=== PATIENT | female | born 1985 | race Caucasian/White ===

== ENCOUNTER → 2018-10-07 17:27 | Outpatient (CLI) | payer MEDICAID, SELFPAY ==
[2018-10-07 18:55] LABS: Alanine Aminotransferase 22 U/L (12-78); Albumin Level 3.4 gm/dL (3.4-5.0); Albumin/Globulin Ratio 0.9 (1.1-1.8); Alkaline Phosphatase 61 U/L (46-116); Aspartate Amino Transferase 16 U/L (15-37); Bilirubin,Total 0.2 mg/dL (0.2-1.0); Blood Urea Nitrogen 18 mg/dL (7-18); Calcium 8.8 mg/dL (8.5-10.1); Carbon Dioxide 24 mmol/L (21.0-32.0); Chloride 106 mmol/L (98-107); Chol/HDL Ratio 3.9 (1-3.5); Cholesterol 164 mg/dL (140-200); Creatinine,Serum 0.75 mg/dL (0.55-1.02); Estimated Glomerular Filt Rate 90 ml/min (>60); GFR (African American) 109 ML/MIN (>60); Globulin 3.7 gm/dl (1.3-3.2); Glucose 96 mg/dL (74-106); HDL Cholesterol 42 mg/dL (29-89); LDL Cholesterol 103 mg/dL (0-130); Sodium 142 mmol/L (136-145); Thyroid Stimulating Hormone 1.66 uIU/ml (0.358-3.740); Total Protein,Serum 7.1 gm/dL (6.4-8.2); Triglycerides 97 mg/dL (30-200); VLDL Cholesterol 19 mg/dL (0-40)
[2018-10-07 19:01] LABS: Basophils % 0.3 % (0.1-2.0); Eosinophils # 0.2 K/mm3 (0.0-0.4); Eosinophils % 1.6 % (0.1-12.0); Hematocrit 39.3 % (37.0-47.0); Hemoglobin 12.3 g/dL (12.2-16.2); Lymphocytes # 2.1 K/mm3 (0.7-4.5); Lymphocytes % 20.1 % (10-50); Mean Corpuscular HGB Conc 31.2 g/dL (31.8-35.4); Mean Corpuscular Hemoglobin 27.5 pg (27.0-31.2); Mean Corpuscular Volume 88.2 fl (81-99); Mean Platelet Volume 9.3 fl (7.4-10.4); Monocytes # 0.3 K/mm3 (0.1-1.0); Monocytes % 3.3 % (1.7-9.3); Neutrophils # 7.7 K/mm3 (1.8-7.8); Neutrophils % 74.7 % (37.0-80.0); Platelet Count 301 K/mm3 (142-424); Red Blood Count 4.45 M/mm3 (4.20-5.40); White Blood Count 10.3 K/mm3 (4.8-10.8)
== END ==
PROVIDERS: Visit Provider Emergency Medicine
DX: R53.83 Other fatigue (principal)
CPT/HCPCS: 80053; 80061; 84439; 84443; 85025

== ENCOUNTER → 2019-01-17 17:09 | Outpatient (CLI) | payer MEDICAID, SELFPAY ==
[2019-01-17 18:42] LABS: Amphetamine/Metha Screen,Urine Negative ng/mL (<1000); Barbiturates Screen,Urine Negative ng/mL (<200); Benzodiazepines Screen,Urine Positive ng/mL (<200); Cannabinoid Screen,Urine Negative ng/mL (<50); Cocaine Screen,Urine Positive ng/mL (<300); Methadone Screen,Urine Negative ng/mL (<300); Opiate Screen,Urine Negative ng/mL (<300); Phencyclidine Screen,Urine Negative ng/mL (<25)
[2019-01-24 11:11] LABS: Benzoylecgonine (GC/MS) 1525 ng/mL (Cutoff=150); Cocaine + Metabolite Positive (.)
== END ==
PROVIDERS: Visit Provider Emergency Medicine
DX: F41.9 Anxiety disorder, unspecified (principal); R82.90 Unspecified abnormal findings in urine
CPT/HCPCS: 80305; 80353; 87086; 87088; 87186

== ENCOUNTER → 2019-09-01 16:55 | Outpatient (CLI) | payer OTHER, SELFPAY ==
[2019-09-01 17:58] LABS: Basophils # 0.1 K/mm3 (0-0.2); Basophils % 1.2 % (0.1-2.0); Eosinophils # 0.3 K/mm3 (0.0-0.4); Eosinophils % 3.7 % (0.1-12.0); Hematocrit 39.2 % (37.0-47.0); Hemoglobin 12.6 g/dL (12.2-16.2); Lymphocytes # 2.6 K/mm3 (0.7-4.5); Lymphocytes % 29.8 % (10-50); Mean Corpuscular HGB Conc 32.1 g/dL (31.8-35.4); Mean Corpuscular Volume 83.9 fl (81-99); Mean Platelet Volume 8.5 fl (7.4-10.4); Monocytes # 0.4 K/mm3 (0.1-1.0); Monocytes % 4.8 % (1.7-9.3); Neutrophils # 5.2 K/mm3 (1.8-7.8); Neutrophils % 60.4 % (37.0-80.0); Platelet Count 439 K/mm3 (142-424); Red Blood Count 4.67 M/mm3 (4.20-5.40); Red Cell Distribution Width 14.4 % (11.5-17.5); White Blood Count 8.6 K/mm3 (4.8-10.8)
[2019-09-01 18:28] LABS: Erythrocyte Sedimentation Rate 66 mm/hr (0-20)
[2019-09-01 18:50] LABS: Alanine Aminotransferase 11 U/L (12-78); Albumin Level 4.5 g/dl (3.5-5.0); Albumin/Globulin Ratio 1.2 (1.1-1.8); Alkaline Phosphatase 89 U/L (38-126); Aspartate Amino Transferase 20 U/L (14-36); Blood Urea Nitrogen 23 mg/dl (7-17); Calcium 10.4 mg/dl (8.4-10.2); Carbon Dioxide 25 mmol/L (22.0-30.0); Chloride 108 mmol/L (98-107); Estimated Glomerular Filt Rate 117 ml/min (>60); GFR (African American) 141 ML/MIN (>60); Globulin 3.9 g/dL (1.3-3.2); Glucose 104 mg/dl (74-100); Sodium 140 mmol/L (136-145); Total Protein,Serum 8.4 g/dl (6.3-8.2)
[2019-09-01 18:52] LABS: Bilirubin,Total < 0.1 mg/dl (0.2-1.3)
[2019-09-01 18:55] LABS: C-Reactive Protein 9.3 mg/L (0-4)
[2019-09-03 11:27] LABS: RA Latex Turbid. 48.5 IU/mL (0.0-13.9)
[2019-09-03 12:47] LABS: Anti-Centromere B Antibodies <0.2 AI (0.0-0.9); Anti-Jo-1 <0.2 AI (0.0-0.9); Anti-Smith Antibody <0.2 AI (0.0-0.9); Antichromatin Antibodies <0.2 AI (0.0-0.9); Antiscleroderma-70 Antibodies <0.2 AI (0.0-0.9); RNP Antibodies <0.2 AI (0.0-0.9); Sjogren's Anti-SS-A <0.2 AI (0.0-0.9); Sjogren's Anti-SS-B <0.2 AI (0.0-0.9)
[2019-09-04 11:35] LABS: Anti-DNA (DS) Ab Qn A IU/mL (0-9)
[2019-09-04 11:36] LABS: Anti-Cyclic Citrullinated Pept >250 units (0-19)
== END ==
PROVIDERS: Visit Provider Emergency Medicine
DX: M06.9 Rheumatoid arthritis, unspecified (principal)
CPT/HCPCS: 80053; 85025; 85651; 86140; 86200; 86225; 86235; 86431

== ENCOUNTER → 2019-10-27 12:05 | Outpatient (CLI) | payer OTHER, SELFPAY ==
[2019-10-28 13:32] LABS: Covid-19 Nasal PCR Sendout Lex POSITIVE
== END ==
PROVIDERS: PCP Emergency Medicine; Visit Provider Emergency Medicine
DX: Z03.818 Encounter for observation for suspected exposure to other biological agents ruled out (principal)
CPT/HCPCS: U0004

== ENCOUNTER → 2020-01-21 13:40 | Outpatient (CLI) | payer OTHER, SELFPAY | PROVIDERS: Visit Provider Emergency Medicine | DX: R21 Rash and other nonspecific skin eruption (principal) | CPT/HCPCS: 87070; 87077; 87186; 87205 ==

== ENCOUNTER → 2020-04-22 14:51 | Outpatient (CLI) | payer OTHER, SELFPAY ==
[2020-04-22 14:58] LABS: Basophils # 0.1 K/mm3 (0-0.2); Basophils % 0.7 % (0.1-2.0); Eosinophils # 0.3 K/mm3 (0.0-0.4); Eosinophils % 3.1 % (0.1-12.0); Hematocrit 43.5 % (37.0-47.0); Hemoglobin 14.3 g/dL (12.2-16.2); Lymphocytes # 2.2 K/mm3 (0.7-4.5); Lymphocytes % 22.1 % (10-50); Mean Corpuscular HGB Conc 32.8 g/dL (31.8-35.4); Mean Corpuscular Hemoglobin 29.4 pg (27.0-31.2); Mean Corpuscular Volume 89.7 fl (81-99); Mean Platelet Volume 8.4 fl (7.4-10.4); Monocytes # 0.5 K/mm3 (0.1-1.0); Monocytes % 4.9 % (1.7-9.3); Neutrophils % 69.1 % (37.0-80.0); Platelet Count 345 K/mm3 (142-424); Red Blood Count 4.86 M/mm3 (4.20-5.40); Red Cell Distribution Width 13.8 % (11.5-17.5); White Blood Count 10.1 K/mm3 (4.8-10.8)
[2020-04-22 15:23] LABS: Alanine Aminotransferase 15 U/L (12-78); Albumin Level 4.2 g/dl (3.5-5.0); Albumin/Globulin Ratio 1.2 (1.1-1.8); Alkaline Phosphatase 74 U/L (38-126); Aspartate Amino Transferase 22 U/L (14-36); Bilirubin,Total 0.5 mg/dl (0.2-1.3); Blood Urea Nitrogen 18 mg/dl (7-17); Calcium 9.5 mg/dl (8.4-10.2); Carbon Dioxide 27 mmol/L (22.0-30.0); Chloride 104 mmol/L (98-107); Chol/HDL Ratio 4.5 (1-3.5); Cholesterol 206 mg/dl (140-200); Estimated Glomerular Filt Rate 97 ml/min (>60); GFR (African American) 117 ML/MIN (>60); Globulin 3.5 g/dL (1.3-3.2); Glucose 96 mg/dl (74-100); HDL Cholesterol 46 mg/dl (40-60); Sodium 138 mmol/L (136-145); Total Protein,Serum 7.7 g/dl (6.3-8.2); Triglycerides 231 mg/dl (30-150); VLDL Cholesterol 46 mg/dL (0-40)
[2020-04-22 15:34] LABS: Direct LDL Cholesterol 111.18 mg/dL (100-129)
[2020-04-22 15:38] LABS: Free T4 (Free Thyroxine) 1.32 ng/dl (0.78-2.19)
[2020-04-22 15:53] LABS: Thyroid Stimulating Hormone 1.56 uIU/mL (0.465-4.68)
[2020-05-02 18:13] LABS: 1,25 Dihydroxy Vitamin D 47 pg/mL (.); 1,25-Dihydroxy, Vitamin D-2 <10 pg/mL (.); 1,25-Dihydroxy, Vitamin D-3 44 pg/mL (.)
== END ==
PROVIDERS: Visit Provider Nurse Practitioner Family
DX: R53.83 Other fatigue (principal)
CPT/HCPCS: 80053; 80061; 82652; 84439; 84443; 85025

== ENCOUNTER → 2020-08-24 13:41 | Outpatient (CLI) | payer OTHER, SELFPAY ==
[2020-08-24 14:09] LABS: Barbiturates Screen,Urine Negative ng/ml (<200); Benzodiazepines Screen,Urine Negative ng/ml (<200)
[2020-08-24 14:10] LABS: Amphetamine/Metha Screen,Urine Negative ng/ml (<1000)
[2020-08-24 14:11] LABS: Cannabinoid Screen,Urine Negative ng/ml (<50); Cocaine Screen,Urine Negative ng/ml (<300)
[2020-08-24 14:12] LABS: Methadone Screen,Urine Negative ng/ml (<300)
[2020-08-24 14:13] LABS: Opiate Screen,Urine Negative ng/ml (<300); Phencyclidine Screen,Urine Negative ng/ml (<25)
== END ==
PROVIDERS: Visit Provider Emergency Medicine
DX: Z79.899 Other long term (current) drug therapy (principal)
CPT/HCPCS: 80305

== ENCOUNTER → 2020-09-02 13:36 | Outpatient (CLI) | payer OTHER, SELFPAY ==
[2020-09-02 13:52] LABS: Alanine Aminotransferase 17 U/L (12-78); Albumin Level 4.3 g/dl (3.5-5.0); Albumin/Globulin Ratio 1.4 (1.1-1.8); Alkaline Phosphatase 62 U/L (38-126); Anion Gap 11.1 mEq/L (5-15); Aspartate Amino Transferase 31 U/L (14-36); Bilirubin,Total 0.4 mg/dl (0.2-1.3); Blood Urea Nitrogen 17 mg/dl (7-17); Calcium 9.5 mg/dl (8.4-10.2); Carbon Dioxide 26 mmol/L (22.0-30.0); Chloride 107 mmol/L (98-107); Chol/HDL Ratio 4.1 (1-3.5); Cholesterol 187 mg/dl (140-200); Estimated Glomerular Filt Rate 83 ml/min (>60); GFR (African American) 101 ML/MIN (>60); Glucose 91 mg/dl (74-100); HDL Cholesterol 46 mg/dl (40-60); Potassium 4.1 mmoL/L (3.5-5.1); Sodium 140 mmol/L (136-145); Total Protein,Serum 7.3 g/dl (6.3-8.2); Triglycerides 201 mg/dl (30-150); VLDL Cholesterol 40 mg/dL (0-40)
[2020-09-02 13:55] LABS: Basophils % 0.3 % (0.1-2.0); Eosinophils # 0.1 K/mm3 (0.0-0.4); Eosinophils % 1.6 % (0.1-12.0); Hematocrit 39.4 % (37.0-47.0); Hemoglobin 12.9 g/dL (12.2-16.2); Lymphocytes # 2.2 K/mm3 (0.7-4.5); Lymphocytes % 31.8 % (10-50); Mean Corpuscular HGB Conc 32.8 g/dL (31.8-35.4); Mean Corpuscular Hemoglobin 29.7 pg (27.0-31.2); Mean Corpuscular Volume 90.5 fl (81-99); Mean Platelet Volume 8.3 fl (7.4-10.4); Monocytes # 0.4 K/mm3 (0.1-1.0); Neutrophils # 4.2 K/mm3 (1.8-7.8); Neutrophils % 61.2 % (37.0-80.0); Platelet Count 350 K/mm3 (142-424); Red Blood Count 4.36 M/mm3 (4.20-5.40); Red Cell Distribution Width 14.5 % (11.5-17.5); White Blood Count 6.9 K/mm3 (4.8-10.8)
[2020-09-02 14:03] LABS: Direct LDL Cholesterol 98.33 mg/dL (100-129)
[2020-09-02 14:09] LABS: 25-OH Vitamin D, Total 45.7 ng/mL (30-100)
[2020-09-02 14:10] LABS: T4 (Thyroxine) 9.6 ug/dl (5.53-11.0)
[2020-09-02 14:23] LABS: Thyroid Stimulating Hormone 1.12 uIU/mL (0.465-4.68)
== END ==
PROVIDERS: Visit Provider Nurse Practitioner Family
DX: M54.5 Low back pain (principal); E66.3 Overweight; Z68.29 Body mass index [BMI] 29.0-29.9, adult; Z79.899 Other long term (current) drug therapy
CPT/HCPCS: 80053; 80061; 82306; 84436; 84443; 85025; 87086

== ENCOUNTER 2020-09-07 11:42 | Observation (INO) | payer OTHER, SELFPAY ==
[2020-09-07] VITALS (18 sets, daily range): BP systolic 114–151; BP diastolic 75–84; PULSE 80–129; RESP 15–24; TEMP 36.4–37.5; O2SAT 94–98; BMI 31.5; BMI 33.1
--- NOTE | 2020-09-07 11:53 | HMH.EDGENADL ---
ED Disposition Clinical Impression: Bronchospasm Pneumonia Qualifiers: Pneumonia type: due to unspecified organism Laterality: right Lung location: lower lobe of lung Qualified Code(s): J18.9 - Pneumonia, unspecified organism Disposition: Admitted as Observation Condition on Discharge: Fair - Critical Care Critical Care Time: No Attestation: On 09/07/20, the high probability of a clinically significant, sudden or life threatening deterioration of the following system(s) required my full and direct attention, intervention and personal management. The time I documented below is in addition to time spent performing reported procedures but includes the following listed in this critical care notation. Medical Decision Making - Kana Inquiry Pt receiving controlled substance: No Vital Signs: 09/07/20 11:52 Temperature 98.7 F Temperature Source Oral Pulse Rate [Left] 129 H Respiratory Rate 15 Blood Pressure [Right Arm] 122/76 Blood Pressure Mean [Right Arm] 91 Blood Pressure Source [Right Arm] Automatic Cuff Blood Pressure Position [Right Arm] Supine 02 Sat by Pulse Oximetry 98 Oxygen Delivery Method Room Air - Lab Data Lab Results 09/07/20 11:45: WBC 14.4 H, RBC 4.24, Hgb 12.6, Hct 38.4, MCV 90.6, MCH 29.6, MCHC 32.7, RDW 14.6, Plt Count 323, MPV 8.6, Neut % (Auto) 89.0 H, Lymph % (Auto) 7.3 L, [place] % (Auto) 2.5, Eos % (Auto) 1.1, Baso % (Auto) 0.1, Neut # (Auto) 12.8 H, Lymph # (Auto) 1.0, [place] # (Auto) 0.4, Eos # (Auto) 0.2, Baso # (Auto) 0.0, Total Counted 100, Neutrophils % (Manual) 87 H, Band Neutrophils % 1.0, Lymphocytes % (Manual) 5 L, Monocytes % (Manual) 7, Nucleated RBCs 1, Platelet Estimate Normal, Hypochromasia 2+ 09/07/20 11:45: Sodium 140, Potassium 3.9, Chloride 112 H, Carbon Dioxide 24, Anion Gap 7.9, BUN 18 H, Creatinine 0.70, Estimated Creat Clear 138, Estimated GFR 97, Est GFR ( Amer) 117, Glucose 122 H, Calcium 8.9, Total Bilirubin 0.5, AST 33, ALT 20, Alkaline Phosphatase 52, Total Protein 7.6, Albumin 4.3, Globulin 3.3 H, Albumin/Globulin Ratio 1.3 09/07/20 11:45: Lactate 1.9 Result diagrams: 09/07/20 11:45 09/07/20 11:45 Orders (Tests/Meds): ED MEDICATIONS Generic Name Dose Route Start Last Admin Trade Name Freq PRN Reason Stop Dose Admin Ceftriaxone Sodium 1 gm/ 50 mls @ 100 mls/hr 09/07/20 12:00 09/07/20 11:59 Sodium Chloride IV 09/21/20 11:59 100 mls/hr Q24H JUDY Administration Protocol Azithromycin 500 mg/ Sodium 250 mls @ 250 mls/hr 09/07/20 12:00 09/07/20 12:30 Chloride IV 09/21/20 11:59 250 mls/hr Q24H JUDY Administration Protocol Discontinued Medications Generic Name Dose Route Start Last Admin Trade Name Freq PRN Reason Stop Dose Admin Methylprednisolone Sodium Succinate 125 mg 09/07/20 11:50 09/07/20 11:52 Methylprednisolone Sod Succ 125mg Vial IV 09/07/20 11:51 125 mg ONCE ONE Administration ORDERS Category Date Time Status Blood Culture Stat Micro 09/07/20 11:45 Received - Radiology Data #1 Image(s): Chest Image Reviewed: Yes I reviewed the patient's radiology image Infiltrate right base - Physician Consults Physician Consulted: Sean Time: 14:00 Reason -: Admission Comment/Response: Agrees to admit the patient to the hospital. We discussed the patient's clinical information, including history, exam, laboratory and radiology results and ED course. Per hospital procedure, I will write temporary bridge inpatient orders on the patient. Specific orders requested by the admitting physician: Continue antibiotics, steroids, nebulizer treatments. Consult pulmonary. General Adult HPI - General Chief complaint: Shortness of Breath/Dyspnea Stated complaint: SOB Time Seen by Provider: 09/07/20 11:53 - History of Present Illness HPI narrative: Arrives by ambulance from Dr. Estrada's office for shortness of breath and wheezing. She has been sick for 2 days with a nonproductive cough, wh
[2020-09-07 12:06] LABS: Basophils % 0.1 % (0.1-2.0); Eosinophils # 0.2 K/mm3 (0.0-0.4); Eosinophils % 1.1 % (0.1-12.0); Hematocrit 38.4 % (37.0-47.0); Hemoglobin 12.6 g/dL (12.2-16.2); Lymphocytes % 7.3 % (10-50); Mean Corpuscular HGB Conc 32.7 g/dL (31.8-35.4); Mean Corpuscular Hemoglobin 29.6 pg (27.0-31.2); Mean Corpuscular Volume 90.6 fl (81-99); Mean Platelet Volume 8.6 fl (7.4-10.4); Monocytes # 0.4 K/mm3 (0.1-1.0); Monocytes % 2.5 % (1.7-9.3); Neutrophils # 12.8 K/mm3 (1.8-7.8); Platelet Count 323 K/mm3 (142-424); Red Blood Count 4.24 M/mm3 (4.20-5.40); Red Cell Distribution Width 14.6 % (11.5-17.5); White Blood Count 14.4 K/mm3 (4.8-10.8)
[2020-09-07 12:09] LABS: Alanine Aminotransferase 20 U/L (12-78); Albumin Level 4.3 g/dl (3.5-5.0); Albumin/Globulin Ratio 1.3 (1.1-1.8); Alkaline Phosphatase 52 U/L (38-126); Anion Gap 7.9 mEq/L (5-15); Aspartate Amino Transferase 33 U/L (14-36); Bilirubin,Total 0.5 mg/dl (0.2-1.3); Blood Urea Nitrogen 18 mg/dl (7-17); Calcium 8.9 mg/dl (8.4-10.2); Carbon Dioxide 24 mmol/L (22.0-30.0); Chloride 112 mmol/L (98-107); Creatinine Clearance Estimated 138 mL/min (50-200); Estimated Glomerular Filt Rate 97 ml/min (>60); GFR (African American) 117 ML/MIN (>60); Globulin 3.3 g/dL (1.3-3.2); Glucose 122 mg/dl (74-100); Potassium 3.9 mmoL/L (3.5-5.1); Sodium 140 mmol/L (136-145); Total Protein,Serum 7.6 g/dl (6.3-8.2)
[2020-09-07 12:11] LABS: Lactic Acid 1.9 mmol/L (0.7-2.1)
[2020-09-07 12:17] LABS: MANUAL DIFFERENTIAL MANUAL DIFFERENTIAL (MANUAL DIFF)
--- NOTE | 2020-09-07 12:39 | XR_ITS ---
PROCEDURE: XR CHEST PORTABLE CLINICAL HISTORY: soa Shortness of air COMPARISON: CR CXR CHEST(2 VIEWS-NOT PORTABLE) from 01/10/2017 FINDINGS: There are low lung volumes. Unremarkable heart size. There is an azygos fissure is a normal variant. Mediastinum is somewhat prominent but may be in part be due to the poor inspiration and mild rotation and AP positioning. Upright non rotated PA and lateral chest may provide further evaluation. Patchy density is present in the right lower lobe consistent with atelectasis and/or infiltrate. No acute bony abnormalities. IMPRESSION: Right lower lobe atelectasis and or infiltrate. Mild prominence of the mediastinum on the right which may in part be due to patient rotation and AP positioning with poor inspiration. Upright non rotated PA and lateral chest with better inspiration may confirm. Dictated by: Edis Salazar MD 09/07/2020 14:11 Edis Salazar MD in [facility] 09/07/2020 14:11
[2020-09-07 12:45] LABS: Hypochromasia 2+; Lymphocytes % 5 % (10-50); Monocytes % 7 % (2-9); Neutrophils % 87 % (42-76); Nucleated Red Blood Cells 1; Platelet Estimate Normal; Total Cells Counted 100
--- NOTE | 2020-09-07 14:07 | PC.NURSE ---
CARE MANAGEMENT CALLED
[2020-09-07 14:22] LABS: Adenovirus,PCR Not Detected (NotDetected); Coronavirus 229E Not Detected (NotDetected); Coronavirus NL63 Not Detected (NotDetected); Coronavirus OC43 Not Detected (NotDetected); Coronovirus HKU1,PCR Not Detected (NotDetected); Human Metapneumovirus Not Detected (NotDetected); Influenza A, PCR Not Detected (NotDetected); Influenza AH1, 2009 Not Detected (NotDetected); Influenza AH1, PCR Not Detected (NotDetected); Influenza AH3,PCR Not Detected (NotDetected); Influenza B, PCR Not Detected (NotDetected); Parainfluenza 1, PCR Not Detected (NotDetected); Parainfluenza 2, PCR Not Detected (NotDetected)
[2020-09-07 14:23] LABS: Bordetella Pertussis Not Detected (NotDetected); Chlamydophila Pneumoniae, PCR Not Detected (NotDetected); Coronavirus 19, PCR Not Detected (NotDetected); Mycoplasma Pneumoniae, PCR Not Detected (NotDetected); Parainfluenza 3, PCR Not Detected (NotDetected); Parainfluenza 4, PCR Not Detected (NotDetected); Respiratory Syncytial Virus Not Detected (NotDetected)
--- NOTE | 2020-09-07 15:12 | PC.NURSE ---
PT medicated per MAR
--- NOTE | 2020-09-07 16:01 | INFXCTL.NOTE ---
per lab approx 35 minutes until results of covid swab
--- NOTE | 2020-09-07 16:28 | CT_ITS ---
PROCEDURE INFORMATION: Exam: CTA Chest With Contrast Exam date and time: 09/07/2020 4:28 PM Age: 34 years old Clinical indication: Patient HX: SOA, cough; Additional info: SOB TECHNIQUE: Imaging protocol: Computed tomographic angiography of the chest with contrast. 3D rendering (Not supervised by radiologist): MIP and/or 3D reconstructed images were created by the technologist. Radiation optimization: All CT scans at this facility use at least one of these dose optimization techniques: automated exposure control; mA and/or kV adjustment per patient size (includes targeted exams where dose is matched to clinical indication); or iterative reconstruction. Contrast material: ISOVUE 370; Contrast volume: 70 ml; Contrast route: INTRAVENOUS (IV); COMPARISON: CR XR CHEST PORTABLE 09/07/2020 12:46 PM FINDINGS: Pulmonary arteries: No evidence of pulmonary embolism. Aorta: No evidence of aortic dissection. Lungs: Diffuse patchy airspace opacities noted throughout the lungs bilaterally. Pleural spaces: Unremarkable. No pneumothorax. No pleural effusion. Heart: Unremarkable. No cardiomegaly. No pericardial effusion. Lymph nodes: Unremarkable. No enlarged lymph nodes. Bones/joints: Unremarkable. No acute fracture. Soft tissues: Unremarkable. IMPRESSION: 1. No evidence of pulmonary embolism. 2. No evidence of aortic dissection. 3. Diffuse patchy airspace opacities noted throughout the lungs bilaterally.
--- NOTE | 2020-09-07 16:30 | HMH.PULMCON ---
*Admission Date: 09/07/20 *Reason for consult:: Respiratory distress, cough *History of present illness: Ms. Milton is a 34-year-old female history of rheumatoid arthritis currently on Tofacitinib presented emergency department complaining of respiratory distress and chronic cough that is not been improving for the last 5 days. Patient denies any productive phlegm. Patient states that her chest pain gradually worsened with the cough. She denies any hemoptysis. Denies any sick contacts. Patient denies any worsening joint pains on her rheumatoid arthritis symptoms. Denies any orthopnea PND or lower extremity swelling. [facility] History Medical History: Reports:: Anxiety, Gall Bladder Disease Denies:: Diabetes Mellitus Type 1, Diabetes Mellitus Type 2 *Have you ever received a pneumonia vaccine?: Yes *Have you received a flu vaccine this season?: Yes Other Medical History: Reports: Arthritis Other Surgeries: Yes: Appendectomy, Cholecystectomy, Diagnostic Lap, Other Amputation: No Fractures: No - *Social History Smoking Status: Current every day smoker Tobacco Type: cigarettes # Packs/Day (cigarettes): 1 Alcohol Intake: never Alcohol Intake Frequency:: other Substance Use Type: former substance user, crack/cocaine, painkillers *Occupational Status:: employed Housing: apartment Household Members: family *Travel in the last 8 weeks: None - Psychiatric History Expresses thoughts of harming self/others: None Pschychiatric History:: Reports:: Anxiety Family Hx:: Diabetes, Cancer, Heart Attack, Hypertension, Anemia 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 comments: other ROS - Cons Reports body ache(s), Reports fatigue, Reports weakness - Eyes Denies blind spots, Denies blurry vision - Card Reports chest pain, Reports shortness of breath with activity, Denies generalized swelling - Resp Respiratory: Reports chest congestion, Reports cough, Reports non-productive cough, Reports dyspnea on exertion, Denies coughing up blood, Reports pain with cough - GI Gastrointestingal: Denies: diarrhea - Musk Musculoskeletal: Denies back pain - Psych Reports abnormal sleep pattern Meds Home Medications Medication Instructions Recorded Confirmed Type Albuterol Sulfate [Albuterol See Rx Instructions .ROUTE .COMPLEX 09/07/20 09/07/20 History Sulfate Hfa] Benzonatate [Benzonatate 200mg Cap] 200 mg PO TID PRN 09/07/20 09/07/20 History Doxycycline Hyclate [Doxycycline 100 mg PO BID 09/07/20 09/07/20 History 100mg Capsule] Escitalopram Oxalate 10 mg PO DAILY 09/07/20 09/07/20 History Ibuprofen 800 mg PO Q8H 09/07/20 09/07/20 History Tofacitinib Citrate [Xeljanz XR] 11 mg PO DAILY 09/07/20 09/07/20 History clonazePAM [Clonazepam] 0.5 mg PO TID 09/07/20 09/07/20 History Allergies Allergy/AdvReac Type Severity Reaction Status Date / Time ketorolac [From Toradol] Allergy Severe Hives Verified 09/07/20 11:44 morphine Allergy Severe Chest Pain Verified 09/07/20 11:44 tramadol AdvReac Verified 09/07/20 12:09 varenicline [From Chantix] AdvReac anxiety, Verified 09/07/20 11:44 nightmares Exam - Constitutional Constitutional:: Present: no acute distress, comfortable - HENMT Exam HENMT: Present: normocephalic, atraumatic - Eye Exam Eyes:: Present: normal appearance both eyes and related structures - Neck Exam Neck:: Present: normal visual inspection - Respiratory Exam Respiratory:: Present: able to speak in complete sentences, respiratory distress, wheezing - Cardiovascular Exam Cardiac:: Present: S1, S2 - GI Exam GI:: Present: soft, no hepatosplenomegaly - Skin Exam Skin: Present: warm, no rash, dry - Neurological Exam Neurological: Present: alert, awake, normal cognition - Extremities Exam Extremities: Present: no cyanosis, no clubbing, no edema Internal Medicine - CN: Reslt - Labs CBC & Chem 7: 09/07/20 11:45 09/07/20 11:45 Labs: Short CBC 09/07/20 Range/Units 11:45 WBC
[2020-09-07 16:48] LABS: Rhinovirus/Enterovirus Detected (NotDetected)
--- NOTE | 2020-09-07 17:03 | PC.NURSE ---
report called to NIDHI Almeida
--- NOTE | 2020-09-07 19:13 | HMH.HP ---
*Admission Date: 09/07/20 *Chief complaint: cough and pneumonia *History of present illness: Arrives by ambulance from Dr. Estrada's office for shortness of breath and wheezing. She has been sick for 2 days with a nonproductive cough, wheezing, chest pain, fever between 101 and 102 degrees, left earache, shortness of breath. Seen at [facility] in [place] last night for the same symptoms. She says she was told she has a possible pneumonia. She was given breathing treatments. Discharged on doxycycline, albuterol, Tessalon Perles, prednisone. Seen at Dr. Estrada's office today and was given 2 albuterol treatments and transferred to the hospital by ambulance. Given a DuoNeb treatment during transport. No prior history of lung problems or asthma. She is a smoker. No known exposures. States she tested negative for influenza, strep, and COVID-19 at [facility] last night. Patient's work-up in the ER included a chest x-ray which was suggestive of a right lower lobe infiltrate. She also underwent a CTA of the chest which was negative for pulmonary embolism and dissection. It did show some patchy scattered infiltration. She is admitted for further evaluation and treatment. [facility] History Medical History: Reports:: Anxiety, Gall Bladder Disease Denies:: Diabetes Mellitus Type 1, Diabetes Mellitus Type 2 *Have you ever received a pneumonia vaccine?: No *Have you received a flu vaccine this season?: Yes Other Medical History: Reports: Arthritis Other Surgeries: Yes: Appendectomy, Cholecystectomy, Diagnostic Lap, Other Amputation: No Fractures: No - *Social History Last grade of school completed: Some college Smoking Status: Current every day smoker Tobacco Type: cigarettes # Packs/Day (cigarettes): 1 Alcohol Intake: never Alcohol Intake Frequency:: other Substance Use Type: former substance user, crack/cocaine, painkillers *Occupational Status:: unemployed Housing: apartment Household Members: children *Travel in the last 8 weeks: None - Psychiatric History Expresses thoughts of harming self/others: None Pschychiatric History:: Reports:: Anxiety Family Hx:: Diabetes, Heart Attack 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 comments: other Review of Systems - Constitutional Reports fatigue - Eyes Denies change in vision - ENT Reports nasal congestion, Reports nasal discharge, Reports post nasal drip, Denies abnormal hearing - *Cardiovascular Reports chest pain, Reports shortness of breath with activity - *Respiratory Reports chest congestion, Reports cough, Reports shortness of breath, Reports pain with cough, Reports wheezing - *Gastrointestinal Denies abdominal pain - *Genitourinary Denies difficulty urinating - *Musculoskeletal Denies abnormal walking - Integumentary/Breasts Denies yellowing of the skin - *Neurologic Reports weakness - Psychiatric Reports anxiety - Endocrine Denies rapid, pounding, or irregular heartbeat - Hematologic/Lymphatic Denies easy bleeding - Allergic/Immunologic Denies hives Meds Home Medications Medication Instructions Recorded Confirmed Type Albuterol Sulfate [Albuterol See Rx Instructions .ROUTE .COMPLEX 09/07/20 09/07/20 History Sulfate Hfa] Benzonatate [Benzonatate 200mg Cap] 200 mg PO TID PRN 09/07/20 09/07/20 History Doxycycline Hyclate [Doxycycline 100 mg PO BID 09/07/20 09/07/20 History 100mg Capsule] Escitalopram Oxalate 10 mg PO DAILY 09/07/20 09/07/20 History Ibuprofen 800 mg PO Q8H 09/07/20 09/07/20 History Tofacitinib Citrate [Xeljanz XR] 11 mg PO DAILY 09/07/20 09/07/20 History clonazePAM [Clonazepam] 0.5 mg PO TID 09/07/20 09/07/20 History Allergies Allergy/AdvReac Type Severity Reaction Status Date / Time ketorolac [From Toradol] Allergy Severe Hives Verified 09/07/20 11:44 morphine Allergy Severe Chest Pain Verified 09/07/20 11:44 tramadol AdvReac Verified 09/07/20 12:09 varenicline [From Chantix] AdvReac anxiety, Ve
--- NOTE | 2020-09-07 21:22 | PC.NURSE ---
patient off floor at this time.
--- NOTE | 2020-09-07 21:43 | PC.NURSE ---
patient back up to floor at this time.
[2020-09-08] VITALS (13 sets, daily range): BP systolic 105–130; BP diastolic 58–76; PULSE 53–92; RESP 18–20; TEMP 36.8–37.9; O2SAT 96–99; BMI 33.1
--- NOTE | 2020-09-08 05:04 | PC.NURSE ---
A&O. PT has c/o trouble sleeping, 50mg benedryl given, pt reported it did not help. Ativan was given per Dr Sousa. Pt slept well afterwards. Pt has a dry barky cough. Able to ambulate independently to BR. Lungs have fine crackles scattered. Pt room air sat was 98. IV patent, NS @ 50. VSS, call light in reach, no concerns at this time.
--- NOTE | 2020-09-08 06:00 | XR_ITS ---
PROCEDURE INFORMATION: Exam: XR Chest Exam date and time: 09/08/2020 6:00 AM Age: 34 years old Clinical indication: Condition or disease; Other: Pneumonia rhinovirus TECHNIQUE: Imaging protocol: XR of the chest. Views: 1 view. COMPARISON: CR XR CHEST PORTABLE 09/07/2020 12:46 PM FINDINGS: Lungs: Atelectasis and/or infiltrative changes noted within the lung bases, greater on the left. Pleural spaces: Unremarkable. No pleural effusion. No pneumothorax. Heart/Mediastinum: Unremarkable. No cardiomegaly. Diaphragm: There is nonspecific elevation of the right hemidiaphragm. Bones/joints: Mild scoliotic curvature of the thoracolumbar spine. IMPRESSION: Atelectasis and/or infiltrative changes noted within the lung bases, greater on the left.
[2020-09-08 06:33] LABS: Basophils % 0.1 % (0.1-2.0); Eosinophils # 0.1 K/mm3 (0.0-0.4); Eosinophils % 0.7 % (0.1-12.0); Hematocrit 34.4 % (37.0-47.0); Lymphocytes # 0.9 K/mm3 (0.7-4.5); Lymphocytes % 5.1 % (10-50); Mean Corpuscular HGB Conc 32.1 g/dL (31.8-35.4); Mean Corpuscular Hemoglobin 29.6 pg (27.0-31.2); Mean Corpuscular Volume 92.1 fl (81-99); Mean Platelet Volume 8.1 fl (7.4-10.4); Monocytes # 0.3 K/mm3 (0.1-1.0); Monocytes % 1.8 % (1.7-9.3); Neutrophils # 15.6 K/mm3 (1.8-7.8); Neutrophils % 92.3 % (37.0-80.0); Platelet Count 281 K/mm3 (142-424); Red Blood Count 3.73 M/mm3 (4.20-5.40); White Blood Count 16.9 K/mm3 (4.8-10.8)
[2020-09-08 06:44] LABS: Alanine Aminotransferase 20 U/L (12-78); Albumin Level 3.4 g/dl (3.5-5.0); Albumin/Globulin Ratio 1.3 (1.1-1.8); Alkaline Phosphatase 48 U/L (38-126); Anion Gap 6.9 mEq/L (5-15); Aspartate Amino Transferase 24 U/L (14-36); Bilirubin,Total 0.3 mg/dl (0.2-1.3); Blood Urea Nitrogen 18 mg/dl (7-17); Calcium 8.5 mg/dl (8.4-10.2); Carbon Dioxide 24 mmol/L (22.0-30.0); Chloride 112 mmol/L (98-107); Creatinine Clearance Estimated 169 mL/min (50-200); Estimated Glomerular Filt Rate 116 ml/min (>60); GFR (African American) 140 ML/MIN (>60); Globulin 2.7 g/dL (1.3-3.2); Glucose 187 mg/dl (74-100); Potassium 3.9 mmoL/L (3.5-5.1); Sodium 139 mmol/L (136-145); Total Protein,Serum 6.1 g/dl (6.3-8.2)
[2020-09-08 07:00] LABS: MANUAL DIFFERENTIAL MANUAL DIFFERENTIAL (MANUAL DIFF)
[2020-09-08 07:41] LABS: Hemoglobin 11.2 g/dL (12.2-16.2)
--- NOTE | 2020-09-08 08:30 | HMH.PHAVTE ---
[facility] VTE Monitoring - Patient Demographics Admission date: 09/08/20 Report Date: 09/08/20 Time: 08:30 Allergies/Adverse Reactions: Patient Allergies ketorolac [From Toradol] Allergy (Severe, Verified 09/07/20 11:44) Hives morphine Allergy (Severe, Verified 09/07/20 11:44) Chest Pain tramadol Adverse Reaction (Verified 09/07/20 12:09) varenicline [From Chantix] Adverse Reaction (Verified 09/07/20 11:44) anxiety, nightmares Height: 1.55 m Weight: 79.577 kg Patient Problems: Current Active Problems Pneumonia (Acute) Bronchospasm (Acute) Rheumatoid arthritis (Chronic) Tobacco use (Chronic) Anxiety (Chronic) Bronchitis (Acute) - VTE Risk Labs: VTE Related Lab Results Hgb 11.2 g/dL (12.2-16.2) L D 09/08/20 06:09 Hct 34.4 % (37.0-47.0) L 09/08/20 06:09 Plt Count 281 K/mm3 (142-424) 09/08/20 06:09 BUN 18 mg/dl (7-17) H 09/08/20 06:09 Creatinine 0.60 mg/dl (0.52-1.04) 09/08/20 06:09 Estimated Creat Clear 169 mL/min (50-200) 09/08/20 06:09 Was VTE Risk Assessment Performed: Yes VTE Score: 0 VTE Risk Level: Very Low Risk Clinical Trial Participant: No - Prophylaxis VTE Prophylaxis Ordered?: Yes Types of VTE Prophylaxis: TEDS Knee High
[2020-09-08 08:54] LABS: Lymphocytes % 7 % (10-50); Monocytes % 2 % (2-9); Neutrophils % 91 % (42-76); Platelet Estimate Normal; RBC Morphology Normal; Total Cells Counted 100
--- NOTE | 2020-09-08 08:55 | HMH.ACPN2 ---
Internal Medicine - PN: Subj *Date: 09/08/20 *Time: 12:57 Interval history: 34-year-old female patient sitting up in bed resting quietly with eyes closed, awakens to verbal stimuli. She reports she is feeling a little better today she still has hacking nonproductive cough. Boyfriend is at bedside. She is complaining of not being able to sleep for the last 2 days and is requesting medication for sleep. Exam Vital signs and Labs for Last 24 Hours: Temp Pulse Resp BP Pulse Ox 100.3 F H 92 H 20 127/65 97 09/08/20 07:50 09/08/20 08:00 09/08/20 07:50 09/08/20 07:50 09/08/20 08:00 Laboratory Results - last 24 hr 09/07/20 11:45: WBC 14.4 H, RBC 4.24, Hgb 12.6, Hct 38.4, MCV 90.6, MCH 29.6, MCHC 32.7, RDW 14.6, Plt Count 323, MPV 8.6, Neut % (Auto) 89.0 H, Lymph % (Auto) 7.3 L, [place] % (Auto) 2.5, Eos % (Auto) 1.1, Baso % (Auto) 0.1, Neut # (Auto) 12.8 H, Lymph # (Auto) 1.0, [place] # (Auto) 0.4, Eos # (Auto) 0.2, Baso # (Auto) 0.0, Total Counted 100, Neutrophils % (Manual) 87 H, Band Neutrophils % 1.0, Lymphocytes % (Manual) 5 L, Monocytes % (Manual) 7, Nucleated RBCs 1, Platelet Estimate Normal, Hypochromasia 2+ 09/07/20 11:45: Sodium 140, Potassium 3.9, Chloride 112 H, Carbon Dioxide 24, Anion Gap 7.9, BUN 18 H, Creatinine 0.70, Estimated Creat Clear 138, Estimated GFR 97, Est GFR ( Amer) 117, Glucose 122 H, Calcium 8.9, Total Bilirubin 0.5, AST 33, ALT 20, Alkaline Phosphatase 52, Total Protein 7.6, Albumin 4.3, Globulin 3.3 H, Albumin/Globulin Ratio 1.3 09/07/20 11:45: Lactate 1.9 09/07/20 11:53: Chlamy pneumoniae PCR Not detected, Adenovirus (PCR) Not detected, B. pertussis DNA (PCR) Not detected, Coronavirus OC43 (PCR) Not detected, Coronavirus HKU1 (PCR) Not detected, Coronavirus 229E (PCR) Not detected, SARS-CoV-2 (PCR) Not detected, Coronavirus NL63 (PCR) Not detected, Human Metapneumovir PCR Not detected, Influenza A (H1) PCR Not detected, Influ A (H1N1/09) PCR Not detected, Influenza A (H3) PCR Not detected, Influenza Type A (PCR) Not detected, Influenza Type B (PCR) Not detected, M. pneumoniae (PCR) Not detected, Parainfluenza 1 (PCR) Not detected, Parainfluenza 2 (PCR) Not detected, Parainfluenza 3 (PCR) Not detected, Parainfluenza 4 (PCR) Not detected, RSV (PCR) Not detected, Entero/Rhino (PCR) Detected A 09/08/20 06:09: WBC 16.9 H, RBC 3.73 L, Hgb 11.2 L D, Hct 34.4 L, MCV 92.1, MCH 29.6, MCHC 32.1, RDW 15.0, Plt Count 281, MPV 8.1, Neut % (Auto) 92.3 H, Lymph % (Auto) 5.1 L, [place] % (Auto) 1.8, Eos % (Auto) 0.7, Baso % (Auto) 0.1, Neut # (Auto) 15.6 H, Lymph # (Auto) 0.9, [place] # (Auto) 0.3, Eos # (Auto) 0.1, Baso # (Auto) 0.0, Total Counted 100, Neutrophils % (Manual) 91 H, Lymphocytes % (Manual) 7 L, Monocytes % (Manual) 2, Platelet Estimate Normal, RBC Morphology Normal 09/08/20 06:09: Sodium 139, Potassium 3.9, Chloride 112 H, Carbon Dioxide 24, Anion Gap 6.9, BUN 18 H, Creatinine 0.60, Estimated Creat Clear 169, Estimated GFR 116, Est GFR ( Amer) 140, Glucose 187 H D, Calcium 8.5, Total Bilirubin 0.3, AST 24 D, ALT 20, Alkaline Phosphatase 48, Total Protein 6.1 L, Albumin 3.4 L D, Globulin 2.7, Albumin/Globulin Ratio 1.3 I & O for Last 24 hours: Intake & Output 09/05/20 09/06/20 09/07/20 09/08/20 23:59 23:59 23:59 23:59 Weight 175 lb 7 oz 175 lb 6.996 oz - Constitutional no acute distress - *Routine HEENT Exam Head: Present: normocephalic Eye: Present: EOMI ENT: Present: mucous membranes moist - *Routine Neck Exam Present: trachea midline. Absent: tracheal deviation - *Routine Respiratory Exam Present: wheezes. Absent: accessory muscle use - *Routine Cardiovascular Exam Present: RRR - *Routine Abdominal Exam Present: soft, normoactive bowel sounds. Absent: tenderness, firm - *Routine Extremities Exam Present: full ROM, pulses intact. Absent: cyanosis, clubbing, edema, calf tenderness - *Routine Skin Exam Present: intact, dry, warm. Absent: cyanosis, erythema - *Routine Celeste
--- NOTE | 2020-09-08 10:22 | HMH.PULMPN ---
Internal Medicine - PN: Subj *Date: 09/08/20 *Time: 10:22 Interval history: No acute respiratory vents overnight. Patient continued to request medications to facilitate sleep. Exam - Constitutional Constitutional:: Present: no acute distress, comfortable - HENMT Exam HENMT: Present: normocephalic, atraumatic - Eye Exam Eyes:: Present: normal appearance both eyes and related structures - Neck Exam Neck:: Present: normal visual inspection - Respiratory Exam Respiratory:: Present: able to speak in complete sentences, no respiratory distress, normal respiratory effort, wheezing. Absent: accessory muscle use - Cardiovascular Exam Cardiac:: Present: S1, S2 - GI Exam GI:: Present: soft, no hepatosplenomegaly - Skin Exam Skin: Present: warm, no rash, dry - Neurological Exam Neurological: Present: alert, awake, normal cognition - Extremities Exam Extremities: Present: no cyanosis, no clubbing, no edema - Psychiatric Exam Psychiatric: Present: normal affect Assessment and Plan (1) Bronchospasm Status: Acute Category: Medical Code(s): J98.01 - Acute bronchospasm (2) Pneumonia Status: Acute Qualifiers: Pneumonia type: due to unspecified organism Laterality: right Lung location: lower lobe of lung Qualified Code(s): J18.9 - Pneumonia, unspecified organism Category: Medical Code(s): J18.9 - Pneumonia, unspecified organism (3) Anxiety Status: Chronic Category: Medical Code(s): F41.9 - Anxiety disorder, unspecified (4) Bronchitis Status: Acute Category: Medical Code(s): J40 - Bronchitis, not specified as acute or chronic (5) Tobacco use Status: Chronic Category: Social Hx Code(s): Z72.0 - Tobacco use (6) Rheumatoid arthritis Status: Chronic Qualifiers: Rheumatoid arthritis location: unspecified site Rheumatoid factor presence: unspecified presence Qualified Code(s): M06.9 - Rheumatoid arthritis, unspecified Category: Medical Code(s): M06.9 - Rheumatoid arthritis, unspecified - Assessment and plan all Dx Assessment and Plan for all problems:: #Community-acquired pneumonia: #Viral pneumonia: #Viral pharyngitis: 34-year-old female no prior history of allergies, no prior history of asthma, history of rheumatoid arthritis currently on tofacitinib presented to ER complaining worsening respiratory status and unresolving cough for the last 5 days. Cough is nonproductive. Denies any hemoptysis. Patient is a smoker, last smoked 1 week ago. Denies any vaping or any other inhalational exposure. No sick contacts CXR bilateral lower lobe pulmonary infiltrates right greater than left. And CTA showed bilateral groundglass opacities without any evidence of pulmonary embolism. Respiratory viral panel positive for enterorhinovirus. Negative for COVID-19 Patient was initiated on antibiotic, steroids and nebulization therapies, patient wheezing significantly improved. Her saturations remained 98 to 99% on room air since admission. Patient continued to have hoarseness of her voice. Plan: -Continue ceftriaxone and azithromycin for community-acquired pneumonia, can de-escalate levofloxacin on discharge -Discontinue steroids -DuoNebs every 6 hours As needed -Lozenges PRN for throat soothing -F/U TB quantiferon and CRP - Ordered today -RADT - Group A Strep -Recommend holding tofacitinib until symptom resolution. Patient should also follow with her child care associate teacher for further recommendations #Thank you for involving pulmonary in this patient care. We will follow the patient in pulmonary clinic in 2 to 4 weeks.
--- NOTE | 2020-09-08 10:40 | HMH.PHAINT ---
HOME MEDICATION LIST VERIFIED USING LIST FROM [facility]
[2020-09-08 10:51] LABS: C-Reactive Protein 5.6 mg/L (0-4)
[2020-09-08 11:24] LABS: Strep Scrn Group A (Rapid) Negative (Negative)
--- NOTE | 2020-09-08 15:18 | PC.NURSE ---
Addendum entered by Kadie Parker RN 09/08/20 18:15: PT CALLED OUT AND STATED HER IV IN HER LAC WAS HURTING. IV FLUSHED FINE BUT PT STATED IT HURT AND SHE WANTED IT OUT. NEW IV ACCESS TO THE RIGHT WRIST OBTAINED. IV STARTED TO LEAK SOON IV WAS CONNECTED TO IVF'S. NEW IV ACCESS WAS ATTEMPTED X2 AND WAS UNSUCCESSFUL. NOTIFIED HOUSE AND SHE STATED SHE WOULD GET SOMEONE ON SALES ADVISOR TO DO AN ULTRASOUND GUIDED IV. PT HAS ALSO REQUESTED THAT HER ATIVAN DOSAGE BE INCREASED AND SHE WANTS PHENERGAN INSTEAD OF ZOFRAN FOR NAUSEA. NOTIFIED PHYSICIAN. Original Note: PT IS RESTING IN BED. PT HAS BEEN REQUESTING PAIN/ANXIETY/SLEEPING MEDICATION T/O THE SHIFT. PT STATED SHE WANTED IV BENADRYL B/C SHE VOMITED UP THE PO DOSE LAST NIGHT. PT STATED HER ENTIRE BODY HURTS FROM COUGHING SO MUCH AND SHE HAS ONLY SLEPT 4 HOURS IN THE LAST 2 DAYS. PT GOT A DOSE OF ATIVAN THAT WAS ORDERED AND HAS BEEN SLEEPING SINCE. PT HAS AMBULATED TO THE BATHROOM INDEPENDENTLY. LUNG SOUNDS HAVE RHONCHI T/O. ON MORNING ASSESSMENT PT HAD AUDIBLE WHEEZES BUT THIS HAS SINCE IMPROVED AFTER BREATHING TREATMENTS. VSS. EATING AND DRINKING FAIR. WILL CONTINUE TO MONITOR.
[2020-09-09 04:00] VITALS: BP 114/60; PULSE 86; RESP 20; TEMP 36.9; O2SAT 95
--- NOTE | 2020-09-09 04:01 | PC.NURSE ---
Patient is a 34 y/o female who presents with PNA, N/V and Anxiety. Patient is very demanding regarding medication. Patient has requested Phenergan X 2, Zofran X 1, Ativan X 2, and Vistaril x 1. Patient refused fluids. Patient also requested that this RN call for Pain Rx from Dr. Estrada, he ordered [place] 5/325 and was administered X 1. Patient VSS with most recent SpP2 97% on room air. Patient has Expiratory wheezes and Rhonchi Bilateral Bases. Will continue to monitor for any acute changes.
--- NOTE | 2020-09-09 04:15 | PC.NURSE ---
Also noted in the beginning of the shift, the patient requested this RN call Dr. Estrada to determine if she could go home today. Dr. Estrada stated that it be determined how she did throughout the night.
[2020-09-09 05:07] VITALS: BMI 33.5
--- NOTE | 2020-09-09 06:00 | XR_ITS ---
PROCEDURE INFORMATION: Exam: XR Chest Exam date and time: 09/09/2020 6:00 AM Age: 34 years old Clinical indication: Condition or disease; Lung condition and disease; Patient HX: Rhinovirus pneumonia TECHNIQUE: Imaging protocol: XR of the chest. Views: 1 view. COMPARISON: CR XR CHEST PORTABLE 09/08/2020 6:18 AM FINDINGS: Lungs: Patchy right perihilar and infrahilar infiltrate. Pleural spaces: Unremarkable. No pleural effusion. No pneumothorax. Heart/Mediastinum: Unremarkable. No cardiomegaly. Bones/joints: Unremarkable. IMPRESSION: Right perihilar and infrahilar infiltrate.
[2020-09-09 06:12] VITALS: PULSE 81; PULSE 85
[2020-09-09 06:46] LABS: Basophils % 0.3 % (0.1-2.0); Eosinophils # 0.1 K/mm3 (0.0-0.4); Eosinophils % 0.4 % (0.1-12.0); Hematocrit 33.8 % (37.0-47.0); Hemoglobin 11.1 g/dL (12.2-16.2); Lymphocytes # 2.7 K/mm3 (0.7-4.5); Lymphocytes % 20.3 % (10-50); Mean Corpuscular HGB Conc 32.8 g/dL (31.8-35.4); Mean Corpuscular Volume 91.6 fl (81-99); Mean Platelet Volume 8.8 fl (7.4-10.4); Monocytes # 0.6 K/mm3 (0.1-1.0); Monocytes % 4.4 % (1.7-9.3); Neutrophils # 10.1 K/mm3 (1.8-7.8); Neutrophils % 74.6 % (37.0-80.0); Platelet Count 303 K/mm3 (142-424); Red Blood Count 3.69 M/mm3 (4.20-5.40); White Blood Count 13.5 K/mm3 (4.8-10.8)
[2020-09-09 06:57] LABS: Anion Gap 7.2 mEq/L (5-15); Blood Urea Nitrogen 23 mg/dl (7-17); Calcium 8.4 mg/dl (8.4-10.2); Carbon Dioxide 25 mmol/L (22.0-30.0); Chloride 113 mmol/L (98-107); Creatinine Clearance Estimated 147 mL/min (50-200); Estimated Glomerular Filt Rate 97 ml/min (>60); GFR (African American) 117 ML/MIN (>60); Glucose 122 mg/dl (74-100); Potassium 3.2 mmoL/L (3.5-5.1); Sodium 142 mmol/L (136-145)
[2020-09-09 07:58] VITALS: BP 123/72; PULSE 87; RESP 22; TEMP 36.6; O2SAT 97
[2020-09-09 08:00] VITALS: O2SAT 95
--- NOTE | 2020-09-09 10:07 | SW/DCPLANNER ---
Addendum entered by Eladia Boateng 09/09/20 11:22: Muna with [facility] has confirmed that nebulizer machine will be delivered today. Original Note: The plan is for this patient to discharge home today. Patient information/order has been faxed to [facility] for a nebulizer machine. I will follow up with Nemo once patient information is reviewed.
--- NOTE | 2020-09-09 10:26 | HMH.PULMPN ---
Internal Medicine - PN: Subj *Date: 09/09/20 *Time: 10:26 Interval history: No acute respiratory vents overnight. Patient was admitted in his respiratory status. Patient continued to remain on room air. Exam - Constitutional Constitutional:: Present: no acute distress, comfortable - HENMT Exam HENMT: Present: normocephalic, atraumatic - Eye Exam Eyes:: Present: normal appearance both eyes and related structures - Neck Exam Neck:: Present: normal visual inspection - Respiratory Exam Respiratory:: Present: able to speak in complete sentences, no respiratory distress, normal respiratory effort, wheezing - Cardiovascular Exam Cardiac:: Present: S1, S2 - GI Exam GI:: Present: soft - Skin Exam Skin: Present: warm, no rash, dry - Neurological Exam Neurological: Present: alert, awake - Extremities Exam Extremities: Present: no cyanosis, no clubbing, no edema - Psychiatric Exam Psychiatric: Present: normal affect Assessment and Plan (1) Bronchospasm Status: Acute Category: Medical Code(s): J98.01 - Acute bronchospasm (2) Pneumonia Status: Acute Qualifiers: Pneumonia type: due to unspecified organism Laterality: right Lung location: lower lobe of lung Qualified Code(s): J18.9 - Pneumonia, unspecified organism Category: Medical Code(s): J18.9 - Pneumonia, unspecified organism (3) Anxiety Status: Chronic Category: Medical Code(s): F41.9 - Anxiety disorder, unspecified (4) Bronchitis Status: Acute Category: Medical Code(s): J40 - Bronchitis, not specified as acute or chronic (5) Tobacco use Status: Chronic Category: Social Hx Code(s): Z72.0 - Tobacco use (6) Rheumatoid arthritis Status: Chronic Qualifiers: Rheumatoid arthritis location: unspecified site Rheumatoid factor presence: unspecified presence Qualified Code(s): M06.9 - Rheumatoid arthritis, unspecified Category: Medical Code(s): M06.9 - Rheumatoid arthritis, unspecified - Assessment and plan all Dx Assessment and Plan for all problems:: #Community-acquired pneumonia: #Viral pneumonia: #Viral pharyngitis: 34-year-old female no prior history of allergies, no prior history of asthma, history of rheumatoid arthritis currently on tofacitinib presented to ER complaining worsening respiratory status and unresolving cough for the last 5 days. Cough is nonproductive. Denies any hemoptysis. Patient is a smoker, last smoked 1 week ago. Denies any vaping or any other inhalational exposure. No sick contacts CXR bilateral lower lobe pulmonary infiltrates right greater than left. And CTA showed bilateral groundglass opacities without any evidence of pulmonary embolism. Respiratory viral panel positive for entero/rhinovirus. Negative for COVID-19. Rapid strep antigen testing resulted negative. CRP minimally elevated 5.6 Patient was initiated on antibiotic, steroids and nebulization therapies, patient wheezing significantly improved. Her saturations remained 98 to 99% on room air since admission. Patient condition continued to move to this hospital admission. Her respiratory improved to auscultation revealed only minimal wheezing, significantly improved from prior. She remained on room air throughout this hospital course. Plan: -Continue ceftriaxone and azithromycin for community-acquired pneumonia, can de-escalate levofloxacin on discharge for a total of 5 days from admission -DuoNebs every 6 hours As needed -Lozenges PRN for throat soothing -Follow with TB QuantiFERON testing -Recommend holding tofacitinib until symptom resolution. Patient should also follow with her candle molder for further recommendations #Thank you for involving pulmonary in this patient care. Patient being discharged today on levofloxacin to complete a total of 5-day course along with albuterol inhaler or DuoNebs every 6 hours as needed. We will follow the patient in pulmonary clinic in 2 to 4 weeks.
[2020-09-09 11:52] VITALS: BP 118/73; PULSE 79; RESP 16; TEMP 37.2; O2SAT 95
--- NOTE | 2020-09-09 11:54 | HMH.DCSUM ---
General - General Admission date:: 09/07/20 Discharge date: 09/09/20 HPI HPI: Arrives by ambulance from Dr. Estrada's office for shortness of breath and wheezing. She has been sick for 2 days with a nonproductive cough, wheezing, chest pain, fever between 101 and 102 degrees, left earache, shortness of breath. Seen at [facility] in [place] last night for the same symptoms. She says she was told she has a possible pneumonia. She was given breathing treatments. Discharged on doxycycline, albuterol, Tessalon Perles, prednisone. Seen at Dr. Estrada's office today and was given 2 albuterol treatments and transferred to the hospital by ambulance. Given a DuoNeb treatment during transport. No prior history of lung problems or asthma. She is a smoker. No known exposures. States she tested negative for influenza, strep, and COVID-19 at [facility] last night. Patient's work-up in the ER included a chest x-ray which was suggestive of a right lower lobe infiltrate. She also underwent a CTA of the chest which was negative for pulmonary embolism and dissection. It did show some patchy scattered infiltration. She is admitted for further evaluation and treatment. Hospital Course Hospital Course: Arrives by ambulance from Dr. Estrada's office for shortness of breath and wheezing. She has been sick for 2 days with a nonproductive cough, wheezing, chest pain, fever between 101 and 102 degrees, left earache, shortness of breath. Seen at [facility] in [place] last night for the same symptoms. She says she was told she has a possible pneumonia. She was given breathing treatments. Discharged on doxycycline, albuterol, Tessalon Perles, prednisone. Seen at Dr. Estrada's office today and was given 2 albuterol treatments and transferred to the hospital by ambulance. Given a DuoNeb treatment during transport. No prior history of lung problems or asthma. She is a smoker. No known exposures. States she tested negative for influenza, strep, and COVID-19 at [facility] last night. 09/07/20 CXR: FINDINGS: There are low lung volumes. Unremarkable heart size. There is an azygos fissure is a normal variant. Mediastinum is somewhat prominent but may be in part be due to the poor inspiration and mild rotation and AP positioning. Upright non rotated PA and lateral chest may provide further evaluation. Patchy density is present in the right lower lobe consistent with atelectasis and/or infiltrate. No acute bony abnormalities. IMPRESSION: Right lower lobe atelectasis and or infiltrate Mild prominence of the mediastinum on the right which may in part be due to patient rotation and AP positioning with poor inspiration. Upright non rotated PA and lateral chest with better inspiration may confirm. Dictated by: Martin 09/07/2020 chest CTA: FINDINGS: Pulmonary arteries: No evidence of pulmonary embolism. Aorta: No evidence of aortic dissection. Lungs: Diffuse patchy airspace opacities noted throughout the lungs bilaterally. Pleural spaces: Unremarkable. No pneumothorax. No pleural effusion. Heart: Unremarkable. No cardiomegaly. No pericardial effusion. Lymph nodes: Unremarkable. No enlarged lymph nodes. Bones/joints: Unremarkable. No acute fracture. Soft tissues: Unremarkable. IMPRESSION: 1. No evidence of pulmonary embolism. 2. No evidence of aortic dissection. 3. Diffuse patchy airspace opacities noted throughout the lungs bilaterally. Electronically signed by Bobo Sahni has seen and recommends: Plan: -Continue ceftriaxone and azithromycin for community-acquired pneumonia, can de-escalate levofloxacin on discharge for a total of 5 days from admission -DuoNebs every 6 hours As needed -Lozenges PRN for throat soothing -Follow with TB QuantiFERON testing -Recommend holding tofacitinib until symptom resolution. 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
[2020-09-11 03:37] LABS: QuantiFERON-TB Gold Plus Negative (Negative)
== END 2020-09-09 13:02 | disposition home or self-care (01) ==
LOC: ER 12:00 → 2ND 14:18
PROVIDERS: Family Medicine; Internal Medicine Pulmonary Disease; Nurse Practitioner Family; Admitting Provider Emergency Medicine; Emergency Provider Emergency Medicine; PCP Emergency Medicine; Visit Provider Emergency Medicine
DX: J18.9 Pneumonia, unspecified organism (principal); M06.9 Rheumatoid arthritis, unspecified; F17.210 Nicotine dependence, cigarettes, uncomplicated; J98.01 Acute bronchospasm; Z88.8 Allergy status to other drugs, medicaments and biological substances; Z79.899 Other long term (current) drug therapy; F41.9 Anxiety disorder, unspecified
CPT/HCPCS: 36415; 71045; 71275; 80048; 80053; 83605; 85007; 85025; 86140; 86480; 87040; 87070; 87205; 87430; 87581; 87633; 87798; 94640; 96365; 96367; 99284; G0378; J0456; J2405; Q9967

== ENCOUNTER 2020-09-10 13:17 | Emergency (ER) | payer OTHER, SELFPAY ==
[2020-09-10 13:18] VITALS: BP 112/60; PULSE 79; RESP 20; TEMP 36.7; O2SAT 97; BMI 31.5
--- NOTE | 2020-09-10 13:20 | HMH.EDGENADL ---
ED Disposition Clinical Impression: Cough Disposition: Home, Self-Care Condition on Discharge: Good Referrals: Lalo Estrada MD [Primary Care Provider] - 09/14/20 Time of Disposition: 15:40 - Critical Care Critical Care Time: No Attestation: On , the high probability of a clinically significant, sudden or life threatening deterioration of the following system(s) required my full and direct attention, intervention and personal management. The time I documented below is in addition to time spent performing reported procedures but includes the following listed in this critical care notation. Medical Decision Making - Medical Records Medical records reviewed: Yes: I reviewed the patient's medical records. - Kana Inquiry Pt receiving controlled substance: No Vital Signs: 09/10/20 13:18 09/10/20 14:00 Temperature 98.1 F Temperature Source Oral Pulse Rate 79 Pulse Rate [Left Radial] 79 Respiratory Rate 20 22 Blood Pressure 126/74 Blood Pressure [Right Arm] 112/60 Blood Pressure Mean [Right Arm] 77 Blood Pressure Source [Right Arm] Automatic Cuff Blood Pressure Position [Right Arm] Sitting 02 Sat by Pulse Oximetry 97 94 L Oxygen Delivery Method Room Air Orders (Tests/Meds): ED MEDICATIONS Discontinued Medications Generic Name Dose Route Start Last Admin Trade Name Freq PRN Reason Stop Dose Admin Albuterol/Ipratropium 3 ml 09/10/20 13:39 09/10/20 13:39 Ipratropium/Albuterol 3 Ml Neb 09/10/20 13:40 3 ml ONCE ONE Administration ORDERS Category Date Time Status BMP [Basic Metabolic Panel] Stat Lab 09/10/20 13:51 Ordered Complete Blood Count Auto Diff Stat Lab 09/10/20 13:51 Ordered Medical Decision Narrative: 34yo F evaluated for shortness of breath and cough with known pneumonia. Patient is in no acute distress on initial evaluation. She is ambulated about the department to her bed without difficulty. Her O2 saturation is 100% with a heart rate of 70 on initial evaluation. Patient does have coarse breath sounds throughout. BMP, CBC, chest x-ray are pending at this time. Once completed, will discuss results with Dr. Estrada, who has reportedly sent the patient to the emergency department for further evaluation. Patient is a very difficult IV stick. Multiple staff members have attempted and been unsuccessful. Patient's chest x-ray is benign. The patient states that since her chest x-ray is normal, she would like to simply go home and finish taking the medications that she was discharged home with. Discussed risk/benefits/alternatives. The patient states she feels well enough to return home at this time and follow-up with her PCP on Sunday. Patient is observed to ambulate through the emergency department at least twice without difficulty. Her O2 saturations remained appropriate. Strongly counseled the patient that if she is to return home now, she must agree to return to the emergency department should she become significantly short of breath, develop a fever, become intolerant to her p.o. medication. Patient voiced understanding and agreed with the plan. General Adult HPI - General Stated complaint: SOA Time Seen by Provider: 09/10/20 13:20 Mode of Arrival: Ambulatory - History of Present Illness HPI narrative: 34yo F with past medical history significant for rheumatoid arthritis presents the emergency department as directed by her PCP secondary to cough and shortness of breath. is at bedside to augment history. They report she was discharged from this facility yesterday after being treated for pneumonia. They report her symptoms began last Sunday. They report being discharged home with multiple medications but cannot remember the names of any of them. Report taking medications as directed. She reports back to the emergency department this time secondary to significant coughing fits and states one coughing fit led to an episode of emesis. -
--- NOTE | 2020-09-10 13:39 | XR_ITS ---
PROCEDURE: XR CHEST 2V CLINICAL HISTORY: soa COMPARISON: CT CT ANGIO CHEST from 09/07/2020 CR XR CHEST PORTABLE from 09/07/2020 CR XR CHEST PORTABLE from 09/08/2020 CR XR CHEST PORTABLE from 09/09/2020 FINDINGS: The cardiomediastinal silhouette and pulmonary vascularity are within normal limits considering a slightly poor inspiration. The lungs are clear without infiltrates, suspicious nodules, or pleural effusions. No acute bony abnormalities. Monitor lines are seen overlying the chest. IMPRESSION: No acute findings. Dictated by: Dr. Turner Dewey MD 09/10/2020 14:12 Dr. Turner Dewey MD in [place] 09/10/2020 14:12
[2020-09-10 14:00] VITALS: BP 126/74; PULSE 79; RESP 22; O2SAT 94
--- NOTE | 2020-09-10 14:53 | PC.NURSE ---
Attempted to get blood/IV unsuccessful at this time. Contacted lab and spoke with Odette requesting someone from lab to do a lab drawn on pt
[2020-09-10 15:43] VITALS: BP 126/74; PULSE 79; RESP 20; TEMP 36.8; O2SAT 94
== END 2020-09-10 15:45 | disposition home or self-care (01) ==
PROVIDERS: Emergency Provider Family Medicine; PCP Emergency Medicine
DX: J18.9 Pneumonia, unspecified organism (principal); M05.9 Rheumatoid arthritis with rheumatoid factor, unspecified; F41.9 Anxiety disorder, unspecified; F17.210 Nicotine dependence, cigarettes, uncomplicated; Z79.899 Other long term (current) drug therapy
CPT/HCPCS: 71046; 99282

== ENCOUNTER 2020-09-28 13:53 | Emergency (ER) | payer OTHER, SELFPAY ==
[2020-09-28 13:57] VITALS: BP 123/80; PULSE 95; RESP 18; TEMP 36.8; O2SAT 96; BMI 30.2
[2020-09-28 14:11] VITALS: BP 123/80; PULSE 95; RESP 18; TEMP 36.8; O2SAT 96
== END 2020-09-28 14:43 | disposition left against medical advice (07) ==
PROVIDERS: Emergency Provider Nurse Practitioner Family; PCP Emergency Medicine
DX: Z53.21 Procedure and treatment not carried out due to patient leaving prior to being seen by health care provider (principal); M79.672 Pain in left foot

== ENCOUNTER → 2020-09-28 15:34 | Outpatient (CLI) | payer OTHER, SELFPAY ==
--- NOTE | 2020-09-28 15:38 | XR_ITS ---
PROCEDURE INFORMATION: Exam: XR Left Foot Exam date and time: 09/28/2020 3:38 PM Age: 35 years old Clinical indication: Pain; Foot; Left; Additional info: Left foor pain TECHNIQUE: Imaging protocol: XR Left foot. Views: 3 or more views. COMPARISON: CR XR FOOT LT MIN 3V 07/19/2019 5:37 PM FINDINGS: Bones/joints: There is no evidence of acute fracture. There is no evidence of joint malalignment or dislocation. Degenerative changes of the 1st metatarsophalangeal joint. Soft tissues: There are no soft tissue masses or fluid collections. IMPRESSION: 1. No evidence of acute fracture. 2. No evidence of acute dislocation. 3. Degenerative changes of the 1st metatarsophalangeal joint.
== END ==
PROVIDERS: PCP Emergency Medicine; Visit Provider Emergency Medicine
DX: M79.672 Pain in left foot (principal)
CPT/HCPCS: 73630

== ENCOUNTER → 2020-10-07 14:17 | Outpatient (CLI) | payer OTHER, SELFPAY ==
--- NOTE | 2020-10-07 14:21 | XR_ITS ---
PROCEDURE: XR FOOT WT BEARING LT 3V CLINICAL INDICATION: swelling and pain of left foot, hx of fracture COMPARISON: CR XR FOOT LT MIN 3V from 07/19/2019 CR XR FOOT LT MIN 3V from 09/28/2020 FINDINGS: There is a nondisplaced healing fracture involving the distal shaft of the 2nd metatarsal. There is good alignment. Degenerative changes 1st MTP joint with cortical lucency involving the proximal medial aspect of the proximal phalanx similar to the previous exam. There is a sclerotic region in the distal aspect of the talus measuring 13 by 6 mm. This may be due to a bone island. IMPRESSION: Healing nondisplaced 2nd metatarsal fracture Dictated by: Edis Salazar MD 10/07/2020 14:48 Edis Salazar MD in [facility] 10/07/2020 14:48
== END ==
PROVIDERS: PCP Emergency Medicine; Visit Provider Podiatrist
DX: M79.672 Pain in left foot (principal)
CPT/HCPCS: 73630

== ENCOUNTER 2020-11-17 12:43 | Emergency (ER) | payer OTHER, SELFPAY ==
[2020-11-17 12:44] VITALS: BP 145/95; PULSE 117; RESP 20; TEMP 36.9; O2SAT 95; BMI 34.4
[2020-11-17 13:13] LABS: Microscopic, Urine URINE MICROSCOPIC (MICROSCOPIC)
[2020-11-17 13:16] LABS: Appearance,Urine CLEAR (Clear); Bilirubin,Urine Negative (Negative); Blood, Urine 3+ (Negative); Color,Urine YELLOW (Yellow); Glucose,Urine (UA) Negative (Negative); Ketones,Urine Negative (Negative); Leukocyte Esterase,Urine TRACE (Negative); Nitrate,Urine Negative (Negative); Protein,Urine Negative (Negative); Specific Gravity, Urine 1.015 (1.005-1.030); Urobilinogen,Urine 0.2 EU/dl (0.2)
--- NOTE | 2020-11-17 13:25 | HMH.EDGENADL ---
ED Disposition Condition on Discharge: Good Time of Disposition: 14:59 - Critical Care Critical Care Time: No <Howard Lujan - Last Filed: 11/17/20 14:55> <Lalo Estrada - Last Filed: 12/07/20 20:43> Clinical Impression: Ureteral calculus, left Disposition: Home, Self-Care Instructions: Kidney Stones -- Adult Referrals: Lalo Estrada MD [Primary Care Provider] - 3 days Wil Asencio MD [Staff Physician] - Attestation: On 11/17/20, the high probability of a clinically significant, sudden or life threatening deterioration of the following system(s) required my full and direct attention, intervention and personal management. The time I documented below is in addition to time spent performing reported procedures but includes the following listed in this critical care notation. Medical Decision Making - Medical Records Medical records reviewed: Yes: I reviewed the patient's medical records. - Kana Inquiry Pt receiving controlled substance: No <Howard Lujan - Last Filed: 11/17/20 14:55> - Lab Data Lab results reviewed: Yes: I reviewed the patient's lab results. <Lalo Estrada - Last Filed: 12/07/20 20:43> Vital Signs: 11/17/20 12:44 11/17/20 13:45 11/17/20 15:20 Temperature 98.4 F 98.2 F Temperature Source Oral Pulse Rate 123 H 82 Pulse Rate [Right Radial] 117 H Respiratory Rate 20 22 18 Blood Pressure 131/90 107/70 L Blood Pressure [Right Arm] 145/95 H Blood Pressure Mean [Right Arm] 111 Blood Pressure Source [Right Arm] Automatic Cuff Blood Pressure Position [Right Arm] Sitting 02 Sat by Pulse Oximetry 95 98 Oxygen Delivery Method Room Air Room Air - Lab Data Lab Results 11/17/20 12:57: Urine Color Yellow, Urine Appearance Clear, Urine pH 5.0, Ur Specific [place] 1.015, Urine Protein Negative, Urine Glucose (UA) Negative, Urine Ketones Negative, Urine Blood 3+, Urine Nitrate Negative, Urine Bilirubin Negative, Urine Urobilinogen 0.2, Ur Leukocyte Esterase Trace, Urine RBC 5-10, Urine WBC 3-5, Ur Squamous Epith Cells 3-5, Urine Bacteria None 11/17/20 12:57: Urine HCG, Qual Negative Orders (Tests/Meds): ED MEDICATIONS Discontinued Medications Generic Name Dose Route Start Last Admin Trade Name Emilia PRN Reason Stop Dose Admin Fentanyl Citrate 25 mcg 11/17/20 13:17 Fentanyl 100mcg/2ml Vial IV 11/17/20 13:18 ONCE ONE Ketamine HCl 25 mg 11/17/20 13:45 11/17/20 13:51 Ketamine 500mg/10ml Vial IV 11/17/20 13:46 25 mg ONCE ONE Administration Ondansetron HCl 4 mg 11/17/20 13:18 11/17/20 13:33 Ondansetron 4mg/2ml Vial IV 11/17/20 13:19 4 mg ONCE ONE Administration Medical Decision Narrative: 35yo F evaluated for suspected though her HPI does not seem to present correlate with typical kidney stone presentation. There are no previous CAT scans of the patient's abdomen and pelvis to evaluate for renal stones or previous ureterolith. Ordered Fentanyl for pain but was informed by nursing that is not allowed in the ED. Nursing called for permission to give low dose Fentanyl but was recommended to give Demerol instead. Medication limitations discussed w/ hospital administration. Proceeded w/ Ketamine 0.3mg/kg for pain after moving the pt to Rm 2 for necessary monitoring. Patient resting comfortably after ketamine. Taken for CT scan. CT scan demonstrates 2 mm left-sided mid ureteral stone. Urinalysis shows no sign of infection. Patient has oxycodone and Phenergan at home as prescribed by her PCP. Will prescribe the patient Flomax. No antibiotics are required given patient's urinalysis results. Patient has not seen a urologist and I have therefore included Dr. Asencio's phone number in her discharge information. Patient will also be sent home with a urine strainer. She was counseled that she may have an additional 24 hours of crampy symptoms to janeth pain after passing the kidney stone and that this is normal. Patient voiced understan
[2020-11-17 13:33] LABS: Urine Pregnancy, HCG Qual. Negative (Negative)
--- NOTE | 2020-11-17 13:39 | CT_ITS ---
PROCEDURE: CT ABDOMEN PELVIS WO CON CLINICAL INDICATION: L flank pain, h/o renal stones COMPARISON: No exams were available for comparison TECHNIQUE: Axial images obtained with sagittal and coronal reformats. All CT scans at the facility use one or more dose reduction, viz: automated exposure control, ma/kV adjustment per patient size (including targeted exams where dose is matched to indication, i.e. head), or iterative reconstruction technique. FINDINGS: LOWER THORAX: No acute finding ABDOMEN & PELVIS: The liver, spleen, adrenal glands and pancreas have an unremarkable appearance. There has been a prior cholecystectomy. There are punctate bilateral renal calculi. These are 3 mm or less. A small stone is present in the mid aspect of the left ureter at approximately 2 mm. This is at the L4 level. No significant ureteral dilatation. No intestinal obstruction or free air. There is a mild amount of retained colonic feces. Status post prior appendectomy. No evidence of diverticulitis. There is lobulated soft tissue density along the right aspect of the uterus. This area measures 4 by 2 cm. No acute bony anomalies evident. There is a small umbilical hernia containing fat. IMPRESSION: Bilateral nephrolithiasis with 2 mm stone in the mid aspect of the left ureter. No hydronephrosis. Lobulated soft tissue density along the right aspect of the uterus. This may only be related to enlarged ovary. Adnexal mass or lobulation fibroid from the uterus is also consideration. Nonemergent pelvic ultrasound may provide further evaluation Dictated by: Edis Salazar MD 11/17/2020 14:44 Edis Salazar MD in [place] 11/17/2020 14:44
[2020-11-17 13:45] VITALS: BP 131/90; PULSE 123; RESP 22; O2SAT 98
--- NOTE | 2020-11-17 14:02 | PC.NURSE ---
pt to ct scanner at this time.
--- NOTE | 2020-11-17 15:05 | HMH.EDGENADL ---
ED Disposition Clinical Impression: Ureteral calculus, left Disposition: Home, Self-Care Condition on Discharge: Good Instructions: Kidney Stones -- Adult Prescriptions: Tamsulosin HCl [Flomax 0.4mg capsule] 0.4 mg PO HS #30 cap Transmission Status: Pending to [facility] Referrals: Lalo Estrada MD [Primary Care Provider] - 3 days Wil Asencio MD [Staff Physician] - Time of Disposition: 15:08 - Critical Care Critical Care Time: No Attestation: On 11/17/20, the high probability of a clinically significant, sudden or life threatening deterioration of the following system(s) required my full and direct attention, intervention and personal management. The time I documented below is in addition to time spent performing reported procedures but includes the following listed in this critical care notation. Medical Decision Making - Medical Records Medical records reviewed: Yes: I reviewed the patient's medical records. - Kana Inquiry Pt receiving controlled substance: No Vital Signs: 11/17/20 12:44 11/17/20 13:45 Temperature 98.4 F Temperature Source Oral Pulse Rate 123 H Pulse Rate [Right Radial] 117 H Respiratory Rate 20 22 Blood Pressure 131/90 Blood Pressure [Right Arm] 145/95 H Blood Pressure Mean [Right Arm] 111 Blood Pressure Source [Right Arm] Automatic Cuff Blood Pressure Position [Right Arm] Sitting 02 Sat by Pulse Oximetry 95 98 Oxygen Delivery Method Room Air Room Air - Lab Data Lab Results 11/17/20 12:57: Urine Color Yellow, Urine Appearance Clear, Urine pH 5.0, Ur Specific [place] 1.015, Urine Protein Negative, Urine Glucose (UA) Negative, Urine Ketones Negative, Urine Blood 3+, Urine Nitrate Negative, Urine Bilirubin Negative, Urine Urobilinogen 0.2, Ur Leukocyte Esterase Trace, Urine RBC 5-10, Urine WBC 3-5, Ur Squamous Epith Cells 3-5, Urine Bacteria None 11/17/20 12:57: Urine HCG, Qual Negative Orders (Tests/Meds): ED MEDICATIONS Discontinued Medications Generic Name Dose Route Start Last Admin Trade Name Freq PRN Reason Stop Dose Admin Fentanyl Citrate 25 mcg 11/17/20 13:17 Fentanyl 100mcg/2ml Vial IV 11/17/20 13:18 ONCE ONE Ketamine HCl 25 mg 11/17/20 13:45 11/17/20 13:51 Ketamine 500mg/10ml Vial IV 11/17/20 13:46 25 mg ONCE ONE Administration Ondansetron HCl 4 mg 11/17/20 13:18 11/17/20 13:33 Ondansetron 4mg/2ml Vial IV 11/17/20 13:19 4 mg ONCE ONE Administration - CT Data CT Scan: Abdomen, Pelvis Time Received: 15:[address] Reviewed: Yes: I have reviewed the patient's CT results, I have viewed the radiologist's interpretation Preliminary Findings: Abnormal Findings Narrative: L 2mm midureteral stone w/o hydro Medical Decision Narrative: 35yo F evaluated for suspected though her HPI does not seem to present correlate with typical kidney stone presentation. There are no previous CAT scans of the patient's abdomen and pelvis to evaluate for renal stones or previous ureterolith. Ordered Fentanyl for pain but was informed by nursing that is not allowed in the ED. Nursing called for permission to give low dose Fentanyl but was recommended to give Demerol instead. Medication limitations discussed w/ hospital administration. Proceeded w/ Ketamine 0.3mg/kg for pain after moving the pt to Rm 2 for necessary monitoring. Patient resting comfortably after ketamine. Taken for CT scan. CT scan demonstrates 2 mm left-sided mid ureteral stone. Urinalysis shows no sign of infection. Patient has oxycodone and Phenergan at home as prescribed by her PCP. Will prescribe the patient Flomax. No antibiotics are required given patient's urinalysis results. Patient has not seen a urologist and I have therefore included Dr. Asecnio's phone number in her discharge information. Patient will also be sent home with a urine strainer. She was counseled that she may have an additional 24 hours of crampy symptoms to janeth field
[2020-11-17 15:20] VITALS: BP 107/70; PULSE 82; RESP 18; TEMP 36.8; O2SAT 96
== END 2020-11-17 15:20 | disposition home or self-care (01) ==
PROVIDERS: Emergency Provider Family Medicine; PCP Emergency Medicine
DX: N20.1 Calculus of ureter (principal); F41.9 Anxiety disorder, unspecified
CPT/HCPCS: 74176; 81001; 81025; 96374; 96375; 99283; J2405

== ENCOUNTER 2020-11-21 20:49 | Emergency (ER) | payer OTHER, SELFPAY ==
[2020-11-21 21:15] VITALS: BP 134/88; PULSE 88; RESP 21; TEMP 36.8; O2SAT 98; BMI 34.2
--- NOTE | 2020-11-21 21:36 | HMH.EDUTC ---
[facility] Disposition Clinical Impression: Abscess Disposition: Home, Self-Care Condition on Discharge: Good Instructions: DI for Skin Abscess Additional Instructions: do not pick areas take antibiotics as ordered follow up with pcp if no improvement apply cream Prescriptions: Sulfamethoxazole/Trimethoprim [Bactrim DS tablet] 1 each PO BID 10 Days #20 tab Prescription Printed Mupirocin [Bactroban 2% Ointment 22gm tube] 1 applicatio TP BID 10 Days #1 tube Prescription Printed Referrals: Lalo Estrada MD [Primary Care Provider] - Time of Disposition: 21:42 Medical Decision Making - Kana Inquiry Pt receiving controlled substance: No [facility] HPI - General Chief complaint: Urgent [facility] Stated complaint: boil and pus on chest and leg Time Seen by Provider: 11/21/20 21:36 Mode of Arrival: Ambulatory Source of Information: Patient Limitations: No Limitations - History of Present Illness Provider Complaint: 35 yr old female presents for a open draining wound to chest and left thigh. pt states she also has scabbs on th inside of ears - Related Data Home Medications Medication Instructions Recorded Confirmed Albuterol Sulfate [Albuterol 2 puffs IH Q6HP PRN 09/07/20 11/16/20 Sulfate Hfa] Ibuprofen 800 mg PO TID 09/07/20 11/16/20 Tofacitinib Citrate [Xeljanz Xr] 11 mg PO DAILY 09/07/20 11/16/20 Cetirizine HCl [Allergy Relief] 10 mg PO DAILY 09/08/20 11/16/20 phentermine 37.5 mg tablet 37.5 mg PO DAILY 09/21/20 11/16/20 Previous Rx's Medication Instructions Recorded mupirocin calcium 2 % topical cream 1 applic TOPICAL BID #15 g 10/26/20 promethazine 25 mg tablet 25 mg PO Q6H PRN #30 tab 10/26/20 triamcinolone acetonide 0.5 % 1 applic TOPICAL BID #15 g 10/26/20 topical cream levomilnacipran 20 mg (2)-40 mg See Rx Instructions PO PER PKG DIR 10/29/20 (26)capsule,extend.rel,24 hr,dose #28 each pack alprazolam 0.5 mg tablet 0.5 mg PO TID #45 tab 11/02/20 oxycodone 5 mg tablet 5 mg PO BID #60 tab 11/16/20 Tamsulosin HCl [Flomax 0.4mg 0.4 mg PO HS #30 cap 11/17/20 capsule] escitalopram oxalate 20 mg tablet 20 mg PO DAILY #30 tab 11/18/20 Mupirocin [Bactroban 2% Ointment 1 applicatio TP BID 10 Days #1 tube 11/21/20 22gm tube] Sulfamethoxazole/Trimethoprim 1 each PO BID 10 Days #20 tab 11/21/20 [Bactrim DS tablet] Allergies Allergy/AdvReac Type Severity Reaction Status Date / Time ketorolac [From Toradol] Allergy Severe Hives Verified 11/16/20 13:11 morphine Allergy Severe Chest Pain Verified 11/16/20 13:11 tramadol AdvReac Verified 11/16/20 13:11 varenicline [From Chantix] AdvReac anxiety, Verified 11/16/20 13:11 nightmares [facility] History - Hepatitis A Screen Attestation statement:: This patient has been screened for Hepatitis A risk factors. I have reviewed the patient's past medical history: Yes Medical History: Reports:: Anxiety, Gall Bladder Disease Denies:: Diabetes Mellitus Type 1, Diabetes Mellitus Type 2 Other Medical History: Reports: Arthritis Other Surgeries: Yes: Appendectomy, Cholecystectomy, Diagnostic Lap, Other Amputation: No Fractures: No - Social History Smoking Status: Never smoker Tobacco Type: cigarettes # Packs/Day (cigarettes): 1 Alcohol Intake: never Alcohol Intake Frequency:: other Substance Use Type: former substance user Occupational Status: unemployed Housing: apartment Household Members: children - Psychiatric History Pschychiatric History:: Reports:: Anxiety Family Hx:: Diabetes, Heart Attack 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
[2020-11-21 21:38] VITALS: BP 134/88; PULSE 88; RESP 21; TEMP 36.8; O2SAT 98
== END 2020-11-21 21:43 | disposition home or self-care (01) ==
PROVIDERS: Emergency Provider Nurse Practitioner Family; PCP Emergency Medicine
DX: L02.416 Cutaneous abscess of left lower limb (principal); L02.213 Cutaneous abscess of chest wall; F41.9 Anxiety disorder, unspecified
CPT/HCPCS: 99202; G0463

== ENCOUNTER → 2020-11-24 09:12 | Outpatient (CLI) | payer OTHER, SELFPAY ==
--- NOTE | 2020-11-24 09:12 | NM_ITS ---
PROCEDURE: NM BONE 3 PHASE CLINICAL INDICATION: complex pain syndrome of left foot COMPARISON: CR XR FOOT WT BEARING LT 3V from 10/07/2020 MR MR FOOT LT WO CON from 11/27/2020 TECHNIQUE: Dose 25.1 mCi technetium 99 MDP FINDINGS: Blood flow blood pool and delayed images are obtained. Report delayed waiting on the MRI for comparison obtained on 11/27/2020. There is increased blood flow to the mid aspect of the left foot medially at the tarsal metatarsal junction and at the proximal aspect of the 2nd metatarsal. Increased blood pool and delayed activity also present at that region. IMPRESSION: There is increased blood flow to the mid aspect of the left foot medially at the tarsal metatarsal junction and at the proximal aspect of the 2nd metatarsal. Increased blood pool and delayed activity also present at that region. These findings are compatible with stress fracture at the base of the 1st metatarsal and stress reaction at the 2nd metatarsal as seen on the MRI. Findings are not consistent with complex regional pain syndrome Dictated by: Edis Salazar MD 11/30/2020 15:23 Edis Salazar MD in [place] 11/30/2020 15:23
== END ==
PROVIDERS: PCP Emergency Medicine; Visit Provider Emergency Medicine
DX: G90.522 Complex regional pain syndrome I of left lower limb (principal)
CPT/HCPCS: 78315; A9503

== ENCOUNTER → 2020-11-27 09:44 | Outpatient (CLI) | payer OTHER, SELFPAY ==
--- NOTE | 2020-11-27 09:44 | MR_ITS ---
PROCEDURE INFORMATION: Exam: MR Left Lower Extremity Other Than Joint Without Contrast; Foot Exam date and time: 11/27/2020 9:44 AM Age: 35 years old Clinical indication: Pain; Patient HX: PT states she has ra and a HX of FX of the left foot that did not heal. ; Additional info: Complex pain syndrome of left foot TECHNIQUE: Imaging protocol: MR of the Left lower extremity without contrast. Exam focused on the foot. COMPARISON: 1. CR XR FOOT WT BEARING LT 3V 10/07/2020 2:23 PM 2. CR XR FOOT LT MIN 3V 09/28/2020 3:40 PM 3. CR XR FOOT LT MIN 3V 07/19/2019 5:37 PM FINDINGS: Bones and cartilage: There is an acute to subacute healing stress or insufficiency fracture involving the first metatarsal base that is nondisplaced and has a large amount of surrounding bone marrow edema. A previously seen stress fracture involving the distal second metatarsal has mild residual bone marrow edema and chronic periosteal new bone. Moderate edema involving the proximal aspect of the second metatarsal suggests a stress reaction. There is no visible fracture line involving the base of the second metatarsal. Bone erosions involving the medial first metatarsal head, medial great toe proximal phalanx base, medial great toe proximal phalanx head, and fifth metatarsal head are consistent with the patient history of rheumatoid arthritis. There is a large benign bone island in the talar head. Joint spaces: A mild effusion involves the ankle joint. LIGAMENTS: Lisfranc ligament: Unremarkable. No evidence of tear. TENDONS: Flexor tendons of foot: Mild tenosynovitis involves the flexor digitorum longus tendon. Tibialis posterior tendon: Mild tenosynovitis involves the tibialis posterior tendon. Peroneal tendons: Unremarkable as visualized. Extensor tendons of foot: Unremarkable. No evidence of tear. Tibialis anterior tendon: Unremarkable as visualized. Tarsal canal (Sinus tarsi): Unremarkable. Tarsal tunnel: Unremarkable. Soft tissues: The plantar plate of the great toe metatarsophalangeal joint is torn. A trace amount of fluid is present in the retrocalcaneal bursa. Plantar fascia: Unremarkable as visualized. IMPRESSION: 1. Nondisplaced stress or insufficiency fracture at the first metatarsal base with severe bone marrow edema. 2. Predominantly healed fracture of the distal second metatarsal with mild residual bone marrow edema. 3. Stress reaction of the proximal second metatarsal with moderate bone marrow edema but no fracture line. 4. Multifocal osseous erosions consistent with the patient history of rheumatoid arthritis. 5. Mild tenosynovitis of the tibialis posterior and flexor digitorum longus tendons. 6. Tear of the great toe metatarsophalangeal joint plantar plate.
== END ==
PROVIDERS: PCP Emergency Medicine; Visit Provider Emergency Medicine
DX: G90.50 Complex regional pain syndrome I, unspecified (principal); M79.672 Pain in left foot
CPT/HCPCS: 73718

== ENCOUNTER → 2020-12-22 13:53 | Outpatient (CLI) | payer OTHER, SELFPAY ==
[2020-12-22 14:22] LABS: Basophils # 0.1 K/mm3 (0-0.2); Basophils % 0.7 % (0.1-2.0); Eosinophils # 0.4 K/mm3 (0.0-0.4); Eosinophils % 4.6 % (0.1-12.0); Hematocrit 34.2 % (37.0-47.0); Hemoglobin 10.7 g/dL (12.2-16.2); Mean Corpuscular HGB Conc 31.2 g/dL (31.8-35.4); Mean Corpuscular Hemoglobin 29.3 pg (27.0-31.2); Mean Platelet Volume 8.8 fl (7.4-10.4); Monocytes # 0.5 K/mm3 (0.1-1.0); Monocytes % 5.7 % (1.7-9.3); Neutrophils # 4.3 K/mm3 (1.8-7.8); Neutrophils % 53.1 % (37.0-80.0); Platelet Count 526 K/mm3 (142-424); Red Blood Count 3.64 M/mm3 (4.20-5.40); Red Cell Distribution Width 14.4 % (11.5-17.5); White Blood Count 8.2 K/mm3 (4.8-10.8)
== END ==
PROVIDERS: Visit Provider Emergency Medicine
DX: R19.00 Intra-abdominal and pelvic swelling, mass and lump, unspecified site (principal)
CPT/HCPCS: 85025

== ENCOUNTER → 2021-01-26 18:07 | Outpatient (CLI) | payer OTHER, SELFPAY ==
[2021-01-26 19:32] LABS: Amphetamine/Metha Screen,Urine Negative ng/ml (<1000)
[2021-01-26 19:33] LABS: Barbiturates Screen,Urine Negative ng/ml (<200); Benzodiazepines Screen,Urine Positive ng/ml (<200)
[2021-01-26 19:34] LABS: Cannabinoid Screen,Urine Negative ng/ml (<50)
[2021-01-26 19:35] LABS: Cocaine Screen,Urine Negative ng/ml (<300); Methadone Screen,Urine Negative ng/ml (<300)
[2021-01-26 19:36] LABS: Opiate Screen,Urine Positive ng/ml (<300); Phencyclidine Screen,Urine Negative ng/ml (<25)
== END ==
PROVIDERS: Visit Provider Emergency Medicine
DX: Z79.899 Other long term (current) drug therapy (principal)
CPT/HCPCS: 80305

== ENCOUNTER → 2021-03-24 07:37 | Outpatient (CLI) | payer OTHER, SELFPAY ==
--- NOTE | 2021-03-24 07:37 | MR_ITS ---
PROCEDURE: MR KNEE LT WO CON CLINICAL INDICATION: left knee pain COMPARISON: No exams were available for comparison TECHNIQUE: Routine multiplanar multi echo sequences are performed without gadolinium enhancement. FINDINGS: Cruciate ligaments are intact. The medial collateral ligament appears intact. There is some minimal ill definition of the proximal aspect of the fibular collateral ligament which could be due to a mild sprain. Patellar tendon and quadriceps tendon have an unremarkable appearance. No meniscal tear evident. Patellar cartilage is preserved. There is a small knee joint effusion. No bone bruise or fracture evident. IMPRESSION: Questionable sprain of the proximal aspect of the fibular collateral ligament with small knee joint effusion otherwise negative. Dictated by: Edis Salazar MD 03/25/2021 08:43 Edis Salazar MD in [place] 03/25/2021 08:43
== END ==
PROVIDERS: PCP Emergency Medicine; Visit Provider Emergency Medicine
DX: S89.92XA Unspecified injury of left lower leg, initial encounter (principal)
CPT/HCPCS: 73721

== ENCOUNTER → 2021-03-29 13:30 | Outpatient (CLI) | payer OTHER, SELFPAY ==
--- NOTE | 2021-03-29 13:32 | XR_ITS ---
PROCEDURE: XR KNEE LT 4V CLINICAL INDICATION: left knee pain, weightbearing COMPARISON: No exams were available for comparison FINDINGS: No fracture or dislocation. No lytic or blastic change. There is normal mineralization. The joint spaces are well-preserved. No significant degenerative/arthritic changes. No erosive changes evident. Other findings:None. IMPRESSION: No acute findings. Dictated by: Edis Salazar MD 03/29/2021 15:46 Edis Salazar MD in [place] 03/29/2021 15:46
== END ==
PROVIDERS: PCP Emergency Medicine; Visit Provider Orthopaedic Surgery
DX: M25.562 Pain in left knee (principal)
CPT/HCPCS: 73564

== ENCOUNTER 2021-06-01 17:00 | Outpatient (RCR) | payer OTHER, SELFPAY | END 2021-06-01 17:05 | disposition home or self-care (01) | LOC: PT 17:00 | PROVIDERS: PCP Emergency Medicine; Visit Provider Emergency Medicine | DX: M25.562 Pain in left knee (principal) | CPT/HCPCS: 97010; 97014; 97110; 97163; G0283 ==

== ENCOUNTER → 2021-06-13 16:00 | Outpatient (CLI) | payer OTHER, SELFPAY ==
[2021-06-13 14:28] LABS: Barbiturates Screen,Urine Negative ng/ml (<200)
[2021-06-13 14:29] LABS: Amphetamine/Metha Screen,Urine Negative ng/ml (<1000); Benzodiazepines Screen,Urine Positive ng/ml (<200)
[2021-06-13 14:30] LABS: Cannabinoid Screen,Urine Negative ng/ml (<50)
[2021-06-13 14:31] LABS: Cocaine Screen,Urine Negative ng/ml (<300)
[2021-06-13 14:32] LABS: Methadone Screen,Urine Negative ng/ml (<300); Opiate Screen,Urine Positive ng/ml (<300)
[2021-06-13 14:33] LABS: Phencyclidine Screen,Urine Negative ng/ml (<25)
== END ==
PROVIDERS: Visit Provider Emergency Medicine
DX: Z79.899 Other long term (current) drug therapy (principal)
CPT/HCPCS: 80305

== ENCOUNTER → 2021-08-08 09:06 | Outpatient (CLI) | payer OTHER, SELFPAY ==
[2021-08-08 14:34] LABS: Amphetamine/Metha Screen,Urine Negative ng/ml (<1000)
[2021-08-08 14:35] LABS: Barbiturates Screen,Urine Negative ng/ml (<200)
[2021-08-08 14:36] LABS: Benzodiazepines Screen,Urine Positive ng/ml (<200); Cannabinoid Screen,Urine Negative ng/ml (<50)
[2021-08-08 14:37] LABS: Cocaine Screen,Urine Negative ng/ml (<300); Methadone Screen,Urine Negative ng/ml (<300)
[2021-08-08 14:38] LABS: Opiate Screen,Urine Positive ng/ml (<300)
[2021-08-08 14:39] LABS: Phencyclidine Screen,Urine Negative ng/ml (<25)
== END ==
PROVIDERS: PCP Emergency Medicine; Visit Provider Emergency Medicine
DX: M06.9 Rheumatoid arthritis, unspecified (principal)
CPT/HCPCS: 80305

== ENCOUNTER → 2021-09-28 07:00 | Outpatient (CLI) | payer OTHER, SELFPAY ==
[2021-09-27 20:09] LABS: Amphetamine/Metha Screen,Urine Negative ng/ml (<1000)
[2021-09-27 20:10] LABS: Barbiturates Screen,Urine Negative ng/ml (<200)
[2021-09-27 20:12] LABS: Benzodiazepines Screen,Urine Positive ng/ml (<200)
[2021-09-27 20:13] LABS: Cannabinoid Screen,Urine Negative ng/ml (<50); Cocaine Screen,Urine Negative ng/ml (<300)
[2021-09-27 20:14] LABS: Methadone Screen,Urine Negative ng/ml (<300)
[2021-09-27 20:15] LABS: Opiate Screen,Urine Positive ng/ml (<300); Phencyclidine Screen,Urine Negative ng/ml (<25)
== END ==
PROVIDERS: PCP Emergency Medicine; Visit Provider Emergency Medicine
DX: Z79.899 Other long term (current) drug therapy (principal)
CPT/HCPCS: 80305

== ENCOUNTER → 2022-02-15 15:25 | Outpatient (CLI) | payer OTHER, SELFPAY ==
[2022-02-15 18:45] LABS: Amphetamine/Metha Screen,Urine Negative ng/ml (<1000)
[2022-02-15 18:46] LABS: Barbiturates Screen,Urine Positive ng/ml (<200)
[2022-02-15 18:47] LABS: Benzodiazepines Screen,Urine Positive ng/ml (<200); Cannabinoid Screen,Urine Negative ng/ml (<50)
[2022-02-15 18:50] LABS: Methadone Screen,Urine Negative ng/ml (<300)
[2022-02-15 18:51] LABS: Opiate Screen,Urine Positive ng/ml (<300)
[2022-02-15 18:52] LABS: Cocaine Screen,Urine Negative ng/ml (<300); Phencyclidine Screen,Urine Negative ng/ml (<25)
== END ==
PROVIDERS: PCP Emergency Medicine; Visit Provider Emergency Medicine
DX: Z79.899 Other long term (current) drug therapy (principal)
CPT/HCPCS: 80305

== ENCOUNTER 2022-03-17 21:57 | Inpatient (IN) | payer OTHER, SELFPAY ==
[2022-03-17 21:58] VITALS: BP 118/75; PULSE 101; RESP 25; TEMP 36.9; O2SAT 68; BMI 35.6
--- NOTE | 2022-03-17 22:27 | PC.NURSE ---
RT at to obtain ABG
[2022-03-17 22:34] LABS: ABG Base Excess 0.8 mmol/L (-2.4-2.3); ABG HCO3 26.5 mmhg (22.0-26.0); ABG Oxygen Saturation 100 % (90-100); ABG PH 7.34 mmol/L (7.35-7.45); ABG PO2 325.8 mmhg (80-100); ABG TCO2 28.1 mmhg (23-27)
[2022-03-17 22:36] LABS: Allen's Test ACCEPTABLE; Oxygen 100 %; Source R RADIAL
[2022-03-17 22:37] LABS: ABG PCO2 50.3 mmhg (35.0-45.0)
--- NOTE | 2022-03-17 22:42 | PC.NURSE ---
Pt signed records request for [facility]
--- NOTE | 2022-03-17 23:02 | ECG_ITS ---
APPROVED REPORT Exam: Resting ECG HR:98 bpm ECG Measurements Heart Rate 98 AXES NC 134 P 62 QRSd 73 QRS 80 QT 318 T 28 QTc 373 Conclusion SINUS RHYTHM NORMAL ECG UNCONFIRMED REPORT Electronically signed by : Angel Luis Hendrix MD 03/18/2022 12:10:43
--- NOTE | 2022-03-17 23:42 | XR_ITS ---
PROCEDURE INFORMATION: Exam: XR Chest Exam date and time: 03/17/2022 11:49 PM Age: 36 years old Clinical indication: Shortness of breath; Additional info: SOA, flu/pna TECHNIQUE: Imaging protocol: Radiologic exam of the chest. Views: 2 views. Total images: 920 COMPARISON: CR XR CHEST 2V 09/10/2020 1:58 PM FINDINGS: Lungs: Diffuse patchy airspace densities, favoring pneumonia, possibly atypical pneumonia. Pleural spaces: Unremarkable. No pleural effusion. No pneumothorax. Heart/Mediastinum: Unremarkable. No cardiomegaly. Bones/joints: Unremarkable. Organs: Prior cholecystectomy noted. IMPRESSION: Diffuse patchy airspace densities, favoring pneumonia, possibly atypical pneumonia. Radiographic surveillance is recommended to document resolution.
[2022-03-17 23:53] LABS: Alanine Aminotransferase 13 U/L (12-78); Albumin Level 3.7 g/dl (3.5-5.0); Albumin/Globulin Ratio 1.1 (1.1-1.8); Alkaline Phosphatase 126 U/L (38-126); Anion Gap 9.9 mEq/L (5-15); Aspartate Amino Transferase 53 U/L (14-36); Basophils # 0.1 K/mm3 (0-0.2); Basophils % 0.8 % (0.1-2.0); Bilirubin,Total 0.2 mg/dl (0.2-1.3); Blood Urea Nitrogen 11 mg/dl (7-17); Calcium 8.7 mg/dl (8.4-10.2); Carbon Dioxide 29 mmol/L (22.0-30.0); Chloride 103 mmol/L (98-107); Creatinine Clearance Estimated 134 mL/min (50-200); Eosinophils # 0.1 K/mm3 (0.0-0.4); Eosinophils % 2.3 % (0.1-12.0); Estimated Glomerular Filt Rate 82 ml/min (>60); GFR (African American) 99 ML/MIN (>60); Globulin 3.4 g/dL (1.3-3.2); Glucose 90 mg/dl (74-100); Hematocrit 34.1 % (37.0-47.0); Hemoglobin 10.7 g/dL (12.2-16.2); Lymphocytes # 2.4 K/mm3 (0.7-4.5); Mean Corpuscular HGB Conc 31.3 g/dL (31.8-35.4); Mean Corpuscular Hemoglobin 24.2 pg (27.0-31.2); Mean Corpuscular Volume 77.4 fl (81-99); Mean Platelet Volume 8.3 fl (7.4-10.4); Monocytes # 0.2 K/mm3 (0.1-1.0); Monocytes % 2.4 % (1.7-9.3); Neutrophils # 3.4 K/mm3 (1.8-7.8); Neutrophils % 55.5 % (37.0-80.0); Platelet Count 387 K/mm3 (142-424); Potassium 3.9 mmoL/L (3.5-5.1); Red Cell Distribution Width 19.3 % (11.5-17.5); Sodium 138 mmol/L (136-145); Total Protein,Serum 7.1 g/dl (6.3-8.2); White Blood Count 6.1 K/mm3 (4.8-10.8)
[2022-03-18] VITALS (14 sets, daily range): BP systolic 113–145; BP diastolic 49–76; PULSE 57–91; RESP 16–24; TEMP 36.6–37.4; O2SAT 90–98; BMI 34.9
--- NOTE | 2022-03-18 02:18 | HMH.EDSOB ---
Discharge Plan Disposition Patient Disposition: Admitted As Inpatient Chief Complaint: Shortness of Breath/Dyspnea Prescriptions Prescriptions: No Action alprazolam [Xanax] 0.5 mg tablet 0.5 mg PO QID Qty: 120 1RF bdnjmkycnc-viayekisvfxgh-edtp 50-325-40 mg tablet 1 tab PO BID Qty: 60 1RF oxycodone 10 mg tablet 10 mg PO QID Qty: 120 0RF Xeljanz XR 11 mg tablet extended release 24 hr 11 mg PO DAILY cetirizine 10 mg tablet See Rx Instructions .ROUTE .COMPLEX Qty: 90 0RF Dose Instruction: TAKE 1 TABLET BY MOUTH ONCE DAILY FOR ALLERGY SYMPTOMS Rx Instructions: TAKE 1 TABLET BY MOUTH ONCE DAILY FOR ALLERGY SYMPTOMS escitalopram oxalate 20 mg tablet See Rx Instructions .ROUTE .COMPLEX Qty: 90 3RF Dose Instruction: TAKE 1 TABLET BY MOUTH ONCE DAILY Rx Instructions: TAKE 1 TABLET BY MOUTH ONCE DAILY albuterol sulfate [ProAir HFA] 90 mcg/actuation HFA aerosol inhaler See Rx Instructions .ROUTE .COMPLEX Qty: 8.5 0RF Dose Instruction: INHALE 2 PUFFS BY MOUTH EVERY SIX HOURS NEEDED SHORTNESS OF BREATH Rx Instructions: INHALE 2 PUFFS BY MOUTH EVERY SIX HOURS NEEDED SHORTNESS OF BREATH nicotine 14 mg/24 hr patch 24 hour See Rx Instructions .ROUTE .COMPLEX Qty: 28 0RF Dose Instruction: APPLY AND REMOVE 1 PATCH ONCE DAILY Rx Instructions: APPLY AND REMOVE 1 PATCH ONCE DAILY ibuprofen 800 mg tablet See Rx Instructions .ROUTE .COMPLEX Qty: 90 0RF Dose Instruction: TAKE 1 TABLET BY MOUTH THREE TIMES DAILY Rx Instructions: TAKE 1 TABLET BY MOUTH THREE TIMES DAILY promethazine 25 mg tablet See Rx Instructions .ROUTE .COMPLEX Qty: 30 0RF Dose Instruction: TAKE 1 TABLET BY MOUTH EVERY SIX HOURS NEEDED FOR NAUSEA AND VOMITING Rx Instructions: TAKE 1 TABLET BY MOUTH EVERY SIX HOURS NEEDED FOR NAUSEA AND VOMITING Referrals Follow up/Referrals: Lalo Estrada MD [Primary Care Provider] - See instructions Clinical Impressions Clinical Impression: Community acquired pneumonia Discharge ED Provider: Lalo Estrada Resp/SOB HPI General Chief Complaint: Shortness of Breath/Dyspnea Stated Complaint: Dismissed [facility] SOB congestion Time Seen by Provider: 03/18/22 02:19 Mode of Arrival: Family Vehicle Source of Information: Patient and Medical Record Limitations: No Limitations Description of Symptoms (Recalled from ER Triage Doc. by RN): Pt c/o SOa, dyspnea, and low O2 sat at home on 5LPM NC. Pt was admitted to [facility] 03/15-03/16 with bilateral PNA and flu A. States she was d/c on O2 -2LPM NC. Pt contiuned to feel SOA and has turned up her O2 to 5L but her sat was 48% so I came on in . History of Present Illness pt with progressive sob and pulse oxy 45 at home and was admitted at [facility] 03/15 and d/c 03/16 - had flu and hypoxia - pt has been compliant with meds but continues to be ill - MD Complaint: shortness of breath and cough Onset (ago): day(s) Context: recent illness Severity: moderate Consistency/Duration: intermittent Relieving factors: upright position Exacerbating factors: coughing Associated symptoms: cough and wheezing Treatment prior to arrival: oxygen and bronchodilator Related Data Home oxygen amount: 2 liters Home Medications Medication Instructions Recorded Confirmed tofacitinib 11 mg tablet,extended 11 mg PO DAILY 12/28/20 02/15/22 release 24 hr (Xeljanz XR) Previous Rx's Medication Instructions Recorded cetirizine 10 mg tablet See Rx Instructions .Route 02/25/21 .COMPLEX #90 tabs escitalopram oxalate 20 mg tablet See Rx Instructions .Route 11/03/21 .COMPLEX #90 tabs albuterol sulfate 90 mcg/actuation See Rx Instructions .Route 02/09/22 aerosol inhaler (ProAir HFA) .COMPLEX #8.5 grams alprazolam 0.5 mg tablet (Xanax) 0.5 mg PO QID #120 tabs 02/15/22 haxojoyend-mkxmcmzvobreg-uwmiuudx 1 tab PO BID #60 tabs 02/15/22 50 mg-325 mg-40 mg tablet oxycodone 10 mg
[2022-03-18 02:43] LABS: Coronavirus 19, PCR Not Detected (NotDetected); Influenza B, PCR Not Detected (NotDetected)
--- NOTE | 2022-03-18 02:50 | EXP.HP ---
History of Present Illness *Admission Date: 03/18/22 *Reason for visit:: Cough, Shortness of air *History of present illness: Ms. Milton is a 36-year-old female with a past medical history of RA on immunosuppressive therapy, Anxiety and Depression. She presents to [facility] due to ongoing shortness of air, productive cough, not feeling well, x approximately 1 week duration. She is noted to have been recently hospitalized at an outlying facility from 03/15-03/16/2022 where she was treated for bilateral pneumonia, Acute hypoxic Respiratory Failure and Influenza A. She reports that she was prescribed Levaquin, Tamiflu and had been taking as prescribed. She has a home oxygen saturation monitor and noted that her oxygen saturation was low at home and she continued to feel worse. She reports that she has not been taking her immunosuppressive therapy since she has been ill. In the ER the patient had a Cxray that showed diffuse airspace densities favoring pneumonia. CBC and CMP were unremarkable. She was given Steroids, nebulizers and will be given broad spectrum antibiotics. Cultures were drrawn in the ER. [facility] Disclaimer: The information contained in this section may have been updated after the patient was seen, as this information can be updated by other users. Medical History (Updated 03/18/22 @ 03:07 by Adam Correa DNP) Anxiety Cholecystitis Chronic headaches Depression Rheumatoid arthritis Surgical History (Updated 03/18/22 @ 02:58 by Adam Correa DNP) History of appendectomy History of hip surgery Family History (Updated 03/18/22 @ 04:56 by Betty Reyes RN) Family history of acute congestive heart failure Family history of COPD (chronic obstructive pulmonary disease) Social History (Updated 03/18/22 @ 04:57 by Betty Reyes RN) Smoking Status: Former smoker second hand exposure: No alcohol intake: never substance use type: denies use current occupational status: unemployed and student Travel in the last 8 weeks: None household members: children housing: apartment number of children: 1 Review of Systems Review of Systems Review of systems:: pertinent systems reviewed and negative unless documented below Constitutional Constitutional: Reports body ache(s) and Reports chills Eyes Eyes: Reports system reviewed and no additional complaints, except as documented ENT Ears, Nose, Mouth, and Throat: Reports system reviewed and no additional complaints, except as documented *Cardiovascular Cardiovascular: Reports system reviewed and no additional complaints, except as documented and Reports dyspnea *Respiratory Respiratory: Reports change in phlegm color, Reports cough and Reports dyspnea *Gastrointestinal Gastrointestinal: Reports system reviewed and no additional complaints, except as documented *Genitourinary Genitourinary: Reports system reviewed and no additional complaints, except as documented *Musculoskeletal Musculoskeletal: Reports system reviewed and no additional complaints, except as documented Integumentary/Breasts Skin/Breast: Reports system reviewed and no additional complaints, except as documented *Neurologic Neurologic: Reports system reviewed and no additional complaints, except as documented Psychiatric Psychiatric: Reports system reviewed and no additional complaints, except as documented Endocrine Endocrine: Reports system reviewed and no additional complaints, except as documented Hematologic/Lymphatic Hematologic/Lymphatic: Reports system reviewed and no additional complaints, except as documented Allergic/Immunologic Allergic/Immunologic: Reports system reviewed and no additional complaints, except as documented Meds Home Medications and Allergies Home Medications Medication Instructions Recorded Confirmed Type cetirizine 10 mg tablet See Rx Instructions .Route 02/25/21 03/18/22 Rx .COMPLEX #90 tabs escitalopram oxalate 20 mg tablet See Rx
[2022-03-18 02:51] LABS: Lactic Acid 0.9 mmol/L (0.7-2.1)
[2022-03-18 03:49] LABS: Mycoplasma Pneumo IGM (Rapid) Non-Reactive (Non-Reactiv)
--- NOTE | 2022-03-18 04:04 | PC.NURSE ---
@ 0350- Gave report to Loi Reyes RN
[2022-03-18 04:13] LABS: Influenza A, PCR Detected (NotDetected)
--- NOTE | 2022-03-18 04:14 | PC.NURSE ---
PT ARRIVED TO FLOOR VIA WHEELCHAIR AT THIS TIME
--- NOTE | 2022-03-18 06:09 | CT_ITS ---
PROCEDURE INFORMATION: Exam: CTA Chest With Contrast Exam date and time: 03/18/2022 7:12 AM Age: 36 years old Clinical indication: Shortness of breath; Additional info: Elevated d-dimer, hypoxia TECHNIQUE: Imaging protocol: Computed tomographic angiography of the chest with contrast. 3D rendering (Not supervised by radiologist): MIP and/or 3D reconstructed images were created by the technologist. Radiation optimization: All CT scans at this facility use at least one of these dose optimization techniques: automated exposure control; mA and/or kV adjustment per patient size (includes targeted exams where dose is matched to clinical indication); or iterative reconstruction. Contrast material: ISOVUE; Contrast volume: 70 ml; Contrast route: INTRAVENOUS (IV); COMPARISON: CT ANGIO CHEST 09/07/2020 4:53 PM FINDINGS: Pulmonary arteries: Normal. No pulmonary emboli. Aorta: Unremarkable. No aortic aneurysm. No aortic dissection. Lungs: Calcified granuloma in the right lower lobe. Patchy ground-glass opacities are seen throughout the lungs bilaterally Pleural spaces: Unremarkable. No pneumothorax. No pleural effusion. Heart: Unremarkable. No cardiomegaly. No pericardial effusion. Lymph nodes: Enlarged mediastinal and hilar lymphadenopathy is likely reactive. Gallbladder and bile ducts: Cholecystectomy. Bones/joints: Unremarkable. No acute fracture. Soft tissues: Unremarkable. IMPRESSION: 1. No pulmonary emboli identified. 2. Ground-glass opacities throughout the lungs bilaterally, most suggestive of multilobar pneumonia, though other etiologies could produce a similar appearance including hypersensitivity pneumonitis, inhalation injury, and alveolar pulmonary edema.
--- NOTE | 2022-03-18 06:53 | PC.NURSE ---
PATIENT ARRIVED TO THE FLOOR AT 0350 VIA W/C. A/O X 4. COARSE EXPIRATORY WHEEZES. 02 AT 2.5 LNC. SOA WITH MINIMAL EXERTION. 02 SAT 96 % AT THIS TIME ON 2.5 LNC.
--- NOTE | 2022-03-18 08:25 | EXP.PHA.CONS ---
Pharmacy Consult Date: 03/18/22 Time: 08:25 Referring provider: DR. ALANIS Reason for Consult:: VANCOMYCIN DOSING Allergies Allergy/AdvReac Type Severity Reaction Status Date / Time ketorolac [From Toradol] Allergy Severe Hives Verified 02/15/22 13:48 morphine Allergy Severe Chest Pain Verified 02/15/22 13:48 tramadol AdvReac Verified 02/15/22 13:48 varenicline [From Chantix] AdvReac anxiety, Verified 02/15/22 13:48 nightmares Home Medications Medication Instructions Recorded Confirmed Type cetirizine 10 mg tablet See Rx Instructions .Route 02/25/21 03/18/22 Rx .COMPLEX #90 tabs escitalopram oxalate 20 mg tablet See Rx Instructions .Route 11/03/21 03/18/22 Rx .COMPLEX #90 tabs albuterol sulfate 90 mcg/actuation See Rx Instructions .Route 02/09/22 03/18/22 Rx aerosol inhaler (ProAir HFA) .COMPLEX #8.5 grams alprazolam 0.5 mg tablet (Xanax) 0.5 mg PO QID #120 tabs 02/15/22 03/18/22 Rx pdgaqnplgt-xqqoxhvllpatm-btdbqhlb 1 tab PO BID #60 tabs 02/15/22 03/18/22 Rx 50 mg-325 mg-40 mg tablet oxycodone 10 mg tablet 10 mg PO QID #120 tabs 02/15/22 03/18/22 Rx promethazine 25 mg tablet See Rx Instructions .Route 03/13/22 03/18/22 Rx .COMPLEX #30 tabs ibuprofen 800 mg tablet See Rx Instructions .Route 03/18/22 03/18/22 History .COMPLEX Pain New Prescriptions to Start Prescriptions: Height: 1.55 m Weight: 84 kg Laboratory Results:: Laboratory Results - last 24 hr 03/17/22 22:32: Specimen Source R radial, O2 % 100, ABG pH 7.34 L, ABG pCO2 50.3 H, ABG pO2 325.8 H, ABG HCO3 26.5 H, ABG Total CO2 28.1 H, ABG O2 Saturation 100, ABG Base Excess 0.8, Edis Test Acceptable 03/17/22 23:40: WBC 6.1, RBC 4.40, Hgb 10.7 L, Hct 34.1 L, MCV 77.4 L, MCH 24.2 L, MCHC 31.3 L, RDW 19.3 H, Plt Count 387, MPV 8.3, Neut % (Auto) 55.5, Lymph % (Auto) 39.0, [place] % (Auto) 2.4, Eos % (Auto) 2.3, Baso % (Auto) 0.8, Neut # (Auto) 3.4, Lymph # (Auto) 2.4, [place] # (Auto) 0.2, Eos # (Auto) 0.1, Baso # (Auto) 0.1 03/17/22 23:40: Sodium 138, Potassium 3.9, Chloride 103, Carbon Dioxide 29, Anion Gap 9.9, BUN 11, Creatinine 0.80, Estimated Creat Clear 134, Estimated GFR 82, Est GFR ( Amer) 99, Glucose 90, Calcium 8.7, Total Bilirubin 0.2, AST 53 H, ALT 13, Alkaline Phosphatase 126, Total Protein 7.1, Albumin 3.7, Globulin 3.4 H, Albumin/Globulin Ratio 1.1 03/17/22 23:40: D-Dimer 1.10 H 03/17/22 23:40: Mycoplasma pneumon IgM Non-reactive 03/18/22 02:25: Lactate 0.9 03/18/22 02:25: SARS-CoV-2 (PCR) Not detected, Influenza A Untype (PCR) Detected A, Influenza Type B (PCR) Not detected Medical History: Medical History (Updated 03/18/22 @ 03:07 by Adam Correa DNP) Anxiety Cholecystitis Chronic headaches Depression Rheumatoid arthritis Assessment and Plan Assessment and plan all Dx Assessment and Plan for all problems:: Pharmacokinetic dosing service Objective: Patient: Floor: Age: 36 yo Serum creatinine: 0.80 mg/dL Height: 61.0 Inches Weight (kg): 84 Assessment: IBW (kg): 47.80 Dosing wt(kg): 84 Estimated Creatinine clearance (ml/min): 74.8 CRCL method: Cockcroft and Gault using ibw(default). Drug selected: Vancomycin Loading dose (mg): Vd (liters): 63.0 (factor used: 0.75 L/kg) Nomi (hr-1): 0.066 Half life (hrs): 10.50 CLvanco=?? 4.158 L/hr Recommended dose: 1500 mg Interval: 18 hrs Infusion time (hrs): 2.0 Predicted peak (mcg/mL): 32.1 Predicted trough (mcg/mL): 11.17 Total body weight is being used for vancomycin dosing. Recommendations: Give Vancomycin 1500 mg q 18 hrs with an expected Cpeak of 32.1 mcg/ml and an expected Ctrough of 11.17 mcg/ml AUC 0-24 /JOHANA Data: JOHANA 0.5 mcg/mL:?? AUC/JOHANA:? 962.0 JOHANA 1.0 mcg/mL:?? AUC/JOHANA:? 481.0 --------- JOHANA 1.5 mcg/mL:??
--- NOTE | 2022-03-18 15:03 | HMH.PHAINT1 ---
Pharmacy Intervention Comments: MEDICATION RECONCILIATION COMPLETED ON PATIENT USING EXTERNAL FILL HISTORY FROM PHARMACY AND EMA REPORT. -GUI JOHNSON, ALEXD
[2022-03-19] VITALS (12 sets, daily range): BP systolic 126–154; BP diastolic 61–83; PULSE 46–99; RESP 19–22; TEMP 36.5–36.9; O2SAT 94–98; BMI 34.9
--- NOTE | 2022-03-19 03:53 | PC.NURSE ---
PT ALERT AND ORIENTED X 4. WE HAD TO INCREASE PTS O2 THIS SHIFT TO 4 L NC. PT IS NOW MAINTAINING O2 SAT >90%. PT O2 SAT DOES DROP WITH AMBULATION, BUT RECOVERS QUICKLY. I HAVE CONTACTED JUMANA GONSALEZ MULTIPLE TIMES THIS SHIFT REGARDING PTS ANXIETY AND PAIN. NEW ORDERS RECEIVED AND MEDICATED PER JUN. PT RECEIVING IV ATBX ORDERED. LUNGS SOUNDS - TIGHT, WHEEZING. LAST BM - 03/18/22. PT RECEIVING SCHEDULED BREATHING TX. PT STATES SHE IS NOT COUGHING UP ANYTHING AT THIS TIME. AMBULATING INDEPENDENTLY TO BATHROOM. CALL LIGHT IN REACH. NO NEEDS AT THIS TIME.
[2022-03-19 08:37] LABS: Basophils % 0.2 % (0.1-2.0); Eosinophils % 0.1 % (0.1-12.0); Hematocrit 30.9 % (37.0-47.0); Hemoglobin 9.7 g/dL (12.2-16.2); Lymphocytes % 18.2 % (10-50); Mean Corpuscular HGB Conc 31.4 g/dL (31.8-35.4); Mean Corpuscular Hemoglobin 24.6 pg (27.0-31.2); Mean Corpuscular Volume 78.2 fl (81-99); Mean Platelet Volume 8.6 fl (7.4-10.4); Monocytes # 0.1 K/mm3 (0.1-1.0); Monocytes % 1.8 % (1.7-9.3); Neutrophils # 4.5 K/mm3 (1.8-7.8); Neutrophils % 79.8 % (37.0-80.0); Platelet Count 351 K/mm3 (142-424); Red Blood Count 3.95 M/mm3 (4.20-5.40); Red Cell Distribution Width 19.6 % (11.5-17.5); White Blood Count 5.6 K/mm3 (4.8-10.8)
[2022-03-19 08:41] LABS: Chloride 108 mmol/L (98-107)
[2022-03-19 08:42] LABS: Potassium 4.4 mmoL/L (3.5-5.1); Sodium 139 mmol/L (136-145)
[2022-03-19 08:44] LABS: Alanine Aminotransferase 27 U/L (12-78); Albumin Level 3.3 g/dl (3.5-5.0); Alkaline Phosphatase 91 U/L (38-126); Anion Gap 8.4 mEq/L (5-15); Aspartate Amino Transferase 46 U/L (14-36); Bilirubin,Total 0.2 mg/dl (0.2-1.3); Blood Urea Nitrogen 13 mg/dl (7-17); Carbon Dioxide 27 mmol/L (22.0-30.0); Creatinine Clearance Estimated 175 mL/min (50-200); Estimated Glomerular Filt Rate 114 ml/min (>60); GFR (African American) 138 ML/MIN (>60); Globulin 3.3 g/dL (1.3-3.2); Glucose 162 mg/dl (74-100); Total Protein,Serum 6.6 g/dl (6.3-8.2)
[2022-03-19 08:45] LABS: Calcium 8.8 mg/dl (8.4-10.2); Magnesium 2.2 mg/dl (1.6-2.3)
--- NOTE | 2022-03-19 14:13 | EXP.ACUTE.PN ---
Subjective *Date: 03/19/22 *Time: 14:13 Interval history: Continues to have significant aches all over. Discussed that this is likely aches from the flu compounding her rheumatoid arthritis. Still nauseous. Responds well to Phenergan. Stable oxygen requirement, on 3 L this morning. No chest pain. Denies janeth vomiting. No diarrhea. Medical Exam Vital signs and Labs for Last 24 Hours: Vital Signs Temp Pulse Pulse Resp BP Pulse Ox 03/19/22 13:59 46 L 03/19/22 13:59 48 L 03/19/22 13:59 96 03/19/22 11:17 97.9 F 59 L 20 129/70 98 03/19/22 09:03 52 L 03/19/22 09:03 52 L 03/19/22 09:03 97 03/19/22 07:45 98.4 F 74 20 126/67 94 L 03/19/22 06:37 73 03/19/22 06:37 99 H 03/19/22 06:37 96 03/19/22 04:00 98.0 F 68 22 132/74 95 03/19/22 02:15 64 03/19/22 02:00 68 03/18/22 22:15 67 03/18/22 22:00 67 03/19/22 00:00 97.7 F 77 22 138/61 98 03/18/22 20:00 98.2 F 64 24 145/60 H 95 03/18/22 17:33 65 03/18/22 17:33 61 03/18/22 17:33 96 03/18/22 16:00 99.3 F 86 16 113/49 L 93 L Intake and Output 03/18/22 03/19/22 03/19/22 23:59 07:59 15:59 Intake Total 480 / 1680 1130 / 1610 480 / 1610 Output Total 0 / 0 0 / 0 Balance 480 / 1680 1130 / 1610 480 / 1610 Intake: Intake, Oral Amount 480 / 1680 480 / 960 480 / 960 Intake, Total IV Amount 650 / 650 Azithromycin 500 mg In 0.9 % 250 / 250 Sodium Chloride 250 ml @ 250 mls/hr IV Q24H [facility] Rx#:[id number] Cefepime HCl 2 gm In 0.9 % 100 / 100 Sodium Chloride 100 ml @ 200 mls/hr IV Q8H [facility] Rx#:[id number] Vancomycin/Water For Inj (Peg) 300 / 300 1.5 gm In 300 ml @ 150 mls/hr IV Q18H [facility] Rx#:[id number] Output: Output, Urine Amount 0 / 0 0 / 0 Other: Number of Unmeasured Voids 1 1 Weight 83.971 kg Patient Weight 03/19/22 23:59 Weight 83.971 kg Laboratory Results - last 24 hr 03/19/22 07:23: WBC 5.6, RBC 3.95 L, Hgb 9.7 L, Hct 30.9 L, MCV 78.2 L, MCH 24.6 L, MCHC 31.4 L, RDW 19.6 H, Plt Count 351, MPV 8.6, Neut % (Auto) 79.8, Lymph % (Auto) 18.2, [place] % (Auto) 1.8, Eos % (Auto) 0.1, Baso % (Auto) 0.2, Neut # (Auto) 4.5, Lymph # (Auto) 1.0, [place] # (Auto) 0.1, Eos # (Auto) 0.0, Baso # (Auto) 0.0 03/19/22 07:23: Sodium 139, Potassium 4.4, Chloride 108 H, Carbon Dioxide 27, Anion Gap 8.4, BUN 13, Creatinine 0.60 D, Estimated Creat Clear 175, Estimated GFR 114, Est GFR ( Amer) 138 D, Glucose 162 H, Calcium 8.8, Magnesium 2.2, Total Bilirubin 0.2, AST 46 H, ALT 27 D, Alkaline Phosphatase 91, Total Protein 6.6, Albumin 3.3 L D, Globulin 3.3 H, Albumin/Globulin Ratio 1.0 L I & O for Labs for Last 24 Hours: Intake & Output 03/16/22 03/17/22 03/18/22 03/19/22 23:59 23:59 23:59 23:59 Intake Total 1200 / 1680 1610 / 1610 Output Total 0 / 0 0 / 0 Balance 1200 / 1680 1610 / 1610 Weight 85.729 kg 84 kg 83.971 kg Microbiology Reports for the Last 24 Hours: Microbiology 03/18/22 09:15 Sputum - Expectorated Sputum Gram Stain - Final 03/18/22 09:15 Sputum - Expectorated Sputum Sputum Culture - Preliminary 03/18/22 02:50 Blood Blood Culture - Preliminary Constitutional: Present mild distress, obese and cooperative Head: Present atraumatic and normocephalic ENT: Present normal exam Neck: Present normal inspection Respiratory: Present accessory muscle use, prolonged expiratory phase, rhonchi, wheezes and crackles Cardiac: Present Reg Rate and Rhythm GI: Present soft and normal bowel sounds; Absent distention or tenderness Extremities: Present normal inspection and full ROM Skin: Present intact; Absent erythema Neuro: Present Grossly Intact, alert, awake, oriented x 3 and moves all extremities Assessment and Plan *Assessment and plan (1) Pneumonia: Status: Acute Category: Medical Code(s): J18.9 - Pneumonia, unspecifie
--- NOTE | 2022-03-19 18:35 | PC.NURSE ---
she is aox4, able to make needs known to staf, she has required 3lnc for o2 support, desats when ambulating to restroom. she has requested prn promethazine at frequent intervals and was medicated per jun. pt catherine received chance pain and anxiety medication this shift.
[2022-03-20] VITALS (8 sets, daily range): BP systolic 109–144; BP diastolic 67–78; PULSE 58–84; RESP 18–20; TEMP 36.6–37; O2SAT 95–100; BMI 34.4
[2022-03-20 06:44] LABS: Basophils # 0.1 K/mm3 (0-0.2); Basophils % 0.9 % (0.1-2.0); Eosinophils # 0.1 K/mm3 (0.0-0.4); Eosinophils % 0.7 % (0.1-12.0); Hematocrit 30.2 % (37.0-47.0); Hemoglobin 9.4 g/dL (12.2-16.2); Lymphocytes # 3.2 K/mm3 (0.7-4.5); Lymphocytes % 46.7 % (10-50); Mean Corpuscular HGB Conc 31.1 g/dL (31.8-35.4); Mean Corpuscular Hemoglobin 24.5 pg (27.0-31.2); Mean Corpuscular Volume 78.9 fl (81-99); Mean Platelet Volume 8.9 fl (7.4-10.4); Monocytes # 0.2 K/mm3 (0.1-1.0); Neutrophils # 3.3 K/mm3 (1.8-7.8); Neutrophils % 48.7 % (37.0-80.0); Platelet Count 389 K/mm3 (142-424); Red Blood Count 3.83 M/mm3 (4.20-5.40); Red Cell Distribution Width 19.6 % (11.5-17.5); White Blood Count 6.8 K/mm3 (4.8-10.8)
[2022-03-20 06:47] LABS: Chloride 111 mmol/L (98-107)
[2022-03-20 06:48] LABS: Potassium 3.7 mmoL/L (3.5-5.1); Sodium 140 mmol/L (136-145)
[2022-03-20 06:51] LABS: Alanine Aminotransferase 34 U/L (12-78); Albumin Level 3.1 g/dl (3.5-5.0); Alkaline Phosphatase 85 U/L (38-126); Anion Gap 5.7 mEq/L (5-15); Aspartate Amino Transferase 42 U/L (14-36); Bilirubin,Total < 0.1 mg/dl (0.2-1.3); Blood Urea Nitrogen 20 mg/dl (7-17); Calcium 8.5 mg/dl (8.4-10.2); Carbon Dioxide 27 mmol/L (22.0-30.0); Creatinine Clearance Estimated 115 mL/min (50-200); Estimated Glomerular Filt Rate 72 ml/min (>60); GFR (African American) 87 ML/MIN (>60); Glucose 91 mg/dl (74-100); Total Protein,Serum 6.1 g/dl (6.3-8.2)
[2022-03-20 06:52] LABS: Magnesium 2.1 mg/dl (1.6-2.3)
[2022-03-20 06:57] LABS: C-Reactive Protein 31.1 mg/L (0-4)
--- NOTE | 2022-03-20 07:36 | PC.NURSE ---
NO NEW CHANGES SINCE PREVIOUS ASSESSMENT. MEDICATING PER MAR FOR PAIN AND NAUSEA. PT C/O OF ALL OVER BODY ACHES. PT REMAINS ON 3 L NC WITH O2 SAT >90% AT REST. LUNG SOUNDS - WHEEZES. PT RECEIVING SCHEDULED BREATHING TX, BUT REFUSED ONE OF HER TX LAST NIGHT. PT HAS A NONPRODUCTIVE COUGH. GETTING UP TO BATHROOM INDEPENDENTLY. IV ATBX INFUSING PER ORDER. PULMONARY CONSULT THIS AM. CALL LIGHT IN REACH. NO NEEDS VOICED AT THIS TIME.
--- NOTE | 2022-03-20 07:49 | EXP.ACUTE.PN ---
Subjective *Date: 03/20/22 *Time: 13:46 Interval history: Doing better this morning. Stable on 3 L nasal cannula oxygen. Wean as tolerated. Pain appears better controlled today. No fever overnight. Cough nonproductive. Denies chest pain, nausea or vomiting. Family visited yesterday which seemed to help lift her spirits. Tolerating p.o. intake. Ambulating to bathroom independently Medical Exam Vital signs and Labs for Last 24 Hours: Vital Signs Temp Pulse Pulse Resp BP Pulse Ox FiO2 03/20/22 07:22 98.0 F 61 19 109/69 L 100 03/20/22 04:00 97.9 F 58 L 18 112/67 100 03/20/22 00:00 98.6 F 61 18 144/68 H 98 03/19/22 20:00 97.7 F 70 22 154/83 H 97 03/19/22 19:08 32 03/19/22 19:08 52 L 03/19/22 19:08 50 L 03/19/22 15:14 98.4 F 57 L 19 137/79 98 03/19/22 13:59 46 L 03/19/22 13:59 48 L 03/19/22 13:59 96 03/19/22 11:17 97.9 F 59 L 20 129/70 98 03/19/22 09:03 52 L 03/19/22 09:03 52 L 03/19/22 09:03 97 Intake and Output 03/19/22 03/19/22 03/20/22 15:59 23:59 07:59 Intake Total 480 / 2090 240 / 2090 240 / 240 Output Total 200 / 550 350 / 550 0 / 0 Balance 280 / 1540 -110 / 1540 240 / 240 Intake: Intake, Oral Amount 480 / 1440 240 / 1440 240 / 240 Output: Output, Urine Amount 200 / 550 350 / 550 0 / 0 Other: Number of Unmeasured Voids 1 1 Weight 82.8 kg Patient Weight 03/20/22 23:59 Weight 82.8 kg Laboratory Results - last 24 hr 03/19/22 07:23: WBC 5.6, RBC 3.95 L, Hgb 9.7 L, Hct 30.9 L, MCV 78.2 L, MCH 24.6 L, MCHC 31.4 L, RDW 19.6 H, Plt Count 351, MPV 8.6, Neut % (Auto) 79.8, Lymph % (Auto) 18.2, [place] % (Auto) 1.8, Eos % (Auto) 0.1, Baso % (Auto) 0.2, Neut # (Auto) 4.5, Lymph # (Auto) 1.0, [place] # (Auto) 0.1, Eos # (Auto) 0.0, Baso # (Auto) 0.0 03/19/22 07:23: Sodium 139, Potassium 4.4, Chloride 108 H, Carbon Dioxide 27, Anion Gap 8.4, BUN 13, Creatinine 0.60 D, Estimated Creat Clear 175, Estimated GFR 114, Est GFR ( Amer) 138 D, Glucose 162 H, Calcium 8.8, Magnesium 2.2, Total Bilirubin 0.2, AST 46 H, ALT 27 D, Alkaline Phosphatase 91, Total Protein 6.6, Albumin 3.3 L D, Globulin 3.3 H, Albumin/Globulin Ratio 1.0 L 03/20/22 05:46: WBC 6.8, RBC 3.83 L, Hgb 9.4 L, Hct 30.2 L, MCV 78.9 L, MCH 24.5 L, MCHC 31.1 L, RDW 19.6 H, Plt Count 389, MPV 8.9, Neut % (Auto) 48.7, Lymph % (Auto) 46.7, [place] % (Auto) 3.0, Eos % (Auto) 0.7, Baso % (Auto) 0.9, Neut # (Auto) 3.3, Lymph # (Auto) 3.2, [place] # (Auto) 0.2, Eos # (Auto) 0.1, Baso # (Auto) 0.1 03/20/22 05:46: Sodium 140, Potassium 3.7, Chloride 111 H, Carbon Dioxide 27, Anion Gap 5.7, BUN 20 H D, Creatinine 0.90 D, Estimated Creat Clear 115, Estimated GFR 72, Est GFR ( Amer) 87 D, Glucose 91 D, Calcium 8.5, Magnesium 2.1, Total Bilirubin < 0.1 L, AST 42 H, ALT 34 D, Alkaline Phosphatase 85, C-Reactive Protein 31.1 H, Total Protein 6.1 L, Albumin 3.1 L, Globulin 3.0, Albumin/Globulin Ratio 1.0 L I & O for Labs for Last 24 Hours: Intake & Output 03/17/22 03/18/22 03/19/22 03/20/22 23:59 23:59 23:59 23:59 Intake Total 1200 / 1680 1850 / 2090 240 / 240 Output Total 0 / 0 550 / 550 0 / 0 Balance 1200 / 1680 1300 / 1540 240 / 240 Weight 85.729 kg 84 kg 83.971 kg 82.8 kg Microbiology Reports for the Last 24 Hours: Microbiology 03/18/22 02:50 Blood Blood Culture - Preliminary NO GROWTH AFTER 48 HOURS 03/18/22 09:15 Sputum - Expectorated Sputum Gram Stain - Final 03/18/22 09:15 Sputum - Expectorated Sputum Sputum Culture - Preliminary Constitutional: Present no acute distress, obese and cooperative Head: Present atraumatic and normocephalic ENT: Present normal exam Neck: Present normal inspection Respiratory: Present accessory muscle use, prolonged expiratory phase, rhonchi, wheezes and crackles Cardiac: Present Reg Rate and Rhythm GI: Present soft and normal bowel sounds; Absent
--- NOTE | 2022-03-20 10:25 | EXP.PULM.CON ---
History of Present Illness History of present illness: Ms. Milton is a 36-year-old female current smoker around 1-pack-year smoking history rheumatoid arthritis presented to the hospital with worsening respiratory distress for the last 2 days associated with cough and predominantly nonproductive phlegm and found to have influenza pneumonia and pulmonary was called for further evaluation. [facility] Disclaimer: The information contained in this section may have been updated after the patient was seen, as this information can be updated by other users. Medical History (Updated 03/20/22 @ 13:06 by Hazel Lucio MD) Acute respiratory failure with hypoxia Anxiety Cholecystitis Chronic headaches Depression Influenza A Rheumatoid arthritis Surgical History (Updated 03/18/22 @ 02:58 by Adam Correa DNP) History of appendectomy History of hip surgery Family History (Updated 03/18/22 @ 04:56 by Betty Reyes, NIDHI) Other Family history of COPD (chronic obstructive pulmonary disease) Family history of acute congestive heart failure Social History (Updated 03/18/22 @ 04:57 by Betty Reyes RN) Smoking Status: Former smoker second hand exposure: No alcohol intake: never substance use type: denies use current occupational status: unemployed and student Travel in the last 8 weeks: None household members: children housing: apartment number of children: 1 Review of Systems Constitutional Constitutional: Reports anorexia, Reports body ache(s) and Reports fatigue Eyes Eyes: Denies eye discharge, Denies dry eyes, Denies irritation and Denies itchy eyes ENT Ears, Nose, Mouth, and Throat: Denies epistaxis, Denies facial pain, Denies lip swelling and Denies throat swelling *Cardiovascular Cardiovascular: Reports dyspnea and Reports dyspnea on exertion *Respiratory Respiratory: Reports chest congestion, Reports cough, Reports dyspnea, Reports dyspnea on exertion, Reports excessive phlegm production, Denies pain on inspiration and Reports pain with cough *Gastrointestinal Gastrointestinal: Denies abdominal pain, Denies belching and Denies cramping *Musculoskeletal Musculoskeletal: Reports back pain, Reports myalgias and Reports other (No small joint swelling or Pain) *Neurologic Neurologic: Reports system reviewed and no additional complaints, except as documented Psychiatric Psychiatric: Denies homicidal ideation and Denies suicidal ideation Endocrine Endocrine: Reports fatigue and Denies heat intolerance Hematologic/Lymphatic Hematologic/Lymphatic: Denies easy bleeding and Denies lymphadenopathy Allergic/Immunologic Allergic/Immunologic: Denies itchy eyes, Denies lip swelling and Denies throat swelling Pulmonology Exam Inpatient Vital signs and Labs for Last 24 Hours: Temp Pulse Resp BP Pulse Ox FiO2 98.0 F 61 19 109/69 L 100 32 03/20/22 07:22 03/20/22 07:22 03/20/22 07:22 03/20/22 07:22 03/20/22 07:22 03/19/22 19:08 Laboratory Results - last 24 hr 03/20/22 05:46: WBC 6.8, RBC 3.83 L, Hgb 9.4 L, Hct 30.2 L, MCV 78.9 L, MCH 24.5 L, MCHC 31.1 L, RDW 19.6 H, Plt Count 389, MPV 8.9, Neut % (Auto) 48.7, Lymph % (Auto) 46.7, [place] % (Auto) 3.0, Eos % (Auto) 0.7, Baso % (Auto) 0.9, Neut # (Auto) 3.3, Lymph # (Auto) 3.2, [place] # (Auto) 0.2, Eos # (Auto) 0.1, Baso # (Auto) 0.1 03/20/22 05:46: Sodium 140, Potassium 3.7, Chloride 111 H, Carbon Dioxide 27, Anion Gap 5.7, BUN 20 H D, Creatinine 0.90 D, Estimated Creat Clear 115, Estimated GFR 72, Est GFR ( Amer) 87 D, Glucose 91 D, Calcium 8.5, Magnesium 2.1, Total Bilirubin < 0.1 L, AST 42 H, ALT 34 D, Alkaline Phosphatase 85, C-Reactive Protein 31.1 H, Total Protein 6.1 L, Albumin 3.1 L, Globulin 3.0, Albumin/Globulin Ratio 1.0 L I & O for Labs for Last 24 Hours: Intake & Output 03/17/22 03/18/22 03/19/22 03/20/22 23:59 23:59 23:59 23:59 Intake Total 1200 / 1680 1850 / 2090 240 / 240 Output Total 0 / 0 550 / 550 0 / 0 Balance 1200 / 1
[2022-03-20 21:11] LABS: Vancomycin,Trough 9.1 ug/mL (5.0-10.0)
[2022-03-21] VITALS (26 sets, daily range): BP systolic 86–154; BP diastolic 41–77; PULSE 50–118; RESP 16–24; TEMP 36.3–37.4; O2SAT 3–99; BMI 34.4
[2022-03-21 01:14] LABS: Vancomycin,Peak 41.2 ug/ml (11-39)
[2022-03-21 06:46] LABS: Basophils # 0.1 K/mm3 (0-0.2); Basophils % 0.9 % (0.1-2.0); Eosinophils # 0.3 K/mm3 (0.0-0.4); Eosinophils % 3.5 % (0.1-12.0); Hematocrit 30.9 % (37.0-47.0); Hemoglobin 9.8 g/dL (12.2-16.2); Lymphocytes # 2.7 K/mm3 (0.7-4.5); Lymphocytes % 30.1 % (10-50); Mean Corpuscular HGB Conc 31.8 g/dL (31.8-35.4); Mean Corpuscular Hemoglobin 24.5 pg (27.0-31.2); Mean Platelet Volume 8.5 fl (7.4-10.4); Monocytes # 0.3 K/mm3 (0.1-1.0); Neutrophils # 5.5 K/mm3 (1.8-7.8); Neutrophils % 62.5 % (37.0-80.0); Platelet Count 434 K/mm3 (142-424); Red Blood Count 4.01 M/mm3 (4.20-5.40); Red Cell Distribution Width 19.6 % (11.5-17.5); White Blood Count 8.8 K/mm3 (4.8-10.8)
[2022-03-21 06:54] LABS: Chloride 110 mmol/L (98-107); Potassium 3.6 mmoL/L (3.5-5.1); Sodium 138 mmol/L (136-145)
[2022-03-21 06:57] LABS: Anion Gap 6.6 mEq/L (5-15); Blood Urea Nitrogen 21 mg/dl (7-17); Calcium 8.6 mg/dl (8.4-10.2); Carbon Dioxide 25 mmol/L (22.0-30.0); Creatinine Clearance Estimated 148 mL/min (50-200); Estimated Glomerular Filt Rate 96 ml/min (>60); GFR (African American) 116 ML/MIN (>60); Glucose 90 mg/dl (74-100)
--- NOTE | 2022-03-21 07:22 | PC.NURSE ---
Pt has c/o nausea 2x and has had 1 episode of vomiting. Pt has voiced feeling anxious about procedure today. Education on procedure given, pt verbalizes understanding. Call light within reach
--- NOTE | 2022-03-21 10:05 | EXP.PULM.PN ---
Subjective *Date: 03/21/22 *Time: 13:52 Interval history: No acute respiratory vents overnight. Patient continued respiratory status. Continued to have cough without any productive phlegm. Stable oxygen requirements. No new complaints. Pulmonology Exam Inpatient Vital signs and Labs for Last 24 Hours: Temp Pulse Resp BP Pulse Ox FiO2 99 F 54 L 21 154/55 H 97 32 03/21/22 08:00 03/21/22 08:00 03/21/22 08:00 03/21/22 08:00 03/21/22 08:00 03/19/22 19:08 Laboratory Results - last 24 hr 03/20/22 20:35: Vancomycin Trough 9.1 03/21/22 00:30: Vancomycin Peak 41.2 H* 03/21/22 06:32: WBC 8.8 D, RBC 4.01 L, Hgb 9.8 L, Hct 30.9 L, MCV 77.0 L, MCH 24.5 L, MCHC 31.8, RDW 19.6 H, Plt Count 434 H, MPV 8.5, Neut % (Auto) 62.5, Lymph % (Auto) 30.1, [place] % (Auto) 3.0, Eos % (Auto) 3.5, Baso % (Auto) 0.9, Neut # (Auto) 5.5, Lymph # (Auto) 2.7, [place] # (Auto) 0.3, Eos # (Auto) 0.3, Baso # (Auto) 0.1 03/21/22 06:32: Sodium 138, Potassium 3.6, Chloride 110 H, Carbon Dioxide 25, Anion Gap 6.6, BUN 21 H, Creatinine 0.70 D, Estimated Creat Clear 148, Estimated GFR 96, Est GFR ( Amer) 116 D, Glucose 90, Calcium 8.6 I & O for Labs for Last 24 Hours: Intake & Output 03/18/22 03/19/22 03/20/22 03/21/22 23:59 23:59 23:59 23:59 Intake Total 1200 / 1680 1850 / 2090 600 / 1000 400 / 400 Output Total 0 / 0 550 / 550 300 / 300 Balance 1200 / 1680 1300 / 1540 300 / 700 400 / 400 Weight 185 lb 3.013 oz 185 lb 2 oz 182 lb 8.684 oz 182 lb 8.684 oz Microbiology Reports for the Last 24 Hours: Microbiology 03/18/22 09:15 Sputum - Expectorated Sputum Gram Stain - Final 03/18/22 09:15 Sputum - Expectorated Sputum Sputum Culture - Final Normal Respiratory Lidia 03/18/22 02:50 Blood Blood Culture - Preliminary Staphylococcus epidermidis Constitutional: Present moderate distress Head: Present normocephalic and atraumatic ENT: Present normal exam, normal oropharynx and mucous membranes moist Neck: Present normal inspection and full ROM Respiratory: Present rales, respiratory distress, wheezes, diminished air movement and able to speak in complete sentences; Absent rhonchi Cardiac: Present S1/S2, Tachycardia and radial pulses present GI: Present soft and distention; Absent tenderness or guarding Rectal (female): Present deferred (female): Present deferred Skin: Present intact; Absent cyanosis or jaundice Neuro: Present alert, awake and oriented x 3 Extremities: Present normal inspection; Absent clubbing or cyanosis Psychiatric: Present normal affect and cooperative Assessment and Plan *Assessment and plan (1) Influenza A: Status: Acute Category: Medical Code(s): J10.1 - Influenza due to other identified influenza virus with other respiratory manifestations (2) Rheumatoid arthritis: Status: Acute Category: Medical Code(s): M06.9 - Rheumatoid arthritis, unspecified (3) Acute respiratory failure with hypoxia: Status: Acute Category: Medical Code(s): J96.01 - Acute respiratory failure with hypoxia Plan #Acute hypoxic respiratory failure: #Influenza pneumonia: #History rheumatoid arthritis: 36-year-old female history of rheumatoid arthritis admitted to the hospital with worsening respiratory distress along with cough. She was recently diagnosed with influenza pneumonia as an outpatient basis. Patient on admission found to be in respiratory status On 3 L nasal cannula. Hemodynamically stable. Afebrile. CT personally reviewed, bilateral diffuse groundglass opacities and dense consolidation with significant large mediastinal hilar lymphadenopathies. Azygous lobe of the lung noted. CTA from August 2020 reviewed, bilateral upper lobe predominant groundglass opacities but much less severe than noted on her CAT scan from this admission. Station 7 lymphadenopathy noted. Patient on this admission was initiated on vancomyci
--- NOTE | 2022-03-21 10:19 | P.PN_ITS ---
Subjective *Date: 03/21/22 *Time: 10:19 Medical Exam Vital signs and Labs for Last 24 Hours: Vital Signs Temp Pulse Pulse Resp BP Pulse Ox 03/21/22 10:07 78 03/21/22 10:07 77 03/21/22 08:00 99 F 54 L 21 154/55 H 97 03/21/22 04:00 98.4 F 78 16 128/64 98 03/21/22 06:18 51 L 03/21/22 06:18 60 03/21/22 06:18 95 03/21/22 00:00 96 03/20/22 20:00 98 03/20/22 20:00 98 F 65 18 136/74 98 03/20/22 18:16 79 03/20/22 18:16 84 03/20/22 15:12 98.0 F 59 L 18 116/78 95 03/20/22 11:03 98.0 F 62 20 125/74 99 03/20/22 10:33 81 03/20/22 10:33 83 Intake and Output 03/20/22 03/21/22 03/21/22 23:59 07:59 15:59 Intake Total 360 / 1000 400 / 400 Output Total 300 / 300 Balance 60 / 700 400 / 400 Intake: Intake, Oral Amount 360 / 600 Intake, Total IV Amount 400 / 400 Cefepime HCl 2 gm In 0.9 % 100 / 100 Sodium Chloride 100 ml @ 200 mls/hr IV Q8H [facility] Rx#:[id number] Vancomycin/Water For Inj (Peg) 300 / 300 1.5 gm In 300 ml @ 150 mls/hr IV Q18H [facility] Rx#:[id number] Output: Output, Urine Amount 300 / 300 Other: Weight 82.8 kg Patient Weight 03/21/22 23:59 Weight 82.8 kg Laboratory Results - last 24 hr 03/20/22 20:35: Vancomycin Trough 9.1 03/21/22 00:30: Vancomycin Peak 41.2 H* 03/21/22 06:32: WBC 8.8 D, RBC 4.01 L, Hgb 9.8 L, Hct 30.9 L, MCV 77.0 L, MCH 24.5 L, MCHC 31.8, RDW 19.6 H, Plt Count 434 H, MPV 8.5, Neut % (Auto) 62.5, Lymph % (Auto) 30.1, [place] % (Auto) 3.0, Eos % (Auto) 3.5, Baso % (Auto) 0.9, Neut # (Auto) 5.5, Lymph # (Auto) 2.7, [place] # (Auto) 0.3, Eos # (Auto) 0.3, Baso # (Auto) 0.1 03/21/22 06:32: Sodium 138, Potassium 3.6, Chloride 110 H, Carbon Dioxide 25, Anion Gap 6.6, BUN 21 H, Creatinine 0.70 D, Estimated Creat Clear 148, Estimated GFR 96, Est GFR ( Amer) 116 D, Glucose 90, Calcium 8.6 I & O for Labs for Last 24 Hours: Intake & Output 03/18/22 03/19/22 03/20/22 03/21/22 23:59 23:59 23:59 23:59 Intake Total 1200 / 1680 1850 / 2090 600 / 1000 400 / 400 Output Total 0 / 0 550 / 550 300 / 300 Balance 1200 / 1680 1300 / 1540 300 / 700 400 / 400 Weight 84 kg 83.971 kg 82.8 kg 82.8 kg Microbiology Reports for the Last 24 Hours: Microbiology 03/18/22 09:15 Sputum - Expectorated Sputum Gram Stain - Final 03/18/22 09:15 Sputum - Expectorated Sputum Sputum Culture - Final Normal Respiratory Lidia 03/18/22 02:50 Blood Blood Culture - Preliminary Staphylococcus epidermidis The patient's infection will respond to the chosen ABx?: Yes (PNEUMONIA, SPUTUM = NORMAL LIDIA, PER RESPIRATORY BRONCHOSCOPY TODAY.) Is the patient receiving the right drug, dose, and route?: Yes Could a more targeted ABx be ordered?: No
[2022-03-21 11:01] LABS: HCG Qualitative, Serum Negative (Negative)
--- NOTE | 2022-03-21 12:36 | EXP.ANES.CKL ---
[facility] Disclaimer: The information contained in this section may have been updated after the patient was seen, as this information can be updated by other users. Medical History (Updated 03/20/22 @ 13:06 by Hazel Lucio MD) Acute respiratory failure with hypoxia Anxiety Cholecystitis Chronic headaches Depression Influenza A Rheumatoid arthritis Surgical History (Updated 03/18/22 @ 02:58 by Adam Correa DNP) History of appendectomy History of hip surgery Family History (Updated 03/18/22 @ 04:56 by Betty Reyes RN) Other Family history of COPD (chronic obstructive pulmonary disease) Family history of acute congestive heart failure Social History (Updated 03/18/22 @ 04:57 by Betty Reyes RN) Smoking Status: Former smoker second hand exposure: No alcohol intake: never substance use type: denies use current occupational status: unemployed and student Travel in the last 8 weeks: None household members: children housing: apartment number of children: 1 [facility] Anesthesia Checklist Patient Identification Patient Identification: Arm Band and Verbal (Name & ) Structural Data Admitted From: Inpatient Planned Operative Procedure/s: Bronchoscopy Consent for Planned Operative Procedure(s) Verified: Yes Verified Documents: Surgical Consent NPO Status Verified Time NPO: 00:00 Airway Assessment C-Spine Mobility Assessed: Yes TMJ Mobility Assessed: Yes Dentition: Good Dentition Neurological Assessment Level of Consciousness: Awake, Alert and Appropriate Anesthesia Plan ASA Class: II Anesthesia Type: General
--- NOTE | 2022-03-21 12:39 | XR_ITS ---
FINAL REPORT CLINICAL HISTORY: BRONCHOSCOPY, fluoro time 2:29 FINDINGS: FLUORO TIME PROCEDURE: Bronchoscopy FINDINGS: Fluoroscopy time was provided by the radiology department for the clinical service. Two films were obtained. Fluoroscopy exposure time: 2.29 min IMPRESSION: See above Reviewed, Interpreted and Dictated by Bridger Booth III, MD Transcribed by Miroslava Worrell Authenticated and [facility]
--- NOTE | 2022-03-21 13:08 | EXP.ANES.I ---
[facility] Anesthesia Record Part I Anesthesia Record I Intake, IV Amount: 500 Estimated blood loss (mL): 0 Urine output (mL): 0 Blood Pressure: 138/47 SaO2: 94 Pulse Rate: 118 Respiratory Rate: 18 Temperature: 97.3 F Patient is:: Drowsy Stable to PACU at:: 13:05
--- NOTE | 2022-03-21 13:19 | EXP.PHA.CONS ---
Pharmacy Consult Date: 03/21/22 Time: 13:19 Referring provider: DR ALANIS Reason for Consult:: PK LEVELS OBTAINED Allergies Allergy/AdvReac Type Severity Reaction Status Date / Time ketorolac [From Toradol] Allergy Severe Hives Verified 02/15/22 13:48 morphine Allergy Severe Chest Pain Verified 02/15/22 13:48 tramadol AdvReac Verified 02/15/22 13:48 varenicline [From Chantix] AdvReac anxiety, Verified 02/15/22 13:48 nightmares Home Medications Medication Instructions Recorded Confirmed Type alprazolam 0.5 mg tablet (Xanax) 0.5 mg PO QID #120 tabs 02/15/22 03/18/22 Rx nmkmpvhohx-hcrpzfldbvkzi-wudtnjsu 1 tab PO BID #60 tabs 02/15/22 03/18/22 Rx 50 mg-325 mg-40 mg tablet oxycodone 10 mg tablet 10 mg PO QID #120 tabs 02/15/22 03/18/22 Rx albuterol sulfate 90 mcg/actuation 2 puff inhalation Q6HP PRN 03/18/22 03/18/22 History aerosol inhaler (Ventolin HFA) Shortness Of Breath escitalopram oxalate 20 mg tablet 20 mg PO DAILY MOOD 03/18/22 03/18/22 History ibuprofen 800 mg tablet 800 mg PO TID Pain 03/18/22 03/18/22 History levofloxacin 500 mg tablet 500 mg PO DAILY Infection 03/18/22 03/18/22 History oseltamivir 75 mg capsule 75 mg PO BID FLU 03/18/22 03/18/22 History promethazine 25 mg tablet 25 mg PO Q6HP PRN Nausea And 03/18/22 03/18/22 History Vomiting New Prescriptions to Start Prescriptions: Height: 1.55 m Weight: 82.8 kg Laboratory Results:: Laboratory Results - last 24 hr 03/20/22 20:35: Vancomycin Trough 9.1 03/21/22 00:30: Vancomycin Peak 41.2 H* 03/21/22 06:32: WBC 8.8 D, RBC 4.01 L, Hgb 9.8 L, Hct 30.9 L, MCV 77.0 L, MCH 24.5 L, MCHC 31.8, RDW 19.6 H, Plt Count 434 H, MPV 8.5, Neut % (Auto) 62.5, Lymph % (Auto) 30.1, [place] % (Auto) 3.0, Eos % (Auto) 3.5, Baso % (Auto) 0.9, Neut # (Auto) 5.5, Lymph # (Auto) 2.7, [place] # (Auto) 0.3, Eos # (Auto) 0.3, Baso # (Auto) 0.1 03/21/22 06:32: Sodium 138, Potassium 3.6, Chloride 110 H, Carbon Dioxide 25, Anion Gap 6.6, BUN 21 H, Creatinine 0.70 D, Estimated Creat Clear 148, Estimated GFR 96, Est GFR ( Amer) 116 D, Glucose 90, Calcium 8.6 03/21/22 06:37: Serum HCG, Qual Negative Medical History: Medical History (Updated 03/20/22 @ 13:06 by Hazel Lucio MD) Acute respiratory failure with hypoxia Anxiety Cholecystitis Chronic headaches Depression Influenza A Rheumatoid arthritis Assessment and Plan Assessment and plan all Dx Assessment and Plan for all problems:: VANCOMYCIN PEAK AND TROUGH LEVELS OBTAINED AROUND LAST EVENING'S DOSE. TROUGH LEVEL OBTAINED WAS 9.1 MCG/ML (03/20/222034) AND THE PEAK WAS 41.2 MCG/ML (03/21/22 0030). THE DOSE WAS GIVEN LATE AT 2230, SO THE PEAK IS ARTIFICIALLY HIGH IT SHOULD'VE JUST FINISHED RUNNING WHEN THE PEAK WAS DRAWN. BASED ON THIS I RECOMMEND CONTINUING THE CURRENT DOSE OF VANCOMYCIN 1500 MG Q18H.
--- NOTE | 2022-03-21 13:46 | SUR.OPER ---
1252 attempted x3 for a new IV prior to extubating pt in OR. all 3 attempts were unsuccessful.
--- NOTE | 2022-03-21 14:45 | PC.NURSE ---
[id number]-detailed report called to NIDHI Wilks 5634-pt transported to 2nd floor room 211 via hospital bed w/fred rails up and left in care of NIDHI Wilks with bed locked in lowest position, vss, pt stable
--- NOTE | 2022-03-21 14:46 | EXP.BRONCH.N ---
Procedure: Date: 03/21/22 Patient Date of :: 1985 Procedure Performed:: Bronchoscopy with airway examination, alveolar lavage and transbronchial lung biopsy Indications:: Recurrent pneumonia in immunocompromised patient. Performing Provider:: Hazel Lucio MD Referring Provider:: Dr. Olsen Sedation:: General anesthesia Procedure:: Bronchoscopy airway examination, bronchoalveolar lavage and transbronchial lung biopsy: A clean DIAGNOSTIC bronchoscopy was advanced through the ET tube and airways were examined up to subsegmental bronchi. Airways appeared grossly normal, no evidence of mucoid secretions, mucous plugging active bleeding/old blood clots noted. Bronchoalveolar lavage was performed in the RIGHT MIDDLE LOBE with instillation of 60 cc normal saline with return of 40 cc turbid fluid back. BAL fluid was sent for cell count and differential along with bacterial fungal and AFB stain and cultures. Transbronchial biopsy was performed in the RIGHT MIDDLE AND LOWER LOBE with a total of 9 biopsies performed, 5 biopsy specimens were sent in formalin for cytopathologic examination. The other 4 biopsy samples, were sent two each in two separate normal saline specimen cups for bacterial fungal and AFB stain cultures. Special request was also made for the pathologist to evaluate for AFB and fungal organisms on the cytopathologic examination. Patient tolerated the procedure with no acute complications. We will follow the patient in pulmonary clinic in 7 to 10 days. Findings:: Please see the procedure note Recommendations:: Please see the procedure note and progress note from today Complications:: No acute immediate complications Estimated blood obtained (mL): 10
--- NOTE | 2022-03-21 16:07 | EXP.ACUTE.PN ---
Subjective *Date: 03/21/22 *Time: 16:07 Interval history: No issues overnight. Discussed bronc that was pending today. Answered all questions. Patient has no concerns or complaints at this time Medical Exam Vital signs and Labs for Last 24 Hours: Vital Signs Temp Pulse Pulse Pulse Resp BP BP 03/21/22 13:35 97.8 F 70 20 112/69 03/21/22 13:25 77 22 132/58 L 03/21/22 13:15 83 22 109/41 L 03/21/22 13:05 97.3 F L 118 H 18 138/47 L 03/21/22 13:45 83 03/21/22 13:45 82 03/21/22 10:07 78 03/21/22 10:07 77 03/21/22 08:00 99 F 54 L 21 154/55 H 03/21/22 04:00 98.4 F 78 16 128/64 03/21/22 06:18 51 L 03/21/22 06:18 60 03/21/22 06:18 03/21/22 00:00 03/20/22 20:00 03/20/22 20:00 98 F 65 18 136/74 03/20/22 18:16 79 03/20/22 18:16 84 03/21/22 13:09 97.3 F L 118 H 18 138/47 L Pulse Ox 03/21/22 13:35 95 03/21/22 13:25 96 03/21/22 13:15 99 03/21/22 13:05 94 L 03/21/22 13:45 03/21/22 13:45 03/21/22 10:07 03/21/22 10:07 03/21/22 08:00 97 03/21/22 04:00 98 03/21/22 06:18 03/21/22 06:18 03/21/22 06:18 95 03/21/22 00:00 96 03/20/22 20:00 98 03/20/22 20:00 98 03/20/22 18:16 03/20/22 18:16 03/21/22 13:09 Intake and Output 03/21/22 03/21/22 03/21/22 07:59 15:59 23:59 Intake Total 400 / 900 500 / 900 Output Total 100 / 100 Balance 400 / 800 400 / 800 Intake: Intake, Total IV Amount 400 / 900 500 / 900 Cefepime HCl 2 gm In 0.9 % 100 / 100 Sodium Chloride 100 ml @ 200 mls/hr IV Q8H [facility] Rx#:[id number] Vancomycin/Water For Inj (Peg) 300 / 300 1.5 gm In 300 ml @ 150 mls/hr IV Q18H [facility] Rx#:[id number] Output: Output, Urine Amount 100 / 100 Other: Weight 82.8 kg 82.8 kg Patient Weight 03/21/22 23:59 Weight 82.8 kg Laboratory Results - last 24 hr 03/20/22 20:35: Vancomycin Trough 9.1 03/21/22 00:30: Vancomycin Peak 41.2 H* 03/21/22 06:32: WBC 8.8 D, RBC 4.01 L, Hgb 9.8 L, Hct 30.9 L, MCV 77.0 L, MCH 24.5 L, MCHC 31.8, RDW 19.6 H, Plt Count 434 H, MPV 8.5, Neut % (Auto) 62.5, Lymph % (Auto) 30.1, [place] % (Auto) 3.0, Eos % (Auto) 3.5, Baso % (Auto) 0.9, Neut # (Auto) 5.5, Lymph # (Auto) 2.7, [place] # (Auto) 0.3, Eos # (Auto) 0.3, Baso # (Auto) 0.1 03/21/22 06:32: Sodium 138, Potassium 3.6, Chloride 110 H, Carbon Dioxide 25, Anion Gap 6.6, BUN 21 H, Creatinine 0.70 D, Estimated Creat Clear 148, Estimated GFR 96, Est GFR ( Amer) 116 D, Glucose 90, Calcium 8.6 03/21/22 06:37: Serum HCG, Qual Negative I & O for Labs for Last 24 Hours: Intake & Output 03/18/22 03/19/22 03/20/22 03/21/22 23:59 23:59 23:59 23:59 Intake Total 1200 / 1680 1850 / 2090 600 / 1000 900 / 900 Output Total 0 / 0 550 / 550 300 / 300 100 / 100 Balance 1200 / 1680 1300 / 1540 300 / 700 800 / 800 Weight 84 kg 83.971 kg 82.8 kg 82.8 kg Microbiology Reports for the Last 24 Hours: Microbiology 03/18/22 09:15 Sputum - Expectorated Sputum Gram Stain - Final 03/18/22 09:15 Sputum - Expectorated Sputum Sputum Culture - Final Normal Respiratory Lidia 03/18/22 02:50 Blood Blood Culture - Preliminary Staphylococcus epidermidis Head: Present atraumatic Neck: Present normal inspection Respiratory: Present CTA bilaterally; Absent accessory muscle use Comment:: Nasal cannula Cardiac: Present Reg Rate and Rhythm and S1/S2 GI: Present soft Rectal (female): Present deferred (female): Present deferred Extremities: Present normal inspection Skin: Present intact; Absent cyanosis Assessment and Plan *Assessment and plan (1) Pneumonia: Status: Acute Category: Medical Code(s): J18.9 - Pneumonia, unspecified organism (2) Rheumatoid arthritis: Status: Acute Category: Medical Code(s): M06.9 - Rheumatoid
[2022-03-22] VITALS (7 sets, daily range): BP systolic 110–158; BP diastolic 57–77; PULSE 55–82; RESP 16–18; TEMP 36.6–37; O2SAT 96–99; BMI 34.1
--- NOTE | 2022-03-22 05:34 | PC.NURSE ---
pt has rested this shift. pt c/o chronic generalized pain that was medicated at beginning of shift and has had no further complaints other than her throat being sore which she has chloraseptic spray. pt remains on 3LNC, VSS. visitor remains at bedside this shift. pt has been voiding appropriately per toilet. pt calls for assistance. LS diminished t/o. pt stable.
[2022-03-22 06:47] LABS: Chloride 107 mmol/L (98-107); Sodium 140 mmol/L (136-145)
[2022-03-22 06:48] LABS: Potassium 3.8 mmoL/L (3.5-5.1)
[2022-03-22 06:50] LABS: Alanine Aminotransferase 22 U/L (12-78); Albumin Level 3.4 g/dl (3.5-5.0); Albumin/Globulin Ratio 1.1 (1.1-1.8); Alkaline Phosphatase 105 U/L (38-126); Anion Gap 8.8 mEq/L (5-15); Aspartate Amino Transferase 27 U/L (14-36); Bilirubin,Total 0.2 mg/dl (0.2-1.3); Blood Urea Nitrogen 16 mg/dl (7-17); Carbon Dioxide 28 mmol/L (22.0-30.0); Creatinine Clearance Estimated 146 mL/min (50-200); Estimated Glomerular Filt Rate 96 ml/min (>60); GFR (African American) 116 ML/MIN (>60); Globulin 3.1 g/dL (1.3-3.2); Phosphorous 3.4 mg/dl (2.5-4.5); Total Protein,Serum 6.5 g/dl (6.3-8.2)
[2022-03-22 06:51] LABS: Glucose 90 mg/dl (74-100); Magnesium 2.1 mg/dl (1.6-2.3)
[2022-03-22 06:56] LABS: Basophils % 0.5 % (0.1-2.0); Eosinophils # 0.1 K/mm3 (0.0-0.4); Eosinophils % 1.3 % (0.1-12.0); Hematocrit 31.2 % (37.0-47.0); Lymphocytes # 2.2 K/mm3 (0.7-4.5); Lymphocytes % 28.9 % (10-50); Mean Corpuscular HGB Conc 32.1 g/dL (31.8-35.4); Mean Corpuscular Hemoglobin 24.2 pg (27.0-31.2); Mean Corpuscular Volume 75.5 fl (81-99); Mean Platelet Volume 8.5 fl (7.4-10.4); Monocytes # 0.2 K/mm3 (0.1-1.0); Monocytes % 2.9 % (1.7-9.3); Neutrophils % 66.4 % (37.0-80.0); Platelet Count 495 K/mm3 (142-424); Red Blood Count 4.13 M/mm3 (4.20-5.40); Red Cell Distribution Width 19.1 % (11.5-17.5); White Blood Count 7.6 K/mm3 (4.8-10.8)
--- NOTE | 2022-03-22 09:36 | XR_ITS ---
FINAL REPORT CLINICAL HISTORY: PNM COMPARISON: 03/17/2022 FINDINGS: A single portable view of the chest was obtained. The heart size and pulmonary vascularity are within normal limits. The mediastinum is within normal limits. There are persistent but improved pulmonary opacity which may represent improved pneumonia. The bony thorax is intact. IMPRESSION: Persistent but improved pulmonary opacities, may represent improved pneumonia. Reviewed, Interpreted and Dictated by Bridger Booth III, MD Transcribed by Miroslava Worrell Authenticated and [facility]
--- NOTE | 2022-03-22 09:36 | EXP.PULM.PN ---
Subjective *Date: 03/22/22 *Time: 10:58 Interval history: No acute respiratory vents overnight. Patient continued to complain repeat, productive phlegm. Continued to have respiratory distress improving from prior. Pulmonology Exam Inpatient Vital signs and Labs for Last 24 Hours: Temp Pulse Resp BP Pulse Ox FiO2 98.1 F 82 16 158/77 H 96 28 03/22/22 08:00 03/22/22 09:21 03/22/22 08:00 03/22/22 08:00 03/22/22 09:21 03/21/22 18:00 Laboratory Results - last 24 hr 03/21/22 06:37: Serum HCG, Qual Negative 03/22/22 06:05: WBC 7.6, RBC 4.13 L, Hgb 10.0 L, Hct 31.2 L, MCV 75.5 L, MCH 24.2 L, MCHC 32.1, RDW 19.1 H, Plt Count 495 H, MPV 8.5, Neut % (Auto) 66.4, Lymph % (Auto) 28.9, [place] % (Auto) 2.9, Eos % (Auto) 1.3, Baso % (Auto) 0.5, Neut # (Auto) 5.0, Lymph # (Auto) 2.2, [place] # (Auto) 0.2, Eos # (Auto) 0.1, Baso # (Auto) 0.0 03/22/22 06:05: Sodium 140, Potassium 3.8, Chloride 107, Carbon Dioxide 28, Anion Gap 8.8, BUN 16, Creatinine 0.70, Estimated Creat Clear 146, Estimated GFR 96, Est GFR ( Amer) 116, Glucose 90, Calcium 9.0, Phosphorus 3.4, Magnesium 2.1, Total Bilirubin 0.2, AST 27 D, ALT 22 D, Alkaline Phosphatase 105, Total Protein 6.5, Albumin 3.4 L, Globulin 3.1, Albumin/Globulin Ratio 1.1 I & O for Labs for Last 24 Hours: Intake & Output 03/19/22 03/20/22 03/21/22 03/22/22 23:59 23:59 23:59 23:59 Intake Total 1850 / 2090 600 / 1000 1140 / 1140 Output Total 550 / 550 300 / 300 100 / 100 0 / 0 Balance 1300 / 1540 300 / 700 1040 / 1040 0 / 0 Weight 185 lb 2 oz 182 lb 8.684 oz 182 lb 8.684 oz 180 lb 9.6 oz Microbiology Reports for the Last 24 Hours: Microbiology 03/21/22 12:20 Bronchial Washings - Right Middle Lobe Gram Stain - Final 03/18/22 09:15 Sputum - Expectorated Sputum Gram Stain - Final 03/18/22 09:15 Sputum - Expectorated Sputum Sputum Culture - Final Normal Respiratory Lidia 03/18/22 02:50 Blood Blood Culture - Preliminary Staphylococcus epidermidis Constitutional: Present moderate distress Head: Present normocephalic and atraumatic ENT: Present normal exam, normal oropharynx and mucous membranes moist Neck: Present normal inspection and full ROM Respiratory: Present rales, respiratory distress, wheezes, diminished air movement and able to speak in complete sentences; Absent rhonchi Cardiac: Present S1/S2, Tachycardia and radial pulses present GI: Present soft and distention; Absent tenderness or guarding Rectal (female): Present deferred (female): Present deferred Skin: Present intact; Absent cyanosis or jaundice Neuro: Present alert, awake and oriented x 3 Extremities: Present normal inspection; Absent clubbing or cyanosis Psychiatric: Present normal affect and cooperative Assessment and Plan *Assessment and plan (1) Influenza A: Status: Acute Category: Medical Code(s): J10.1 - Influenza due to other identified influenza virus with other respiratory manifestations (2) Rheumatoid arthritis: Status: Acute Category: Medical Code(s): M06.9 - Rheumatoid arthritis, unspecified (3) Acute respiratory failure with hypoxia: Status: Acute Category: Medical Code(s): J96.01 - Acute respiratory failure with hypoxia Plan #Acute hypoxic respiratory failure: #Influenza pneumonia: #History rheumatoid arthritis: 36-year-old female history of rheumatoid arthritis admitted to the hospital with worsening respiratory distress along with cough. She was recently diagnosed with influenza pneumonia as an outpatient basis. Patient on admission found to be in respiratory status On 3 L nasal cannula. Hemodynamically stable. Afebrile. CT personally reviewed, bilateral diffuse groundglass opacities and dense consolidation with significant large mediastinal hilar lymphadenopathies. Azygous lobe of the lung noted. CTA from August 2020 reviewed, bilateral upper lobe predominant g
--- NOTE | 2022-03-22 11:22 | EXP.ANES.II ---
[facility] Anesthesia Record Part II Anesthesia Record Part II Discharge Time: 13:35 Destination: Surgical Day Care (OP Surgery) PACU nurse assessment reviewed?: Yes Patient Condition:: Good Anesthesia Complications:: None Swallowing reflex intact?: Yes Cyanosis?: No Blood Pressure: 112/69 Pulse Rate: 70 Temperature: 97.8 F Mental Status: Alert & Oriented Pain level:: 0 Nausea and/or vomitting:: None Intake, IV Amount: 0
--- NOTE | 2022-03-22 20:50 | EXP.DC.SUM ---
General Admission date:: 03/18/22 Discharge date: 03/22/22 HPI HPI HPI: Ms. Milton is a 36-year-old female with a past medical history of RA on immunosuppressive therapy, Anxiety and Depression. She presents to [facility] due to ongoing shortness of air, productive cough, not feeling well, x approximately 1 week duration. She is noted to have been recently hospitalized at an outlying facility from 03/15-03/16/2022 where she was treated for bilateral pneumonia, Acute hypoxic Respiratory Failure and Influenza A. She reports that she was prescribed Levaquin, Tamiflu and had been taking as prescribed. She has a home oxygen saturation monitor and noted that her oxygen saturation was low at home and she continued to feel worse. She reports that she has not been taking her immunosuppressive therapy since she has been ill. In the ER the patient had a Cxray that showed diffuse airspace densities favoring pneumonia. CBC and CMP were unremarkable. She was given Steroids, nebulizers and will be given broad spectrum antibiotics. Cultures were drrawn in the ER. Hospital Course Hospital Course Hospital Course: The patient was admitted to the medical floor with cultures acquired and she was started on broad-spectrum IV antibiotic therapy. Pulmonology was consulted and made recommendations including bronchoscopy performed on March 21. Her laboratory studies and inflammatory markers were trended and identified improvement. Her oxygen requirements diminished throughout her stay to her usual baseline and she identified improvement. She inquired about discharge home to family. Pulmonology recommended discharge antibiotic therapy with follow-up in the office. Exam Data for Last 24 hours Vital signs and Labs for Last 24 Hours: Temp Pulse Resp BP Pulse Ox FiO2 97.8 F 70 16 112/69 96 28 03/22/22 11:22 03/22/22 11:22 03/22/22 08:00 03/22/22 11:22 03/22/22 09:21 03/21/22 18:00 Laboratory Results - last 24 hr 03/22/22 06:05: WBC 7.6, RBC 4.13 L, Hgb 10.0 L, Hct 31.2 L, MCV 75.5 L, MCH 24.2 L, MCHC 32.1, RDW 19.1 H, Plt Count 495 H, MPV 8.5, Neut % (Auto) 66.4, Lymph % (Auto) 28.9, Tyrrell % (Auto) 2.9, Eos % (Auto) 1.3, Baso % (Auto) 0.5, Neut # (Auto) 5.0, Lymph # (Auto) 2.2, Tyrrell # (Auto) 0.2, Eos # (Auto) 0.1, Baso # (Auto) 0.0 03/22/22 06:05: Sodium 140, Potassium 3.8, Chloride 107, Carbon Dioxide 28, Anion Gap 8.8, BUN 16, Creatinine 0.70, Estimated Creat Clear 146, Estimated GFR 96, Est GFR ( Amer) 116, Glucose 90, Calcium 9.0, Phosphorus 3.4, Magnesium 2.1, Total Bilirubin 0.2, AST 27 D, ALT 22 D, Alkaline Phosphatase 105, Total Protein 6.5, Albumin 3.4 L, Globulin 3.1, Albumin/Globulin Ratio 1.1 I & O for Last 24 hours: Intake & Output 03/19/22 03/20/22 03/21/22 03/22/22 23:59 23:59 23:59 23:59 Intake Total 1850 / 2090 600 / 1000 1140 / 1140 0 / 0 Output Total 550 / 550 300 / 300 100 / 100 0 / 0 Balance 1300 / 1540 300 / 700 1040 / 1040 0 / 0 Weight 83.971 kg 82.8 kg 82.8 kg 81.919 kg Microbiology Reports for the Last 24 Hours: Microbiology 03/21/22 12:20 Transbronchial Biopsy - Right Middle Lobe Surgical Biopsy Culture - Preliminary NO GROWTH AFTER 24 HOURS 03/21/22 12:20 Bronchial Washings - Right Middle Lobe Gram Stain - Final Constitutional Constitutional: no acute distress *Routine HEENT Exam Head: Present normocephalic Eye: Present EOMI and PERRL ENT: Present mucous membranes moist *Routine Neck Exam Neck: Present supple; Absent lymphadenopathy *Routine Respiratory Exam Respiratory: Present CTA bilaterally *Routine Cardiovascular Exam Cardiovascular: Present RRR *Routine Abdominal Exam Abdominal: Present soft and normoactive bowel sounds; Absent tenderness *Routine Extremities Exam Extremities: Absent cyanosis, clubbing or edema *Routine Skin Exam Skin: Present warm; Absent rash *Routine Neurological Exam Neurological: Present alert and orie
--- NOTE | 2022-03-23 11:15 | CARE MANAGER ---
Spoke with patient for post-discharge phone interview, she states that she is doing well and has no issues.
[2022-03-24 00:06] LABS: Aspergillus flavus Negative (Neg:<1:1); Aspergillus fumigatus Negative (Neg:<1:1); Aspergillus niger Negative (Neg:<1:1); Blastomyces Antibody Negative (Neg:<1:1)
== END 2022-03-22 11:18 | disposition home or self-care (01) | DRG 166 ==
LOC: ER 03-18 02:28 → 2ND 03-18 03:11
PROVIDERS: Internal Medicine Adolescent Medicine; Internal Medicine Pulmonary Disease; Nurse Practitioner Family; Student in an Organized Health Care Education/Training Program; Admitting Provider Family Medicine; Emergency Provider Emergency Medicine; PCP Emergency Medicine; Visit Provider Family Medicine
PROC: 0BBF8ZX Excision of Right Lower Lung Lobe, Via Natural or Artificial Opening Endoscopic, Diagnostic (ICD-10-PCS; principal; 2022-03-21 11:00)
DX: J96.01 Acute respiratory failure with hypoxia (principal); J18.9 Pneumonia, unspecified organism; M06.9 Rheumatoid arthritis, unspecified; J10.00 Influenza due to other identified influenza virus with unspecified type of pneumonia; F17.210 Nicotine dependence, cigarettes, uncomplicated; F41.9 Anxiety disorder, unspecified; F32.A Depression, unspecified
CPT/HCPCS: 31624 ×2; 36415; 71045; 71046; 71275; 80048; 80053; 80202; 82803; 83605; 83735; 84100; 84703; 85025; 85378; 86140; 86606; 86612; 86738; 87040; 87070; 87077; 87081; 87102; 87116; 87186; 87205; 87206; 88305; 88312; 89051; 93005; 94640; 94761; 99285; C9803; J0456; J2405; J2710; Q9967; U0003; U0005

== ENCOUNTER → 2022-03-29 13:59 | Outpatient (CLI) | payer OTHER, SELFPAY | PROVIDERS: Visit Provider Internal Medicine Pulmonary Disease | DX: D72.19 Other eosinophilia (principal) ==

== ENCOUNTER → 2022-05-24 10:00 | Outpatient (CLI) | payer OTHER, SELFPAY ==
[2022-05-24 16:19] LABS: Amphetamine/Metha Screen,Urine Negative ng/ml (<1000); Barbiturates Screen,Urine Negative ng/ml (<200); Benzodiazepines Screen,Urine Positive ng/ml (<200); Cannabinoid Screen,Urine Negative ng/ml (<50); Cocaine Screen,Urine Negative ng/ml (<300); Methadone Screen,Urine Negative ng/ml (<300); Opiate Screen,Urine Positive ng/ml (<300); Phencyclidine Screen,Urine Negative ng/ml (<25)
== END ==
PROVIDERS: PCP Emergency Medicine; Visit Provider Emergency Medicine
DX: Z79.899 Other long term (current) drug therapy (principal)
CPT/HCPCS: 80305

== ENCOUNTER → 2022-07-03 08:55 | Outpatient (CLI) | payer OTHER, SELFPAY ==
[2022-07-03 13:43] LABS: Amphetamine/Metha Screen,Urine Negative ng/ml (<1000)
[2022-07-03 13:44] LABS: Barbiturates Screen,Urine Negative ng/ml (<200); Benzodiazepines Screen,Urine Positive ng/ml (<200)
[2022-07-03 13:45] LABS: Cannabinoid Screen,Urine Negative ng/ml (<50)
[2022-07-03 13:46] LABS: Cocaine Screen,Urine Negative ng/ml (<300); Methadone Screen,Urine Negative ng/ml (<300)
[2022-07-03 13:47] LABS: Opiate Screen,Urine Positive ng/ml (<300); Phencyclidine Screen,Urine Negative ng/ml (<25)
== END ==
PROVIDERS: PCP Emergency Medicine; Visit Provider Emergency Medicine
DX: Z79.899 Other long term (current) drug therapy (principal)
CPT/HCPCS: 80305

== ENCOUNTER → 2022-09-27 11:00 | Outpatient (CLI) | payer OTHER, SELFPAY | PROVIDERS: PCP Emergency Medicine; Visit Provider Emergency Medicine | DX: R35.0 Frequency of micturition (principal) | CPT/HCPCS: 87086 ==

== ENCOUNTER → 2022-11-21 22:13 | Outpatient (CLI) | payer OTHER, SELFPAY ==
[2022-11-24 12:16] LABS: Neisseria gonorrhoeae, NAA Negative (Negative)
== END ==
PROVIDERS: PCP Obstetrics & Gynecology; Visit Provider Obstetrics & Gynecology
DX: Z34.91 Encounter for supervision of normal pregnancy, unspecified, first trimester (principal); Z3A.01 Less than 8 weeks gestation of pregnancy
CPT/HCPCS: 87491; 87591

== ENCOUNTER → 2022-11-30 12:34 | Outpatient (CLI) | payer OTHER, SELFPAY ==
[2022-12-01 12:53] LABS: Progesterone 13.2 ng/mL (.)
== END ==
PROVIDERS: PCP Emergency Medicine; Visit Provider Obstetrics & Gynecology
DX: N92.6 Irregular menstruation, unspecified (principal); Z32.00 Encounter for pregnancy test, result unknown
CPT/HCPCS: 36415; 84144; 84702

== ENCOUNTER 2022-12-06 20:13 | Emergency (ER) | payer OTHER, SELFPAY ==
[2022-12-06] VITALS (8 sets, daily range): BP systolic 84–130; BP diastolic 46–106; PULSE 84–92; RESP 16; TEMP 36.9; O2SAT 96–100
[2022-12-06 21:31] LABS: Microscopic, Urine URINE MICROSCOPIC (MICROSCOPIC)
--- NOTE | 2022-12-06 21:44 | HMH.EDGENADL ---
Discharge Plan Disposition Patient Disposition: Home, Self-Care Condition: Good Prescriptions Prescriptions: New nitrofurantoin macrocrystal 100 mg capsule 100 mg PO BID 5 Days Qty: 10 0RF Rx Instructions: must administer with a meal/food No Action Classic 28 mg iron- 800 mcg tablet PO DAILY ondansetron 4 mg tablet,disintegrating 4 mg PO Q8H PRN (Reason: nausea and vomiting) Qty: 30 0RF bupropion HCl [Wellbutrin XL] 150 mg tablet extended release 24 hr 150 mg PO DAILY Qty: 30 2RF Referrals Follow up/Referrals: Lalo Estrada MD [Primary Care Provider] - See instructions Activity Restrictions/Add. Instructions Additional Instructions/Restrictions: At this time is felt you are safe to be discharged home. If new or worsening symptoms please do not hesitate to return to the emergency department. Please follow-up with your OB in the coming days as you are able for continued evaluation. Clinical Impressions Clinical Impression: Vaginal bleeding, , threatened, Bacteria in urine Discharge ED Provider: Dany Lopez General Adult HPI General Chief complaint: Vaginal Bleeding Stated complaint: 8wks , vaginal bleeding, clotting Time Seen by Provider: 12/06/22 21:34 Mode of Arrival: Ambulatory Limitations: No Limitations Description of Symptoms (Recalled from ER Triage Doc. by RN): pt reports that she is 8 weeks pregenant and has multiple episodes of bleeding and her ob told her it was implantation bleeding. today the pt states she started passing clots and having period type cramps the pt states that History of Present Illness HPI narrative: Patient is a 37-year-old currently 8 weeks who presents emergency department for evaluation of vaginal bleeding. Patient states that she has had intermittent vaginal bleeding throughout her which she has been told was implantation bleeding however over the last 24 hours she has had passage of clots and lower abdominal cramps and presents here for continued evaluation. Patient does have associated dysuria. No other acute complaints at this time. Per chart review patient had an ultrasound conducted earlier this month and formal report shows intrauterine with a gestational sac yolk sac and pole. Patient follows with Dr. Rea at this institution and was last seen approximately 1 week ago for establishment of care and heart tones were not identifiable with Doppler with cardiac activity present on ultrasound, heart rate 143. Related Data Home Medications Medication Instructions Recorded Confirmed vits no.126-ferrous fum tab PO DAILY 11/21/22 11/30/22 28 mg iron-folic acid 800 mcg tablet (Classic ) Previous Rx's Medication Instructions Recorded bupropion HCl 150 mg 24 hr tablet, 150 mg PO DAILY #30 tabs 11/22/22 extended release (Wellbutrin XL) ondansetron 4 mg disintegrating 4 mg PO Q8H PRN nausea and 11/22/22 tablet vomiting #30 tabs nitrofurantoin macrocrystal 100 mg 100 mg PO BID 5 days #10 caps 12/06/22 capsule Allergies Allergy/AdvReac Type Severity Reaction Status Date / Time ketorolac [From Toradol] Allergy Severe Hives Verified 11/30/22 11:35 morphine Allergy Severe Chest Pain Verified 11/30/22 11:35 tramadol AdvReac Verified 11/30/22 11:35 varenicline [From Chantix] AdvReac anxiety, Verified 11/30/22 11:35 nightmares PFS PFS Disclaimer: The information contained in this section may have been updated after the patient was seen, as this information can be updated by other users. Medical History Acute respiratory failure with hypoxia Ankle sprain and strain Anxiety Cholecystitis Chronic headaches Depression Dyspnea Family history of asthma History of rheumatoid arthritis Influenza A Patient left without being seen Rheumatoid arthritis Smoking history Ur
[2022-12-06 21:51] LABS: Appearance,Urine SL CLOUDY (Clear); Bilirubin,Urine Negative (Negative); Blood, Urine Negative (Negative); Color,Urine YELLOW (Yellow); Glucose,Urine (UA) Negative (Negative); Ketones,Urine Negative (Negative); Leukocyte Esterase,Urine TRACE (Negative); Nitrate,Urine Negative (Negative); PH,Urine 5.5 (5.0-8.5); Protein,Urine TRACE (Negative); Specific Gravity, Urine >= 1.030 (1.005-1.030); Urobilinogen,Urine 0.2 EU/dl (0.2)
[2022-12-06 22:04] LABS: Urine Pregnancy, HCG Qual. Positive (Negative)
[2022-12-06 22:08] LABS: Basophils # 0.1 K/mm3 (0-0.2); Basophils % 0.5 % (0.1-2.0); Eosinophils # 0.5 K/mm3 (0.0-0.4); Eosinophils % 4.5 % (0.1-12.0); Hematocrit 41.9 % (37.0-47.0); Hemoglobin 13.5 g/dL (12.2-16.2); Lymphocytes % 24.5 % (10-50); Mean Corpuscular HGB Conc 32.1 g/dL (31.8-35.4); Mean Corpuscular Hemoglobin 28.4 pg (27.0-31.2); Mean Corpuscular Volume 88.5 fl (81-99); Mean Platelet Volume 8.1 fl (7.4-10.4); Monocytes # 0.5 K/mm3 (0.1-1.0); Monocytes % 3.8 % (1.7-9.3); Neutrophils % 66.7 % (37.0-80.0); Platelet Count 296 K/mm3 (142-424); Red Blood Count 4.73 M/mm3 (4.20-5.40); Red Cell Distribution Width 14.8 % (11.5-17.5); White Blood Count 12.1 K/mm3 (4.8-10.8)
[2022-12-06 22:24] LABS: Alanine Aminotransferase 18 U/L (12-78); Albumin/Globulin Ratio 1.1 (1.1-1.8); Alkaline Phosphatase 76 U/L (38-126); Anion Gap 13.7 mEq/L (5-15); Aspartate Amino Transferase 20 U/L (14-36); Bilirubin,Total < 0.1 mg/dl (0.2-1.3); Blood Urea Nitrogen 15 mg/dl (7-17); Calcium 9.3 mg/dl (8.4-10.2); Carbon Dioxide 27 mmol/L (22.0-30.0); Chloride 102 mmol/L (98-107); Creatinine Clearance Estimated 128 mL/min (50-200); Estimated Glomerular Filt Rate 95 ml/min (>60); GFR (African American) 115 ML/MIN (>60); Globulin 3.7 g/dL (1.3-3.2); Glucose 92 mg/dl (74-100); Potassium 3.7 mmoL/L (3.5-5.1); Sodium 139 mmol/L (136-145); Total Protein,Serum 7.7 g/dl (6.3-8.2)
[2022-12-06 22:29] LABS: Bacteria,Urine Trace /lpf; Calcium Oxalate Crystals,Urine 3+ /lpf; RBC,Urine Occasional #/hpf (0-3)
--- NOTE | 2022-12-06 22:58 | PC.NURSE ---
MD @ bedside performing bedside ultrasound
== END 2022-12-06 23:29 | disposition home or self-care (01) ==
PROVIDERS: Emergency Provider Emergency Medicine; PCP Emergency Medicine
DX: O26.891 Other specified pregnancy related conditions, first trimester (principal); O20.0 Threatened abortion; Z3A.08 8 weeks gestation of pregnancy; R82.71 Bacteriuria; O99.331 Smoking (tobacco) complicating pregnancy, first trimester; F17.210 Nicotine dependence, cigarettes, uncomplicated; F41.9 Anxiety disorder, unspecified; F32.A Depression, unspecified; M06.9 Rheumatoid arthritis, unspecified
CPT/HCPCS: 80053; 81001; 81025; 84702; 85025; 86850; 99283

== ENCOUNTER → 2022-12-08 02:20 | Outpatient (CLI) | payer OTHER, SELFPAY | PROVIDERS: PCP Internal Medicine; Visit Provider Obstetrics & Gynecology | DX: Z34.91 Encounter for supervision of normal pregnancy, unspecified, first trimester (principal); Z3A.08 8 weeks gestation of pregnancy; R82.71 Bacteriuria | CPT/HCPCS: 87086 ==

== ENCOUNTER → 2022-12-20 12:05 | Outpatient (CLI) | payer OTHER, SELFPAY ==
[2022-12-21 10:44] LABS: Rubella Antibodies, IgG 1.93 index (Immune >0.99)
[2022-12-21 12:14] LABS: Rapid Plasma Reagin Ab Titer Non Reactive (NonRea<1:1)
[2023-01-01 11:56] LABS: HIV Screen 4th Generation wRfx Non Reactive; Hepatitis B Surface Antigen Negative
[2023-01-01 11:57] LABS: Hepatitis C Antibody Reactive
== END ==
LOC: LAB 12:05
PROVIDERS: PCP Emergency Medicine; Visit Provider Obstetrics & Gynecology
DX: Z34.91 Encounter for supervision of normal pregnancy, unspecified, first trimester (principal); Z3A.10 10 weeks gestation of pregnancy
CPT/HCPCS: 36415; 86593; 86703; 86762; 87340; 87380; G0432

== ENCOUNTER 2022-12-22 11:27 | Emergency (ER) | payer OTHER, SELFPAY ==
[2022-12-22 11:27] VITALS: BP 122/75; PULSE 99; RESP 16; TEMP 36.8; O2SAT 99; BMI 31.5
--- NOTE | 2022-12-22 11:49 | EXP.UTC ---
Discharge Plan Disposition Patient Disposition: Home, Self-Care Condition: Good Prescriptions Prescriptions: No Action promethazine 12.5 mg tablet 12.5 mg PO Q6H PRN (Reason: nausea and vomiting) Qty: 20 0RF Classic 28 mg iron- 800 mcg tablet PO DAILY bupropion HCl [Wellbutrin XL] 150 mg tablet extended release 24 hr 150 mg PO DAILY Qty: 30 2RF Referrals Follow up/Referrals: Lalo Estrada MD [Primary Care Provider] - See instructions Activity Restrictions/Add. Instructions Additional Instructions/Restrictions: Saline nasal spray may help to clear your nasal passages where you are Warm drinks may help to sooth your throat and help with nasal congestion Gargle warm salt water may help with throat irritation Discuss with your OBGYN and Pharmacy for what cough and cold medications are safe for use during Straight to ER if any life threatening symptoms Clinical Impressions Clinical Impression: Nasal congestion Instructions Patient Instructions: DI for Nasal Congestion, Cough Discharge ED Provider: Kadie Whitney [facility] HPI General Stated complaint: Congestion Mode of Arrival: Ambulatory Source of Information: Patient Limitations: No Limitations Time Seen by Provider: 12/22/22 11:50 Description of Symptoms (Recalled from Triage Doc. by RN): Patient reports stuffy nose and cough x 1 week. HEENT Symptoms (Recalled from RN notes): Yes Resp Symptoms (Recalled from RN notes): No Skin Symptoms (Recalled from RN notes): No MS Symptoms (Recalled from RN notes): No Functional Status (Recalled from RN notes): wnl History of Present Illness Provider Complaint: Patient states that she has been having nasal congestion and cough for over a week State that she just finished antibiotics but not helped much she still feels congested States that she is 11wks OB Related Data Home Medications Medication Instructions Recorded Confirmed vits no.126-ferrous fum tab PO DAILY 11/21/22 12/20/22 28 mg iron-folic acid 800 mcg tablet (Classic ) Previous Rx's Medication Instructions Recorded bupropion HCl 150 mg 24 hr tablet, 150 mg PO DAILY #30 tabs 11/22/22 extended release (Wellbutrin XL) promethazine 12.5 mg tablet 12.5 mg PO Q6H PRN nausea and 12/08/22 vomiting #20 tabs Allergies Allergy/AdvReac Type Severity Reaction Status Date / Time ketorolac [From Toradol] Allergy Severe Hives Verified 12/20/22 11:08 morphine Allergy Severe Chest Pain Verified 12/20/22 11:08 tramadol AdvReac Verified 12/20/22 11:08 varenicline [From Chantix] AdvReac anxiety, Verified 12/20/22 11:08 nightmares Worker's Comp Is this a Worker's Comp case?: No [facility] Disclaimer: The information contained in this section may have been updated after the patient was seen, as this information can be updated by other users. Medical History (Updated 12/22/22 @ 12:06 by Kadie Whitney APRN) Acute respiratory failure with hypoxia Ankle sprain and strain Anxiety Cholecystitis Chronic headaches Depression Dyspnea Family history of asthma History of rheumatoid arthritis Influenza A Rheumatoid arthritis Smoking history Wheezing without diagnosis of asthma Surgical History (Updated 12/20/22 @ 11:[address]) History of appendectomy History of cholecystectomy History of hip surgery Family History Other Family history of COPD (chronic obstructive pulmonary disease) Family history of acute congestive heart failure Social History Smoking Status: Current every day smoker tobacco type: cigarettes packs per day: 1 second hand exposure: No alcohol intake: never substance use type: denies use current occupational status: unemployed and student Travel in the last 8 weeks: None household members: children housing: apartment numb
[2022-12-22 12:13] VITALS: BP 122/75; PULSE 99; RESP 16; TEMP 36.8; O2SAT 99
== END 2022-12-22 12:13 | disposition home or self-care (01) ==
PROVIDERS: Emergency Provider Nurse Practitioner; PCP Emergency Medicine
DX: O26.891 Other specified pregnancy related conditions, first trimester (principal); R09.81 Nasal congestion; Z3A.11 11 weeks gestation of pregnancy; O99.331 Smoking (tobacco) complicating pregnancy, first trimester; F17.210 Nicotine dependence, cigarettes, uncomplicated; F41.9 Anxiety disorder, unspecified; F32.A Depression, unspecified
CPT/HCPCS: 99212; 99213; G0463

== ENCOUNTER → 2023-01-03 11:41 | Outpatient (CLI) | payer OTHER, SELFPAY | PROVIDERS: PCP Emergency Medicine; Visit Provider Obstetrics & Gynecology | DX: Z34.91 Encounter for supervision of normal pregnancy, unspecified, first trimester (principal); Z3A.12 12 weeks gestation of pregnancy | CPT/HCPCS: 36415; 87522 ==

== ENCOUNTER 2023-02-19 17:20 | Emergency (ER) | payer OTHER, SELFPAY ==
[2023-02-19 17:21] VITALS: BP 126/78; PULSE 90; RESP 18; TEMP 36.7; O2SAT 97; BMI 30.9
--- NOTE | 2023-02-19 18:00 | PC.NURSE ---
[facility]
[2023-02-19 18:13] LABS: Microscopic, Urine URINE MICROSCOPIC (MICROSCOPIC)
[2023-02-19 18:15] LABS: Appearance,Urine CLEAR (Clear); Bilirubin,Urine Negative (Negative); Blood, Urine 3+ (Negative); Color,Urine YELLOW (Yellow); Glucose,Urine (UA) Negative (Negative); Ketones,Urine Negative (Negative); Leukocyte Esterase,Urine TRACE (Negative); Nitrate,Urine Negative (Negative); PH,Urine 6.5 (5.0-8.5); Protein,Urine Negative (Negative); Urobilinogen,Urine 0.2 EU/dl (0.2)
[2023-02-19 18:25] VITALS: BMI 30.9
--- NOTE | 2023-02-19 18:30 | PC.NURSE ---
DR ROBERTO AT BEDSIDE
--- NOTE | 2023-02-19 18:41 | HMH.EDGENADL ---
Discharge Plan Disposition Patient Disposition: Home, Self-Care Prescriptions Prescriptions: No Action nitrofurantoin monohyd/m-cryst [Macrobid] 100 mg capsule 100 mg PO BID 5 Days Qty: 10 0RF Rx Instructions: must administer with a meal/food Classic 28 mg iron- 800 mcg tablet PO DAILY promethazine 12.5 mg tablet 12.5 mg PO Q6H PRN (Reason: nausea and vomiting) Qty: 30 0RF Referrals Follow up/Referrals: Lalo Estrada MD [Primary Care Provider] - See instructions Activity Restrictions/Add. Instructions Additional Instructions/Restrictions: Call your family doctor to establish care for this visit to the emergency department and schedule follow-up within 48 hours to ensure improvement. If you have any worsening of your condition or any other concerning signs or symptoms, return to the emergency department or your primary care doctor for further evaluation. Maintain your follow-up with Dr. Rea next Sunday. If you have any gushes of fluid, worsening bleeding, abdominal pain that went away, or any other concerns, return to the ER for further evaluation. Clinical Impressions Clinical Impression: Abdominal pain affecting , Vaginal bleeding in patient after first trimester Discharge ED Provider: Berny Whittington General Adult HPI General Chief complaint: Vaginal Bleeding Stated complaint: 19 weeks , bleeding, back pain Time Seen by Provider: 02/19/23 17:27 Mode of Arrival: Ambulatory Limitations: No Limitations Description of Symptoms (Recalled from ER Triage Doc. by RN): PT ABOUT 19 WEEKS , REPORTS CRAMPING AND LOW BACK PAIN, REPORTS BRIGHT RED BLOOD WITH WIPING X 4 EPISODES TODAY. History of Present Illness HPI narrative: 37-year-old female currently 19 weeks by last menstrual period presenting with abdominal cramping and lower back pain. Patient states that started a couple of days ago, thought she was having round ligament pain. Has not had OB ultrasound yet. States that she has not felt baby moving as much. Started having abdominal cramping this morning and started having bright red blood shortly thereafter per vagina. No rashes of fluid. Denies bowel or bladder symptoms. Patient states she is O+. Related Data Home Medications Medication Instructions Recorded Confirmed vits no.126-ferrous fum tab PO DAILY 11/21/22 01/30/23 28 mg iron-folic acid 800 mcg tablet (Classic ) Previous Rx's Medication Instructions Recorded promethazine 12.5 mg tablet 12.5 mg PO Q6H PRN nausea and 01/23/23 vomiting #30 tabs nitrofurantoin 100 mg PO BID 5 days #10 caps 02/01/23 monohydrate/macrocrystals 100 mg capsule (Macrobid) Allergies Allergy/AdvReac Type Severity Reaction Status Date / Time ketorolac [From Toradol] Allergy Severe Hives Verified 01/30/23 12:56 morphine Allergy Severe Chest Pain Verified 01/30/23 12:56 tramadol AdvReac Verified 01/30/23 12:56 varenicline [From Chantix] AdvReac anxiety, Verified 01/30/23 12:56 nightmares PFS PFS Disclaimer: The information contained in this section may have been updated after the patient was seen, as this information can be updated by other users. Medical History Acute respiratory failure with hypoxia Ankle sprain and strain Anxiety Cholecystitis Chronic headaches Depression Dyspnea Family history of asthma History of rheumatoid arthritis Influenza A Rheumatoid arthritis Smoking history Wheezing without diagnosis of asthma Surgical History History of appendectomy History of cholecystectomy History of hip surgery Family History Other Family history of COPD (chronic obstructive pulmonary disease) Family history of acute congestive heart failure Social History (Reviewed 01/30/23
[2023-02-19 19:21] LABS: Basophils % 0.2 % (0.1-2.0); Eosinophils # 0.3 K/mm3 (0.0-0.4); Eosinophils % 2.9 % (0.1-12.0); Hematocrit 35.5 % (37.0-47.0); Hemoglobin 12.5 g/dL (12.2-16.2); Lymphocytes # 2.1 K/mm3 (0.7-4.5); Lymphocytes % 18.1 % (10-50); Mean Corpuscular HGB Conc 35.3 g/dL (31.8-35.4); Mean Corpuscular Hemoglobin 31.6 pg (27.0-31.2); Mean Corpuscular Volume 89.6 fl (81-99); Mean Platelet Volume 8.4 fl (7.4-10.4); Monocytes # 0.4 K/mm3 (0.1-1.0); Monocytes % 3.1 % (1.7-9.3); Neutrophils # 8.9 K/mm3 (1.8-7.8); Neutrophils % 75.7 % (37.0-80.0); Platelet Count 308 K/mm3 (142-424); Red Blood Count 3.96 M/mm3 (4.20-5.40); White Blood Count 11.8 K/mm3 (4.8-10.8)
[2023-02-19 19:26] LABS: Alanine Aminotransferase 15 U/L (12-78); Albumin Level 3.7 g/dl (3.5-5.0); Albumin/Globulin Ratio 1.2 (1.1-1.8); Alkaline Phosphatase 53 U/L (38-126); Anion Gap 14.1 mEq/L (5-15); Aspartate Amino Transferase 22 U/L (14-36); Bilirubin,Total 0.2 mg/dl (0.2-1.3); Blood Urea Nitrogen 13 mg/dl (7-17); Calcium 9.8 mg/dl (8.4-10.2); Carbon Dioxide 24 mmol/L (22.0-30.0); Chloride 103 mmol/L (98-107); Creatinine Clearance Estimated 132 mL/min (50-200); Estimated Glomerular Filt Rate 95 ml/min (>60); GFR (African American) 115 ML/MIN (>60); Glucose 92 mg/dl (74-100); Potassium 4.1 mmoL/L (3.5-5.1); Sodium 137 mmol/L (136-145); Total Protein,Serum 6.7 g/dl (6.3-8.2)
[2023-02-19 19:48] LABS: RBC,Urine 20-50 #/hpf (0-3); WBC,Urine Occasional #/hpf (0-3)
[2023-02-19 20:15] VITALS: BP 119/68; PULSE 93; RESP 14; O2SAT 97
--- NOTE | 2023-02-19 20:43 | PC.NURSE ---
in room at this time performing BS US
[2023-02-19 20:54] VITALS: BP 111/73; PULSE 73; RESP 19; TEMP 36.8; O2SAT 98
== END 2023-02-19 20:55 | disposition home or self-care (01) ==
PROVIDERS: Emergency Provider Emergency Medicine; PCP Emergency Medicine
DX: O26.892 Other specified pregnancy related conditions, second trimester (principal); R10.9 Unspecified abdominal pain; O26.852 Spotting complicating pregnancy, second trimester; O99.332 Smoking (tobacco) complicating pregnancy, second trimester; F17.210 Nicotine dependence, cigarettes, uncomplicated; Z3A.19 19 weeks gestation of pregnancy
CPT/HCPCS: 80053; 81001; 84702; 85025; 99284

== ENCOUNTER → 2023-02-22 13:50 | Outpatient (CLI) | payer OTHER, SELFPAY ==
--- NOTE | 2023-02-22 13:53 | US_ITS ---
PROCEDURE: US OB /MATERNAL DETAIL CLINICAL INDICATION: 20 week anatomy scan COMPARISON: No exams were available for comparison FINDINGS: Transabdominal sonographic images of the pelvis were obtained. From her established due date she is 19 weeks 1 day. Single viable intrauterine gestation. Initially vertex then breech position. Placenta: Posteriorplacenta grade 1. Placenta is low lying and 1 cm from the cervical os. There is an average amount of fluid. MVP 3.22 cm The cervix appears satisfactory. Closed and measuring 3.4 cm in length. Complete survey performed and was unremarkable on the submitted images as in PACS. No discrete anomalies identified on survey imaging by technologist. Active fetus. Three-vessel cord with satisfactory umbilical cord insertion. 4- chamber heart noted. Situs, aortic arch, LVOT, RVOT, three-vessel view appear normal. Survey of brain & ventricles Unremarkable. Cerebellum, cisterna magna, thalamus, choroid plexus appear normal. Face and neck survey unremarkable. Profile, nasion, lips and nose appeared normal. Diaphragm and chest views unremarkable. Abdomen: Both kidneys noted and unremarkable. Stomach and bladder noted and satisfactory. Spine: Survey of the spine satisfactory with no anomalies identified nor imaged. Cervical, thoracic and lower spine appear normal. Both arms and legs noted. Amniotic Fluid: Adequate. Measurements: Average ultrasound age 19weeks 2days. Estimated due date by ultrasound age 0407/17/2023. Estimated weight 302g BPD = 18weeks 4days HC = 18weeks 5days AC = 20weeks 0 days FL = 19weeks 5days Growth Percentile= 73 Cerebellum = 19weeks 1day Humerus = 19weeks 6days HC/AC is 1.08 FL/BPD is 0.75 FL/AC is 0.21 IMPRESSION: 1. Viable fetus in the breech presentation with a posterior low-lying placenta grade 1. 2. The placenta is 1 cm from the internal cervical os. SUGGEST REPEAT SCAN AT 28 WEEKS. 3. Anatomical scan appears normal. 4. biometry is consistent with the dates. Dictated by: Sulaiman Suarez MD 02/22/2023 17:01 Sulaiman Suarez MD in OV 02/22/2023 17:01
== END ==
PROVIDERS: PCP Emergency Medicine; Visit Provider Obstetrics & Gynecology
DX: Z34.92 Encounter for supervision of normal pregnancy, unspecified, second trimester (principal); Z3A.20 20 weeks gestation of pregnancy
CPT/HCPCS: 76811

== ENCOUNTER 2023-02-25 08:12 | Outpatient (CLI) | payer OTHER, SELFPAY ==
[2023-02-25 10:13] VITALS: BMI 32.3
[2023-02-25 10:35] LABS: Microscopic, Urine URINE MICROSCOPIC (MICROSCOPIC)
[2023-02-25 10:36] LABS: Appearance,Urine SL CLOUDY (Clear); Bilirubin,Urine Negative (Negative); Blood, Urine 3+ (Negative); Color,Urine RED (Yellow); Glucose,Urine (UA) Negative (Negative); Ketones,Urine Negative (Negative); Leukocyte Esterase,Urine TRACE (Negative); Nitrate,Urine POSITIVE (Negative); Protein,Urine 1+ (Negative)
[2023-02-25 10:47] LABS: Amphetamine/Metha Screen,Urine Negative ng/ml (<1000); RBC,Urine 20-50 #/hpf (0-3)
[2023-02-25 10:48] LABS: Barbiturates Screen,Urine Negative ng/ml (<200); Benzodiazepines Screen,Urine Negative ng/ml (<200)
[2023-02-25 10:49] LABS: Cannabinoid Screen,Urine Negative ng/ml (<50)
[2023-02-25 10:50] LABS: Cocaine Screen,Urine Negative ng/ml (<300)
[2023-02-25 10:51] LABS: Methadone Screen,Urine Negative ng/ml (<300); Opiate Screen,Urine Negative ng/ml (<300)
[2023-02-25 10:52] LABS: Phencyclidine Screen,Urine Negative ng/ml (<25)
[2023-02-25 11:07] VITALS: BP 125/86; PULSE 83; RESP 18; TEMP 36.9; O2SAT 99; BMI 32.3
== END 2023-02-25 11:15 | disposition home or self-care (01) ==
LOC: OBOUT 08:14 → OB 08:14
PROVIDERS: PCP Emergency Medicine; Visit Provider Obstetrics & Gynecology
DX: Z3A.19 19 weeks gestation of pregnancy; O26.892 Other specified pregnancy related conditions, second trimester; O46.92 Antepartum hemorrhage, unspecified, second trimester
CPT/HCPCS: 80305; 81001; 96365; G0463

== ENCOUNTER 2023-02-28 05:43 | Emergency (ER) | payer OTHER, SELFPAY ==
[2023-02-28 05:44] VITALS: BP 129/81; PULSE 115; RESP 16; TEMP 36.6; O2SAT 97; BMI 30.9
--- NOTE | 2023-02-28 05:48 | PC.NURSE ---
in room talking with patient at this time.
[2023-02-28 05:49] VITALS: BP 129/81; PULSE 111; O2SAT 100
--- NOTE | 2023-02-28 05:53 | HMH.EDGENADL ---
Discharge Plan Disposition Patient Disposition: Home, Self-Care Condition: Good Prescriptions Prescriptions: New ondansetron 4 mg tablet,disintegrating 4 mg PO Q8H 4 Days Qty: 12 0RF tamsulosin [Flomax] 0.4 mg capsule 0.4 mg PO DAILY 5 Days Qty: 5 0RF No Action albuterol sulfate 90 mcg/actuation HFA aerosol inhaler 2 puff inhalation Q4H Classic 28 mg iron- 800 mcg tablet 1 tab PO DAILY promethazine 12.5 mg tablet 12.5 mg PO Q6H PRN (Reason: nausea and vomiting) Qty: 30 0RF Referrals Follow up/Referrals: Lalo Estrada MD [Primary Care Provider] - See instructions Clinical Impressions Clinical Impression: Kidney stone Instructions Patient Instructions: DI for Kidney Stones, DI for Acute Abdominal Pain Discharge ED Provider: Krista Arshad General Adult HPI General Chief complaint: Abdominal Pain Stated complaint: 20 weeks pressure with urination Time Seen by Provider: 02/28/23 05:45 History of Present Illness HPI narrative: Patient has a PMHx significant for at 20wks GA today, kidney stones who presents to the ED with complaints of right flank pain. Patient notes that for the past 3 to 4 days, she has been having progressively worsening right flank pain, mild nausea, and hematuria. Patient notes that over the past 12 hours, her pain has acutely worsened and that she is now experiencing worsening right flank pain with the pain radiating down towards her urethra. Patient notes that her right flank pain is colicky in nature, but her urethral pain is constant. Patient denies any fevers, chills, vaginal discharge, vaginal bleeding, loss of fluid, passage of tissue. Patient notes that she saw OB on 02/25/2023. On chart review, patient had a UA obtained in clinic that was notable for positive nitrates, mild leukocytes, 3+ RBCs. Patient was not treated with antibiotic. Patient also notes increased urinary frequeny, urgency, and sensation of incomplete voiding. Related Data Home Medications Medication Instructions Recorded Confirmed vits no.[id number]-ferrous fum 1 tab PO DAILY 11/21/22 02/28/23 28 mg iron-folic acid 800 mcg tablet (Classic ) albuterol sulfate 90 mcg/actuation 2 puff inhalation Q4H 02/22/23 02/28/23 aerosol inhaler Previous Rx's Medication Instructions Recorded promethazine 12.5 mg tablet 12.5 mg PO Q6H PRN nausea and 01/23/23 vomiting #30 tabs ondansetron 4 mg disintegrating 4 mg PO Q8H 4 days #12 tabs 02/28/23 tablet tamsulosin 0.4 mg capsule (Flomax) 0.4 mg PO DAILY 5 days #5 caps 02/28/23 Allergies Allergy/AdvReac Type Severity Reaction Status Date / Time ketorolac [From Toradol] Allergy Severe Hives Verified 02/22/23 13:03 morphine Allergy Severe Chest Pain Verified 02/22/23 13:03 tramadol AdvReac Verified 02/22/23 13:03 varenicline [From Chantix] AdvReac anxiety, Verified 02/22/23 13:03 nightmares [facility] Disclaimer: The information contained in this section may have been updated after the patient was seen, as this information can be updated by other users. Medical History Acute respiratory failure with hypoxia Ankle sprain and strain Anxiety Cholecystitis Chronic headaches Depression Dyspnea Family history of asthma History of rheumatoid arthritis Influenza A Rheumatoid arthritis Smoking history Wheezing without diagnosis of asthma Surgical History History of appendectomy History of cholecystectomy History of hip surgery Family History Other Family history of COPD (chronic obstructive pulmonary disease) Family history of acute congestive heart failure Social History Smoking Status: Current every day smoker tobacco type: cigarettes packs per day: 1 second hand
[2023-02-28 06:11] VITALS: BP 110/74; PULSE 95; O2SAT 96
[2023-02-28 06:12] LABS: Microscopic, Urine URINE MICROSCOPIC (MICROSCOPIC)
[2023-02-28 06:17] LABS: Appearance,Urine CLEAR (Clear); Bilirubin,Urine Negative (Negative); Blood, Urine 3+ (Negative); Color,Urine YELLOW (Yellow); Glucose,Urine (UA) Negative (Negative); Ketones,Urine Negative (Negative); Leukocyte Esterase,Urine Negative (Negative); Nitrate,Urine Negative (Negative); PH,Urine 6.5 (5.0-8.5); Protein,Urine Negative (Negative); Urobilinogen,Urine 0.2 EU/dl (0.2)
[2023-02-28 06:20] VITALS: BP 109/67; PULSE 88; O2SAT 97
[2023-02-28 06:24] LABS: Alanine Aminotransferase 19 U/L (12-78); Albumin Level 4.1 g/dl (3.5-5.0); Albumin/Globulin Ratio 1.1 (1.1-1.8); Alkaline Phosphatase 66 U/L (38-126); Anion Gap 12.9 mEq/L (5-15); Aspartate Amino Transferase 24 U/L (14-36); Basophils # 0.1 K/mm3 (0-0.2); Basophils % 0.5 % (0.1-2.0); Bilirubin,Total 0.2 mg/dl (0.2-1.3); Blood Urea Nitrogen 10 mg/dl (7-17); Calcium 9.7 mg/dl (8.4-10.2); Carbon Dioxide 22 mmol/L (22.0-30.0); Chloride 104 mmol/L (98-107); Creatinine Clearance Estimated 154 mL/min (50-200); Eosinophils # 0.4 K/mm3 (0.0-0.4); Eosinophils % 2.9 % (0.1-12.0); Estimated Glomerular Filt Rate 114 ml/min (>60); GFR (African American) 138 ML/MIN (>60); Globulin 3.7 g/dL (1.3-3.2); Glucose 100 mg/dl (74-100); Hemoglobin 12.4 g/dL (12.2-16.2); Lymphocytes # 2.5 K/mm3 (0.7-4.5); Mean Corpuscular HGB Conc 35.5 g/dL (31.8-35.4); Mean Corpuscular Hemoglobin 31.7 pg (27.0-31.2); Mean Corpuscular Volume 89.1 fl (81-99); Mean Platelet Volume 8.1 fl (7.4-10.4); Monocytes # 0.4 K/mm3 (0.1-1.0); Monocytes % 2.9 % (1.7-9.3); Neutrophils # 9.7 K/mm3 (1.8-7.8); Neutrophils % 74.7 % (37.0-80.0); Platelet Count 280 K/mm3 (142-424); Potassium 3.9 mmoL/L (3.5-5.1); Red Blood Count 3.92 M/mm3 (4.20-5.40); Red Cell Distribution Width 13.8 % (11.5-17.5); Sodium 135 mmol/L (136-145); Total Protein,Serum 7.8 g/dl (6.3-8.2); White Blood Count 12.9 K/mm3 (4.8-10.8)
[2023-02-28 06:38] VITALS: BP 105/74; PULSE 88; RESP 16; TEMP 36.6; O2SAT 98
[2023-02-28 16:06] LABS: Bacteria,Urine Trace /lpf; RBC,Urine 50-100 #/hpf (0-3); Squamous Epithelial Cell,Urine Occasional #/hpf (0-5); WBC,Urine Occasional #/hpf (0-3)
== END 2023-02-28 06:48 | disposition home or self-care (01) ==
PROVIDERS: Emergency Provider Emergency Medicine; PCP Emergency Medicine
DX: O26.832 Pregnancy related renal disease, second trimester (principal); N20.0 Calculus of kidney; R10.9 Unspecified abdominal pain; O99.332 Smoking (tobacco) complicating pregnancy, second trimester; Z3A.20 20 weeks gestation of pregnancy
CPT/HCPCS: 80053; 81001; 85025; 96360; 96361; 96374; 99285; J2405

== ENCOUNTER 2023-03-21 22:28 | Outpatient (CLI) | payer OTHER, SELFPAY ==
[2023-03-21 22:33] VITALS: BMI 32.5
[2023-03-21 22:45] LABS: Microscopic, Urine URINE MICROSCOPIC (MICROSCOPIC)
[2023-03-21 22:46] LABS: Appearance,Urine CLEAR (Clear); Bilirubin,Urine Negative (Negative); Blood, Urine Negative (Negative); Color,Urine YELLOW (Yellow); Glucose,Urine (UA) Negative (Negative); Ketones,Urine Negative (Negative); Leukocyte Esterase,Urine TRACE (Negative); Nitrate,Urine Negative (Negative); Protein,Urine Negative (Negative); Urobilinogen,Urine 0.2 EU/dl (0.2)
[2023-03-21 22:56] LABS: Squamous Epithelial Cell,Urine Occasional #/hpf (0-5); WBC,Urine Occasional #/hpf (0-3)
[2023-03-21 22:57] LABS: Amphetamine/Metha Screen,Urine Negative ng/ml (<1000)
[2023-03-21 22:58] LABS: Barbiturates Screen,Urine Negative ng/ml (<200)
[2023-03-21 22:59] LABS: Benzodiazepines Screen,Urine Negative ng/ml (<200); Cannabinoid Screen,Urine Negative ng/ml (<50)
[2023-03-21 23:00] LABS: Cocaine Screen,Urine Negative ng/ml (<300)
[2023-03-21 23:01] LABS: Methadone Screen,Urine Negative ng/ml (<300); Opiate Screen,Urine Negative ng/ml (<300)
[2023-03-21 23:02] LABS: Phencyclidine Screen,Urine Negative ng/ml (<25)
[2023-03-22 02:02] VITALS: BP 137/70; PULSE 103; RESP 18; TEMP 36.8; O2SAT 99; BMI 32.4
== END 2023-03-22 00:25 | disposition home or self-care (01) ==
LOC: OBOUT 22:29 → OB 22:30
PROVIDERS: PCP Internal Medicine; Visit Provider Obstetrics & Gynecology
DX: O47.02 False labor before 37 completed weeks of gestation, second trimester (principal); O46.92 Antepartum hemorrhage, unspecified, second trimester; Z3A.23 23 weeks gestation of pregnancy
CPT/HCPCS: 76816; 80305; 81001; 96365; G0463

== ENCOUNTER → 2023-04-11 10:21 | Outpatient (CLI) | payer OTHER, SELFPAY ==
[2023-04-11 10:38] LABS: Basophils % 0.3 % (0.1-2.0); Eosinophils # 0.4 K/mm3 (0.0-0.4); Eosinophils % 4.1 % (0.1-12.0); Hematocrit 33.3 % (37.0-47.0); Hemoglobin 11.9 g/dL (12.2-16.2); Lymphocytes # 1.7 K/mm3 (0.7-4.5); Lymphocytes % 17.5 % (10-50); Mean Corpuscular HGB Conc 35.9 g/dL (31.8-35.4); Mean Corpuscular Hemoglobin 31.6 pg (27.0-31.2); Mean Corpuscular Volume 88.1 fl (81-99); Mean Platelet Volume 8.4 fl (7.4-10.4); Monocytes # 0.3 K/mm3 (0.1-1.0); Monocytes % 2.6 % (1.7-9.3); Neutrophils # 7.5 K/mm3 (1.8-7.8); Neutrophils % 75.5 % (37.0-80.0); Platelet Count 301 K/mm3 (142-424); Red Blood Count 3.78 M/mm3 (4.20-5.40); Red Cell Distribution Width 13.6 % (11.5-17.5); White Blood Count 9.9 K/mm3 (4.8-10.8)
[2023-04-11 10:58] LABS: Glucose,Fasting 148 mg/dl (74-100)
[2023-04-11 15:13] LABS: Glucose 1 Hour 155 mg/dL (74-100)
== END ==
PROVIDERS: PCP Internal Medicine; Visit Provider Obstetrics & Gynecology
DX: Z34.92 Encounter for supervision of normal pregnancy, unspecified, second trimester (principal); Z3A.26 26 weeks gestation of pregnancy
CPT/HCPCS: 36415; 82951; 85025

== ENCOUNTER → 2023-04-13 10:13 | Outpatient (CLI) | payer OTHER, SELFPAY ==
[2023-04-13 10:52] LABS: Glucose,Fasting 154 mg/dl (74-100)
[2023-04-13 12:16] LABS: Glucose 1 Hour 162 mg/dL (74-100)
[2023-04-13 13:37] LABS: Glucose 2 Hour 131 mg/dL (74-100)
[2023-04-13 16:17] LABS: Glucose 3 Hour 124 mg/dL (74-100)
== END ==
LOC: LAB 10:14
PROVIDERS: PCP Internal Medicine; Visit Provider Obstetrics & Gynecology
DX: R73.09 Other abnormal glucose (principal); Z3A.26 26 weeks gestation of pregnancy
CPT/HCPCS: 82951

== ENCOUNTER 2023-04-16 18:10 | Observation (INO) | payer MEDICAID, SELFPAY ==
[2023-04-16 17:17] VITALS: BMI 33.4
[2023-04-16 17:23] VITALS: BP 119/80; PULSE 102; RESP 16; TEMP 36.7; O2SAT 98; BMI 34.0
[2023-04-16 17:25] LABS: Microscopic, Urine URINE MICROSCOPIC (MICROSCOPIC)
[2023-04-16 17:29] LABS: Appearance,Urine CLEAR (Clear); Bilirubin,Urine Negative (Negative); Blood, Urine 3+ (Negative); Color,Urine YELLOW (Yellow); Glucose,Urine (UA) Negative (Negative); Ketones,Urine Negative (Negative); Leukocyte Esterase,Urine TRACE (Negative); Nitrate,Urine Negative (Negative); Protein,Urine Negative (Negative); Urobilinogen,Urine 0.2 EU/dl (0.2)
[2023-04-16 17:42] LABS: Amphetamine/Metha Screen,Urine Negative ng/ml (<1000); Barbiturates Screen,Urine Negative ng/ml (<200)
[2023-04-16 17:43] LABS: Benzodiazepines Screen,Urine Negative ng/ml (<200)
[2023-04-16 17:44] LABS: Cannabinoid Screen,Urine Negative ng/ml (<50); Cocaine Screen,Urine Negative ng/ml (<300)
[2023-04-16 17:45] LABS: Methadone Screen,Urine Negative ng/ml (<300)
[2023-04-16 17:46] LABS: Bacteria,Urine Trace /lpf; Opiate Screen,Urine Negative ng/ml (<300); Phencyclidine Screen,Urine Negative ng/ml (<25); RBC,Urine 20-50 #/hpf (0-3); WBC,Urine Occasional #/hpf (0-3)
[2023-04-16] MEDS: CEFAZOLIN SODIUM 2 GM in 0.9 % SODIUM CHLORIDE 100 ML IV (18:25)
[2023-04-16] MEDS: LACTATED RINGERS 1000ML 1,000 ML 999 ML IV (18:25)
[2023-04-16] MEDS: OXYCODONE 5MG W/APAP 325MG TABLET 1 EACH PO ×2 (18:36→22:21)
[2023-04-16 19:09] LABS: Chloride 108 mmol/L (98-107); Potassium 3.8 mmoL/L (3.5-5.1); Sodium 137 mmol/L (136-145)
[2023-04-16 19:11] LABS: Blood Urea Nitrogen 11 mg/dl (7-17); Creatinine Clearance Estimated 169 mL/min (50-200); Estimated Glomerular Filt Rate 114 ml/min (>60); GFR (African American) 138 ML/MIN (>60)
[2023-04-16 19:12] LABS: Alanine Aminotransferase 16 U/L (12-78); Albumin Level 3.6 g/dl (3.5-5.0); Albumin/Globulin Ratio 1.1 (1.1-1.8); Alkaline Phosphatase 68 U/L (38-126); Anion Gap 10.8 mEq/L (5-15); Aspartate Amino Transferase 25 U/L (14-36); Bilirubin,Total 0.3 mg/dl (0.2-1.3); Calcium 8.9 mg/dl (8.4-10.2); Carbon Dioxide 22 mmol/L (22.0-30.0); Globulin 3.4 g/dL (1.3-3.2); Glucose 91 mg/dl (74-100)
[2023-04-16 19:14] LABS: Basophils # 0.1 K/mm3 (0-0.2); Basophils % 0.5 % (0.1-2.0); Eosinophils # 0.3 K/mm3 (0.0-0.4); Hematocrit 34.4 % (37.0-47.0); Hemoglobin 11.6 g/dL (12.2-16.2); Lymphocytes # 2.4 K/mm3 (0.7-4.5); Lymphocytes % 23.5 % (10-50); Mean Corpuscular HGB Conc 33.8 g/dL (31.8-35.4); Mean Corpuscular Hemoglobin 30.5 pg (27.0-31.2); Mean Corpuscular Volume 90.4 fl (81-99); Mean Platelet Volume 8.2 fl (7.4-10.4); Monocytes # 0.4 K/mm3 (0.1-1.0); Monocytes % 3.8 % (1.7-9.3); Neutrophils # 6.9 K/mm3 (1.8-7.8); Neutrophils % 69.2 % (37.0-80.0); Platelet Count 320 K/mm3 (142-424); Red Blood Count 3.81 M/mm3 (4.20-5.40); Red Cell Distribution Width 13.5 % (11.5-17.5)
[2023-04-16 20:02] VITALS: BP 102/66; PULSE 86; RESP 18; TEMP 36.7; O2SAT 100
[2023-04-16] MEDS: LACTATED RINGERS 1000ML 1,000 ML 125 ML IV (20:05)
[2023-04-16] MEDS: NICOTINE 14MG/24HRS PATCH 14 MG TD (21:34)
[2023-04-17] MEDS: CEFAZOLIN SODIUM 2 GM in 0.9 % SODIUM CHLORIDE 100 ML IV ×2 (02:00→10:57)
[2023-04-17] MEDS: OXYCODONE 5MG W/APAP 325MG TABLET 1 EACH PO ×5 (02:06→16:24)
[2023-04-17] MEDS: PHENAZOPYRIDINE 200MG TABLET 100 MG PO ×2 (03:40→15:14)
[2023-04-17] MEDS: LACTATED RINGERS 1000ML 1,000 ML 125 ML IV ×3 (04:10→18:02)
[2023-04-17 04:13] VITALS: BP 111/79; PULSE 83; RESP 18; TEMP 36.7; O2SAT 99
[2023-04-17] MEDS: ONDANSETRON 4MG/2ML VIAL 4 MG IV ×2 (06:06→17:56)
--- NOTE | 2023-04-17 07:00 | US_ITS ---
FINAL REPORT CLINICAL HISTORY: KIDNEY STONES FINDINGS: The right kidney measures 10.9 cm in length. It is normal in echogenicity. There is no hydronephrosis. There is a 6 mm probable stone in the right kidney. The left kidney measures 10.1 cm in length. It is normal in echogenicity. There is no hydronephrosis. The spleen is unremarkable. IMPRESSION: Probable right renal stone. Reviewed, Interpreted and Dictated by Bridger Booth III, MD Transcribed by Nathaly Gonzales Authenticated and . [facility]
[2023-04-17] MEDS: MORPHINE 2MG/ML SYRINGE 2 MG IV ×4 (08:24→22:13)
--- NOTE | 2023-04-17 08:30 | PC.NURSE ---
RECEIVED REPORT FROM LEONIDAS TERRELL
[2023-04-17 08:35] VITALS: BP 116/68; PULSE 90; RESP 18; TEMP 36.7; O2SAT 98
--- NOTE | 2023-04-17 10:05 | PC.NURSE ---
DOPPLER HEART RATE NOTED AT 147. MOVEMENT NOTED.
[2023-04-17] MEDS: NICOTINE 14MG/24HRS PATCH 14 MG TD (10:58)
--- NOTE | 2023-04-17 11:21 | P.HP_ITS ---
History of Present Illness *Admission Date: 04/16/23 *Reason for visit:: Nephrolithiasis *History of present illness: Radha Milton is a 37-year-old -0-1-1 who presented to labor and delivery at 26 weeks and 5 days gestation secondary to significant pelvic pain and bleeding with urination. Patient also reports low back pain. She presented last night. Patient also states that she is having a difficult time emptying her bladder. She has been evaluated during this for a kidney stone in February and feels like this is a similar pain to that. She endorses nausea but denies any vomiting. Endorses chills but denies any fevers INESSA: 07/18/2023 based on first trimester ultrasound OB history: Previously had a vaginal delivery but desires an elective primary section with BSG complicated by: Advanced maternal age, hepatitis C, chronic hypertension, nephrolithiasis, bleeding in the first trimester and second trimester, and obesity Allergies: Toradol, tramadol, and Chantix. Patient also had morphine listed as an allergy but when I discussed this with the patient she states that she has had a recently without a reaction [facility] Disclaimer: The information contained in this section may have been updated after the patient was seen, as this information can be updated by other users. Medical History Acute respiratory failure with hypoxia Ankle sprain and strain Anxiety Cholecystitis Chronic headaches Depression Dyspnea Family history of asthma History of rheumatoid arthritis Influenza A Rheumatoid arthritis Smoking history Wheezing without diagnosis of asthma Surgical History History of appendectomy History of cholecystectomy History of hip surgery Family History Other Family history of COPD (chronic obstructive pulmonary disease) Family history of acute congestive heart failure Social History Smoking Status: Current every day smoker tobacco type: cigarettes packs per da y: 1 second hand exposure: No alcohol intake: never substance use type: denies use current occupational status: unemployed Travel in the last 8 weeks: None household members: children housing: apartment number of children: 1 Review of Systems Review of Systems Review of systems (narrative): Review of Systems Constitutional: Endorses chills. Denies fever and sweats Eyes: Denies vision change/ pain Respiratory: Denies cough and shortness of breath Cardiovascular: Denies chest pain and lightheadedness Gastrointestinal: Denies abdominal pain. Endorses nausea. Denies vomiting. Genitourinary: Endorses dysuria. Denies incontinence Musculoskeletal: Denies shoulder pain. Endorses back pain Neurological: Denies change in speech or headaches Meds Home Medications and Allergies Home Medications Medication Instructions Recorded Confirmed Type vits no.126-ferrous fum 1 tab PO DAILY Supplement 04/17/23 04/16/23 History 28 mg iron-folic acid 800 mcg tablet (Classic ) New Prescriptions to Start Prescriptions: Allergies Allergy/AdvReac Type Severity Reaction Status Date / Time ketorolac [From Toradol] Allergy Severe Hives Verified 04/05/23 10:20 tramadol AdvReac Unknown Verified 04/17/23 08:37 allergy reaction varenicline [From Chantix] AdvReac anxiety, Verified 04/05/23 10:20 nightmares Exam Data for Last 24 hours Vital signs and Labs for Last 24 Hours: Temp Pulse Resp BP Pulse Ox O2 Del Method 98.0 F 90 18 116/68 98 Room Air 04/17/23 08:35 04/17/23 08:35 04/17/23 08:35 04/17/23 08:35 04/17/23 08:35 04/17/23 08:35 Laboratory Results - last 24 hr 04/16/23 17:14: Urine Color Yellow, Urine Appearance Clear, Urine pH 7.0, Ur Specific [place] 1.020, Urine Protein Negative, Urine Glucose (UA) Negative, Urine Ketones Negative, Urine Blood 3+, Urine Nitrate Negative, Urine Bilirubin Negative, Urine Urobilinogen 0.2, Ur Leukocyte Esterase Trace, Urine RBC 20-50, Urine WBC Occasional, Ur Squamous Epith Cells 10-20, Urine Bacteria Trace, Urine Opiates Screen Negative, Urine Methadone Screen Negative, Ur Barbituates Screen Negative, Ur Phencyclidine Scrn Negative, Ur Amphetamines Screen Negative, U Benzodiazepines Scrn Negative, Urine Cocaine Screen Negative, U Marijuana (THC) Screen Negative 04/16/23 18:15: WBC 10.0, RBC 3.81 L, Hgb 11.6 L, Hct 34.4 L, MCV 90.4, MCH 30.5, MCHC 33.8, RDW 13.5, Plt Count 320, MPV 8.2, Neut % (Auto) 69.2, Lymph % (Auto) 23.5, [place] % (Auto) 3.8, Eos % (Auto) 3.0, Baso % (Auto) 0.5, Neut # (Auto) 6.9, Lymph # (Auto) 2.4, [place] # (Auto) 0.4, Eos # (Auto) 0.3, Baso # (Auto) 0.1, Sodium 137, Potassium 3.8, Chloride 108 H, Carbon Dioxide 22, Anion Gap 10.8, BUN 11, Creatinine 0.60, Estimated Creat Clear 169, Estimated GFR 114, Est GFR ( Amer) 138, Glucose 91, Calcium 8.9, Total Bilirubin 0.3, AST 25, ALT 16, Alkaline Phosphatase 68, Total Protein 7.0, Albumin 3.6, Globulin 3.4 H, Albumin/Globulin Ratio 1.1 I & O for Last 24 hours: Intake & Output 04/14/23 04/15/23 04/16/23 04/17/23 23:59 23:59 23:59 23:59 Output Total 200 / 200 50 / 50 Balance -200 / -200 -50 / -50 Weight 180 lb 0.005 oz Narrative: General: patient is alert oriented in mild distress secondary to pain. She is in the position when I examined her. HEENT: NCAT, EOMI, moist mucous membranes, neck supple with full ROM Cardiovascular: Mild tachycardia. +S1/S2, no murmurs or rubs Pulmonary: Clear to auscultation bilaterally, nonlabored breathing, symmetric chest rise Abdominal: Gravid abdomen appropriate for gestation. No guarding, rebound, or tenderness noted. Positive for suprapubic tenderness Back: Positive CVAT bilaterally Extremities: trace edema, no tenderness or cyanosis noted Skin: Normal turgor, intact, warm. Negative for erythema, pallor, petechia, or lesions Neurologic: Negative for sensory or motor deficit *Routine HEENT Exam Head: Present normocephalic and atraumatic Eye: Present EOMI, PERRL and normal accommodation; Absent conjunctival icterus, scleral injection, nystagmus or exophthalmos ENT: Present mucous membranes moist *Routine Respiratory Exam Respiratory: Present CTA bilaterally, normal respiratory effort, able to speak in complete sentences and symmetric chest movement; Absent accessory muscle use, decreased breath sounds, rales, respiratory distress, wheezes, distant breath sounds or diminished air movement *Routine Cardiovascular Exam Cardiovascular: Present RRR, Normal S1 and Normal S2; Absent murmur or gallop *Routine Abdominal Exam Abdominal: Present soft and normoactive bowel sounds; Absent tenderness, distended, rebound or guarding *Routine Rectal Exam Rectal:: deferred *Routine Genitalia Exam Genitalia:: normal female Assessment and Plan *Assessment and plan (1) Vaginal bleeding before 22 weeks gestation: Status: Acute Category: Medical Code(s): O20.9 - Hemorrhage in early , unspecified (2) Kidney stone: Status: Acute Category: Medical Code(s): N20.0 - Calculus of kidney (3) Vaginal bleeding in patient after first trimester: Status: Acute Category: Medical Code(s): O46.90 - Antepartum hemorrhage, unspecified, unspecified trimester (4) Obesity (BMI 30.0-34.9): Status: Acute Category: Medical Code(s): E66.9 - Obesity, unspecified (5) Rheumatic arteritis: Status: Acute Category: Medical Code(s): I00 - Rheumatic fever without heart involvement (6) Hepatitis C: Status: Acute Category: Medical Code(s): B19.20 - Unspecified viral hepatitis C without hepatic coma (7) Chronic hypertension affecting : Status: Acute Category: Medical Code(s): O10.919 - Unspecified pre-existing hypertension complicating , unspecified trimester (8) Vaginal bleeding: Status: Acute Category: Medical Code(s): N93.9 - Abnormal uterine and vaginal bleeding, unspecified (9) Advanced maternal age (AMA) in : Status: Acute Category: Medical (10) Tobacco use affecting in first trimester, antepartum: Status: Acute Category: Medical Code(s): O99.331 - Smoking (tobacco) complicating , first trimester Plan Admit Renal ultrasound Morphine 2 mg every 4-6 hours as needed pain Discussed transfer out for stents based on renal ultrasound Tylenol 1000 mg p.o. every 6 hours for pain management Doppler every 4 hours Regular diet as tolerated Ancef 2 g every 8 previously ordered - this was continued Nicotine patch ordered Zofran nausea ordered Percocet 5 mg as needed pain ordered Pyridium ordered 100 mg every 8 as needed dysuria No leukocytosis Hemoglobin: 11.6
[2023-04-17] MEDS: SODIUM CHLORIDE 0.9% 10ML FLUSH SYRINGE 10 ML IV (12:07)
--- NOTE | 2023-04-17 13:45 | PC.NURSE ---
LATE ENTRY: 1255 PT BACK TO ROOM FROM RADIOLOGY
--- NOTE | 2023-04-17 14:05 | PC.NURSE ---
DOPPLER HEARTRATE NOTED AT 143.
[2023-04-17 16:26] VITALS: BP 101/66; PULSE 82; RESP 18; TEMP 36.6; O2SAT 100
[2023-04-17 17:11] VITALS: BMI 34.0
--- NOTE | 2023-04-17 18:05 | PC.NURSE ---
Addendum entered by Padmini Ramos RN 04/17/23 18:14: MOVEMENT NOTED. Original Note: DOPPLER HEARTRATE NOTED AT 148.
[2023-04-17 20:15] VITALS: BP 101/66; PULSE 75; RESP 18; TEMP 36.7; O2SAT 97
[2023-04-17] MEDS: TAMSULOSIN 0.4MG CAPSULE 0.400000000000000022 MG PO (21:33)
[2023-04-17] MEDS: cephALEXin 500MG CAPSULE 500 MG PO (21:33)
[2023-04-18] MEDS: LACTATED RINGERS 1000ML 1,000 ML 125 ML IV (02:24)
[2023-04-18 02:25] VITALS: BP 94/53; PULSE 87; RESP 17; TEMP 36.5; O2SAT 94
[2023-04-18] MEDS: MORPHINE 2MG/ML SYRINGE 2 MG IV (02:25)
[2023-04-18] MEDS: OXYCODONE 5MG W/APAP 325MG TABLET 1 EACH PO ×2 (08:25→12:18)
[2023-04-18] MEDS: NICOTINE 14MG/24HRS PATCH 14 MG TD (10:20)
[2023-04-18] MEDS: cephALEXin 500MG CAPSULE 500 MG PO (10:20)
[2023-04-18 10:30] VITALS: BP 97/58; PULSE 86; RESP 16; TEMP 36.6; O2SAT 98
--- NOTE | 2023-04-18 12:50 | EXP.DC.SUM ---
General Admission date:: 04/16/23 Discharge date: 04/18/23 HPI HPI HPI: Radha Milton is a 37-year-old -0-1-1 who presented to labor and delivery at 26 weeks and 5 days gestation secondary to significant pelvic pain and bleeding with urination. Patient also reports low back pain. She presented last night. Patient also states that she is having a difficult time emptying her bladder. She has been evaluated during this for a kidney stone in February and feels like this is a similar pain to that. She endorses nausea but denies any vomiting. Endorses chills but denies any fevers INESSA: 07/18/2023 based on first trimester ultrasound OB history: Previously had a vaginal delivery but desires an elective primary section with BSG complicated by: Advanced maternal age, hepatitis C, chronic hypertension, nephrolithiasis, bleeding in the first trimester and second trimester, and obesity Allergies: Toradol, tramadol, and Chantix. Patient also had morphine listed as an allergy but when I discussed this with the patient she states that she has had a recently without a reaction Hospital Course Hospital Course Hospital Course: Patient was admitted for nephrolithiasis and pain management. Essentially normal renal ultrasound. Small kidney stone noted. Patient was discharged home with [facility] and she will follow-up next week Exam Data for Last 24 hours Vital signs and Labs for Last 24 Hours: Temp Pulse Resp BP Pulse Ox O2 Del Method 97.9 F 86 16 97/58 L 98 Room Air 04/18/23 10:30 04/18/23 10:30 04/18/23 10:30 04/18/23 10:30 04/18/23 10:30 04/18/23 10:30 I & O for Last 24 hours: Intake & Output 04/15/23 04/16/23 04/17/23 04/18/23 23:59 23:59 23:59 23:59 Intake Total 3226 / 3226 Output Total 200 / 200 725 / 725 1000 / 1000 Balance -200 / -200 2501 / 2501 -1000 / -1000 Weight 180 lb 0.005 oz 180 lb 0.013 oz Constitutional Constitutional: no acute distress *Routine HEENT Exam Head: Present normocephalic Eye: Present EOMI and PERRL ENT: Present mucous membranes moist *Routine Neck Exam Neck: Present supple; Absent lymphadenopathy *Routine Respiratory Exam Respiratory: Present CTA bilaterally *Routine Cardiovascular Exam Cardiovascular: Present RRR *Routine Abdominal Exam Abdominal: Present soft and normoactive bowel sounds; Absent tenderness *Routine Extremities Exam Extremities: Absent cyanosis, clubbing or edema *Routine Skin Exam Skin: Present warm; Absent rash *Routine Neurological Exam Neurological: Present alert and oriented X3 DS: Diagnosis Discharge Diagnosis (1) Vaginal bleeding before 22 weeks gestation: Status: Acute Code(s): O20.9 - Hemorrhage in early , unspecified (2) Kidney stone: Status: Acute Code(s): N20.0 - Calculus of kidney (3) Vaginal bleeding in patient after first trimester: Status: Acute Code(s): O46.90 - Antepartum hemorrhage, unspecified, unspecified trimester (4) Obesity (BMI 30.0-34.9): Status: Acute Code(s): E66.9 - Obesity, unspecified (5) Rheumatic arteritis: Status: Acute Code(s): I00 - Rheumatic fever without heart involvement (6) Hepatitis C: Status: Acute Code(s): B19.20 - Unspecified viral hepatitis C without hepatic coma (7) Chronic hypertension affecting : Status: Acute Code(s): O10.919 - Unspecified pre-existing hypertension complicating , unspecified trimester (8) Vaginal bleeding: Status: Acute Code(s): N93.9 - Abnormal uterine and vaginal bleeding, unspecified (9) Advanced maternal age (AMA) in : Status: Acute (10) Tobacco use affecting in first trimester, antepartum: Status: Acute Code(s): O99.331 - Smoking (tobacco) complicating , first trimester Meds Home Medications and Allergies Home Medications Medication Instructions Recorded Confirmed Type vits no.126-ferrous fum 1 tab PO DAILY Supplement 04/17/23 04/16/23 History 28 mg iron-folic acid 800 mcg tablet (Classic ) cephalexin 500 mg capsule 500 mg PO BID #4 caps 04/18/23 Rx oxycodone-acetaminophen 5 mg-325 1 tab PO Q4HP PRN Moderate To 04/18/23 Rx mg tablet Severe Pain (4-10) #10 tabs tamsulosin 0.4 mg capsule 0.4 mg PO HS #30 caps 04/18/23 Rx New Prescriptions to Start Prescriptions: oxycodone-acetaminophen Genesis Rea cephalexin Genesis Rea tamsulosin Genesis Rea Allergies Allergy/AdvReac Type Severity Reaction Status Date / Time ketorolac [From Toradol] Allergy Severe Hives Verified 04/05/23 10:20 tramadol AdvReac Unknown Verified 04/17/23 08:37 allergy reaction varenicline [From Chantix] AdvReac anxiety, Verified 04/05/23 10:20 nightmares Discharge Plan Disposition Patient Disposition: Home, Self-Care Follow up Plan Follow up with: Genesis Rea DO [Staff Physician] - 04/26/23 2:45 pm Prescriptions/Medication Reconciliation: New oxycodone-acetaminophen 5-325 mg Tablet 1 tab PO Q4HP PRN (Reason: Moderate To Severe Pain (4-10)) Qty: 10 0RF tamsulosin 0.4 mg Capsule 0.4 mg PO HS Qty: 30 0RF cephalexin 500 mg Capsule 500 mg PO BID Qty: 4 0RF Continued Classic 28 mg iron- 800 mcg tablet 1 tab PO DAILY Problem Reconciliation Problems Reviewed?: Yes Patient Discharge Instructions ACTIVITY: Continue current activity DIET: continue same diet and regular diet Additional Instructions: Rest, drink plenty of fluids. Patient Instructions: DI for Kidney Stones, How to Do Kick Counts, Antepartum Care Providers Primary Care Provider: Marco Antonio Polanco Admit Provider: Sulaiman Suarez Attending Provider: Sulaiman Suarez
== END 2023-04-18 13:17 | disposition home or self-care (01) ==
LOC: OBOUT 18:10 → OB 18:10
PROVIDERS: Admitting Provider Nurse Practitioner Obstetrics & Gynecology; PCP Internal Medicine; Visit Provider Nurse Practitioner Obstetrics & Gynecology
DX: O46.92 Antepartum hemorrhage, unspecified, second trimester (principal); Z3A.22 22 weeks gestation of pregnancy; O98.412 Viral hepatitis complicating pregnancy, second trimester; B19.20 Unspecified viral hepatitis C without hepatic coma; O10.912 Unspecified pre-existing hypertension complicating pregnancy, second trimester; O99.212 Obesity complicating pregnancy, second trimester; O99.332 Smoking (tobacco) complicating pregnancy, second trimester; O36.5920 Maternal care for other known or suspected poor fetal growth, second trimester, not applicable or unspecified; N20.0 Calculus of kidney; O99.342 Other mental disorders complicating pregnancy, second trimester; F41.9 Anxiety disorder, unspecified; F32.A Depression, unspecified
CPT/HCPCS: 59025; 76770; 80053; 80307; 81001; 85025; G0378; J2405

== ENCOUNTER 2023-04-26 13:14 | Outpatient (CLI) | payer MEDICAID, SELFPAY ==
--- NOTE | 2023-04-26 13:14 | US_ITS ---
PROCEDURE: US OB BIOPHYSICAL PROFILE CLINICAL INDICATION: for placental postion and growth COMPARISON: Anatomy scan 02/22/2023 FINDINGS: Transabdominal sonographic images of the uterus were obtained. From her established due date she is 28weeks 1day. The following parameters are obtained: Viable fetus in the cephalic presentation with a posterior placenta grade 2. Previously described low lying placenta has now resolved. Average ultrasound age is 28weeks 2days. Estimated due date by ultrasound is 07/17/2023. Estimated weight is 2lb 10 oz, 1195 grams. Cervix measures 3.56 cm transvaginally. heart rate: 147bpm BPD: 28 weeks 0 days HC: 28 weeks 1 day AC: 20 weeks 2 days FL: 20 weeks 3 days HC/AC: 1.08 FL/BPD: 0.77 FL/AC: 0.22 40 percentile Amniotic fluid index: 11.26cm, MVP 2.96 cm Qualitative AFV: 2 breathing movements: 2 Gross body movements: 2 Tone: 2 Biophysical profile score: 8 No obvious anomalies evident.Kidneys, bladder, profile, nasion, four-chamber heart, three-vessel cord appear normal. IMPRESSION: 1. Viable fetus in the cephalic presentation with a posterior placenta grade 2. The previously described low lying placenta has now resolved. 2. The fluid is within normal limits with an amniotic fluid index of 11.26 cm, MVP 2.96 cm. 3. Biophysical profile is 8/8 with good breathing movement and movement seen. 4. There has been good interval growth with the fetus currently 40th percentile. Dictated by: Sulaiman Suarez MD 04/26/2023 15:44 Sulaiman Suarez MD in OV 04/26/2023 15:44
== END 2023-04-26 23:59 ==
LOC: RAD 13:14
PROVIDERS: PCP Internal Medicine; Visit Provider Obstetrics & Gynecology
DX: O44.03 Complete placenta previa NOS or without hemorrhage, third trimester (principal); Z3A.28 28 weeks gestation of pregnancy
CPT/HCPCS: 76816; 76819

== ENCOUNTER 2023-05-22 17:45 | Outpatient (CLI) | payer MEDICAID, SELFPAY ==
[2023-05-22 18:18] VITALS: BP 136/82; PULSE 96; RESP 17; TEMP 37.3; O2SAT 97; BMI 34.9
[2023-05-22 18:30] LABS: Appearance,Urine CLEAR (Clear); Bilirubin,Urine Negative (Negative); Blood, Urine 2+ (Negative); Color,Urine YELLOW (Yellow); Glucose,Urine (UA) Negative (Negative); Ketones,Urine Negative (Negative); Leukocyte Esterase,Urine TRACE (Negative); Microscopic, Urine URINE MICROSCOPIC (MICROSCOPIC); Nitrate,Urine Negative (Negative); PH,Urine 6.5 (5.0-8.5); Protein,Urine Negative (Negative); Urobilinogen,Urine 0.2 EU/dl (0.2)
[2023-05-22] MEDS: LACTATED RINGERS 1000ML 1,000 ML 999 ML IV (18:40)
[2023-05-22 18:41] LABS: Fetal Membrane Rupture (Rapid) Negative (Negative)
[2023-05-22 18:47] LABS: Bacteria,Urine Trace /lpf; WBC,Urine Occasional #/hpf (0-3)
[2023-05-22 18:50] LABS: Amphetamine/Metha Screen,Urine Negative ng/ml (<1000)
[2023-05-22 18:51] LABS: Barbiturates Screen,Urine Negative ng/ml (<200)
[2023-05-22 18:52] LABS: Benzodiazepines Screen,Urine Negative ng/ml (<200); Cannabinoid Screen,Urine Negative ng/ml (<50)
[2023-05-22 18:53] LABS: Cocaine Screen,Urine Negative ng/ml (<300)
[2023-05-22 18:54] LABS: Methadone Screen,Urine Negative ng/ml (<300); Opiate Screen,Urine Negative ng/ml (<300)
[2023-05-22 18:55] LABS: Phencyclidine Screen,Urine Negative ng/ml (<25)
== END 2023-05-22 19:35 | disposition home or self-care (01) ==
LOC: OBOUT 17:48 → OB 17:49
PROVIDERS: PCP Internal Medicine; Visit Provider Nurse Practitioner Obstetrics & Gynecology
DX: O26.893 Other specified pregnancy related conditions, third trimester (principal); Z3A.31 31 weeks gestation of pregnancy
CPT/HCPCS: 59025; 80307; 81001; 84112; 96365; G0463

== ENCOUNTER 2023-05-24 09:36 | Outpatient (CLI) | payer MEDICAID, SELFPAY ==
[2023-05-24 10:58] LABS: Alanine Aminotransferase 11 U/L (12-78); Albumin Level 3.2 g/dl (3.5-5.0); Albumin/Globulin Ratio 1.1 (1.1-1.8); Alkaline Phosphatase 70 U/L (38-126); Anion Gap 16.8 mEq/L (5-15); Aspartate Amino Transferase 20 U/L (14-36); Bilirubin,Total 0.3 mg/dl (0.2-1.3); Blood Urea Nitrogen 8 mg/dl (7-17); Calcium 9.3 mg/dl (8.4-10.2); Carbon Dioxide 18 mmol/L (22.0-30.0); Chloride 106 mmol/L (98-107); Estimated Glomerular Filt Rate 140 ml/min (>60); GFR (African American) 170 ML/MIN (>60); Globulin 2.9 g/dL (1.3-3.2); Glucose 96 mg/dl (74-100); Potassium 3.8 mmoL/L (3.5-5.1); Sodium 137 mmol/L (136-145); Total Protein,Serum 6.1 g/dl (6.3-8.2); Uric Acid 5.5 mg/dl (2.5-6.2)
[2023-05-24 13:00] LABS: Creatinine,Urine Random 95 mg/dL (Not Estab.)
[2023-05-24 14:23] LABS: Basophils % 0.4 % (0.1-2.0); Eosinophils # 0.3 K/mm3 (0.0-0.4); Eosinophils % 3.3 % (0.1-12.0); Hemoglobin 10.9 g/dL (12.2-16.2); Lymphocytes # 2.6 K/mm3 (0.7-4.5); Lymphocytes % 26.8 % (10-50); Mean Corpuscular HGB Conc 34.2 g/dL (31.8-35.4); Mean Corpuscular Hemoglobin 30.5 pg (27.0-31.2); Mean Corpuscular Volume 89.3 fl (81-99); Mean Platelet Volume 8.4 fl (7.4-10.4); Monocytes # 0.4 K/mm3 (0.1-1.0); Monocytes % 4.3 % (1.7-9.3); Neutrophils # 6.3 K/mm3 (1.8-7.8); Neutrophils % 65.2 % (37.0-80.0); Platelet Count 343 K/mm3 (142-424); Red Blood Count 3.58 M/mm3 (4.20-5.40); Red Cell Distribution Width 13.5 % (11.5-17.5); White Blood Count 9.6 K/mm3 (4.8-10.8)
== END 2023-05-24 23:59 ==
LOC: LAB.CARL 09:37
PROVIDERS: PCP Internal Medicine; Visit Provider Obstetrics & Gynecology
DX: O10.913 Unspecified pre-existing hypertension complicating pregnancy, third trimester (principal); Z3A.32 32 weeks gestation of pregnancy
CPT/HCPCS: 36415; 80053; 82570; 84155; 84550; 85025

== ENCOUNTER 2023-05-31 12:00 | Outpatient (CLI) | payer MEDICAID, SELFPAY ==
[2023-05-31 12:33] LABS: Basophils % 0.2 % (0.1-2.0); Eosinophils # 0.2 K/mm3 (0.0-0.4); Eosinophils % 2.1 % (0.1-12.0); Hematocrit 30.4 % (37.0-47.0); Hemoglobin 10.7 g/dL (12.2-16.2); Lymphocytes # 1.8 K/mm3 (0.7-4.5); Lymphocytes % 16.9 % (10-50); Mean Corpuscular Hemoglobin 30.9 pg (27.0-31.2); Mean Corpuscular Volume 88.3 fl (81-99); Mean Platelet Volume 8.1 fl (7.4-10.4); Monocytes # 0.5 K/mm3 (0.1-1.0); Monocytes % 4.3 % (1.7-9.3); Neutrophils % 76.6 % (37.0-80.0); Platelet Count 308 K/mm3 (142-424); Red Blood Count 3.45 M/mm3 (4.20-5.40); Red Cell Distribution Width 13.7 % (11.5-17.5); White Blood Count 10.4 K/mm3 (4.8-10.8)
[2023-05-31 12:50] LABS: Activated Partial Thrombo Time 26.8 seconds (22.8-30.6); Fibrinogen 564 mg/dL (229.9-363.5); INR 0.91 (0.9-1.1); Prothrombin Time 9.9 seconds (10.1-12.5)
[2023-05-31 13:02] LABS: Alanine Aminotransferase 13 U/L (12-78); Anion Gap 8.7 mEq/L (5-15); Aspartate Amino Transferase 19 U/L (14-36); Blood Urea Nitrogen 10 mg/dl (7-17); Calcium 8.8 mg/dl (8.4-10.2); Carbon Dioxide 20 mmol/L (22.0-30.0); Chloride 113 mmol/L (98-107); Estimated Glomerular Filt Rate 95 ml/min (>60); GFR (African American) 115 ML/MIN (>60); Glucose 89 mg/dl (74-100); Potassium 3.7 mmoL/L (3.5-5.1); Sodium 138 mmol/L (136-145); Uric Acid 6.5 mg/dl (2.5-6.2)
== END 2023-05-31 23:59 ==
PROVIDERS: PCP Internal Medicine; Visit Provider Nurse Practitioner Obstetrics & Gynecology
DX: O10.913 Unspecified pre-existing hypertension complicating pregnancy, third trimester (principal); Z3A.33 33 weeks gestation of pregnancy
CPT/HCPCS: 36415; 80048; 84450; 84460; 84550; 85025; 85384; 85610; 85730

== ENCOUNTER 2023-06-03 13:10 | Outpatient (CLI) | payer MEDICAID, SELFPAY ==
[2023-06-03 13:54] VITALS: BMI 35.1
[2023-06-03 14:09] VITALS: BP 107/69; PULSE 88; RESP 22; TEMP 37.2; O2SAT 97; BMI 34.5
[2023-06-03 14:09] LABS: Microscopic, Urine URINE MICROSCOPIC (MICROSCOPIC)
[2023-06-03 14:13] LABS: Appearance,Urine CLEAR (Clear); Bilirubin,Urine Negative (Negative); Blood, Urine 3+ (Negative); Color,Urine YELLOW (Yellow); Glucose,Urine (UA) Negative (Negative); Ketones,Urine Negative (Negative); Leukocyte Esterase,Urine Negative (Negative); Nitrate,Urine Negative (Negative); Protein,Urine Negative (Negative); Urobilinogen,Urine 0.2 EU/dl (0.2)
[2023-06-03] MEDS: LACTATED RINGERS 1000ML 1,000 ML 999 ML IV ×2 (14:20→15:39)
[2023-06-03 14:28] LABS: Barbiturates Screen,Urine Negative ng/ml (<200)
[2023-06-03 14:30] LABS: Cannabinoid Screen,Urine Negative ng/ml (<50); Cocaine Screen,Urine Negative ng/ml (<300)
[2023-06-03 14:32] LABS: Opiate Screen,Urine Negative ng/ml (<300)
[2023-06-03 14:33] LABS: Bacteria,Urine Trace /lpf
[2023-06-03 15:05] LABS: Benzodiazepines Screen,Urine Negative ng/ml (<200)
[2023-06-03 15:06] LABS: Methadone Screen,Urine Negative ng/ml (<300)
[2023-06-03 15:06] LABS: Basophils % 0.3 % (0.1-2.0); Eosinophils # 0.1 K/mm3 (0.0-0.4); Eosinophils % 1.8 % (0.1-12.0); Hemoglobin 10.2 g/dL (12.2-16.2); Lymphocytes # 1.5 K/mm3 (0.7-4.5); Lymphocytes % 19.5 % (10-50); Mean Corpuscular HGB Conc 35.2 g/dL (31.8-35.4); Mean Corpuscular Hemoglobin 31.1 pg (27.0-31.2); Mean Corpuscular Volume 88.2 fl (81-99); Monocytes # 0.3 K/mm3 (0.1-1.0); Monocytes % 3.6 % (1.7-9.3); Neutrophils % 74.8 % (37.0-80.0); Platelet Count 300 K/mm3 (142-424); Red Blood Count 3.29 M/mm3 (4.20-5.40); Red Cell Distribution Width 13.8 % (11.5-17.5)
[2023-06-03 15:07] LABS: Phencyclidine Screen,Urine Negative ng/ml (<25)
[2023-06-03 15:18] LABS: Amphetamine/Metha Screen,Urine Negative ng/ml (<1000)
[2023-06-03] MEDS: CEFAZOLIN SODIUM 2 GM in 0.9 % SODIUM CHLORIDE 100 ML IV (15:39)
[2023-06-03] MEDS: TERBUTALINE SULFATE 1MG/ML VIAL 0.25 MG SQ (15:39)
[2023-06-03] MEDS: OXYCODONE 5MG IMMEDIATE RELEASE TABLET 5 MG PO (16:43)
== END 2023-06-03 17:19 | disposition home or self-care (01) ==
LOC: OBOUT 13:12 → OB 13:13
PROVIDERS: PCP Internal Medicine; Visit Provider Nurse Practitioner Obstetrics & Gynecology
DX: O47.03 False labor before 37 completed weeks of gestation, third trimester (principal); Z3A.33 33 weeks gestation of pregnancy
CPT/HCPCS: 59025; 80307; 81001; 85025; 96365; 96366; 96372; G0463

== ENCOUNTER 2023-06-04 14:17 | Outpatient (CLI) | payer MEDICAID, SELFPAY ==
--- NOTE | 2023-06-04 14:37 | US_ITS ---
FINAL REPORT CLINICAL HISTORY: KIDNEY STONES COMPARISON: None FINDINGS: RENAL ULTRASOUND: The right kidney measures 10.3 cm in length. There are several small calcifications noted in the right kidney measuring less than 5 mm in size, compatible with renal stones, nonobstructing. No focal mass or hydronephrosis is present. The left kidney measures 12.8 cm in length. Mild hydronephrosis is present in the left kidney. No focal mass is identified. IMPRESSION: Several nonobstructing right renal stones as described. Mild hydronephrosis is present in the left kidney. Would recommend CT renal mass protocol for further evaluation as clinically indicated. Reviewed, Interpreted and Dictated by Osmani Azevedo MD Transcribed by Alexus Leonard Authenticated and [facility]
[2023-06-04 16:06] LABS: Collection Time,Urine 24 hours; Total Volume,Urine 800 mL (600-1600)
[2023-06-04 16:09] LABS: Patient Height,Urine 61 inches
[2023-06-04 16:12] VITALS: BP 112/73; PULSE 98; RESP 18; TEMP 36.7; O2SAT 98
[2023-06-04 16:13] VITALS: BMI 36.8
--- NOTE | 2023-06-04 16:16 | PC.NURSE ---
Pt walked onto the unit at 1610 for scheduled steroid injection. Pt reports positive movement, denies bleeding and leaking of fluid.
[2023-06-04] MEDS: BETAMETHASONE ACET/PHOS 6MG/ML 5ML MDV 12 MG IM (16:30)
--- NOTE | 2023-06-04 16:34 | PC.NURSE ---
pt tolerated injection well
--- NOTE | 2023-06-04 16:40 | PC.NURSE ---
Pt ambulated off the unit at this time, accompanied by family.
[2023-06-04 17:46] LABS: Creatinine 24 Hour,Urine 712 mg/24hr (630-2500); Creatinine,Urine Random 89 mg/dL (Not Estab.)
[2023-06-04 17:47] LABS: Creatinine Clearance Urine 51.1 mL/min (25-115); Patient Weight,Urine 194.5922 lbs
[2023-06-04 17:48] LABS: Total Protein 24 Hour,Urine 224 mg/24 hr (40-90)
== END 2023-06-04 23:59 ==
PROVIDERS: PCP Internal Medicine; Visit Provider Nurse Practitioner Obstetrics & Gynecology
DX: O10.913 Unspecified pre-existing hypertension complicating pregnancy, third trimester (principal); Z3A.33 33 weeks gestation of pregnancy; N20.0 Calculus of kidney
CPT/HCPCS: 36415; 76770; 82575; 84155; 96372

== ENCOUNTER 2023-06-05 14:50 | Outpatient (CLI) | payer MEDICAID, SELFPAY ==
[2023-06-05 15:04] LABS: Basophils % 0.2 % (0.1-2.0); Eosinophils # 0.1 K/mm3 (0.0-0.4); Eosinophils % 1.2 % (0.1-12.0); Hematocrit 30.9 % (37.0-47.0); Hemoglobin 10.8 g/dL (12.2-16.2); Lymphocytes # 2.2 K/mm3 (0.7-4.5); Lymphocytes % 18.7 % (10-50); Mean Corpuscular Volume 88.3 fl (81-99); Mean Platelet Volume 8.3 fl (7.4-10.4); Monocytes # 0.6 K/mm3 (0.1-1.0); Monocytes % 4.9 % (1.7-9.3); Neutrophils # 8.7 K/mm3 (1.8-7.8); Platelet Count 340 K/mm3 (142-424); Red Cell Distribution Width 13.6 % (11.5-17.5); White Blood Count 11.5 K/mm3 (4.8-10.8)
[2023-06-05 15:21] LABS: Chloride 112 mmol/L (98-107); Sodium 135 mmol/L (136-145)
[2023-06-05 15:23] LABS: Blood Urea Nitrogen 11 mg/dl (7-17); Estimated Glomerular Filt Rate 63 ml/min (>60); GFR (African American) 76 ML/MIN (>60)
[2023-06-05 15:24] LABS: Alanine Aminotransferase 20 U/L (12-78); Albumin Level 3.6 g/dl (3.5-5.0); Albumin/Globulin Ratio 1.2 (1.1-1.8); Alkaline Phosphatase 110 U/L (38-126); Aspartate Amino Transferase 24 U/L (14-36); Bilirubin,Total 0.2 mg/dl (0.2-1.3); Calcium 9.3 mg/dl (8.4-10.2); Carbon Dioxide 20 mmol/L (22.0-30.0); Globulin 3.1 g/dL (1.3-3.2); Glucose 116 mg/dl (74-100); Total Protein,Serum 6.7 g/dl (6.3-8.2)
[2023-06-05] MEDS: BETAMETHASONE ACET/PHOS 6MG/ML 5ML MDV 12 MG IM (15:27)
[2023-06-05 15:28] VITALS: BP 130/77; PULSE 88; RESP 17; TEMP 36.8; O2SAT 97
[2023-06-05 17:20] LABS: Uric Acid 6.4 mg/dl (2.5-6.2)
== END 2023-06-05 23:59 ==
PROVIDERS: PCP Internal Medicine; Visit Provider Obstetrics & Gynecology
DX: O10.913 Unspecified pre-existing hypertension complicating pregnancy, third trimester (principal); Z3A.33 33 weeks gestation of pregnancy
CPT/HCPCS: 36415; 80053; 84550; 85025; 96372; G0463

== ENCOUNTER 2023-06-06 12:51 | Outpatient (CLI) | payer MEDICAID, SELFPAY ==
[2023-06-06 13:05] VITALS: BMI 77.8
--- NOTE | 2023-06-06 13:08 | US_ITS ---
FINAL REPORT CLINICAL HISTORY: kidney stone COMPARISON: 06/04/2023 FINDINGS: RENAL ULTRASOUND Ultrasound images of the kidneys were obtained. The right kidney measures 11.1 cm in length. The left kidney measures 10.6 cm in length. Echogenicity is normal. There are multiple echogenic foci in the kidneys bilaterally. There is mild to moderate right hydronephrosis which is new compared to the previous exam probably related to an obstructing ureteral stone. Mild left hydronephrosis is again noted. IMPRESSION: New, mild to moderate right hydronephrosis probably related to an obstructing ureteral stone. Consider CT abdomen and pelvis for further evaluation. Reviewed, Interpreted and Dictated by Osmani Azevedo MD Transcribed by Shirley Hairston Authenticated and [facility]
[2023-06-06 13:11] LABS: Microscopic, Urine URINE MICROSCOPIC (MICROSCOPIC)
[2023-06-06 13:20] LABS: Appearance,Urine CLEAR (Clear); Bilirubin,Urine Negative (Negative); Blood, Urine 3+ (Negative); Color,Urine YELLOW (Yellow); Glucose,Urine (UA) Negative (Negative); Ketones,Urine Negative (Negative); Leukocyte Esterase,Urine TRACE (Negative); Nitrate,Urine Negative (Negative); Protein,Urine 1+ (Negative); Urobilinogen,Urine 0.2 EU/dl (0.2)
[2023-06-06 13:38] LABS: Basophils % 0.2 % (0.1-2.0); Eosinophils # 0.1 K/mm3 (0.0-0.4); Eosinophils % 0.6 % (0.1-12.0); Hematocrit 30.5 % (37.0-47.0); Lymphocytes # 1.8 K/mm3 (0.7-4.5); Lymphocytes % 19.4 % (10-50); Mean Corpuscular HGB Conc 32.9 g/dL (31.8-35.4); Mean Corpuscular Hemoglobin 30.4 pg (27.0-31.2); Mean Corpuscular Volume 92.3 fl (81-99); Monocytes # 0.5 K/mm3 (0.1-1.0); Monocytes % 5.4 % (1.7-9.3); Neutrophils # 6.8 K/mm3 (1.8-7.8); Neutrophils % 74.3 % (37.0-80.0); Platelet Count 363 K/mm3 (142-424); Red Blood Count 3.31 M/mm3 (4.20-5.40); Red Cell Distribution Width 13.7 % (11.5-17.5); White Blood Count 9.2 K/mm3 (4.8-10.8)
[2023-06-06 13:39] LABS: Bacteria,Urine Trace /lpf; RBC,Urine 20-50 #/hpf (0-3)
[2023-06-06 13:40] LABS: Alanine Aminotransferase 18 U/L (12-78); Anion Gap 8.5 mEq/L (5-15); Aspartate Amino Transferase 23 U/L (14-36); Blood Urea Nitrogen 11 mg/dl (7-17); Carbon Dioxide 20 mmol/L (22.0-30.0); Chloride 112 mmol/L (98-107); Creatinine Clearance Estimated 66 mL/min (50-200); Estimated Glomerular Filt Rate 71 ml/min (>60); GFR (African American) 86 ML/MIN (>60); Glucose 105 mg/dl (74-100); Potassium 3.5 mmoL/L (3.5-5.1); Sodium 137 mmol/L (136-145); Uric Acid 6.6 mg/dl (2.5-6.2)
[2023-06-06 13:50] LABS: Barbiturates Screen,Urine Negative ng/ml (<200); Benzodiazepines Screen,Urine Negative ng/ml (<200)
[2023-06-06 13:51] LABS: Cannabinoid Screen,Urine Negative ng/ml (<50)
[2023-06-06 13:54] LABS: Phencyclidine Screen,Urine Negative ng/ml (<25)
[2023-06-06 13:57] LABS: Amphetamine/Metha Screen,Urine Negative ng/ml (<1000)
[2023-06-06 14:13] LABS: Activated Partial Thrombo Time 24.1 seconds (22.8-30.6); Fibrinogen 501 mg/dL (229.9-363.5); INR 0.91 (0.9-1.1); Prothrombin Time 9.9 seconds (10.1-12.5)
[2023-06-06 14:15] LABS: Cocaine Screen,Urine Negative ng/ml (<300)
[2023-06-06 14:16] LABS: Methadone Screen,Urine Negative ng/ml (<300); Opiate Screen,Urine Negative ng/ml (<300)
[2023-06-06 14:44] VITALS: BP 131/74; PULSE 97; RESP 18; TEMP 36.8; O2SAT 98; BMI 35.3
[2023-06-06 15:05] VITALS: BP 119/73
== END 2023-06-06 15:38 | disposition home or self-care (01) ==
LOC: OBOUT 12:53 → OB 12:53
PROVIDERS: PCP Internal Medicine; Visit Provider Obstetrics & Gynecology
DX: O26.893 Other specified pregnancy related conditions, third trimester (principal); Z3A.34 34 weeks gestation of pregnancy
CPT/HCPCS: 36415; 59025; 76770; 80048; 80307; 81001; 84450; 84460; 84550; 85025; 85384; 85610; 85730; G0463

== ENCOUNTER 2023-06-07 10:05 | Emergency (ER) | payer MEDICAID, SELFPAY ==
[2023-06-07] VITALS (8 sets, daily range): BP systolic 115–146; BP diastolic 68–89; PULSE 83–113; RESP 16–18; TEMP 36.6; O2SAT 96–99; BMI 36.6
--- NOTE | 2023-06-07 10:25 | PC.NURSE ---
called rad to power share images done on 06/06/23 to [facility] per
[2023-06-07] MEDS: ACETAMINOPHEN 1,000MG/100ML VIAL 1000 MG IV (10:32)
[2023-06-07 10:35] LABS: Basophils % 0.2 % (0.1-2.0); Eosinophils # 0.3 K/mm3 (0.0-0.4); Eosinophils % 3.3 % (0.1-12.0); Hematocrit 31.8 % (37.0-47.0); Hemoglobin 10.6 g/dL (12.2-16.2); Lymphocytes # 2.2 K/mm3 (0.7-4.5); Lymphocytes % 24.2 % (10-50); Mean Corpuscular HGB Conc 33.3 g/dL (31.8-35.4); Mean Corpuscular Hemoglobin 30.8 pg (27.0-31.2); Mean Corpuscular Volume 92.3 fl (81-99); Mean Platelet Volume 7.9 fl (7.4-10.4); Monocytes # 0.4 K/mm3 (0.1-1.0); Monocytes % 4.7 % (1.7-9.3); Neutrophils # 6.3 K/mm3 (1.8-7.8); Neutrophils % 67.7 % (37.0-80.0); Platelet Count 374 K/mm3 (142-424); Red Blood Count 3.45 M/mm3 (4.20-5.40); Red Cell Distribution Width 13.8 % (11.5-17.5); White Blood Count 9.3 K/mm3 (4.8-10.8)
[2023-06-07] MEDS: LACTATED RINGERS 1000ML 1,000 ML 999 ML IV (10:36)
[2023-06-07 10:40] LABS: Chloride 111 mmol/L (98-107); Potassium 3.6 mmoL/L (3.5-5.1); Sodium 137 mmol/L (136-145)
[2023-06-07 10:41] LABS: Microscopic, Urine URINE MICROSCOPIC (MICROSCOPIC)
[2023-06-07 10:43] LABS: Alanine Aminotransferase 18 U/L (12-78); Albumin Level 3.7 g/dl (3.5-5.0); Albumin/Globulin Ratio 1.1 (1.1-1.8); Alkaline Phosphatase 92 U/L (38-126); Anion Gap 7.6 mEq/L (5-15); Aspartate Amino Transferase 25 U/L (14-36); Bilirubin,Total 0.3 mg/dl (0.2-1.3); Blood Urea Nitrogen 16 mg/dl (7-17); Carbon Dioxide 22 mmol/L (22.0-30.0); Creatinine Clearance Estimated 109 mL/min (50-200); Estimated Glomerular Filt Rate 63 ml/min (>60); GFR (African American) 76 ML/MIN (>60); Globulin 3.5 g/dL (1.3-3.2); Total Protein,Serum 7.2 g/dl (6.3-8.2)
[2023-06-07 10:44] LABS: Calcium 9.2 mg/dl (8.4-10.2); Glucose 113 mg/dl (74-100)
[2023-06-07 10:52] LABS: Appearance,Urine CLEAR (Clear); Bilirubin,Urine Negative (Negative); Blood, Urine 3+ (Negative); Color,Urine YELLOW (Yellow); Glucose,Urine (UA) Negative (Negative); Ketones,Urine Negative (Negative); Leukocyte Esterase,Urine 1+ (Negative); Nitrate,Urine Negative (Negative); Protein,Urine Negative (Negative); Specific Gravity, Urine <= 1.005 (1.005-1.030); Urobilinogen,Urine 0.2 EU/dl (0.2)
[2023-06-07] MEDS: ONDANSETRON 4MG/2ML VIAL 4 MG IV (10:58)
[2023-06-07] MEDS: MORPHINE 4MG/ML SYRINGE 4 MG IV (10:58)
--- NOTE | 2023-06-07 11:01 | PC.NURSE ---
I rounded on the pt. Pt states she is still in pain 09/23. I informed pt of the plan to reach out to [facility] for transfer.
--- NOTE | 2023-06-07 11:03 | ED_ITS ---
Discharge Plan Disposition Patient Disposition: Xfer Short-Term Hosp Condition: Good Prescriptions Prescriptions: No Action labetalol 200 mg tablet 200 mg PO BID Qty: 60 2RF Classic 28 mg iron- 800 mcg tablet 1 tab PO DAILY Referrals Follow up/Referrals: Marco Antonio Polanco DO [Primary Care Provider] - See instructions Clinical Impressions Clinical Impression: Bilateral hydronephrosis, Bilateral nephrolithiasis, STACEY (acute kidney injury) Stand Alone Forms Stand Alone Forms: Transfer Record - ED Discharge ED Provider: Radha Almonte General Adult HPI General Chief complaint: PAIN Stated complaint: kidney stones in both kidneys Time Seen by Provider: 06/07/23 10:14 Mode of Arrival: Ambulatory Source of Information: Patient Limitations: No Limitations Description of Symptoms (Recalled from ER Triage Doc. by RN): pt states she had a kidney US yesterday ordered by OB. Dr. Rea called her and told her to come to the ER to get pain meds/IV fluids per the pt. pt has bilateral flank pain 7/10, sharp and shootin in nature. pt states she has been awake since 0300 due to the pain. pt is anxious, crying and states shes exhausted. pt states she is 34wks 1d . pt states she keeps having reoccuring kidney stones throughout this . History of Present Illness HPI narrative: This patient is a 37-year-old female with history of recurrent kidney stones, hepatitis C, tobacco use, and gestational hypertension who is 34w1d presenting with concern for bilateral flank pain. Patient reports that a week ago, she started having flank pain on the left as well as hematuria. She had an ultrasound as an outpatient which demonstrated left-sided hydronephrosis. She also had multiple bilateral renal stones that were nonobstructing. She states that she has been at home dealing with the pain, and then she developed right flank pain about 1-2 days ago. She had an ultrasound done yesterday of her kidneys which showed new right-sided hydronephrosis in addition to the left- sided hydronephrosis. Urine was again concerning for hematuria. I had an interactive discussion with the patient's JOURNEYMAN PAINTER who advised that she was concerned because the patient had had elevation in her blood pressure, elevation in her creatinine, and was now having severe bilateral flank pain. She was concerned the patient would need urology evaluation. Of note, plan is to deliver the patient at 37 weeks gestational age anyway. Related Data Home Medications Medication Instructions Recorded Confirmed vits no.[id number]-ferrous fum 1 tab PO DAILY Supplement 04/17/23 06/05/23 28 mg iron-folic acid 800 mcg tablet (Classic ) Previous Rx's Medication Instructions Recorded labetalol 200 mg tablet 200 mg PO BID #60 tabs 05/31/23 Allergies Allergy/AdvReac Type Severity Reaction Status Date / Time ketorolac [From Toradol] Allergy Severe Hives Verified 06/05/23 13:36 tramadol AdvReac Unknown Verified 06/05/23 13:36 allergy reaction varenicline [From Chantix] AdvReac anxiety, Verified 06/05/23 13:36 nightmares [facility] Disclaimer: The information contained in this section may have been updated after the patient was seen, as this information can be updated by other users. Medical History Acute respiratory failure with hypoxia Ankle sprain and strain Anxiety Cholecystitis Chronic headaches Depression Dyspnea Family history of asthma History of rheumatoid arthritis Influenza A Neuropathic pain Rheumatoid arthritis Smoking history Wheezing without diagnosis of asthma Surgical History History of appendectomy History of cholecystectomy History of hip surgery Family History Other Family history of COPD (chronic obstructive pulmonary disease) Family history of acute congestive heart failure Social History Smoking Status: Current every day smoker tobacco type: cigarettes packs per day: 1 second hand exposure: No alcohol intake: never substance use type: denies use current occupational status: unemployed Travel in the last 8 weeks: None household members: children housing: apartment number of children: 1 ROS Obtained: Yes All systems reviewed & no additional complaints except as documented Physical Exam General General appearance: alert Comment: Tearful, very uncomfortable appearing Head Head exam: atraumatic and normocephalic Eye Eye exam: Present normal appearance, PERRL and EOMI ENT ENT exam: Present normal exam, normal oropharynx, mucous membranes moist and normal external ear exam Neck Neck exam: Present normal inspection, full ROM and trachea midline; Absent tenderness Chest Chest inspection: Present normal inspection and symmetric chest wall rise; Absent tenderness Respiratory Respiratory exam: Present normal lung sounds bilaterally; Absent respiratory distress, wheezes, stridor or accessory muscle use Cardiovascular Cardiovascular exam: Present regular rate and normal rhythm Abdominal Exam Abdominal exam: Present soft and other (gravid); Absent distention, tenderness or guarding Extremities Exam Extremities exam: Present normal inspection, full ROM and normal capillary refill; Absent tenderness or edema Back Exam Back exam: Present full ROM, CVA tenderness (R) and CVA tenderness (L) Neurological Exam Neurological exam: Present alert, oriented X3, CN II-XII intact and normal gait; Absent motor sensory deficit Psychiatric Psychiatric exam: Present normal affect and normal mood Skin Skin exam: Present warm and dry Medical Decision Making Medical Records Medical records reviewed: Yes I reviewed the patient's medical records. Kana Inquiry Pt receiving controlled substance: No Vital Signs: 06/07/23 10:36 06/07/23 11:01 06/07/23 11:10 Temperature 97.9 F Temperature Source Oral Pulse Rate 101 H 85 Pulse Rate [Left] 113 H Respiratory Rate 18 Blood Pressure 146/86 H 135/89 Blood Pressure [Right Arm] 128/84 Blood Pressure Mean [Right Arm] 98 Blood Pressure Source [Right Arm] Automatic Cuff Blood Pressure Position [Right Arm] Sitting 02 Sat by Pulse Oximetry 99 98 97 Oxygen Delivery Method Room Air Room Air Room Air 06/07/23 11:30 06/07/23 11:40 06/07/23 11:50 Temperature Temperature Source Pulse Rate 87 87 83 Pulse Rate [Left] Respiratory Rate Blood Pressure 126/68 125/80 115/71 Blood Pressure [Right Arm] Blood Pressure Mean [Right Arm] Blood Pressure Source [Right Arm] Blood Pressure Position [Right Arm] 02 Sat by Pulse Oximetry 98 96 97 Oxygen Delivery Method Room Air Room Air Room Air 06/07/23 12:00 Temperature Temperature Source Pulse Rate 85 Pulse Rate [Left] Respiratory Rate Blood Pressure 126/79 Blood Pressure [Right Arm] Blood Pressure Mean [Right Arm] Blood Pressure Source [Right Arm] Blood Pressure Position [Right Arm] 02 Sat by Pulse Oximetry 98 Oxygen Delivery Method Room Air Lab Data Lab results reviewed: Yes I reviewed the patient's lab results. Lab Results 06/07/23 10:15: Urine Color Yellow, Urine Appearance Clear, Urine pH 7.0, Ur Specific [place] <= 1.005, Urine Protein Negative, Urine Glucose (UA) Negative, Urine Ketones Negative, Urine Blood 3+, Urine Nitrate Negative, Urine Bilirubin Negative, Urine Urobilinogen 0.2, Ur Leukocyte Esterase 1+ A, Urine RBC 5-10, Urine WBC Occasional, Ur Squamous Epith Cells 5-10, Urine Bacteria Trace 06/07/23 10:25: WBC 9.3, RBC 3.45 L, Hgb 10.6 L, Hct 31.8 L, MCV 92.3, MCH 30.8, MCHC 33.3, RDW 13.8, Plt Count 374, MPV 7.9, Neut % (Auto) 67.7, Lymph % (Auto) 24.2, [place] % (Auto) 4.7, Eos % (Auto) 3.3, Baso % (Auto) 0.2, Neut # (Auto) 6.3, Lymph # (Auto) 2.2, [place] # (Auto) 0.4, Eos # (Auto) 0.3, Baso # (Auto) 0.0, Sodium 137, Potassium 3.6, Chloride 111 H, Carbon Dioxide 22, Anion Gap 7.6, BUN 16 D, Creatinine 1.00, Estimated Creat Clear 109, Estimated GFR 63, Est GFR ( Amer) 76, Glucose 113 H, Calcium 9.2, Total Bilirubin 0.3, AST 25, ALT 18, Alkaline Phosphatase 92, Total Protein 7.2, Albumin 3.7, Globulin 3.5 H, Albumin/Globulin Ratio 1.1 06/07/23 10:25 06/07/23 10:25 Orders (Tests/Meds): ED MEDICATIONS Discontinued Medications Generic Name Dose Route Start Last Admin Trade Name Freq PRN Reason Stop Dose Admin Acetaminophen 1,000 mg 06/07/23 10:25 06/07/23 10:32 Acetaminophen 1,000mg/100ml Vial IV 06/07/23 10:26 1,000 mg ONCE ONE Administration Lactated Ringer's 1,000 mls @ 999 mls/hr 06/07/23 10:25 06/07/23 10:36 Lactated Ringer's 1000 Ml Bag IV 06/07/23 11:25 999 mls/hr .Q1H1M ONE Administration Morphine Sulfate 4 mg 06/07/23 10:35 06/07/23 10:58 Morphine 4mg/Ml Syringe IV 06/07/23 10:36 4 mg ONCE ONE Administration Morphine Sulfate 8 mg 06/07/23 12:45 06/07/23 12:47 Morphine 8mg/Ml Syringe IV 06/07/23 12:46 8 mg ONCE ONE Administration Ondansetron HCl 4 mg 06/07/23 10:35 06/07/23 10:58 Ondansetron 4mg/2ml Vial IV 06/07/23 10:36 4 mg ONCE ONE Administration ORDERS Category Date Time Status Complete Blood Count Auto Diff Stat Lab 06/07/23 10:25 Completed Comprehensive Metabolic Panel Stat Lab 06/07/23 10:25 Completed Urinalysis and Microscopic Stat Lab 06/07/23 10:15 Completed Urine Culture Stat Micro 06/07/23 10:15 Received Medical Decision Narrative: In summary, this patient is a 37-year-old female presenting to the Emergency Department for evaluation of severe bilateral flank pain in the setting of bilateral hydronephrosis and hematuria. Patient has history of multiple kidney stones and had multiple stones visualized on ultrasound. Differential diagnoses considered include but are not limited to ureterolithiasis, obstructive mass, cystitis, pyelonephritis. Ruling out the most morbid conditions drove assessment. On exam, the patient is very uncomfortable appearing and tearful with bilateral CVA tenderness. No fever. Workup included CBC, CMP, urinalysis. She just had an ultrasound yesterday, so I did not repeat imaging. Labs were obtained that demonstrated persistent hematuria as well as 1+ leukocyte esterase, which was not present on prior UA. Her creatinine is up to 1 from a baseline of 0.6. No significant leukocytosis to suggest significant infection. Patient was given a bolus of IV fluids as well as IV Tylenol and Zofran. She states that she is in such severe pain she just wants relief. I explained to her that opioids are category C and could potentially lead to premature or other issues with her . She expressed understanding agreement would like to proceed because she is miserable. On reassessment, patient had good improvement in her symptoms after interventions as above. Given her STACEY in the setting of bilateral hydronephrosis, likely related to ureteral stones, I called and had an interactive discussion with Dr. Su at . He advised that they would happily accept her to labor and delivery for urology evaluation. I do feel that she would benefit from transfer to higher level of care given we do not have urology here should she require intervention. EMS transport was arranged, the patient was transferred to [facility] in stable condition for further evaluation and management. Critical Care Critical Care Time Critical Care Time: No
--- NOTE | 2023-06-07 11:03 | PC.NURSE ---
CALLED [facility] FOR TRANSFER PER WAITING A CALL BACK
[2023-06-07 11:04] LABS: Bacteria,Urine Trace /lpf; WBC,Urine Occasional #/hpf (0-3)
--- NOTE | 2023-06-07 11:04 | PC.NURSE ---
ROUNDED ON PT STATED SHE DIDNT FEEL LIKE HER [facility] TYLENOL WAS GOING RELAYED MESSAGE TO CHARGE NURSE AND MEDIC ... NO OTHER NEEDS AT THIS TIME
--- NOTE | 2023-06-07 11:05 | PC.NURSE ---
AT BS LOOKING AT [facility]
--- NOTE | 2023-06-07 11:17 | PC.NURSE ---
Addendum entered by [facility] Eng, YOLIS 06/07/23 11:29: MD WAS HEATH WALKER Original Note: SPEAKING WITH (HEATH WALKER) FROM [facility]
--- NOTE | 2023-06-07 11:18 | PC.NURSE ---
un hooked patient to go to bathroom
--- NOTE | 2023-06-07 11:47 | PC.NURSE ---
CALLED [facility] TO SEE IF PT DAUGHTER(17) COULD RIDE IN AMBULANCE WITH HER DUE TO HER NOT HAVING ANY ONE TO COME GET HER PT STATED THIS TO ER MD WAITING A CALL BACK FROM EMS ON ANSWER
--- NOTE | 2023-06-07 12:01 | PC.NURSE ---
[facility] called , they informed her they will call with a phone number and bed assignment.
[2023-06-07] MEDS: MORPHINE 8MG/ML SYRINGE 8 MG IV (12:47)
--- NOTE | 2023-06-07 13:13 | PC.NURSE ---
I called report to April TERRELL at the [facility] in .
--- NOTE | 2023-06-07 14:05 | PC.NURSE ---
Report given to EMS for transfer
--- NOTE | 2023-06-07 14:07 | PC.NURSE ---
EMS IS HERE FOR TRANSPORT TO [facility]
== END 2023-06-07 14:17 | disposition short-term general hospital (02) ==
PROVIDERS: Emergency Provider Emergency Medicine; PCP Internal Medicine
DX: O26.833 Pregnancy related renal disease, third trimester (principal); O13.3 Gestational [pregnancy-induced] hypertension without significant proteinuria, third trimester; N13.30 Unspecified hydronephrosis; N17.9 Acute kidney failure, unspecified; Z3A.34 34 weeks gestation of pregnancy; O99.891 Other specified diseases and conditions complicating pregnancy; O99.333 Smoking (tobacco) complicating pregnancy, third trimester; M06.9 Rheumatoid arthritis, unspecified; F17.210 Nicotine dependence, cigarettes, uncomplicated
CPT/HCPCS: 80053; 81001; 85025; 87086; 96361; 96374; 96375; 96376; 99285; J0131; J2405

== ENCOUNTER 2023-06-13 08:56 | Outpatient (CLI) | payer MEDICAID, SELFPAY ==
--- NOTE | 2023-06-13 08:56 | US_ITS ---
PROCEDURE: US OB BIOPHYSICAL PROFILE CLINICAL INDICATION: gestational hypertension COMPARISON: US US OB BIOPHYSICAL PROFILE from 04/26/2023 FINDINGS: Transabdominal sonographic images of the uterus were obtained. From her established due date she is 35weeks 0 days. The following parameters are obtained: Viable Fetus in the cephalic presentation with a posterolateral placenta grade 2. Average ultrasound age is 33weeks 6days Estimated weight 2,265g, 5 lb 0 oz. Cervix measures 3.52 cm. Measurements: heart Rate = 150bpm BPD = 33weeks 4days, 14 percentile HC = 34weeks 0 days, 4 percentile AC = 33weeks 4days, 17 percentile FL = 34weeks 2days, 22 percentile HC/AC is 1.03 FL/BPD is 0.8 FL/AC is 0.22 growth: 16 percentile Amniotic fluid index: 10.66cm, MVP 5.5 cm. Qualitative AFV:2 Breathing movements: 2 Gross Body Movements: 2 Tone: 2 Biophysical profile score: 8 No obvious anomalies evident.Kidneys, bladder, stomach, four-chamber heart, three-vessel cord appear normal. IMPRESSION: 1. Viable fetus in the cephalic presentation with a posterolateral placenta grade 2. 2. The fluid is within normal limits with an amniotic fluid index of 10.66 cm, MVP 5.5 cm. 3. Biophysical profile 8/8 with good breathing movement and movement seen. 4. There has been good growth with the fetus currently 16th percentile. Dictated by: Sulaiman Suarez MD 06/13/2023 11:43 Sulaiman Suarez MD in [place] 06/13/2023 11:43
== END 2023-06-13 23:59 ==
LOC: RAD 08:56
PROVIDERS: PCP Internal Medicine; Visit Provider Obstetrics & Gynecology
DX: O13.3 Gestational [pregnancy-induced] hypertension without significant proteinuria, third trimester (principal); Z3A.35 35 weeks gestation of pregnancy
CPT/HCPCS: 76816; 76819; 86403

== ENCOUNTER 2023-06-15 11:44 | Observation (INO) | payer MEDICAID, SELFPAY ==
[2023-06-15 08:53] VITALS: BP 110/65; PULSE 90; RESP 16; TEMP 36.8; O2SAT 99; BMI 35.1
[2023-06-15 09:05] LABS: Microscopic, Urine URINE MICROSCOPIC (MICROSCOPIC)
--- NOTE | 2023-06-15 09:37 | US_ITS ---
PROCEDURE: US OB BIOPHYSICAL PROFILE CLINICAL INDICATION: NONREACTIVE NST COMPARISON: US US OB BIOPHYSICAL PROFILE from 04/26/2023 US US OB BIOPHYSICAL PROFILE from 06/13/2023 FINDINGS: Transabdominal sonographic images of the uterus were obtained. From her established due date she is 35weeks 2days. The following parameters are obtained: Viable Fetus in the cephalic presentation with a posterolateral placenta grade 2. Cervix measures 3.4 cm. Measurements: heart Rate = 152bpm Amniotic fluid index: 10.64cm, MVP 4.0 cm. Qualitative AFV:2 Breathing movements: 2 Gross Body Movements: 2 Tone: 0 Biophysical profile score: 6 No obvious anomalies evident.Kidneys, bladder, four-chamber heart, three-vessel cord appear normal. IMPRESSION: 1. Viable fetus in the cephalic presentation with a posterolateral placenta grade 2. 2. The fluid is within normal limits with an amniotic fluid index of 10.64 cm, MVP 4.0 cm. 3. Biophysical profile is 6/8 with no tone seen today. There is breathing movement and movement seen. 4. Limited anatomical scan appears normal. 5. Dr. Tomlinson was notified. Dictated by: Sulaiman Suarez MD 06/15/2023 16:44 Sulaiman Suarez MD in [place] 06/15/2023 16:44
[2023-06-15 09:54] LABS: Appearance,Urine CLEAR (Clear); Bilirubin,Urine Negative (Negative); Blood, Urine 1+ (Negative); Color,Urine YELLOW (Yellow); Glucose,Urine (UA) Negative (Negative); Ketones,Urine Negative (Negative); Leukocyte Esterase,Urine 1+ (Negative); Nitrate,Urine Negative (Negative); PH,Urine 7.5 (5.0-8.5); Protein,Urine Negative (Negative); Specific Gravity, Urine 1.015 (1.005-1.030); Urobilinogen,Urine 0.2 EU/dl (0.2)
[2023-06-15 11:40] LABS: Bacteria,Urine Trace /lpf; RBC,Urine Occasional #/hpf (0-3)
[2023-06-15 15:11] LABS: Amphetamine/Metha Screen,Urine Negative ng/ml (<1000)
[2023-06-15 15:12] LABS: Barbiturates Screen,Urine Negative ng/ml (<200)
[2023-06-15 15:13] LABS: Cocaine Screen,Urine Negative ng/ml (<300); Methadone Screen,Urine Negative ng/ml (<300)
[2023-06-15 15:14] LABS: Opiate Screen,Urine Negative ng/ml (<300)
[2023-06-15 15:15] LABS: Phencyclidine Screen,Urine Negative ng/ml (<25)
[2023-06-15 15:18] LABS: Benzodiazepines Screen,Urine Negative ng/ml (<200)
[2023-06-15 15:21] LABS: Cannabinoid Screen,Urine Negative ng/ml (<50)
[2023-06-15] MEDS: LACTATED RINGERS 1000ML 1,000 ML 999 ML IV (16:20)
--- NOTE | 2023-06-15 16:59 | EXP.OB.APHP ---
OB - H&P: HPI Antepartum History of Present Illness Chief complaint: Nonreactive NST History of present illness: Radha Milton is a 37 yo at 35w2d who presented to L&D for NST for asymmetric IUGR. NST was not reactive. She was recently discharged from with nephrolithiasis and is currently taking Oxycodone 5 mg, Flexeril and Flomax. BPP was performed and was 6/8, 2 off for tone. Ultrasound 06/13 demonstrated EFW 16 %ile but HC 4%ile. BPP 11/21, JAMES WNL. History of Present Criteria for establishing EDC:: based on 1st trimester US only care: good care Ultrasounds: normal mid trimester US Obstetrical complications: none Medical complications: none Labs Blood type: O (+) positive Rubella: immune RPR/VDRL: nonreactive HBsAG: negative PFSH PFSH Disclaimer: The information contained in this section may have been updated after the patient was seen, as this information can be updated by other users. Medical History (Updated 06/15/23 @ 17:09 by Pavithra Tomlinson DO) 35 weeks gestation of Acute respiratory failure with hypoxia Ankle sprain and strain Anxiety Cholecystitis Chronic headaches Depression Dyspnea Family history of asthma History of rheumatoid arthritis Influenza A Neuropathic pain Rheumatoid arthritis Smoking history Wheezing without diagnosis of asthma Surgical History History of appendectomy History of cholecystectomy History of hip surgery Family History Other Family history of COPD (chronic obstructive pulmonary disease) Family history of acute congestive heart failure Social History Smoking Status: Current every day smoker tobacco type: cigarettes packs per day: 1 second hand exposure: No alcohol intake: never substance use type: denies use current occupational status: unemployed Travel in the last 8 weeks: None household members: children housing: apartment number of children: 1 Review of Systems Review of Systems Review of systems:: pertinent systems reviewed and negative unless documented below Meds Home Medications and Allergies Home Medications Medication Instructions Recorded Confirmed Type vits no.126-ferrous fum 1 tab PO DAILY Supplement 04/17/23 06/15/23 History 28 mg iron-folic acid 800 mcg tablet (Classic ) calcium carbonate 200 mg calcium 200 mg PO DAILY 06/13/23 06/13/23 History (500 mg) chewable tablet cyclobenzaprine 5 mg tablet 5 mg PO BID 06/13/23 06/15/23 History oxycodone 5 mg tablet 5 mg PO Q6H #45 tabs 06/13/23 06/15/23 Rx New Prescriptions to Start Prescriptions: Allergies Allergy/AdvReac Type Severity Reaction Status Date / Time ketorolac [From Toradol] Allergy Severe Hives Verified 06/13/23 10:01 tramadol AdvReac Unknown Verified 06/13/23 10:01 allergy reaction varenicline [From Chantix] AdvReac anxiety, Verified 06/13/23 10:01 nightmares OB - H&P: Exam Physical Exam Vital signs: Temp Pulse Resp BP Pulse Ox O2 Del Method 98.2 F 90 16 110/65 99 Room Air 06/15/23 08:53 06/15/23 08:53 06/15/23 08:53 06/15/23 08:53 06/15/23 08:53 06/15/23 08:53 Constitutional no acute distress and cooperative Routine HEENT Exam Head: Present normocephalic and atraumatic Eye: Absent conjunctivae pink ENT: Present mucous membranes moist Routine Neck Exam Present full ROM Routine Respiratory Exam Present CTA bilaterally and normal respiratory effort Routine Cardiovascular Exam Present RRR Routine Abdominal Exam Present soft (Gravid); Absent tenderness Routine Rectal Exam Patient deferred: visual exam Routine Exam Patient deferred: external exam Routine Extremities Exam Present edema (+1 bilateral lower extremity edema) and full ROM; Absent calf tenderness Routine Neurological Exam Present alert, moving all extremities and normal speech Routine Psychiatric Exam Present normal affect and cooperative OB - Results Labs Labs: Urine 06/15/23 Range/Units 08:39 Urine Color Yellow (Yellow) Urine Appearance Clear (Clear) Urine pH 7.5 (5.0-8.5) Ur Specific [place] 1.015 (1.005-1.030) Urine Protein Negative (Negative) Urine Glucose (UA) Negative (Negative) OB - A/P Antepartum (1) 35 weeks gestation of : Status: Acute (2) Bilateral hydronephrosis: Status: Acute (3) Bilateral nephrolithiasis: Status: Acute (4) STACEY (acute kidney injury): Status: Acute (5) Chronic hypertension affecting : Status: Acute (6) Advanced maternal age (AMA) in : Status: Acute (7) Tobacco use affecting in first trimester, antepartum: Status: Acute (8) Anxiety disorder: Status: Acute (9) Depression: Status: Acute Additional Plan Additional Information:: Plan to monitor overnight and repeat BPP tomorrow morning Regular diet Okay to continue home meds
[2023-06-15] MEDS: LACTATED RINGERS 1000ML 1,000 ML 75 ML IV (18:31)
[2023-06-15 20:00] VITALS: BP 130/60; PULSE 93; RESP 18; TEMP 37.1; O2SAT 97
[2023-06-15] MEDS: CYCLOBENZAPRINE 10MG TABLET 5 MG PO (21:11)
[2023-06-15] MEDS: OXYCODONE 5MG IMMEDIATE RELEASE TABLET 5 MG PO (21:11)
[2023-06-16] MEDS: hydrOXYzine pamoate 25MG CAPSULE 50 MG PO (00:39)
[2023-06-16] MEDS: OXYCODONE 5MG IMMEDIATE RELEASE TABLET 5 MG PO (03:54)
[2023-06-16 04:20] VITALS: BP 102/50; PULSE 83; RESP 18; TEMP 36.7; O2SAT 97
[2023-06-16] MEDS: CYCLOBENZAPRINE 10MG TABLET 5 MG PO (09:30)
--- NOTE | 2023-06-16 10:30 | US_ITS ---
PROCEDURE INFORMATION: Exam: US Biophysical Profile Without Non-Stress Test Exam date and time: 06/16/2023 10:34 AM Age: 37 years old Clinical indication: Other: Decreased movement; ; Additional info: Repeat bpp due to decreased movement on TECHNIQUE: Imaging protocol: US biophysical profile without non-stress testing. Total images: 595 COMPARISON: US OB BIOPHYSICAL PROFILE 06/15/2023 10:28 AM FINDINGS: heart rate: 152 bpm Amniotic fluid index: JAMES is 10.51 cm. BIOPHYSICAL PROFILE: breathing movement (BPP): 2 /2 body movement (BPP): 2 /2 tone (BPP): 2 /2 Amniotic fluid (BPP): 2 /2 Biophysical profile score (BPP): 8 /8 IMPRESSION: Biophysical profile score 8/8.
--- NOTE | 2023-06-16 11:47 | EXP.DC.SUM ---
General Admission date:: 06/15/23 Discharge date: 06/16/23 HPI HPI HPI: Radha is feeling well this morning. She had some cramping over night that resolved. She is feeling baby move. No contractions, no vaginal bleeding. Admits she lost part of her mucus plug. No complaints or concerns. Hospital Course Hospital Course Hospital Course: Radha Milton is a 37 yo at 35w2d who presented to L&D for NST for asymmetric IUGR. NST was not reactive. She was recently discharged from with nephrolithiasis and is currently taking Oxycodone 5 mg, Flexeril and Flomax. BPP was performed and was 6/8, 2 off for tone. Ultrasound 06/13 demonstrated EFW 16 %ile but HC 4%ile. BPP 8/8, JAMES WNL. She had NSTs every shift. NSTs reactive, category 1. Repeat BPP this morning, 06/16/23, was 8/8, JAMES WNL. She had some cramping overnight that resolved. No contractions. She was discharged home with instructions to follow-up Sunday for BPP and S/D ratio, follow-up Sunday with Dr. Rea. Exam Data for Last 24 hours Vital signs and Labs for Last 24 Hours: Temp Pulse Resp BP Pulse Ox O2 Del Method 98.0 F 83 18 102/50 L 97 Room Air 06/16/23 04:20 06/16/23 04:20 06/16/23 04:20 06/16/23 04:20 06/16/23 04:20 06/16/23 04:20 Laboratory Results - last 24 hr 06/15/23 08:39: Urine Opiates Screen Negative, Urine Methadone Screen Negative, Ur Barbituates Screen Negative, Ur Phencyclidine Scrn Negative, Ur Amphetamines Screen Negative, U Benzodiazepines Scrn Negative, Urine Cocaine Screen Negative, U Marijuana (THC) Screen Negative I & O for Last 24 hours: Intake & Output 06/13/23 06/14/23 06/15/23 06/16/23 23:59 23:59 23:59 23:59 Weight 186 lb Constitutional Constitutional: no acute distress and cooperative *Routine HEENT Exam Head: Present normocephalic and atraumatic Eye: Absent conjunctivae pink ENT: Present mucous membranes moist *Routine Neck Exam Neck: Present full ROM *Routine Respiratory Exam Respiratory: Present CTA bilaterally and normal respiratory effort *Routine Cardiovascular Exam Cardiovascular: Present RRR *Routine Abdominal Exam Abdominal: Present soft (Gravid); Absent tenderness *Routine Rectal Exam Patient deferred: visual exam *Routine Exam Patient deferred: external exam *Routine Extremities Exam Extremities: Present full ROM; Absent edema or calf tenderness *Routine Neurological Exam Neurological: Present alert, moving all extremities and normal speech Routine Psychiatric Exam Psychiatric: Present normal affect and cooperative Results Data Completed and Pending Labs on day of discharge: Labs from last 24 hours 06/15/23 08:39 Urine Opiates Screen Negative Urine Methadone Screen Negative Ur Barbituates Screen Negative Ur Phencyclidine Scrn Negative Ur Amphetamines Screen Negative U Benzodiazepines Scrn Negative Urine Cocaine Screen Negative U Marijuana (THC) Screen Negative DS: Diagnosis Discharge Diagnosis (1) 35 weeks gestation of : Status: Acute Code(s): Z3A.35 - 35 weeks gestation of (2) Bilateral hydronephrosis: Status: Acute Code(s): N13.30 - Unspecified hydronephrosis (3) Bilateral nephrolithiasis: Status: Acute Code(s): N20.0 - Calculus of kidney (4) STACEY (acute kidney injury): Status: Acute Code(s): N17.9 - Acute kidney failure, unspecified (5) Chronic hypertension affecting : Status: Acute Code(s): O10.919 - Unspecified pre-existing hypertension complicating , unspecified trimester (6) Advanced maternal age (AMA) in : Status: Acute (7) Tobacco use affecting in first trimester, antepartum: Status: Acute Code(s): O99.331 - Smoking (tobacco) complicating , first trimester (8) Anxiety disorder: Status: Acute Code(s): F41.9 - Anxiety disorder, unspecified (9) Depression: Status: Acute Code(s): F32.A - Depression, unspecified Meds Home Medications and Allergies Home Medications Medication Instructions Recorded Confirmed Type vits no.126-ferrous fum 1 tab PO DAILY Supplement 04/17/23 06/15/23 History 28 mg iron-folic acid 800 mcg tablet (Classic ) calcium carbonate 200 mg calcium 200 mg PO DAILY 06/13/23 06/13/23 History (500 mg) chewable tablet cyclobenzaprine 5 mg tablet 5 mg PO BID 06/13/23 06/15/23 History oxycodone 5 mg tablet 5 mg PO Q6H #45 tabs 06/13/23 06/15/23 Rx New Prescriptions to Start Prescriptions: Allergies Allergy/AdvReac Type Severity Reaction Status Date / Time ketorolac [From Toradol] Allergy Severe Hives Verified 06/13/23 10:01 tramadol AdvReac Unknown Verified 06/13/23 10:01 allergy reaction varenicline [From Chantix] AdvReac anxiety, Verified 06/13/23 10:01 nightmares Discharge Plan Disposition Patient Disposition: Home, Self-Care Condition: Good Follow up Plan Follow up with: Genesis Rea DO [Staff Physician] - 06/19/23 Pavithra Tomlinson DO [Staff Physician] - Enter time for follow up Prescriptions/Medication Reconciliation: Continued calcium carbonate 200 mg calcium (500 mg) tablet,chewable 200 mg PO DAILY cyclobenzaprine 5 mg tablet 5 mg PO BID oxycodone 5 mg tablet 5 mg PO Q6H Qty: 45 0RF Classic 28 mg iron- 800 mcg tablet 1 tab PO DAILY Problem Reconciliation Problems Reviewed?: Yes Patient Discharge Instructions ACTIVITY: Continue current activity DIET: continue same diet and regular diet Providers Primary Care Provider: Provider,Referral Admit Provider: Pavithra Tomlinson Attending Provider: Pavithra Tomlinson
--- NOTE | 2023-06-16 12:15 | PC.NURSE ---
pt has been discahrged form the facility. took all belongigns with her and voiced understanding of all discharge education and follow up appts.
== END 2023-06-16 12:15 | disposition home or self-care (01) ==
LOC: OBOUT 11:45 → OB 11:45
PROVIDERS: Admitting Provider Obstetrics & Gynecology; Visit Provider Obstetrics & Gynecology
DX: O36.8330 Maternal care for abnormalities of the fetal heart rate or rhythm, third trimester, not applicable or unspecified (principal); Z3A.35 35 weeks gestation of pregnancy; O99.891 Other specified diseases and conditions complicating pregnancy; N13.30 Unspecified hydronephrosis; O09.523 Supervision of elderly multigravida, third trimester; O99.344 Other mental disorders complicating childbirth; F41.9 Anxiety disorder, unspecified; F32.A Depression, unspecified; O99.333 Smoking (tobacco) complicating pregnancy, third trimester; N20.0 Calculus of kidney
CPT/HCPCS: 59025; 76819; 80307; 81001; 87086; G0378

== ENCOUNTER 2023-06-18 09:59 | Outpatient (CLI) | payer MEDICAID, SELFPAY ==
--- NOTE | 2023-06-18 10:02 | US_ITS ---
PROCEDURE: US OB BIOPHYSICAL PROFILE CLINICAL INDICATION: Gest Hypertention COMPARISON: US US OB BIOPHYSICAL PROFILE from 06/13/2023 US US OB BIOPHYSICAL PROFILE from 06/16/2023 FINDINGS: Transabdominal sonographic images of the uterus were obtained. From her established due date she is 35weeks 5days. The following parameters are obtained: Viable Fetus in the cephalic presentation with a posterior placenta grade 2. Average ultrasound age is 34weeks 4days Estimated weight 2,488g, 5 lb 8 oz. Cervical length is 3.3 cm. Measurements: heart Rate = 147bpm BPD = 34weeks 0 days, 12 percentile HC = 34weeks 2days, 3rd percentile AC = 35weeks 0 days, 37 percentile FL = 34weeks 5days, 18 percentile HC/AC is 0.99 FL/BPD is 0.8 FL/AC is 0.22 23 percentile Amniotic fluid index: 10.57cm, MVP 4.46 cm. Qualitative AFV:2 Breathing movements: 2 Gross Body Movements: 2 Tone: 2 Biophysical profile score: 8 Doppler evaluation of the umbilical artery: SD ratio: 2.5-3.59 Resistive index: 0.71 No obvious anomalies evident.Kidneys, bladder, diaphragm, four-chamber heart, three-vessel cord appear normal. IMPRESSION: 1. Viable fetus in the cephalic presentation with a posterior placenta grade 2. 2. The fluid is within normal limits with amniotic fluid index of 10.57 cm, MVP 4.46 cm. 3. Biophysical profile 8/8 with good breathing movement and movement seen. 4. SD ratio is normal 2.5-3.59. 5. There has been good interval growth with the fetus currently 23rd percentile. Dictated by: Sulaiman Suarez MD 06/18/2023 13:44 Sulaiman Suarez MD in OV 06/18/2023 13:44
== END 2023-06-18 23:59 ==
LOC: RAD 09:59
PROVIDERS: PCP Internal Medicine; Visit Provider Obstetrics & Gynecology
DX: O10.913 Unspecified pre-existing hypertension complicating pregnancy, third trimester (principal)
CPT/HCPCS: 76816; 76819; 76820

== ENCOUNTER 2023-06-18 11:44 | Outpatient (CLI) | payer MEDICAID, SELFPAY ==
[2023-06-18] MEDS: LACTATED RINGERS 1000ML 1,000 ML 999 ML IV ×2 (12:10→13:57)
[2023-06-18] MEDS: TERBUTALINE SULFATE 1MG/ML VIAL 0.200000000000000011 MG SQ (13:57)
[2023-06-18] MEDS: BUTORPHANOL TARTRATE 1 MG/ML VIAL IV (13:58)
[2023-06-18 14:38] VITALS: BP 117/75; PULSE 106; RESP 18; TEMP 36.7; O2SAT 98; BMI 34.9
[2023-06-18] MEDS: OXYCODONE 5MG IMMEDIATE RELEASE TABLET 10 MG PO (14:55)
== END 2023-06-18 15:38 | disposition home or self-care (01) ==
LOC: OBOUT 11:46 → OB 11:47
PROVIDERS: PCP Internal Medicine; Visit Provider Obstetrics & Gynecology
DX: O26.893 Other specified pregnancy related conditions, third trimester (principal); Z3A.35 35 weeks gestation of pregnancy
CPT/HCPCS: 59025; 96365; 96366; G0463; J0595

== ENCOUNTER 2023-06-19 21:49 | Outpatient (CLI) | payer MEDICAID, SELFPAY ==
[2023-06-19 21:59] VITALS: BMI 35.1
[2023-06-19 22:16] VITALS: BP 123/69; PULSE 94; RESP 18; TEMP 36.8; O2SAT 96; BMI 35.1
[2023-06-19 22:17] LABS: Microscopic, Urine URINE MICROSCOPIC (MICROSCOPIC)
[2023-06-19 22:23] LABS: Appearance,Urine CLEAR (Clear); Bilirubin,Urine Negative (Negative); Blood, Urine 1+ (Negative); Color,Urine YELLOW (Yellow); Glucose,Urine (UA) Negative (Negative); Ketones,Urine 1+ (Negative); Leukocyte Esterase,Urine TRACE (Negative); Nitrate,Urine Negative (Negative); Protein,Urine Negative (Negative); Specific Gravity, Urine 1.015 (1.005-1.030); Urobilinogen,Urine 0.2 EU/dl (0.2)
[2023-06-19 22:30] LABS: Fetal Membrane Rupture (Rapid) Negative (Negative)
[2023-06-19 22:34] LABS: Bacteria,Urine 1+ /lpf; RBC,Urine Occasional #/hpf (0-3); WBC,Urine Occasional #/hpf (0-3)
[2023-06-19 22:36] LABS: Amphetamine/Metha Screen,Urine Negative ng/ml (<1000)
[2023-06-19 22:37] LABS: Benzodiazepines Screen,Urine Negative ng/ml (<200)
[2023-06-19 22:38] LABS: Cannabinoid Screen,Urine Negative ng/ml (<50)
[2023-06-19 22:39] LABS: Cocaine Screen,Urine Negative ng/ml (<300); Methadone Screen,Urine Negative ng/ml (<300)
[2023-06-19 22:40] LABS: Phencyclidine Screen,Urine Negative ng/ml (<25)
[2023-06-19 22:49] LABS: Opiate Screen,Urine Negative ng/ml (<300)
[2023-06-19 23:08] LABS: Barbiturates Screen,Urine Negative ng/ml (<200)
== END 2023-06-19 23:00 | disposition home or self-care (01) ==
LOC: OBOUT 21:50 → OB 21:53
PROVIDERS: PCP Internal Medicine; Visit Provider Obstetrics & Gynecology
DX: O26.893 Other specified pregnancy related conditions, third trimester (principal)
CPT/HCPCS: 59025; 80307; 81001; 84112; G0463

== ENCOUNTER 2023-06-21 04:48 | Inpatient (IN) | payer MEDICAID, SELFPAY ==
[2023-06-21 05:00] VITALS: BMI 35.1
[2023-06-21] MEDS: LACTATED RINGERS 1000ML 1,000 ML 999 ML IV ×2 (05:29→06:33)
[2023-06-21 05:30] VITALS: BP 141/77; PULSE 98; RESP 17; TEMP 36.7; O2SAT 100
[2023-06-21 05:35] LABS: Microscopic, Urine URINE MICROSCOPIC (MICROSCOPIC)
[2023-06-21 05:38] LABS: Appearance,Urine CLOUDY (Clear); Bilirubin,Urine Negative (Negative); Blood, Urine 2+ (Negative); Color,Urine YELLOW (Yellow); Glucose,Urine (UA) Negative (Negative); Ketones,Urine Negative (Negative); Leukocyte Esterase,Urine 2+ (Negative); Nitrate,Urine Negative (Negative); Protein,Urine TRACE (Negative); Specific Gravity, Urine 1.015 (1.005-1.030); Urobilinogen,Urine 0.2 EU/dl (0.2)
[2023-06-21 05:47] LABS: Alanine Aminotransferase 14 U/L (12-78); Albumin Level 3.8 g/dl (3.5-5.0); Albumin/Globulin Ratio 1.1 (1.1-1.8); Alkaline Phosphatase 127 U/L (38-126); Anion Gap 12.8 mEq/L (5-15); Aspartate Amino Transferase 24 U/L (14-36); Bilirubin,Total 0.5 mg/dl (0.2-1.3); Blood Urea Nitrogen 12 mg/dl (7-17); Calcium 9.3 mg/dl (8.4-10.2); Carbon Dioxide 18 mmol/L (22.0-30.0); Chloride 109 mmol/L (98-107); Creatinine Clearance Estimated 131 mL/min (50-200); Estimated Glomerular Filt Rate 82 ml/min (>60); GFR (African American) 99 ML/MIN (>60); Globulin 3.5 g/dL (1.3-3.2); Glucose 101 mg/dl (74-100); Potassium 3.8 mmoL/L (3.5-5.1); Sodium 136 mmol/L (136-145); Total Protein,Serum 7.3 g/dl (6.3-8.2)
[2023-06-21 05:49] LABS: Basophils # 0.1 K/mm3 (0-0.2); Basophils % 0.8 % (0.1-2.0); Eosinophils # 0.2 K/mm3 (0.0-0.4); Hematocrit 32.3 % (37.0-47.0); Hemoglobin 10.8 g/dL (12.2-16.2); Lymphocytes # 2.6 K/mm3 (0.7-4.5); Lymphocytes % 20.9 % (10-50); Mean Corpuscular HGB Conc 33.5 g/dL (31.8-35.4); Mean Corpuscular Hemoglobin 31.2 pg (27.0-31.2); Mean Corpuscular Volume 93.1 fl (81-99); Mean Platelet Volume 8.3 fl (7.4-10.4); Monocytes # 0.6 K/mm3 (0.1-1.0); Monocytes % 4.4 % (1.7-9.3); Neutrophils # 8.9 K/mm3 (1.8-7.8); Neutrophils % 71.9 % (37.0-80.0); Platelet Count 319 K/mm3 (142-424); Red Blood Count 3.47 M/mm3 (4.20-5.40); Red Cell Distribution Width 14.3 % (11.5-17.5); White Blood Count 12.4 K/mm3 (4.8-10.8)
[2023-06-21 05:50] LABS: Amphetamine/Metha Screen,Urine Negative ng/ml (<1000)
[2023-06-21 05:51] LABS: Barbiturates Screen,Urine Negative ng/ml (<200); Benzodiazepines Screen,Urine Negative ng/ml (<200)
[2023-06-21 05:52] LABS: Cannabinoid Screen,Urine Negative ng/ml (<50)
[2023-06-21 05:53] LABS: Cocaine Screen,Urine Negative ng/ml (<300); Methadone Screen,Urine Negative ng/ml (<300)
[2023-06-21 05:54] LABS: Opiate Screen,Urine Negative ng/ml (<300)
[2023-06-21 05:55] LABS: Phencyclidine Screen,Urine Negative ng/ml (<25)
[2023-06-21 05:57] LABS: Bacteria,Urine 1+ /lpf
--- NOTE | 2023-06-21 07:10 | P.PNANES_ITS ---
[facility] Disclaimer: The information contained in this section may have been updated after the patient was seen, as this information can be updated by other users. Medical History Asymmetric IUGR affecting , antepartum Back pain affecting 35 weeks gestation of Smoking history Neuropathic pain Wheezing without diagnosis of asthma Family history of asthma History of rheumatoid arthritis Dyspnea Acute respiratory failure with hypoxia Influenza A Cholecystitis Chronic headaches Depression Anxiety Rheumatoid arthritis Ankle sprain and strain Surgical History History of cholecystectomy History of appendectomy History of hip surgery Family History Other Family history of COPD (chronic obstructive pulmonary disease) Family history of acute congestive heart failure Social History Smoking Status: Current every day smoker tobacco type: cigarettes packs per day: 1 second hand exposure: No alcohol intake: never substance use type: denies use current occupational status: unemployed Travel in the last 8 weeks: None household members: children housing: apartment number of children: 1 [facility] Anesthesia Checklist Patient Identification Patient Identification: Arm Band and Verbal (Name & ) Structural Data Admitted From: Home Planned Operative Procedure/s: C/section Consent for Planned Operative Procedure(s) Verified: Yes NPO Status Verified Time NPO: 00:00 Chart Verification Results Verified: CBC and BMP Additional verifications Anesthesia Reactions: No Airway Assessment Mallampati Score:: Class II C-Spine Mobility Assessed: Yes TMJ Mobility Assessed: Yes Dentition: Good Dentition Neurological Assessment Level of Consciousness: Awake Hx Seizures: No Numbness or tingling in extremities: No Anesthesia Plan Anesthesia Risk discussed: Yes Anesthesia Plan: Verified ASA Class: III Anesthesia Type: Spinal
--- NOTE | 2023-06-21 07:21 | HMH.PHAINT1 ---
Pharmacy Intervention Comments: MEDICATION RECONCILIATION COMPLETED ON PATIENT USING EXTERNAL FILL HISTORY FROM PHARMACY AND LIST FROM RESEARCH PHYSIOLOGIST OFFICE. -ALEX BORREROD
[2023-06-21 09:05] VITALS: BP 124/79; PULSE 76; RESP 16; TEMP 36.5; O2SAT 97
--- NOTE | 2023-06-21 09:10 | EXP.HP ---
History of Present Illness *Admission Date: 06/21/23 *Reason for visit:: delivery *History of present illness: Radha Milton is a 31yo G G3 1011 at 36 weeks and 1 day gestation who presents to labor and delivery for a elective scheduled delivery. INESSA is based on first trimester ultrasound. has been complicated by advanced maternal age, -induced hypertension, nephrolithiasis, hepatitis C, obesity, and IUGR. She was evaluated by [facility] at [facility] and they recommended a 37-week delivery with twice-weekly testing. Following that the patient was diagnosed with microcephaly and recurrent nephrolithiasis. The patient was transferred to where they discussed delivery at 34 weeks secondary to pain. The patient requested to defer delivery and nephrolithiasis management until more appropriate gestational age that would not require a NICU stay. On presentation patient endorsed good movement and denies any leakage of fluid or vaginal bleeding. [facility] recommends a CT following nephrolithiasis protocol on postop day #1 O+, antibody negative, rubella immune, hepatitis B negative, hepatitis C reactive, HCV quant was not detectable, RPR negative, HIV negative 1 hour GTT: 148/155 3-hour GTT: 154/162/131/124 GBS negative PFSH PFSH Disclaimer: The information contained in this section may have been updated after the patient was seen, as this information can be updated by other users. Medical History Asymmetric IUGR affecting , antepartum Back pain affecting 35 weeks gestation of Smoking history Neuropathic pain Wheezing without diagnosis of asthma Family history of asthma History of rheumatoid arthritis Dyspnea Acute respiratory failure with hypoxia Influenza A Cholecystitis Chronic headaches Depression Anxiety Rheumatoid arthritis Ankle sprain and strain Surgical History History of cholecystectomy History of appendectomy History of hip surgery Family History Other Family history of COPD (chronic obstructive pulmonary disease) Family history of acute congestive heart failure Social History Smoking Status: Current every day smoker tobacco type: cigarettes packs per day: 1 second hand exposure: No alcohol intake: never substance use type: denies use current occupational status: unemployed Travel in the last 8 weeks: None household members: children housing: apartment number of children: 1 Review of Systems Review of Systems Review of systems (narrative): Review of Systems Constitutional: Denies fever, chills, and sweats Eyes: Denies vision change/ pain Respiratory: Denies cough and shortness of breath Cardiovascular: Denies chest pain and lightheadedness Gastrointestinal: Denies abdominal pain. Denies nausea, vomiting. Genitourinary: Denies dysuria and incontinence Musculoskeletal: Denies shoulder pain and back pain Neurological: Denies change in speech or headaches Meds Home Medications and Allergies Home Medications Medication Instructions Recorded Confirmed Type vits no.126-ferrous fum 1 tab PO DAILY Supplement 04/17/23 06/21/23 History 28 mg iron-folic acid 800 mcg tablet (Classic ) calcium carbonate 200 mg calcium 200 mg PO DAILY 06/13/23 06/21/23 History (500 mg) chewable tablet cyclobenzaprine 5 mg tablet 5 mg PO BIDP PRN Muscle Spasm 06/13/23 06/21/23 History oxycodone 5 mg tablet 5 mg PO Q6H Pain 06/21/23 06/21/23 History New Prescriptions to Start Prescriptions: Allergies Allergy/AdvReac Type Severity Reaction Status Date / Time ketorolac [From Toradol] Allergy Severe Hives Verified 06/19/23 10:06 tramadol AdvReac Unknown Verified 06/19/23 10:06 allergy reaction varenicline [From Chantix] AdvReac anxiety, Verified 06/19/23 10:06 nightmares Exam Data for Last 24 hours Vital signs and Labs for Last 24 Hours: Temp Pulse Resp BP Pulse Ox O2 Del Method 98.1 F 98 H 17 141/77 H 100 Room Air 06/21/23 05:30 06/21/23 05:30 06/21/23 05:30 06/21/23 05:30 06/21/23 05:30 06/21/23 05:30 Laboratory Results - last 24 hr 06/21/23 05:24: WBC 12.4 H, RBC 3.47 L, Hgb 10.8 L, Hct 32.3 L, MCV 93.1, MCH 31.2, MCHC 33.5, RDW 14.3, Plt Count 319, MPV 8.3, Neut % (Auto) 71.9, Lymph % (Auto) 20.9, Mccormick % (Auto) 4.4, Eos % (Auto) 2.0, Baso % (Auto) 0.8, Neut # (Auto) 8.9 H, Lymph # (Auto) 2.6, Mccormick # (Auto) 0.6, Eos # (Auto) 0.2, Baso # (Auto) 0.1, Sodium 136, Potassium 3.8, Chloride 109 H, Carbon Dioxide 18 L, Anion Gap 12.8, BUN 12, Creatinine 0.80, Estimated Creat Clear 131, Estimated GFR 82, Est GFR ( Amer) 99, Glucose 101 H, Calcium 9.3, Total Bilirubin 0.5, AST 24, ALT 14, Alkaline Phosphatase 127 H, Total Protein 7.3, Albumin 3.8, Globulin 3.5 H, Albumin/Globulin Ratio 1.1, Urine Color Yellow, Urine Appearance Cloudy, Urine pH 7.0, Ur Specific [place] 1.015, Urine Protein Trace, Urine Glucose (UA) Negative, Urine Ketones Negative, Urine Blood 2+, Urine Nitrate Negative, Urine Bilirubin Negative, Urine Urobilinogen 0.2, Ur Leukocyte Esterase 2+ A, Urine RBC 3-5, Urine WBC 5-10, Ur Squamous Epith Cells 5-10, Urine Bacteria 1+, Urine Opiates Screen Negative, Urine Methadone Screen Negative, Ur Barbituates Screen Negative, Ur Phencyclidine Scrn Negative, Ur Amphetamines Screen Negative, U Benzodiazepines Scrn Negative, Urine Cocaine Screen Negative, U Marijuana (THC) Screen Negative, Blood Type O Positive, Antibody Screen Negative I & O for Last 24 hours: Intake & Output 06/18/23 06/19/23 06/20/23 06/21/23 23:59 23:59 23:59 23:59 Weight 186 lb Narrative: General: patient is alert oriented in no acute distress and responds appropriately to questions. HEENT: NCAT, EOMI, moist mucous membranes, neck supple with full ROM Cardiovascular: RRR +S1/S2, no murmurs or rubs Pulmonary: Clear to auscultation bilaterally, nonlabored breathing, symmetric chest rise Abdominal: Gravid abdomen appropriate for gestation. No guarding, rebound, or tenderness noted. Extremities: trace edema, no tenderness or cyanosis noted. Reflexes appropriate Skin: Normal turgor, intact, warm. Negative for erythema, pallor, petechia, or lesions Neurologic: Negative for sensory or motor deficit Psychiatric: Normal affect, normal thought process, good judgment and insight, no depression or anxious mood appreciated. *Routine HEENT Exam Head: Present normocephalic and atraumatic Eye: Present EOMI, PERRL and normal accommodation; Absent conjunctival icterus, scleral injection, nystagmus or exophthalmos ENT: Present mucous membranes moist *Routine Respiratory Exam Respiratory: Present CTA bilaterally, normal respiratory effort, able to speak in complete sentences and symmetric chest movement; Absent accessory muscle use, decreased breath sounds, rales, respiratory distress, wheezes, distant breath sounds or diminished air movement *Routine Cardiovascular Exam Cardiovascular: Present RRR, Normal S1 and Normal S2; Absent murmur or gallop *Routine Abdominal Exam Abdominal: Present soft and normoactive bowel sounds; Absent tenderness, distended, rebound or guarding *Routine Rectal Exam Rectal:: deferred *Routine Genitalia Exam Genitalia:: normal female Assessment and Plan *Assessment and plan (1) Asymmetric IUGR affecting , antepartum: Status: Acute Category: Medical Code(s): O36.5990 - Maternal care for other known or suspected poor growth, unspecified trimester, not applicable or unspecified (2) Bilateral hydronephrosis: Status: Acute Category: Medical Code(s): N13.30 - Unspecified hydronephrosis (3) Bilateral nephrolithiasis: Status: Acute Category: Medical Code(s): N20.0 - Calculus of kidney (4) Obesity (BMI 30.0-34.9): Status: Acute Category: Medical Code(s): E66.9 - Obesity, unspecified (5) Rheumatic arteritis: Status: Acute Category: Medical Code(s): I00 - Rheumatic fever without heart involvement (6) Hepatitis C: Status: Acute Category: Medical Code(s): B19.20 - Unspecified viral hepatitis C without hepatic coma (7) Chronic hypertension affecting : Status: Acute Category: Medical Code(s): O10.919 - Unspecified pre-existing hypertension complicating , unspecified trimester (8) Advanced maternal age (AMA) in : Status: Acute Category: Medical (9) Depression: Status: Acute Category: Medical Code(s): F32.A - Depression, unspecified (10) Anxiety disorder: Status: Acute Category: Medical Code(s): F41.9 - Anxiety disorder, unspecified Plan - Monitor vitals - Admit to L&D for scheduled CD - External FHR and TOCO monitor - GBS neg/ Blood type: O+ - Hemoglobin: 10.8, Plt: 319 - Plan for spinal anesthesia - Anticipate delivery of female PIH -Blood pressure has been well-controlled -Uric acid is slightly elevated however all of her labs are within normal limits #Bilateral nephrolithiasis -Per MFM: Recommend CT scan postop day #1
[2023-06-21 09:12] VITALS: BP 124/79; PULSE 81; RESP 18; TEMP 36.5; O2SAT 97
--- NOTE | 2023-06-21 09:12 | P.PNANES_ITS ---
[facility] Anesthesia Record Part I Anesthesia Record I Intake, IV Amount: 600 Hydration: Adequate Estimated blood loss (mL): 600 Urine output (mL): 100 Blood Pressure: 124/79 SaO2: 97 Pulse Rate: 81 Airway Patency: Patent Respiratory Rate: 18 Temperature: 97.7 F Patient is:: Awake Stable to PACU at:: 09:05
[2023-06-21 09:15] VITALS: BP 114/71; PULSE 78; RESP 18; O2SAT 98
[2023-06-21 09:25] VITALS: BP 119/82; PULSE 77; RESP 18; O2SAT 98
--- NOTE | 2023-06-21 09:27 | P.OP_ITS ---
Date of procedure: 06/21/23 Pre-op Diagnosis:: 1. 36 weeks 1days gestation, Jensen 2. Gestational Hypertension 3. Desires sterilization 4. Elective primary delivery 5. Bilateral nephrolithiasis with hydronephrosis 6. Intrauterine growth restriction 7. GBS negative 8. Rh+ Post-op Diagnosis:: 1. 36 weeks 1days gestation, Jensen 2. Gestational Hypertension 3. Desires sterilization 4. Elective primary delivery 5. Bilateral nephrolithiasis with hydronephrosis 6. Intrauterine growth restriction 7. GBS negative 8. Rh+ Procedure performed:: Primary Delivery with bilateral salpingectomy Surgeon:: Genesis Rea DO Golf Cart Attendant(s):: Chandu Suarez MD ASSISTANT FINANCIAL ACCOUNTANT:: Young Doyle Anesthesia: spinal Estimated blood loss (mL): 600 Operative findings:: 1. Live viable female infant: Monica. Weight: 5pounds 8ounces. Apgars 8 and 8 at 1 and 5 minutes respectively 2. Normal-appearing fallopian tubes and ovaries bilaterally Operative note:: Medications: 2 g of Ancef EBL: 600mL Summary: Procedure explained in its entirety. The patient was counseled on the risks and benefits of section including bleeding, vascular injury, infection, and injury to the surrounding structures. Hemorrhage requiring life saving blood transfusion resulting in blood born viral infection or allergic reaction was explained and the patient consented to blood transfusion. Possible need for further operative measures prolonging recovery time and hospitalization reviewed to include hysterectomy. Procedure explained in its entirety and patient had no further questions. Consented to procedure. The patient was taken back to the operating room where adequate spinal anesthesia was obtained. Pneumatic compression stockings applied to lower extremities. Ancef 2g was given for infection prophylaxis. She was placed in the dorsal supine position Urinary catheter was placed and found to be draining clear urine. The patient was prepped and draped in sterile fashion. Anesthesia was tested and and found to be adequate. A Pfannenstiel skin incision was made with the scalpel. Subcutaneous bleeding vessels were cauterized with the bovie. The incision was taken down to the fascia with the bovie. The fascia was knicked in the midline and sharply extended laterally. The superior aspect of the fascia was grasped with Yoselin clamps and the rectus muscle was taken down with the Bovie. The rectus muscle was sharply dissected from the midline with Mayos. This process was repeated inferiorly. The rectus muscles were in the midline, peritoneum was identified and entered bluntly. Jose O retractor was placed and the bladder was noted to be out of the operative field. A bladder flap was created with Metzenbaum scissors and [place] pickups. The lower uterine segment was easily identified, sharply incised, and entered bluntly with the surgeon's index finger. Incision was then extended in a superior and inferior fashion by blunt separation. Membranes were ruptured revealing clear fluid. The fetus was in cephalic presentation. The head was carefully elevated out of the pelvis. Fundal pressure was applied when head was brought into incision. The infants head was delivered without difficulty. The shoulder and body followed without complication. The mouth and nose were suctioned with a bulb. The umbilical cord was clamped and cut. was taken to warmer for evaluation by the plastics spreading machine operator. Cord blood was collected. The placenta was delivered via manual extraction and found to be normal and intact. 3 vessel cord was noted. IV Pitocin was initiated. Inside of the uterus was gently cleared of blood and clots with lap sponge. The hysterotomy was closed with 0 Vicryl in a running locked fashion with a second imbricating 0 Vicryl stitch. The lower uterine segment was visualized and noted to be hemostatic. The bladder flap was reapproximated with 2-0 Vicryl. The ovaries and tubes were found to be normal. The posterior aspect of the uterus was cleared of blood clot with a damp lap sponge. The Enseal electrocautery device was used to grasp the fallopian tube at the fimbriated end and transect the mesosalpinx removing the fallopian tube in its entirety. Hemostasis was noted. This process was repeated on the contralateral side. Of note on the right fallopian tube it appeared to be interrupted like there was a previous salpingectomy or ectopic near the cornua of the uterus. Hemostasis was noted bilateral fallopian tubes were passed off the operative field to be sent to pathology for further evaluation. The gutters were inspected bilaterally and cleared of blood and clots with lap sponges. The uterine incision was reinspected and hemostasis noted. Jose O retractor was removed. The peritoneum was reapproximated using a 2-0 Monocryl in a nonlocked running fashion. The fascia was closed in a running nonlocked fashion using 0 Vicryl. Fascia was noted as not having gaps or defects. The subcutaneous fat was closed with 0 Monocryl. Skin was closed with the INSORB suture in a subcuticular fashion. Patient tolerated the procedure well and all counts were correct x3, per nursing. Condition: stable Disposition: PACU Specimens:: Bilateral fallopian tubes Complications:: None
[2023-06-21] MEDS: HYDROMORPHONE 2MG/ML SYRINGE 0.5 MG IV (09:28)
[2023-06-21 09:35] VITALS: BP 119/87; PULSE 78; RESP 17; O2SAT 99
[2023-06-21] MEDS: OXYTOCIN/RINGERS LACTATE 30 UNITS/500 ML BAG 40 UNITS IV (09:40)
[2023-06-21] MEDS: HYDROMORPHONE 2MG/ML SYRINGE 2 MG IV ×4 (10:13→21:58)
--- NOTE | 2023-06-21 12:40 | SW/DCPLANNER ---
[facility] resource list has been provided to this patient.
[2023-06-21] MEDS: NICOTINE 21MG/24HR PATCH 21 MG TD (12:50)
[2023-06-21 12:51] LABS: Microscopic,Cath URINE MICROSCOPIC (MICROSCOPIC)
[2023-06-21] MEDS: ACETAMINOPHEN 500MG TAB 1000 MG PO ×3 (12:51→23:44)
[2023-06-21 13:10] LABS: Appearance,Urine/Cath CLEAR (Clear); Bilirubin,Cath Negative (Negative); Blood, Urine/Cath 1+ (Negative); Color,Urine/Cath YELLOW (Yellow); Glucose,Urine/Cath (UA) Negative (Negative); Ketones,Urine/Cath Negative (Negative); Leukocyte Esterase,Cath Negative (Negative); Nitrate,Cath Negative (Negative); Protein,Urine/Cath Negative (Negative); Urobilinogen,Cath 0.2 EU/dl (0.2)
[2023-06-21 14:07] LABS: Bacteria,Urine/Cath 1+ /lpf; Squamous Epithelial Ur./Cath Occasional #/hpf (0-5)
[2023-06-21] MEDS: IBUPROFEN 400 MG TABLET 800 MG PO ×2 (15:47→23:43)
[2023-06-21] MEDS: OXYCODONE 5MG IMMEDIATE RELEASE TABLET 5 MG PO ×2 (15:48→21:20)
[2023-06-21] MEDS: PROMETHAZINE HCL 25MG/ML 1ML VIAL 12.5 MG IV (18:48)
[2023-06-22] MEDS: HYDROMORPHONE 2MG/ML SYRINGE 2 MG IV (00:21)
[2023-06-22] MEDS: OXYCODONE 5MG IMMEDIATE RELEASE TABLET 5 MG PO ×2 (02:36→12:10)
[2023-06-22] MEDS: HYDROMORPHONE 2MG/ML SYRINGE 1 MG IV ×2 (04:01→07:51)
[2023-06-22] MEDS: LACTATED RINGERS 1000ML 1,000 ML 125 ML IV (04:19)
[2023-06-22 04:28] VITALS: BP 115/70; PULSE 72; RESP 19; TEMP 36.5; O2SAT 97
[2023-06-22 06:39] LABS: Basophils % 0.4 % (0.1-2.0); Eosinophils # 0.2 K/mm3 (0.0-0.4); Eosinophils % 1.8 % (0.1-12.0); Hematocrit 30.5 % (37.0-47.0); Hemoglobin 10.1 g/dL (12.2-16.2); Lymphocytes # 2.8 K/mm3 (0.7-4.5); Lymphocytes % 28.4 % (10-50); Mean Corpuscular HGB Conc 33.1 g/dL (31.8-35.4); Mean Corpuscular Volume 93.8 fl (81-99); Mean Platelet Volume 8.2 fl (7.4-10.4); Monocytes # 0.5 K/mm3 (0.1-1.0); Monocytes % 4.6 % (1.7-9.3); Neutrophils # 6.5 K/mm3 (1.8-7.8); Neutrophils % 64.9 % (37.0-80.0); Platelet Count 305 K/mm3 (142-424); Red Blood Count 3.25 M/mm3 (4.20-5.40); Red Cell Distribution Width 14.2 % (11.5-17.5); White Blood Count 9.9 K/mm3 (4.8-10.8)
[2023-06-22 07:50] VITALS: BP 130/71; PULSE 71; RESP 17; TEMP 36.5; O2SAT 97
[2023-06-22] MEDS: ACETAMINOPHEN 500MG TAB 1000 MG PO ×3 (07:50→20:32)
--- NOTE | 2023-06-22 08:53 | CT_ITS ---
FINAL REPORT CLINICAL HISTORY: nephrolithiasis bilateral COMPARISON: 11/17/2020 FINDINGS: Axial CT images of the abdomen and pelvis were obtained without intravenous contrast. Coronal and sagittal reformatted images were also obtained.This study was performed with techniques to keep radiation doses as low as reasonably achievable (ALARA). Individualized dose reduction techniques using automated exposure control or adjustment of mA and/or kV according to the patient's size were employed. Abdomen: Mild bibasilar atelectasis is present. There are multiple bilateral nonobstructing renal stones present, the largest in the right renal pelvis measuring 7 mm. There is mild left hydronephrosis and hydroureter secondary to a distal left ureteral stone, which is in the mid pelvis, measuring 6 mm in size. The appendix is not seen on this examination. The gallbladder has been surgically resected. The liver, spleen and pancreas have an unremarkable, unenhanced appearance. No mass or adenopathy is seen. No inflammatory process is identified. Pelvis: Images of the pelvis reveal 3 additional calcifications that appear to represent right UVJ stones, measuring up to 4 mm, immediately adjacent to the bladder. The bladder is contracted and contains a Mcghee catheter. The uterus is enlarged, with foci of air, and there is also air in the anterior pelvic soft tissues, suggesting that the patient may be . IMPRESSION: Multiple bilateral nonobstructing renal stones as described. There is mild left hydronephrosis and hydroureter secondary to a distal left ureteral stone in the mid pelvis measuring 6 mm in size. There is an enlarged uterus with a foci of air within the uterus and in the anterior pelvic soft tissues, suggesting that the patient is . Reviewed, Interpreted and Dictated by Bridger Booth III, MD Transcribed by Alexsu Leonard Authenticated and [facility]
--- NOTE | 2023-06-22 08:57 | P.PN_ITS ---
Subjective *Date: 06/22/23 *Time: 08:57 Interval history: Radha Milton is a 37-year-old G3, P2 postoperative day #1 following a primary low-transverse delivery at 36 weeks and 1 day gestation. has been complicated by IUGR, history of hepatitis C, advanced maternal age, p regnancy-induced hypertension, nephrolithiasis, and obesity. Patient has had a routine course. Initially the baby required some oxygen support, after discussion with Dr. Kemp it was likely TTN and the baby transitioned well with skin to skin and is not on oxygen any longer. in room doing well. Patient reports that she is having some back pain and abdominal cramping. This is exacerbated by laying in bed for several hours. States she is just sore all over. She requested to leave her catheter and overnight because she feels like she is about to pass the kidney stone and when that happened she is up every other hour voiding. Patient will have the catheter removed this morning. Patient reports that her appetite is slowly returning and she is tolerating p.o. without nausea or vomiting. Reports her lochia is scant. She is breast-feeding her female , Monica. Denies chest pain shortness of breath or pain in her legs. No further complaints at this time. Exam Data for Last 24 hours Vital signs and Labs for Last 24 Hours: Temp Pulse Resp BP Pulse Ox O2 Del Method 97.7 F 72 19 115/70 97 Room Air 06/22/23 04:28 06/22/23 04:28 06/22/23 04:28 06/22/23 04:28 06/22/23 04:28 06/22/23 04:28 Laboratory Results - last 24 hr 06/21/23 07:51: Urine Color Yellow, Urine Appearance Clear, Urine pH 7.0, Ur Specific [place] 1.010, Urine Protein Negative, Urine Glucose (UA) Negative, Urine Ketones Negative, Urine Blood 1+, Urine Nitrate Negative, Urine Bilirubin Negative, Urine Urobilinogen 0.2, Ur Leukocyte Esterase Negative, Urine RBC 5- 10, Urine WBC 3-5, Ur Squamous Epith Cells Occasional, Urine Bacteria 1+ 06/22/23 05:17: WBC 9.9, RBC 3.25 L, Hgb 10.1 L, Hct 30.5 L, MCV 93.8, MCH 31.0, MCHC 33.1, RDW 14.2, Plt Count 305, MPV 8.2, Neut % (Auto) 64.9, Lymph % (Auto) 28.4, [place] % (Auto) 4.6, Eos % (Auto) 1.8, Baso % (Auto) 0.4, Neut # (Auto) 6.5, Lymph # (Auto) 2.8, [place] # (Auto) 0.5, Eos # (Auto) 0.2, Baso # (Auto) 0.0 I & O for Last 24 hours: Intake & Output 06/19/23 06/20/23 06/21/23 06/22/23 23:59 23:59 23:59 23:59 Intake Total 600 / 600 Output Total 700 / 700 Balance -100 / -100 Weight 186 lb 2.976 oz Narrative: General: patient is alert oriented in no acute distress and responds appropriately to questions. Appears to be in minimal pain. HEENT: NCAT, EOMI, moist mucous membranes, neck supple with full ROM Cardiovascular: RRR +S1/S2, no murmurs or rubs Pulmonary: Clear to auscultation bilaterally, nonlabored breathing, symmetric chest rise Abdominal: Fundus at the umbilicus, firm, and tenderness appropriate for the period. Extremities: trace edema, no tenderness or cyanosis noted Skin: Normal turgor, intact, warm. Negative for erythema, pallor, petechia, or lesions Neurologic: Negative for sensory or motor deficit Psychiatric: Normal affect, normal thought process, good judgment and insight, no depression or anxious mood appreciated. Assessment and Plan *Assessment and plan (1) Asymmetric IUGR affecting , antepartum: Status: Acute Category: Medical Code(s): O36.5990 - Maternal care for other known or suspected poor growth, unspecified trimester, not applicable or unspecified (2) Back pain affecting : Status: Acute Qualifiers: Trimester: third trimester Qualified Code(s): O99.891 - Other specified diseases and conditions complicating ; M54.9 - Dorsalgia, unspecified Category: Medical Code(s): O99.891 - Other specified diseases and conditions complicating ; M54.9 - Dorsalgia, unspecified (3) Bilateral hydronephrosis: Status: Acute Category: Medical Code(s): N13.30 - Unspecified hydronephrosis (4) Bilateral nephrolithiasis: Status: Acute Category: Medical Code(s): N20.0 - Calculus of kidney (5) STACEY (acute kidney injury): Status: Acute Category: Medical Code(s): N17.9 - Acute kidney failure, unspecified (6) Abdominal pain affecting : Status: Acute Category: Medical Code(s): O26.899 - Other specified related conditions, unspecified trimester; R10.9 - Unspecified abdominal pain (7) Obesity (BMI 30.0-34.9): Status: Acute Category: Medical Code(s): E66.9 - Obesity, unspecified (8) Rheumatic arteritis: Status: Acute Category: Medical Code(s): I00 - Rheumatic fever without heart involvement (9) Hepatitis C: Status: Acute Category: Medical Code(s): B19.20 - Unspecified viral hepatitis C without hepatic coma (10) Advanced maternal age (AMA) in : Status: Acute Category: Medical Plan Stable. POD#1 s/p primary low-transverse delivery and bilateral salpingectomy -Doing well. VSS. Serial lochia and fundal checks. -Hemoglobin: 10.8--> 10.1 -O+/antibody negative -, female infant -Contraception: BSG at time of delivery -Follow-up 2 weeks for routine visit -Dispo: home in 1-3 days pending mother/ status #Nephrolithiasis -Per [facility] request we ordered a CT abdomen pelvis without contrast following the nephrolithiasis protocol #Hepatitis C -Status post treatment #Obesity -BMI: 35. Complicates all aspects of care #-induced hypertension -Blood pressure has been well-controlled -We will continue to follow -Patient is on any antihypertensives -PIH labs ordered this morning on postop day #1
[2023-06-22 09:13] LABS: Alanine Aminotransferase 13 U/L (12-78); Albumin Level 3.2 g/dl (3.5-5.0); Albumin/Globulin Ratio 1.2 (1.1-1.8); Alkaline Phosphatase 105 U/L (38-126); Anion Gap 10.3 mEq/L (5-15); Aspartate Amino Transferase 22 U/L (14-36); Bilirubin,Total 0.2 mg/dl (0.2-1.3); Blood Urea Nitrogen 15 mg/dl (7-17); Calcium 9.3 mg/dl (8.4-10.2); Carbon Dioxide 22 mmol/L (22.0-30.0); Chloride 109 mmol/L (98-107); Creatinine Clearance Estimated 0 mL/min (50-200); Estimated Glomerular Filt Rate 82 ml/min (>60); GFR (African American) 99 ML/MIN (>60); Globulin 2.6 g/dL (1.3-3.2); Glucose 99 mg/dl (74-100); Potassium 4.3 mmoL/L (3.5-5.1); Sodium 137 mmol/L (136-145); Total Protein,Serum 5.8 g/dl (6.3-8.2)
[2023-06-22] MEDS: IBUPROFEN 400 MG TABLET 800 MG PO ×2 (10:47→19:03)
[2023-06-22] MEDS: SENNA 8.6MG TABLET 8.59999999999999964 MG PO (16:31)
[2023-06-22] MEDS: OXYCODONE 5MG IMMEDIATE RELEASE TABLET 10 MG PO ×2 (16:31→20:43)
[2023-06-22] MEDS: CYCLOBENZAPRINE 10MG TABLET 5 MG PO (16:32)
[2023-06-22 16:33] VITALS: BP 125/75; PULSE 81; RESP 17; TEMP 36.8; O2SAT 99
[2023-06-22] MEDS: TAMSULOSIN 0.4MG CAPSULE 0.400000000000000022 MG PO (20:32)
[2023-06-22 20:33] VITALS: BP 108/74; PULSE 67; RESP 19; TEMP 36.6; O2SAT 99
[2023-06-23] MEDS: OXYCODONE 5MG IMMEDIATE RELEASE TABLET 10 MG PO ×3 (00:38→10:51)
[2023-06-23] MEDS: IBUPROFEN 400 MG TABLET 800 MG PO (03:15)
[2023-06-23 03:16] VITALS: BP 101/57; PULSE 71; RESP 17; TEMP 36.5; O2SAT 97
[2023-06-23] MEDS: ACETAMINOPHEN 500MG TAB 1000 MG PO ×2 (03:16→10:51)
[2023-06-23 08:33] VITALS: BP 106/60; PULSE 80; RESP 16; TEMP 36.6; O2SAT 97
[2023-06-23] MEDS: CYCLOBENZAPRINE 10MG TABLET 5 MG PO (08:36)
[2023-06-23] MEDS: SENNA 8.6MG TABLET 8.59999999999999964 MG PO (08:36)
--- NOTE | 2023-06-23 09:34 | EXP.DC.SUM ---
General Admission date:: 06/21/23 Discharge date: 06/23/23 HPI HPI HPI: Radha Milton is a 31yo G G3 1011 at 36 weeks and 1 day gestation who presents to labor and delivery for a elective scheduled delivery. INESSA is based on first trimester ultrasound. has been complicated by advanced maternal age, -induced hypertension, nephrolithiasis, hepatitis C, obesity, and IUGR. She was evaluated by [facility] at [facility] and they recommended a 37-week delivery with twice-weekly testing. Following that the patient was diagnosed with microcephaly and recurrent nephrolithiasis. The patient was transferred to where they discussed delivery at 34 weeks secondary to pain. The patient requested to defer delivery and nephrolithiasis management until more appropriate gestational age that would not require a NICU stay. On presentation patient endorsed good movement and denies any leakage of fluid or vaginal bleeding. [facility] recommends a CT following nephrolithiasis protocol on postop day #1 O+, antibody negative, rubella immune, hepatitis B negative, hepatitis C reactive, HCV quant was not detectable, RPR negative, HIV negative 1 hour GTT: 148/155 3-hour GTT: 154/162/131/124 GBS negative Hospital Course Hospital Course Hospital Course: On June 21, 2023 she underwent a section. She delivered a liveborn female child at 8:09 AM. Baby was a liveborn female child weighing 5 pounds 8 ounces and 16 inches long. She had Apgars of 8 at 1 minute and 8 at 5 minutes. She has done well and has remained afebrile with her at her hospitalization. She is eating and drinking and ambulating. She is bottlefeeding. Her lochia is normal. She has O Rh+ blood, she is rubella immune and was group B streptococcus negative. She will be discharged home to follow-up with Dr. Rea in 2 weeks time. She will continue with her vitamins and iron. She has a prescription for Percocet and will continue these at home. She will take ibuprofen as well. She was given the usual instructions with respect to limiting her activity, driving and sexual activity. She was given instructions with respect to wound care. Her condition on discharge is stable and improved. Exam Data for Last 24 hours Vital signs and Labs for Last 24 Hours: Temp Pulse Resp BP Pulse Ox O2 Del Method 97.7 F 71 17 101/57 L 97 Room Air 06/23/23 03:16 06/23/23 03:16 06/23/23 03:16 06/23/23 03:16 06/23/23 03:16 06/23/23 03:16 I & O for Last 24 hours: Intake & Output 06/20/23 06/21/23 06/22/23 06/23/23 11:59 11:59 11:59 11:59 Intake Total 600 / 600 Output Total 1200 / 1200 Balance 600 / 600 -1200 / -1200 Weight 186 lb 2.976 oz Microbiology Reports for the Last 24 Hours: Microbiology 06/21/23 05:24 Urine,Clean Catch Urine Culture - Final Constitutional Constitutional: no acute distress *Routine HEENT Exam Head: Present normocephalic *Routine Neck Exam Neck: Present full ROM *Routine Respiratory Exam Respiratory: Present normal respiratory effort; Absent accessory muscle use DS: Diagnosis Discharge Diagnosis (1) Asymmetric IUGR affecting , antepartum: Status: Acute Code(s): O36.5990 - Maternal care for other known or suspected poor growth, unspecified trimester, not applicable or unspecified (2) Back pain affecting : Status: Acute Code(s): O99.891 - Other specified diseases and conditions complicating ; M54.9 - Dorsalgia, unspecified Qualifiers: Trimester: third trimester Qualified Code(s): O99.891 - Other specified diseases and conditions complicating ; M54.9 - Dorsalgia, unspecified (3) Bilateral hydronephrosis: Status: Acute Code(s): N13.30 - Unspecified hydronephrosis (4) Bilateral nephrolithiasis: Status: Acute Code(s): N20.0 - Calculus of kidney (5) STACEY (acute kidney injury): Status: Acute Code(s): N17.9 - Acute kidney failure, unspecified (6) Abdominal pain affecting : Status: Acute Code(s): O26.899 - Other specified related conditions, unspecified trimester; R10.9 - Unspecified abdominal pain (7) Obesity (BMI 30.0-34.9): Status: Acute Code(s): E66.9 - Obesity, unspecified (8) Rheumatic arteritis: Status: Acute Code(s): I00 - Rheumatic fever without heart involvement (9) Hepatitis C: Status: Acute Code(s): B19.20 - Unspecified viral hepatitis C without hepatic coma Qualifiers: Hepatic coma status: without hepatic coma Viral hepatitis chronicity: unspecified Qualified Code(s): B19.20 - Unspecified viral hepatitis C without hepatic coma (10) Advanced maternal age (AMA) in : Status: Acute Meds Home Medications and Allergies Home Medications Medication Instructions Recorded Confirmed Type vits no.126-ferrous fum 1 tab PO DAILY Supplement 04/17/23 06/21/23 History 28 mg iron-folic acid 800 mcg tablet (Classic ) calcium carbonate 200 mg calcium 200 mg PO DAILY 06/13/23 06/21/23 History (500 mg) chewable tablet cyclobenzaprine 5 mg tablet 5 mg PO BIDP PRN Muscle Spasm 06/13/23 06/21/23 History oxycodone 5 mg tablet 5 mg PO Q6H Pain 06/21/23 06/21/23 History New Prescriptions to Start Prescriptions: Allergies Allergy/AdvReac Type Severity Reaction Status Date / Time ketorolac [From Toradol] Allergy Severe Hives Verified 06/19/23 10:06 tramadol AdvReac Unknown Verified 06/19/23 10:06 allergy reaction varenicline [From Chantix] AdvReac anxiety, Verified 06/19/23 10:06 nightmares Discharge Plan Disposition Patient Disposition: Home, Self-Care Discharge Order Discharge Orders: Discharge Order (Routine); Ordered 06/23/23 Ordered By: Sulaiman Suarez Follow up Plan Follow up with: Genesis Rea DO [Staff Physician] - 07/05/23 2:15 pm Prescriptions/Medication Reconciliation: Continued calcium carbonate 200 mg calcium (500 mg) tablet,chewable 200 mg PO DAILY cyclobenzaprine 5 mg tablet 5 mg PO BIDP PRN (Reason: Muscle Spasm) Classic 28 mg iron- 800 mcg tablet 1 tab PO DAILY oxycodone 5 mg tablet 5 mg PO Q6H Problem Reconciliation Problems Reviewed?: Yes Patient Discharge Instructions ACTIVITY: No heavy lifting DIET: continue same diet Patient Instructions: Depression, Hemorrhage, DI for , DI for Pre-eclampsia, [facility] Post Discharge Instructions Providers Primary Care Provider: Marco Antonio Polanco Admit Provider: Sulaiman Suarez Attending Provider: Sulaiman Suarez
--- NOTE | 2023-06-25 16:31 | EXP.ANES.II ---
[facility] Anesthesia Record Part II Anesthesia Record Part II Discharge Time: 09:35 Destination: Obstetric PACU nurse assessment reviewed?: Yes Patient Condition:: Good Anesthesia Complications:: None Swallowing reflex intact?: Yes Airway Patency: Patent Cyanosis?: No Blood Pressure: 119/87 SaO2: 99 Respiratory Rate: 17 Pulse Rate: 78 Temperature: 97.7 F Mental Status: Alert & Oriented Pain level:: 8 Nausea and/or vomitting:: None Intake, IV Amount: 0 Hydration: Adequate
[2023-06-25 16:33] VITALS: BP 119/87; PULSE 78; RESP 17; TEMP 36.5; O2SAT 99
== END 2023-06-23 11:55 | disposition home or self-care (01) | DRG 785 ==
PROVIDERS: Obstetrics & Gynecology; Admitting Provider Nurse Practitioner Obstetrics & Gynecology; PCP Internal Medicine; Visit Provider Nurse Practitioner Obstetrics & Gynecology
PROC: 0UL70ZZ Occlusion of Bilateral Fallopian Tubes, Open Approach (ICD-10-PCS; CPT 59514; principal; 2023-06-21 07:30)
DX: O13.4 Gestational [pregnancy-induced] hypertension without significant proteinuria, complicating childbirth (principal); O36.5930 Maternal care for other known or suspected poor fetal growth, third trimester, not applicable or unspecified; O99.824 Streptococcus B carrier state complicating childbirth; Z3A.36 36 weeks gestation of pregnancy; Z37.0 Single live birth; Z30.2 Encounter for sterilization; O99.334 Smoking (tobacco) complicating childbirth; O99.214 Obesity complicating childbirth; B19.20 Unspecified viral hepatitis C without hepatic coma; N20.0 Calculus of kidney; I00 Rheumatic fever without heart involvement
CPT/HCPCS: 59514; 58700; 36415; 59025; 74176; 76816; 76819; 76820; 80053; 80307; 81001; 84112; 85025; 86850; 87086; 88302; 96365; 96366; C9290; G0463; J0595; J2405

== ENCOUNTER 2023-11-15 22:38 | Emergency (ER) | payer MEDICAID, SELFPAY ==
[2023-11-15 22:40] VITALS: BP 145/88; PULSE 72; RESP 20; TEMP 36.7; O2SAT 97; BMI 32.6
[2023-11-15] MEDS: cephALEXin 500MG CAPSULE 500 MG PO (23:11)
--- NOTE | 2023-11-15 23:11 | HMH.EDGENADL ---
Discharge Plan Disposition Patient Disposition: Home, Self-Care Prescriptions Prescriptions: New cephalexin 500 mg capsule 500 mg PO QID 5 Days Qty: 20 0RF No Action mupirocin 2 % ointment 1 applic topical BID 14 Days Qty: 15 1RF escitalopram oxalate [Lexapro] 20 mg tablet 20 mg PO DAILY Qty: 90 2RF Referrals Follow up/Referrals: Kendra Rose APRN [Primary Care Provider] - See instructions Activity Restrictions/Add. Instructions Additional Instructions/Restrictions: Please take antibiotics as prescribed until you can follow-up with Dr. Mancuso. Clinical Impressions Clinical Impression: Post-op pain Instructions Patient Instructions: DI for Laceration Repair Print Language Print Language: Greek Discharge ED Provider: Anselmo Lofton General Adult HPI General Chief complaint: Wound/Laceration Stated complaint: Great toe nails removed 11/12/23 now with swelling Time Seen by Provider: 11/15/23 22:58 Mode of Arrival: Ambulatory Source of Information: Patient Limitations: No Limitations Description of Symptoms (Recalled from ER Triage Doc. by RN): Pt. presented to the ED with c/o Bilateral big toe pain. Pt. had surgery on Sunday for ingrown toenails and both nails were removed. This morning when she awoke both toes have swelling, some redness above the toenail bed and some blisters areound the site. Pt. states both toes are ooozing blood. c/o throbbing pain. History of Present Illness HPI narrative: 38-year-old female with history of rheumatoid arthritis, not on any disease modifying agents, presents for bilateral big toe pain. She reports that she had her bilateral big toenails removed on Sunday, 3 days ago, at Dr. Mancuso's office. She reports that they have started to get red and more swollen and painful. Also has some blisters at the base of the toe that she is unsure where they came from. Related Data Previous Rx's ?Medication ?Instructions ?Recorded escitalopram oxalate 20 mg tablet 20 mg PO DAILY #90 tabs 10/26/23 (Lexapro) mupirocin 2 % topical ointment 1 applic topical BID infection 14 11/12/23 days #15 grams cephalexin 500 mg capsule 500 mg PO QID 5 days #20 caps 11/15/23 Allergies Allergy/AdvReac Type Severity Reaction Status Date / Time ketorolac [From Toradol] Allergy Severe Hives Verified 11/12/23 08:14 tramadol AdvReac Unknown Verified 11/12/23 08:14 allergy reaction varenicline [From Chantix] AdvReac anxiety, Verified 11/12/23 08:14 nightmares [facility] Disclaimer: The information contained in this section may have been updated after the patient was seen, as this information can be updated by other users. Medical History Smoking history Neuropathic pain Wheezing without diagnosis of asthma Family history of asthma Dyspnea Acute respiratory failure with hypoxia Cholecystitis Chronic headaches Depression Anxiety Rheumatoid arthritis Ankle sprain and strain Surgical History History of bilateral salpingectomy History of delivery History of cholecystectomy History of appendectomy History of hip surgery Family History Other Family history of COPD (chronic obstructive pulmonary disease) Family history of acute congestive heart failure Social History Smoking Status: Current every day smoker tobacco type: cigarettes packs per day: 1 second hand exposure: No alcohol intake: never substance use type: denies use current occupational status: unemployed Travel in the last 8 weeks: None household members: children housing: apartment number of children: 1 ROS Obtained: Yes All systems reviewed & no additional complaints except as documented Physical Exam General General appearance: alert and in no apparent distress Head Head exam: atraumatic and normocephalic Eye Eye exam: Present normal appearance, PERRL and EOMI ENT ENT exam: Present normal oropharynx and normal external ear exam Neck Neck exam: Present normal inspection and full ROM Chest Chest inspection: Present normal inspection and symmetric chest wall rise; Absent tenderness Respiratory Respiratory exam: Present normal lung sounds bilaterally; Absent respiratory distress Cardiovascular Cardiovascular exam: Present regular rate and normal rhythm Abdominal Exam Abdominal exam: Present soft; Absent distention, tenderness or guarding Extremities Exam Extremities exam: Present other (Bilateral great toes: Some blistering with serous fluid underneath just distal to the MTP. Exposed nailbeds from recent removal appear unremarkable. The toes appear mildly diffusely swollen and erythematous.) Back Exam Back exam: Present normal inspection; Absent tenderness Neurological Exam Neurological exam: Present alert and oriented X3; Absent motor sensory deficit Psychiatric Psychiatric exam: Present normal affect and normal mood Skin Skin exam: Present warm, dry and normal color Lymphatic Lymphatic Findings: no adenopathy Medical Decision Making Medical Records Medical records reviewed: Yes I reviewed the patient's medical records. Kana Inquiry Pt receiving controlled substance: No Kana was queried for this patient: No Vital Signs: 11/15/23 22:40 Temperature 98.1 F Temperature Source Oral Pulse Rate [Right] 72 Respiratory Rate 20 Blood Pressure [Right Arm] 145/88 H Blood Pressure Mean [Right Arm] 107 Blood Pressure Source [Right Arm] Automatic Cuff Blood Pressure Position [Right Arm] Sitting 02 Sat by Pulse Oximetry 97 Oxygen Delivery Method Room Air Lab Data Lab results reviewed: Yes I reviewed the patient's lab results. Orders (Tests/Meds): ED MEDICATIONS Discontinued Medications Generic Name Dose Route Start Last Admin Trade Name Freq PRN Reason Stop Dose Admin Cephalexin HCl 500 mg 11/15/23 23:06 11/15/23 23:11 Cephalexin 500mg Capsule PO 11/15/23 23:07 500 mg ONCE ONE Administration Medical Decision Narrative: 38-year-old female presents for bilateral toe pain and swelling and redness after having her toenails removed 3 days ago.. History was obtained via interactive discussion with patient. On arrival, patient is [afebrile, hemodynamically stable, satting appropriately, alert, oriented x4, GCS 15], moving all extremities spontaneously. Full physical exam performed and significant for findings as documented above. Differential includes but is not limited to abscess, cellulitis, postoperative changes, medication reaction. The source of the proximal blistering is unclear. Could be from the topical numbing spray that they used, could be from a tourniquet that was put up for hemostasis. They do not appear grossly infected at this time. The toes themselves are a little enlarged and erythematous suggesting a possible developing infection. We will treat with cephalexin. Patient will be able to follow-up with Dr. Guerra early next week. Procedures Risk/Benefits of Procedure(s) Were Explained: Yes Critical Care Critical Care Time Critical Care Time: No
[2023-11-15 23:18] VITALS: BP 118/93; PULSE 80; RESP 20; TEMP 36.7; O2SAT 96
== END 2023-11-15 23:21 | disposition home or self-care (01) ==
PROVIDERS: Emergency Provider Emergency Medicine; PCP Family Medicine
DX: G89.18 Other acute postprocedural pain (principal); L08.9 Local infection of the skin and subcutaneous tissue, unspecified
CPT/HCPCS: 99283

== ENCOUNTER 2024-01-29 18:46 | Emergency (ER) | payer MEDICAID, SELFPAY ==
--- NOTE | 2024-01-29 18:46 | ECG_ITS ---
APPROVED REPORT Exam: Resting ECG HR:77 bpm ECG Measurements Heart Rate 77 AXES OH 145 P 52 QRSd 77 QRS 88 QT 344 T 41 QTc 376 Conclusion SINUS RHYTHM NORMAL ECG Electronically signed by : MONICA LANDIN, 01/29/2024 21:27:48
[2024-01-29 18:47] VITALS: BP 124/83; PULSE 82; RESP 24; TEMP 36.6; O2SAT 99; BMI 34.0
--- NOTE | 2024-01-29 18:49 | ED_ITS ---
<Statement entered by Radha Almonte DO - 01/29/24 21:25> I was consulted by the CK, and we discussed the complexity of the problems being addressed. I approved the treatment and management plan for this patient's care in the emergency department, thus performing a substantive portion of the medical decision making. Radha Almonte DO Discharge Plan Disposition Patient Disposition: Home, Self-Care Condition: Good Prescriptions Prescriptions: New hydroxyzine pamoate 50 mg capsule 50 mg PO Q8H PRN (Reason: anxiety) Qty: 20 0RF No Action mupirocin 2 % ointment 1 applic topical BID 14 Days Qty: 15 1RF escitalopram oxalate [Lexapro] 20 mg tablet 20 mg PO DAILY Qty: 90 2RF cephalexin 500 mg capsule 500 mg PO QID 5 Days Qty: 20 0RF Referrals Follow up/Referrals: Marsha Mendieta APRN [Nurse Practitioner] - See instructions Provider,MD Chantel [Primary Care Provider] - See instructions Antony Stephenson MD [Staff Physician] - See instructions Activity Restrictions/Add. Instructions Additional Instructions/Restrictions: I have referred you to cardiology to fully flush out and risk stratify cardiac risk factors. Please call to make an appointment in the morning. I have also referred you to behavioral health for evaluation and management of your generalized anxiety disorder. Again please call in the morning to make an appointment. Return to the ER for any worsening signs or symptoms as needed. Clinical Impressions Clinical Impression: Acute chest pain, Generalized anxiety disorder Instructions Patient Instructions: DI for Anxiety -- Adult, DI for Chest Pain Print Language Print Language: Persian Discharge ED Provider: Radha Almonte HPI <LANETTE Green - Last Filed: 01/29/24 20:39> General Chief Complaint: Chest Pain Stated Complaint: Chest Pain Time Seen by Provider: 01/29/24 18:47 History of Present Illness HPI narrative: Patient presents for evaluation of chest pain. Patient gives a history of 3 days of substernal left-sided chest pain. She does not have a cardiac history but does have a history of obesity hypertension hepatitis C ADHD anxiety depression rheumatoid arthritis with a new medication initiated last week. She denies any fever chills hemoptysis hematochezia melena diaphoresis vomiting or diarrhea but does endorse some nausea. There is no relieving or aggravating factors. Patient reports that she has had left-sided chest pain since noon today and has not had anything to eat. Related Data Previous Rx's ?Medication ?Instructions ?Recorded escitalopram oxalate 20 mg tablet 20 mg PO DAILY #90 tabs 10/26/23 (Lexapro) mupirocin 2 % topical ointment 1 applic topical BID infection 14 11/12/23 days #15 grams cephalexin 500 mg capsule 500 mg PO QID 5 days #20 caps 11/15/23 hydroxyzine pamoate 50 mg capsule 50 mg PO Q8H PRN anxiety #20 caps 01/29/24 Allergies Allergy/AdvReac Type Severity Reaction Status Date / Time ketorolac [From Toradol] Allergy Severe Hives Verified 11/12/23 08:14 tramadol AdvReac Unknown Verified 11/12/23 08:14 allergy reaction varenicline [From Chantix] AdvReac anxiety, Verified 11/12/23 08:14 nightmares PFSH <LANETTE Green - Last Filed: 01/29/24 20:39> [facility] Disclaimer: The information contained in this section may have been updated after the patient was seen, as this information can be updated by other users. Medical History Smoking history Neuropathic pain Wheezing without diagnosis of asthma Family history of asthma Dyspnea Acute respiratory failure with hypoxia Cholecystitis Chronic headaches Depression Anxiety Rheumatoid arthritis Ankle sprain and strain Surgical History History of bilateral salpingectomy History of delivery History of cholecystectomy History of appendectomy History of hip surgery Family History Other Family history of COPD (chronic obstructive pulmonary disease) Family history of acute congestive heart failure Social History Smoking Status: Current every day smoker tobacco type: cigarettes packs per day: 1 second hand exposure: No alcohol intake: never substance use type: denies use current occupational status: unemployed Travel in the last 8 weeks: None household members: children housing: apartment number of children: 1 Other Medical History Have you received the Flu Vaccine for this season: No Have you received the Pneumonia Vaccine: No <LANETTE Green - Last Filed: 01/29/24 20:39> ROS Obtained: Yes Systems reviewed as appropriate & no additional complaints except as documented Physical Exam <LANETTE Green Last Filed: 01/29/24 20:39> General General appearance: alert Respiratory Respiratory exam: Present normal lung sounds bilaterally Cardiovascular Cardiovascular exam: Present regular rate Neurological Exam Neurological exam: Present alert and oriented X3 HEART Score <LANETTE Green Last Filed: 01/29/24 20:39> HEART Score HEART Score assessment performed?: Yes History (anamnesis): Slightly suspicious ECG: Normal Age: <45 years Risk factors: 1-2 risk factors Troponin: </= normal limit HEART Score: 1 Critical Care <LANETTE Green Last Filed: 01/29/24 20:39> Critical Care Time Critical Care Time: No Medical Decision Making <LANETTE Green Last Filed: 01/29/24 20:39> Medical Records Medical records reviewed: Yes I reviewed the patient's medical records. Kana Inquiry Pt receiving controlled substance: No Vital Signs Vital Signs: 01/29/24 18:47 01/29/24 19:00 01/29/24 19:02 Temperature 97.8 F Temperature Source Oral Pulse Rate 70 83 Pulse Rate [Right Radial] 82 Respiratory Rate 24 26 H Blood Pressure 108/67 L Blood Pressure [Right Arm] 124/83 Blood Pressure Mean [Right Arm] 96 02 Sat by Pulse Oximetry 99 97 Oxygen Delivery Method Room Air 01/29/24 20:30 Temperature 98.4 F Temperature Source Pulse Rate 86 Pulse Rate [Right Radial] Respiratory Rate 19 Blood Pressure 113/74 Blood Pressure [Right Arm] Blood Pressure Mean [Right Arm] 02 Sat by Pulse Oximetry Oxygen Delivery Method Room Air Lab Data Lab results reviewed: Yes I reviewed the patient's lab results. Labs: Lab Results 01/29/24 18:52: WBC 10.3, RBC 4.95, Hgb 14.9, Hct 43.0, MCV 86.8, MCH 30.0, MCHC 34.6, RDW 14.7, Plt Count 332, MPV 8.3, Neut % (Auto) 66.5, Lymph % (Auto) 23.4, Weakley % (Auto) 4.5, Eos % (Auto) 3.5, Baso % (Auto) 2.0, Neut # (Auto) 6.9, Lymph # (Auto) 2.4, Weakley # (Auto) 0.5, Eos # (Auto) 0.4, Baso # (Auto) 0.2, VBG pH 7.51 H, VBG pCO2 26.2 L, VBG pO2 93.6 H, VBG HCO3 20.6 L, VBG Total CO2 21.4 L, VBG O2 Saturation 98.1 H, VBG Base Excess -2.4, VBG Lactic Acid 1.8, Sodium 133 L, Potassium 4.9, Chloride 108 H, Carbon Dioxide 26, Anion Gap 3.9 L, BUN 17, Creatinine 0.60, Estimated Creat Clear 167, Estimated GFR 113, Est GFR ( Amer) 137, Glucose 130 H, Calcium 9.1, Magnesium 1.8, Total Bilirubin 0.6, AST 31, ALT 27, Alkaline Phosphatase 43, Troponin I < 0.01, Total Protein 6.9, Albumin 3.8, Globulin 3.1, Albumin/Globulin Ratio 1.2, Lipase 118, SARS-CoV-2 (PCR) Not detected, Influenza A Untype (PCR) Not detected, Influenza Type B (PCR) Not detected 01/29/24 18:52 01/29/24 18:52 Response Orders (Tests/Meds): ED MEDICATIONS Discontinued Medications Generic Name Dose Route Start Last Admin Trade Name Freq PRN Reason Stop Dose Admin Acetaminophen 1,000 mg 01/29/24 18:49 01/29/24 19:04 Acetaminophen 500mg Tab PO 01/29/24 18:50 1,000 mg ONCE ONE Administration Belladonna Alkaloids 60 ml 01/29/24 18:49 01/29/24 19:03 Belladonna Alkaloids 60 Ml Ml PO 01/29/24 18:50 60 ml ONCE ONE Administration Hydroxyzine Pamoate 50 mg 01/29/24 18:49 01/29/24 19:05 Hydroxyzine Pamoate 25mg Capsule PO 01/29/24 18:50 50 mg ONCE ONE Administration ORDERS Category Date Time Status Chest XR -- portable [XR chest portable] Stat Exams 01/29/24 18:49 Completed BNP [NT Pro Brain Natriuretic Pep.] Stat Lab 01/29/24 19:24 Received CBC w/Auto Diff [Complete Blood Count Auto Diff] Stat Lab 01/29/24 18:52 Completed CMP [Comprehensive Metabolic Panel] Stat Lab 01/29/24 18:52 Completed Lipase Stat Lab 01/29/24 18:52 Completed Magnesium Stat Lab 01/29/24 18:52 Completed Rapid PCR Covid and Flu A/B Stat Lab 01/29/24 18:52 Completed Trop I [Troponin I] Stat Lab 01/29/24 18:52 Completed Troponin I Q3H Lab 01/29/24 22:00 Ordered Troponin I Q3H Lab 01/30/24 01:00 Ordered VBG [Venous Blood Gas] Stat RT 01/29/24 18:52 Completed MDM Narrative Medical Decision Narrative: In summary patient is a 38-year-old female who presents to the emergency department for evaluation of chest pain. Patient is hemodynamically stable upon arrival, afebrile. Physical exam is unremarkable and nonfocal including normal breath sounds normal heart sounds normal sinus rhythm on the bedside monitor no reproducible chest pain on palpation no epigastric abdominal pain with normal bowel sounds. Differential diagnosis includes ACS versus GERD versus esophagitis versus anxiety etc. Initial workup will be conducted with hematologic labs twelve-lead EKG plain film chest x-ray respiratory swabs. Initial interventions include Tylenol GI cocktail Vistaril. Initial workup reviewed by me are reassuring and show that her hematologic labs are nonactionable including a undetectable troponin, normal sinus twelve-lead EKG without evidence of ACS, and my informal interpretation of her plain film chest x-ray shows no acute processes.. Upon repeat evaluation patient actually had significant resolution of her symptoms after initial intervention. Given this patient is appropriate for discharge with referrals to both cardiology and behavioral health with strict return precautions. <Radha Almonte, DO - Last Filed: 01/29/24 18:55> Vital Signs Vital Signs: 01/29/24 18:47 01/29/24 19:00 01/29/24 19:02 Temperature 97.8 F Temperature Source Oral Pulse Rate 70 83 Pulse Rate [Right Radial] 82 Respiratory Rate 24 26 H Blood Pressure 108/67 L Blood Pressure [Right Arm] 124/83 Blood Pressure Mean [Right Arm] 96 02 Sat by Pulse Oximetry 99 97 Oxygen Delivery Method Room Air 01/29/24 20:30 Temperature 98.4 F Temperature Source Pulse Rate 86 Pulse Rate [Right Radial] Respiratory Rate 19 Blood Pressure 113/74 Blood Pressure [Right Arm] Blood Pressure Mean [Right Arm] 02 Sat by Pulse Oximetry Oxygen Delivery Method Room Air Lab Data Labs: Lab Results 01/29/24 18:52: WBC 10.3, RBC 4.95, Hgb 14.9, Hct 43.0, MCV 86.8, MCH 30.0, MCHC 34.6, RDW 14.7, Plt Count 332, MPV 8.3, Neut % (Auto) 66.5, Lymph % (Auto) 23.4, Weakley % (Auto) 4.5, Eos % (Auto) 3.5, Baso % (Auto) 2.0, Neut # (Auto) 6.9, Lymph # (Auto) 2.4, Weakley # (Auto) 0.5, Eos # (Auto) 0.4, Baso # (Auto) 0.2, VBG pH 7.51 H, VBG pCO2 26.2 L, VBG pO2 93.6 H, VBG HCO3 20.6 L, VBG Total CO2 21.4 L, VBG O2 Saturation 98.1 H, VBG Base Excess -2.4, VBG Lactic Acid 1.8, Sodium 133 L, Potassium 4.9, Chloride 108 H, Carbon Dioxide 26, Anion Gap 3.9 L, BUN 17, Creatinine 0.60, Estimated Creat Clear 167, Estimated GFR 113, Est GFR ( Amer) 137, Glucose 130 H, Calcium 9.1, Magnesium 1.8, Total Bilirubin 0.6, AST 31, ALT 27, Alkaline Phosphatase 43, Troponin I < 0.01, Total Protein 6.9, Albumin 3.8, Globulin 3.1, Albumin/Globulin Ratio 1.2, Lipase 118, SARS-CoV-2 (PCR) Not detected, Influenza A Untype (PCR) Not detected, Influenza Type B (PCR) Not detected Response Orders (Tests/Meds): ED MEDICATIONS Discontinued Medications Generic Name Dose Route Start Last Admin Trade Name Freq PRN Reason Stop Dose Admin Acetaminophen 1,000 mg 01/29/24 18:49 01/29/24 19:04 Acetaminophen 500mg Tab PO 01/29/24 18:50 1,000 mg ONCE ONE Administration Belladonna Alkaloids 60 ml 01/29/24 18:49 01/29/24 19:03 Belladonna Alkaloids 60 Ml Ml PO 01/29/24 18:50 60 ml ONCE ONE Administration Hydroxyzine Pamoate 50 mg 01/29/24 18:49 01/29/24 19:05 Hydroxyzine Pamoate 25mg Capsule PO 01/29/24 18:50 50 mg ONCE ONE Administration ORDERS Category Date Time Status Chest XR -- portable [XR chest portable] Stat Exams 01/29/24 18:49 Completed BNP [NT Pro Brain Natriuretic Pep.] Stat Lab 01/29/24 19:24 Received CBC w/Auto Diff [Complete Blood Count Auto Diff] Stat Lab 01/29/24 18:52 Completed CMP [Comprehensive Metabolic Panel] Stat Lab 01/29/24 18:52 Completed Lipase Stat Lab 01/29/24 18:52 Completed Magnesium Stat Lab 01/29/24 18:52 Completed Rapid PCR Covid and Flu A/B Stat Lab 01/29/24 18:52 Completed Trop I [Troponin I] Stat Lab 01/29/24 18:52 Completed Troponin I Q3H Lab 01/29/24 22:00 Ordered Troponin I Q3H Lab 01/30/24 01:00 Ordered VBG [Venous Blood Gas] Stat RT 01/29/24 18:52 Completed ECG Data Tracing #1: Attestation: I reviewed this ECG and interpreted as documented below: ECG Narrative: Normal sinus rhythm with a ventricular rate of [address] changes concerning for ischemia. Normal axis and intervals ECG initial impression date: 01/29/24 ECG initial impression time: 18:47
--- NOTE | 2024-01-29 18:49 | XR_ITS ---
PROCEDURE INFORMATION: Exam: XR Chest Exam date and time: 01/29/2024 6:56 PM Age: 38 years old Clinical indication: Pain; Chest pressure; Additional info: Chest pain TECHNIQUE: Imaging protocol: Radiologic exam of the chest. Views: 1 view. COMPARISON: CR XR CHEST PORTABLE 03/22/2022 9:44 AM FINDINGS: Limitations: Radiographic technique - mild. Tubes, catheters and devices: Leads overlying chest. Lungs: Mild underinflation. Hazy perihilar interstitial markings. Pleural spaces: No significant pleural effusion. No pneumothorax. Heart/Mediastinum: Mild cardiomegaly. Prominence of central pulmonary vasculature. Bones/joints: No displaced fracture. Soft tissues: Unremarkable. IMPRESSION: Vascular crowding vs early pulmonary vascular congestion. Correlate clinically.
[2024-01-29 19:00] VITALS: BP 108/67; PULSE 70; RESP 26; O2SAT 97
[2024-01-29 19:01] LABS: Lactate Venous 1.8 mmol/L (0.4-2.0); VBG Base Excess -2.4 mmol/L (-2.4-2.3); VBG HCO3 20.6 mmol/L (23-30); VBG Oxygen Saturation 98.1 % (50-70); VBG PCO2 26.2 mmol/L (35-51); VBG PH 7.51 mmol/L (7.31-7.41); VBG PO2 93.6 mmol/L (28-40); VBG Total CO2 21.4 mmol/L (23-27)
[2024-01-29 19:02] VITALS: PULSE 83
[2024-01-29 19:03] LABS: Coronavirus 19, PCR Not Detected (NotDetected); Influenza A, PCR Not Detected (NotDetected); Influenza B, PCR Not Detected (NotDetected)
[2024-01-29] MEDS: BELLADONNA ALKALOIDS 60 ML ML PO (19:03)
[2024-01-29] MEDS: ACETAMINOPHEN 500MG TAB 1000 MG PO (19:04)
[2024-01-29] MEDS: hydrOXYzine pamoate 25MG CAPSULE 50 MG PO (19:05)
[2024-01-29 19:07] LABS: Basophils # 0.2 K/mm3 (0-0.2); Eosinophils # 0.4 K/mm3 (0.0-0.4); Eosinophils % 3.5 % (0.1-12.0); Hemoglobin 14.9 g/dL (12.2-16.2); Lymphocytes # 2.4 K/mm3 (0.7-4.5); Lymphocytes % 23.4 % (10-50); Mean Corpuscular HGB Conc 34.6 g/dL (31.8-35.4); Mean Corpuscular Volume 86.8 fl (81-99); Mean Platelet Volume 8.3 fl (7.4-10.4); Monocytes # 0.5 K/mm3 (0.1-1.0); Monocytes % 4.5 % (1.7-9.3); Neutrophils # 6.9 K/mm3 (1.8-7.8); Neutrophils % 66.5 % (37.0-80.0); Platelet Count 332 K/mm3 (142-424); Red Blood Count 4.95 M/mm3 (4.20-5.40); Red Cell Distribution Width 14.7 % (11.5-17.5); White Blood Count 10.3 K/mm3 (4.8-10.8)
[2024-01-29 19:10] LABS: Lipase 118 U/L (23-300)
[2024-01-29 19:11] LABS: Magnesium 1.8 mg/dl (1.6-2.3)
[2024-01-29 20:06] LABS: Alanine Aminotransferase 27 U/L (12-78); Albumin Level 3.8 g/dl (3.5-5.0); Albumin/Globulin Ratio 1.2 (1.1-1.8); Alkaline Phosphatase 43 U/L (38-126); Anion Gap 3.9 mEq/L (5-15); Aspartate Amino Transferase 31 U/L (14-36); Bilirubin,Total 0.6 mg/dl (0.2-1.3); Blood Urea Nitrogen 17 mg/dl (7-17); Calcium 9.1 mg/dl (8.4-10.2); Carbon Dioxide 26 mmol/L (22.0-30.0); Chloride 108 mmol/L (98-107); Creatinine Clearance Estimated 167 mL/min (50-200); Estimated Glomerular Filt Rate 113 ml/min (>60); GFR (African American) 137 ML/MIN (>60); Globulin 3.1 g/dL (1.3-3.2); Glucose 130 mg/dl (74-100); Potassium 4.9 mmoL/L (3.5-5.1); Sodium 133 mmol/L (136-145); Total Protein,Serum 6.9 g/dl (6.3-8.2)
[2024-01-29 20:23] LABS: Troponin I < 0.01 ng/ml (0.00-0.034)
[2024-01-29 20:30] VITALS: BP 113/74; PULSE 86; RESP 19; TEMP 36.9; O2SAT 99
[2024-01-29 20:39] LABS: NT Pro Brain Natriuretic Pep. < 20.0 pg/mL (0-125)
== END 2024-01-29 20:35 | disposition home or self-care (01) ==
PROVIDERS: Physician Assistant; Emergency Provider Emergency Medicine
DX: F41.9 Anxiety disorder, unspecified (principal); R07.9 Chest pain, unspecified
CPT/HCPCS: 71045; 80053; 82803; 83690; 83735; 83880; 84484; 85025; 87636; 93005; 99284

== ENCOUNTER 2024-03-11 17:38 | Emergency (ER) | payer MEDICAID, SELFPAY ==
[2024-03-11] VITALS (7 sets, daily range): BP systolic 111–148; BP diastolic 66–87; PULSE 64–89; RESP 17–20; TEMP 36.7–36.9; O2SAT 95–98; BMI 34.2
--- NOTE | 2024-03-11 18:05 | XR_ITS ---
PROCEDURE INFORMATION: Exam: XR Chest Exam date and time: 03/11/2024 7:01 PM Age: 38 years old Clinical indication: Cough; Additional info: Cough, SOA TECHNIQUE: Imaging protocol: Radiologic exam of the chest. Views: 2 views. COMPARISON: CR XR CHEST PORTABLE 01/29/2024 6:56 PM FINDINGS: Lungs: Improved pulmonary expansion. Pulmonary vasculature grossly normal. Bilateral peribronchial thickening suggesting changes of bronchitis. Patchy mild bilateral perihilar alveolar densities could represent subsegmental atelectasis versus patchy perihilar infiltrates or edema, stable to slightly improved in appearance considering the differences in pulmonary expansion. Normal variant azygos fissure incidentally noted in the right apex. Pleural spaces: No pleural effusion. No pneumothorax. Heart/Mediastinum: Heart size normal. No tracheal/mediastinal shift. Bones/joints: No acute osseous abnormalities are identified. Intraperitoneal space: Right upper quadrant surgical clips suggest prior cholecystectomy. IMPRESSION: Peribronchial thickening suggesting bronchitis, with faint perihilar alveolar opacities bilaterally, possibly perihilar subsegmental atelectasis although mild perihilar infiltrates or edema not excluded.
--- NOTE | 2024-03-11 18:07 | [facility].EDGENADL ---
Discharge Plan Disposition Patient Disposition: Home, Self-Care Condition: Good Prescriptions Prescriptions: No Action mupirocin 2 % ointment 1 applic topical BID 14 Days Qty: 15 1RF escitalopram oxalate [Lexapro] 20 mg tablet 20 mg PO DAILY Qty: 90 2RF hydroxyzine pamoate 50 mg capsule 50 mg PO Q8H PRN (Reason: anxiety) Qty: 20 0RF cephalexin 500 mg capsule 500 mg PO QID 5 Days Qty: 20 0RF Referrals Follow up/Referrals: Radha Santos APRN [Primary Care Provider] - See instructions Activity Restrictions/Add. Instructions Additional Instructions/Restrictions: Your labs did not show a pneumonia and your white blood cell count is elevated, it is likely that you are having chronic cough due to persistent bronchitis and not a new infection. Please continue to use your breathing treatments at home. Please return with any new or worsening symptoms. Clinical Impressions Clinical Impression: Upper respiratory infection Instructions Patient Instructions: Acute Bronchitis Print Language Print Language: Upper Sorbian Discharge ED Provider: Edgar Hare Adult HPI General Chief complaint: Shortness of Breath/Dyspnea Stated complaint: no taste or smell, fever body aches Time Seen by Provider: 03/11/24 18:02 Mode of Arrival: Ambulatory Source of Information: Patient Limitations: No Limitations Description of Symptoms (Recalled from ER Triage Doc. by RN): pt states she has had bronchitis for the last 2 weeks and is not getting any better. pt states her o2 saturation at home have been 94-95%. History of Present Illness HPI narrative: Patient reports 2 weeks of persistent cough, dyspnea, bilateral chest wall pain, nonexertional nonpleuritic no exacerbating or alleviating factors no fevers or chills, no hemoptysis, no recent travel, no OCP usage, no leg pain or leg swelling. No known sick contacts. Devious therapies include a course of antibiotics. She states she has had similar symptoms associated with bronchitis. Please note that above description of symptoms, in this electronic medical record under categorization of recalled from ER triage doctor by RN are reflective of an initial nursing assessment, however, is not reflective of my full history and physical exam that was personally taken and clarified. Consequentially, this preceding description of symptoms, which may include the patient's categorized chief complaint in the EMR, do not reflect my personal clinical impression, and the ultimate description of history of present illness and patient stated complaints should be deferred to this section of the note. Unless stated otherwise or congruent with this section of the note, additional signs, symptoms, or incongruence should be interpreted as inaccurate with my clinical impression. Related Data Previous Rx's ?Medication ?Instructions ?Recorded escitalopram oxalate 20 mg tablet 20 mg PO DAILY #90 tabs 10/26/23 (Lexapro) mupirocin 2 % topical ointment 1 applic topical BID infection 14 11/12/23 days #15 grams cephalexin 500 mg capsule 500 mg PO QID 5 days #20 caps 11/15/23 hydroxyzine pamoate 50 mg capsule 50 mg PO Q8H PRN anxiety #20 caps 01/29/24 Allergies Allergy/AdvReac Type Severity Reaction Status Date / Time ketorolac (From Toradol) Allergy Severe Hives Verified 11/12/23 08:14 tramadol AdvReac Unknown Verified 11/12/23 08:14 allergy reaction varenicline (From Chantix) AdvReac anxiety, Verified 11/12/23 08:14 nightmares [facility] Disclaimer: The information contained in this section may have been updated after the patient was seen, as this information can be updated by other users. Medical History Smoking history Neuropathic pain Wheezing without diagnosis of asthma Family history of asthma Dyspnea Acute respiratory failure with hypoxia Cholecystitis Chronic headaches Depression Anxiety Rheumatoid arthritis Ankle sprain and strain Surgical History History of bilateral salpingectomy History of delivery History of cholecystectomy History of appendectomy History of hip surgery Family History Other Family history of COPD (chronic obstructive pulmonary disease) Family history of acute congestive heart failure Social History Smoking Status: Current every day smoker tobacco type: cigarettes packs per day: 1 second hand exposure: No alcohol intake: never substance use type: denies use current occupational status: unemployed household members: children housing: apartment number of children: 1 Other Medical History Have you received the Flu Vaccine for this season: No Have you received the Pneumonia Vaccine: No ROS Obtained: Yes other As per HPI Physical Exam General General appearance: alert and in no apparent distress Head Head exam: atraumatic and normocephalic Eye Eye exam: Present normal appearance Neck Neck exam: Present normal inspection Chest Chest inspection: Present normal inspection and symmetric chest wall rise Respiratory Respiratory exam: Present normal lung sounds bilaterally; Absent respiratory distress Cardiovascular Cardiovascular exam: Present regular rate and normal rhythm Abdominal Exam Abdominal exam: Present soft Neurological Exam Neurological exam: Present alert and oriented X3 Psychiatric Psychiatric exam: Present normal affect and normal mood Skin Skin exam: Present warm and dry Other Other exam information: Expiratory wheezing bilaterally Medical Decision Making Medical Records Medical records reviewed: Yes I reviewed the patient's medical records. Screening: Per USPSTF and CDC recommendations, given the prevalence of disease in our region, it is our hospital?s policy to screen for HIV and viral Hepatitis for all patients aged 18 and over and those with ongoing risk factors. Kana Inquiry Pt receiving controlled substance: No Vital Signs: 03/11/24 17:40 03/11/24 18:01 03/11/24 19:00 Temperature 98.1 F 98.3 F Temperature Source Oral Oral Pulse Rate 74 75 Pulse Rate [Right Brachial] 89 Respiratory Rate 20 19 Blood Pressure 111/66 119/73 Blood Pressure [Right Arm] 148/87 H Blood Pressure Mean 81 Blood Pressure Mean [Right Arm] 107 Blood Pressure Source Blood Pressure Source [Right Arm] Automatic Cuff Blood Pressure Position Blood Pressure Position [Right Arm] Supine 02 Sat by Pulse Oximetry 98 95 95 Oxygen Delivery Method Room Air Room Air 03/11/24 19:30 03/11/24 19:43 03/11/24 20:00 Temperature Temperature Source Pulse Rate 64 88 72 Pulse Rate [Right Brachial] Respiratory Rate 19 19 Blood Pressure 123/71 111/79 Blood Pressure [Right Arm] Blood Pressure Mean Blood Pressure Mean [Right Arm] Blood Pressure Source Blood Pressure Source [Right Arm] Blood Pressure Position Blood Pressure Position [Right Arm] 02 Sat by Pulse Oximetry 98 98 Oxygen Delivery Method Room Air Room Air 03/11/24 20:29 Temperature 98.4 F Temperature Source Oral Pulse Rate 79 Pulse Rate [Right Brachial] Respiratory Rate 17 Blood Pressure 117/73 Blood Pressure [Right Arm] Blood Pressure Mean Blood Pressure Mean [Right Arm] Blood Pressure Source Automatic Cuff Blood Pressure Source [Right Arm] Blood Pressure Position Sitting Blood Pressure Position [Right Arm] 02 Sat by Pulse Oximetry Oxygen Delivery Method Room Air Lab Data Lab Results 03/11/24 17:40: SARS-CoV-2 (PCR) Not detected, Influenza A Untype (PCR) Not detected, Influenza Type B (PCR) Not detected 03/11/24 18:35: WBC 7.7, RBC 4.90, Hgb 14.6, Hct 43.1, MCV 88.1, MCH 29.9, MCHC 33.9, RDW 14.6, Plt Count 320, MPV 8.5, Neut % (Auto) 50.6, Lymph % (Auto) 38.2, [place] % (Auto) 4.7, Eos % (Auto) 5.2, Baso % (Auto) 1.4, Neut # (Auto) 3.9, Lymph # (Auto) 3.0, [place] # (Auto) 0.4, Eos # (Auto) 0.4, Baso # (Auto) 0.1, Sodium 139, Potassium 3.9, Chloride 105, Carbon Dioxide 27, Anion Gap 10.9, BUN 22 H, Creatinine 0.70, Estimated Creat Clear 144, Estimated GFR 95, Est GFR ( Amer) 115, Glucose 89, Calcium 8.9, Total Bilirubin 0.7, AST 35, ALT 23, Alkaline Phosphatase 39, Total Protein 7.1, Albumin 3.8, Globulin 3.3 H, Albumin/Globulin Ratio 1.2, Serum HCG, Qual Negative 03/11/24 18:35 03/11/24 18:35 Orders (Tests/Meds): ED MEDICATIONS Discontinued Medications Generic Name Dose Route Start Last Admin Trade Name Freq PRN Reason Stop Dose Admin Albuterol/Ipratropium 3 ml 03/11/24 18:10 03/11/24 18:41 Ipratropium/Albuterol 3 Ml [facility] 03/11/24 18:11 3 ml ONCE ONE Administration Albuterol/Ipratropium 3 ml 03/11/24 19:23 03/11/24 19:42 Ipratropium/Albuterol 3 Ml [facility] 03/11/24 19:24 3 ml ONCE ONE Administration Methylprednisolone Sodium Succinate 60 mg 03/11/24 18:10 03/11/24 18:48 Methylprednisolone Sod Succ 40mg Vial IV 03/11/24 18:11 60 mg ONCE ONE Administration Sodium Chloride 10 ml 03/11/24 18:39 Sodium Chloride 0.9% 10ml Flush Syringe IV 12/26/24 18:38 NEEDED PRN Maintain IV Site ORDERS Category Date Time Status XR chest 2V Stat Exams 03/11/24 18:05 Completed CBC w/Auto Diff [Complete Blood Count Auto Diff] Stat Lab 03/11/24 18:35 Completed CMP [Comprehensive Metabolic Panel] Stat Lab 03/11/24 18:35 Completed HCG Qualitative, Serum Stat Lab 03/11/24 18:35 Completed Rapid PCR Covid and Flu A/B Stat Lab 03/11/24 17:40 Completed Medical Decision Narrative: Patient with history and exam per above presenting for evaluation of shortness of breath Diagnoses considered include pneumonia, reactive airway disease, COPD, bronchitis, among others ED workup and treatment included: ED MEDICATIONS Discontinued Medications Generic Name Dose Route Start Last Admin Trade Name Freq PRN Reason Stop Dose Admin Albuterol/Ipratropium 3 ml 03/11/24 18:10 03/11/24 18:41 Ipratropium/Albuterol 3 Ml Neb 03/11/24 18:11 3 ml ONCE ONE Administration Albuterol/Ipratropium 3 ml 03/11/24 19:23 03/11/24 19:42 Ipratropium/Albuterol 3 Ml Neb 03/11/24 19:24 3 ml ONCE ONE Administration Methylprednisolone Sodium Succinate 60 mg 03/11/24 18:10 03/11/24 18:48 Methylprednisolone Sod Succ 40mg Vial IV 03/11/24 18:11 60 mg ONCE ONE Administration Sodium Chloride 10 ml 03/11/24 18:39 Sodium Chloride 0.9% 10ml Flush Syringe IV 04/10/24 18:38 NEEDED PRN Maintain IV Site ORDERS Category Date Time Status XR chest 2V Stat Exams 03/11/24 18:05 Completed CBC w/Auto Diff [Complete Blood Count Auto Diff] Stat Lab 03/11/24 18:35 Completed CMP [Comprehensive Metabolic Panel] Stat Lab 03/11/24 18:35 Completed HCG Qualitative, Serum Stat Lab 03/11/24 18:35 Completed Rapid PCR Covid and Flu A/B Stat Lab 03/11/24 17:40 Completed Labs were independently interpreted by me, significant for no acute findings Imaging was independently visualized and interpreted by me, significant for no acute findings Please refer to radiology report for full details. My clinical impression at this time is most consistent with reactive airway disease I discussed my clinical impression with patient and answered all questions. At this time, the evidence for any other entities in the differential is insufficient to warrant any further testing or ED observation. This was explained to the patient. The patient was advised that persistent or worsening symptoms require further evaluation. Critical Care Critical Care Time Critical Care Time: No
[2024-03-11 18:11] LABS: Coronavirus 19, PCR Not Detected (NotDetected); Influenza A, PCR Not Detected (NotDetected); Influenza B, PCR Not Detected (NotDetected)
[2024-03-11] MEDS: IPRATROPIUM/ALBUTEROL 3 ML NEB IH ×2 (18:41→19:42)
[2024-03-11 18:48] LABS: Basophils # 0.1 K/mm3 (0-0.2); Basophils % 1.4 % (0.1-2.0); Eosinophils # 0.4 K/mm3 (0.0-0.4); Eosinophils % 5.2 % (0.1-12.0); Hematocrit 43.1 % (37.0-47.0); Hemoglobin 14.6 g/dL (12.2-16.2); Lymphocytes % 38.2 % (10-50); Mean Corpuscular HGB Conc 33.9 g/dL (31.8-35.4); Mean Corpuscular Hemoglobin 29.9 pg (27.0-31.2); Mean Corpuscular Volume 88.1 fl (81-99); Mean Platelet Volume 8.5 fl (7.4-10.4); Monocytes # 0.4 K/mm3 (0.1-1.0); Monocytes % 4.7 % (1.7-9.3); Neutrophils # 3.9 K/mm3 (1.8-7.8); Neutrophils % 50.6 % (37.0-80.0); Platelet Count 320 K/mm3 (142-424); Red Cell Distribution Width 14.6 % (11.5-17.5); White Blood Count 7.7 K/mm3 (4.8-10.8)
[2024-03-11] MEDS: METHYLPREDNISOLONE SOD SUCC 40MG VIAL 60 MG IV (18:48)
[2024-03-11 18:56] LABS: Albumin Level 3.8 g/dl (3.5-5.0); Chloride 105 mmol/L (98-107); Potassium 3.9 mmoL/L (3.5-5.1); Sodium 139 mmol/L (136-145)
[2024-03-11 18:59] LABS: Alanine Aminotransferase 23 U/L (12-78); Albumin/Globulin Ratio 1.2 (1.1-1.8); Alkaline Phosphatase 39 U/L (38-126); Anion Gap 10.9 mEq/L (5-15); Aspartate Amino Transferase 35 U/L (14-36); Bilirubin,Total 0.7 mg/dl (0.2-1.3); Blood Urea Nitrogen 22 mg/dl (7-17); Calcium 8.9 mg/dl (8.4-10.2); Carbon Dioxide 27 mmol/L (22.0-30.0); Creatinine Clearance Estimated 144 mL/min (50-200); Estimated Glomerular Filt Rate 95 ml/min (>60); GFR (African American) 115 ML/MIN (>60); Globulin 3.3 g/dL (1.3-3.2); Glucose 89 mg/dl (74-100); Total Protein,Serum 7.1 g/dl (6.3-8.2)
[2024-03-11 19:13] LABS: HCG Qualitative, Serum Negative (Negative)
== END 2024-03-11 20:30 | disposition home or self-care (01) ==
PROVIDERS: Emergency Provider Emergency Medicine; PCP Nurse Practitioner Family
DX: J06.9 Acute upper respiratory infection, unspecified (principal); R06.02 Shortness of breath; R06.00 Dyspnea, unspecified; R50.9 Fever, unspecified; M79.10 Myalgia, unspecified site; R05.9 Cough, unspecified; R07.89 Other chest pain
CPT/HCPCS: 71046; 80053; 84703; 85025; 87636; 96374; 99283; J2919; J7620

== ENCOUNTER 2024-06-04 19:09 | Emergency (ER) | payer MEDICAID, SELFPAY ==
[2024-06-04 19:10] VITALS: BP 128/71; PULSE 97; RESP 18; TEMP 37; O2SAT 96; BMI 34.0
--- NOTE | 2024-06-04 19:14 | HMH.EDGENADL ---
Discharge Plan Disposition Patient Disposition: Home, Self-Care Prescriptions Prescriptions: No Action mupirocin 2 % ointment 1 applic topical BID 14 Days Qty: 15 1RF escitalopram oxalate [Lexapro] 20 mg tablet 20 mg PO DAILY Qty: 90 2RF hydroxyzine pamoate 50 mg capsule 50 mg PO Q8H PRN (Reason: anxiety) Qty: 20 0RF cephalexin 500 mg capsule 500 mg PO QID 5 Days Qty: 20 0RF Referrals Follow up/Referrals: Radha Santos APRN [Primary Care Provider] - See instructions Bunny Araiza DO [Staff Physician] - See instructions Activity Restrictions/Add. Instructions Additional Instructions/Restrictions: Follow-up with Dr. Araiza for further definitive management of distal radius fracture. Will likely need surgery. Remain nonweightbearing on left arm and do not get splint wet. Clinical Impressions Clinical Impression: Distal radius fracture, left Fracture of triquetrum Qualifiers: Encounter type: initial encounter Fracture type: closed Fracture alignment: nondisplaced Laterality: left Qualified Code(s): S62.115A - Nondisplaced fracture of triquetrum [cuneiform] bone, left wrist, initial encounter for closed fracture Print Language Print Language: Frisian Discharge ED Provider: Berny Whittington General Adult HPI <LANETTE Green - Last Filed: 06/04/24 19:31> General Chief complaint: PAIN Stated complaint: AO02/19 LT wrist inj Time Seen by Provider: 06/04/24 19:14 Related Data Previous Rx's ?Medication ?Instructions ?Recorded escitalopram oxalate 20 mg tablet 20 mg PO DAILY #90 tabs 10/26/23 (Lexapro) mupirocin 2 % topical ointment 1 applic topical BID infection 14 11/12/23 days #15 grams cephalexin 500 mg capsule 500 mg PO QID 5 days #20 caps 11/15/23 hydroxyzine pamoate 50 mg capsule 50 mg PO Q8H PRN anxiety #20 caps 01/29/24 Allergies Allergy/AdvReac Type Severity Reaction Status Date / Time ketorolac (From Toradol) Allergy Severe Hives Verified 11/12/23 08:14 tramadol AdvReac Unknown Verified 11/12/23 08:14 allergy reaction varenicline (From Chantix) AdvReac anxiety, Verified 11/12/23 08:14 nightmares <Berny Whittington MD - Last Filed: 06/04/24 21:06> History of Present Illness HPI narrative: Please note that above description of symptoms, in this electronic medical record under categorization of recalled from ER triage doctor by RN are reflective of an initial nursing assessment, however, is not reflective of my full history and physical exam that was personally taken and clarified. Consequentially, this preceding description of symptoms, which may include the patient's categorized chief complaint in the EMR, do not reflect my personal clinical impression, and the ultimate description of history of present illness and patient stated complaints should be deferred to this section of the note. Unless stated otherwise or congruent with this section of the note, additional signs, symptoms, or incongruence should be interpreted as inaccurate with my clinical impression. PFSH <LANETTE Green - Last Filed: 06/04/24 19:31> [facility] Disclaimer: The information contained in this section may have been updated after the patient was seen, as this information can be updated by other users. Medical History Smoking history Neuropathic pain Wheezing without diagnosis of asthma Family history of asthma Dyspnea Acute respiratory failure with hypoxia Cholecystitis Chronic headaches Depression Anxiety Rheumatoid arthritis Ankle sprain and strain Surgical History History of bilateral salpingectomy History of delivery History of cholecystectomy History of appendectomy History of hip surgery Family History Other Family history of COPD (chronic obstructive pulmonary disease) Family history of acute congestive heart failure Social History Smoking Status: Current every day smoker tobacco type: cigarettes packs per day: 1 second hand exposure: No alcohol intake: never substance use type: denies use current occupational status: unemployed Travel in the last 8 weeks: None household members: children housing: apartment number of children: 1 Have you lived/traveled outside US in past 30 days?: No Contact w/someone who lives/traveled outside US past 30 days?: No Exposure to someone with infectious disease in past 14 days?: No Do you have a fever (greater than 100.4 F or 38 C)?: No Have you tested positive for COVID-19: No Exposed to someone with COVID-19 in past 14 days?: No Do you have a sore throat?: No Do you have a cough?: No Do you have any weakness?: No Do you have any diarrhea?: No Are you experiencing any unusual bleeding?: No Do you have any muscle aches/pain?: No Do you have any abdominal pain?: No Are you experiencing loss of taste or smell?: No Other Medical History Have you received the Flu Vaccine for this season: No Have you received the Pneumonia Vaccine: No <LANETTE Green - Last Filed: 06/04/24 19:31> ROS Obtained: Yes Systems reviewed as appropriate & no additional complaints except as documented Physical Exam <LANETTE Green - Last Filed: 06/04/24 19:31> General General appearance: alert and in no apparent distress Head Head exam: atraumatic and normal inspection Eye Eye exam: Present normal appearance, PERRL and EOMI ENT ENT exam: Present normal exam, normal oropharynx and mucous membranes moist Neck Neck exam: Present normal inspection, full ROM and trachea midline; Absent lymphadenopathy Chest Chest inspection: Present normal inspection and symmetric chest wall rise Respiratory Respiratory exam: Present normal lung sounds bilaterally; Absent accessory muscle use Cardiovascular Cardiovascular exam: Present regular rate, normal rhythm, normal heart sounds, +S1 and +S2 Abdominal Exam Abdominal exam: Present soft and normal bowel sounds; Absent tenderness, guarding or rebound Extremities Exam Extremities exam: Present normal inspection and full ROM Neurological Exam Neurological exam: Present alert, oriented X3 and CN II-XII intact Psychiatric Psychiatric exam: Present normal affect and normal mood Skin Skin exam: Present warm, dry and normal color Lymphatic Lymphatic Findings: no adenopathy <Berny Whittington MD - Last Filed: 06/04/24 21:06> Extremities Exam Extremities exam: Present other (Tenderness and deformity left upper extremity at distal forearm and hand. Neurovascularly intact.) Medical Decision Making <LANETTE Green - Last Filed: 06/04/24 19:31> Medical Records Screening: Per USPSTF and CDC recommendations, given the prevalence of disease in our region, it is our hospital?s policy to screen for HIV and viral Hepatitis for all patients aged 18 and over and those with ongoing risk factors. Vital Signs: 06/04/24 19:10 06/04/24 20:25 Temperature 98.6 F Temperature Source Oral Pulse Rate [Left] 97 H Respiratory Rate 18 Blood Pressure 115/85 Blood Pressure [Right Arm] 128/71 Blood Pressure Mean [Right Arm] 90 02 Sat by Pulse Oximetry 96 96 Oxygen Delivery Method Room Air Room Air Orders (Tests/Meds): ED MEDICATIONS Discontinued Medications Generic Name Dose Route Start Last Admin Trade Name Emilia PRN Reason Stop Dose Admin Methocarbamol 1,500 mg 06/04/24 19:54 06/04/24 19:59 Methocarbamol 500mg Tablet PO 06/04/24 19:55 1,500 mg ONCE ONE Administration Oxycodone HCl 5 mg 06/04/24 19:54 06/04/24 19:59 Oxycodone 5mg Immediate Release Tablet PO 06/04/24 19:55 5 mg ONCE ONE Administration ORDERS Category Date Time Status Forearm XR left 2 views [XR forearm LT 2V] Stat Exams 06/04/24 19:18 Completed Hand XR left minimum 3 views [XR hand LT min 3V] Stat Exams 06/04/24 19:18 Completed Wrist XR left minimum 3 views [XR wrist LT min 3V] Stat Exams 06/04/24 19:18 Completed HIV Combo Routine Lab 06/04/24 19:35 Ordered Hepatitis C Ab Qual. W/ RFX Routine Lab 06/04/24 19:35 Ordered Medical Decision Narrative: In summary patient is a [age, sex] who presents to the emergency department for evaluation of [complaint]. Patient is [hemodynamically stable/unstable] upon arrival, [febrile/afebrile]. [Unremarkable physical exam, nonfocal exam versus focal remarkable exam]. Differential diagnosis includes [DDx]. Initial workup will be conducted with [hematologic labs, imaging, respiratory swab, describe workup]. Initial interventions include [crystalloid bolus, medications, p.o. challenge, etc.] initial workup reviewed by me [hematologic labs are remarkable for... Imaging remarkable for... Urinalysis remarkable for]. Upon repeat evaluation [patient had acceptable resolution of symptoms, had persistent pain for which additional interventions were conducted (describe interventions), tolerated p.o., was ambulatory, etc.]. Given this [patient is appropriate for discharge at this time and will be discharged with a prescription for... The case was discussed with hospital medicine regarding management and they will admit the patient their service for continued evaluation at this time... Etc.] Places where you can increase complexity: I informally interpreted the patient's chest x-ray or CT read and is remarkable for... Documenting what the pool table operator shows with rate and rhythm Consideration of test but deferring. Ex: I considered chest x-ray on this patient however given that they have no oxygen requirement and are clear to auscultation all lung rivera will be deferred. Social determinants of health: Given that patient is undomiciled increases complexity. Given that patient has polysubstance abuse compounds all aspects of care <Berny Whittington MD - Last Filed: 06/04/24 21:06> Medical Records Medical records reviewed: Yes I reviewed the patient's medical records. Kana Inquiry Pt receiving controlled substance: No Kana was queried for this patient: No Vital Signs: 06/04/24 19:10 06/04/24 20:25 Temperature 98.6 F Temperature Source Oral Pulse Rate [Left] 97 H Respiratory Rate 18 Blood Pressure 115/85 Blood Pressure [Right Arm] 128/71 Blood Pressure Mean [Right Arm] 90 02 Sat by Pulse Oximetry 96 96 Oxygen Delivery Method Room Air Room Air Orders (Tests/Meds): ED MEDICATIONS Discontinued Medications Generic Name Dose Route Start Last Admin Trade Name Charbelq PRN Reason Stop Dose Admin Methocarbamol 1,500 mg 06/04/24 19:54 06/04/24 19:59 Methocarbamol 500mg Tablet PO 06/04/24 19:55 1,500 mg ONCE ONE Administration Oxycodone HCl 5 mg 06/04/24 19:54 06/04/24 19:59 Oxycodone 5mg Immediate Release Tablet PO 06/04/24 19:55 5 mg ONCE ONE Administration ORDERS Category Date Time Status Forearm XR left 2 views [XR forearm LT 2V] Stat Exams 06/04/24 19:18 Completed Hand XR left minimum 3 views [XR hand LT min 3V] Stat Exams 06/04/24 19:18 Completed Wrist XR left minimum 3 views [XR wrist LT min 3V] Stat Exams 06/04/24 19:18 Completed HIV Combo Routine Lab 06/04/24 19:35 Ordered Hepatitis C Ab Qual. W/ RFX Routine Lab 06/04/24 19:35 Ordered Medical Decision Narrative: This is a 38-year-old female presenting with left upper extremity injury. Patient states that she was walking about 6 hours prior to this outside and slipped on the ice, caught her self on outstretched left upper extremity. [place] a crack and immediately had pain. Came in for further evaluation. Took Tylenol for it, still having significant pain. No numbness, weakness, tingling or any other trauma sustained. History was obtained via conversation with patient. On arrival, patient hemodynamically stable, alert, oriented x4, appropriate, GCS 15, moving all extremities spontaneously, pupils equal and reactive to light. Full physical exam performed and significant for well-appearing female who is in no acute distress, but left upper extremity is exquisitely tender at the distal forearm, wrist, palmar aspect at the thenar eminence. Essentially no wrist flexion or extension with significant swelling and hematoma lateral aspect of wrist ventrally just proximal to wrist. Hematoma at the thenar eminence as well. Neurovascularly intact. Differential includes fracture, dislocation, fracture dislocation, sprain, strain, among others. IV was placed out of concern for structural deformity that will need sedation and reduction as well as ease of pain medication administration. Attempted to give Zofran and Dilaudid, but multiple unsuccessful pokes, converted to oral meds as x-rays were obtained and independently interpreted. These were significant for triquetrum fracture in the carpal bones as well as distal radius fracture with minimal angulation and displacement. Patient splinted in sugar-tong splint. Because patient at baseline without signs or symptoms of clinical decompensation, deemed appropriate for discharge. Results were relayed to patient who voiced understanding and were agreeable to outpatient management and follow up. I discussed my clinical impression with patient and answered all questions. At this time, the evidence for any other entities in the differential is insufficient to warrant any further testing or ED observation. This was explained as well. Advisory was given that persistent or worsening symptoms require further evaluation. I confirmed the understanding of this discussion. Certified Neurodiagnostic Technologist disclaimer Much of this encounter note is an electronic numerical control nesting operator spoken language to printed text. Electronic numerical control nesting operator of the spoken language may permit errors. Although I have reviewed the note, some errors may still exist. Procedures <Berny Whittington MD - Last Filed: 06/04/24 21:06> Orthopedic Splinting/Casting Injury #1: Side: left Upper Extremity Injury Location: forearm and wrist Upper Extremity Immobilizer: sugar tong splint Post Cast/Splinting Neuro Status: intact and no change Post Cast/Splinting Vasc Status: intact and no change Critical Care <Berny Whittington MD - Last Filed: 06/04/24 21:06> Critical Care Time Critical Care Time: No
--- NOTE | 2024-06-04 19:18 | XR_ITS ---
PROCEDURE INFORMATION: Exam: XR Left Hand Exam date and time: 06/04/2024 7:30 PM Age: 38 years old Clinical indication: Injury or trauma; Fall; Sprain or strain; Arm, lower; Left; Additional info: Fall on ice left wrist pain TECHNIQUE: Imaging protocol: Radiologic exam of the left hand. Views: 3 or more views. COMPARISON: CR XR HAND LT MIN 3V 06/04/2024 7:30 PM FINDINGS: Bones/joints: Nondisplaced distal radius fracture with intra-articular extension into the radiocarpal joint. No additional fracture or dislocation. Rounded lucency in the waist of the scaphoid could be degenerative in nature. Soft tissues: Normal. IMPRESSION: Nondisplaced distal radius fracture with intra-articular extension into the radiocarpal joint. No additional fracture or dislocation
--- NOTE | 2024-06-04 19:18 | XR_ITS ---
PROCEDURE INFORMATION: Exam: XR Left Wrist Exam date and time: 06/04/2024 7:30 PM Age: 38 years old Clinical indication: Pain; Wrist; Left; Additional info: Fall on ice left wrist pain TECHNIQUE: Imaging protocol: Radiologic exam of the left wrist. Views: 3 or more views. COMPARISON: CR XR FOREARM LT 2V 06/04/2024 7:30 PM FINDINGS: Bones/joints: Nondisplaced distal radius fracture with intra-articular extension into the radiocarpal joint. No additional fracture or dislocation. Rounded lucency in the waist of the scaphoid could be degenerative in nature. Soft tissues: Normal. IMPRESSION: Nondisplaced distal radius fracture with intra-articular extension into the radiocarpal joint. No additional fracture or dislocation
--- NOTE | 2024-06-04 19:18 | XR_ITS ---
PROCEDURE INFORMATION: Exam: XR Left Forearm Exam date and time: 06/04/2024 7:30 PM Age: 38 years old Clinical indication: Pain; Wrist; Left; Additional info: Fall on ice left wrist pain TECHNIQUE: Imaging protocol: Radiologic exam of the left forearm. Views: 2 views. COMPARISON: CR XR FOREARM LT 2V 06/04/2024 7:30 PM FINDINGS: Bones/joints: Nondisplaced distal radius fracture with intra-articular extension into the radiocarpal joint. No additional fracture or dislocation. Rounded lucency in the waist of the scaphoid could be degenerative in nature. Soft tissues: Normal. IMPRESSION: Nondisplaced distal radius fracture with intra-articular extension into the radiocarpal joint. No additional fracture or dislocation
[2024-06-04] MEDS: METHOCARBAMOL 500MG TABLET 1500 MG PO (19:59)
[2024-06-04] MEDS: OXYCODONE 5MG IMMEDIATE RELEASE TABLET 5 MG PO ×2 (19:59→21:09)
[2024-06-04 20:25] VITALS: BP 115/85; O2SAT 96
[2024-06-04 21:12] VITALS: BP 120/77; PULSE 86; RESP 18; TEMP 36.6; O2SAT 98
[2024-06-04] MEDS: ACETAMINOPHEN 300MG W/CODEINE 30MG TAKE HOME PACK (6) 1 PACKET PO (21:12)
--- NOTE | 2024-06-04 21:25 | PC.NURSE ---
pt dc'd with slint to left arm. brisk cap refill noted to left digits, 2+ L sided radial pulses noted.
== END 2024-06-04 21:25 | disposition home or self-care (01) ==
PROVIDERS: Emergency Provider Emergency Medicine; PCP Nurse Practitioner Family
DX: S62.115A Nondisplaced fracture of triquetrum [cuneiform] bone, left wrist, initial encounter for closed fracture (principal); S52.502A Unspecified fracture of the lower end of left radius, initial encounter for closed fracture; M25.532 Pain in left wrist; F17.210 Nicotine dependence, cigarettes, uncomplicated; W00.0XXA Fall on same level due to ice and snow, initial encounter; Y93.89 Activity, other specified; Y92.9 Unspecified place or not applicable
CPT/HCPCS: 29125; 73090; 73110; 73130; 99283

== ENCOUNTER 2024-06-06 11:55 | Outpatient (CLI) | payer MEDICAID, SELFPAY ==
[2024-06-06 12:28] VITALS: BMI 34.0
[2024-06-06 12:39] LABS: Basophils % 0.3 % (0.1-2.0); Eosinophils # 0.3 K/mm3 (0.0-0.4); Eosinophils % 2.5 % (0.1-12.0); Hemoglobin 13.6 g/dL (12.2-16.2); Lymphocytes # 2.4 K/mm3 (0.7-4.5); Lymphocytes % 17.3 % (10-50); Mean Corpuscular HGB Conc 33.2 g/dL (31.8-35.4); Mean Corpuscular Hemoglobin 29.2 pg (27.0-31.2); Mean Platelet Volume 10.4 fl (7.4-10.4); Monocytes # 0.5 K/mm3 (0.1-1.0); Monocytes % 3.7 % (1.7-9.3); Neutrophils # 10.4 K/mm3 (1.8-7.8); Neutrophils % 75.9 % (37.0-80.0); Platelet Count 256 K/mm3 (142-424); Red Blood Count 4.66 M/mm3 (4.20-5.40); Red Cell Distribution Width 14.1 % (11.5-17.5); White Blood Count 13.7 K/mm3 (4.8-10.8)
[2024-06-06 12:53] LABS: Chloride 103 mmol/L (98-107); Potassium 3.9 mmoL/L (3.5-5.1); Sodium 137 mmol/L (136-145)
[2024-06-06 12:56] LABS: Anion Gap 8.9 mEq/L (5-15); Blood Urea Nitrogen 12 mg/dl (7-17); Carbon Dioxide 29 mmol/L (22.0-30.0); Creatinine Clearance Estimated 143 mL/min (50-200); Estimated Glomerular Filt Rate 95 ml/min (>60); GFR (African American) 115 ML/MIN (>60)
[2024-06-06 12:57] LABS: Calcium 8.8 mg/dl (8.4-10.2); Glucose 119 mg/dl (74-100)
[2024-06-06 13:11] LABS: HCG Qualitative, Serum Negative (Negative)
== END 2024-06-06 23:59 | disposition home or self-care (01) ==
LOC: PREOP 11:56
PROVIDERS: Nurse Anesthetist, Certified Registered; PCP Nurse Practitioner Family; Visit Provider Orthopaedic Surgery
DX: Z01.812 Encounter for preprocedural laboratory examination (principal)
CPT/HCPCS: 80048; 84703; 85025

== ENCOUNTER 2024-06-13 07:46 | Day surgery (SDC) | payer MEDICAID, SELFPAY ==
[2024-06-06 14:03] VITALS: BMI 34.0
[2024-06-13] VITALS (12 sets, daily range): BP systolic 105–143; BP diastolic 61–92; PULSE 89–123; RESP 16–22; TEMP 36.5–38; O2SAT 92–100
[2024-06-13] MEDS: LACTATED RINGERS 1000ML 1,000 ML 100 ML IV (08:18)
--- NOTE | 2024-06-13 08:22 | P.PNANES_ITS ---
[facility] Disclaimer: The information contained in this section may have been updated after the patient was seen, as this information can be updated by other users. Medical History Smoking history Neuropathic pain Wheezing without diagnosis of asthma Family history of asthma Dyspnea Acute respiratory failure with hypoxia Cholecystitis Chronic headaches Depression Anxiety Rheumatoid arthritis Ankle sprain and strain Surgical History History of bilateral salpingectomy History of delivery History of cholecystectomy History of appendectomy History of hip surgery Family History Other Family history of COPD (chronic obstructive pulmonary disease) Family history of acute congestive heart failure Social History Smoking Status: Current every day smoker tobacco type: cigarettes packs per day: 1 second hand exposure: No alcohol intake: never substance use type: denies use current occupational status: unemployed Travel in the last 8 weeks: None household members: children housing: apartment number of children: 1 Have you lived/traveled outside US in past 30 days?: No Contact w/someone who lives/traveled outside US past 30 days?: No Exposure to someone with infectious disease in past 14 days?: No Do you have a fever (greater than 100.4 F or 38 C)?: No Have you tested positive for COVID-19: No Exposed to someone with COVID-19 in past 14 days?: No Do you have a sore throat?: No Do you have a cough?: No Do you have any weakness?: No Do you have any diarrhea?: No Are you experiencing any unusual bleeding?: No Do you have any muscle aches/pain?: No Do you have any abdominal pain?: No Are you experiencing loss of taste or smell?: No [facility] Anesthesia Checklist Patient Identification Patient Identification: Arm Band Structural Data Admitted From: Home Planned Operative Procedure/s: ORIF Left Wrist Consent for Planned Operative Procedure(s) Verified: Yes Verified Documents: Surgical Consent and History and Physical NPO Status Verified Time NPO: 00:00 Additional verifications Anesthesia Reactions: No Hx Blood Transfusions: No Blood Transfusion Reaction: No Airway Assessment Mallampati Score:: Class II C-Spine Mobility Assessed: Yes TMJ Mobility Assessed: Yes Dentition: Good Dentition Neurological Assessment Level of Consciousness: Awake, Alert and Appropriate Anesthesia Plan Anesthesia Risk discussed: Yes Anesthesia Plan: Verified ASA Class: II Anesthesia Type: General w/block (Left Supraclavicular Nerve Block. Risks/terry efits explained. Pt verbalized understanding)
[2024-06-13] MEDS: CEFAZOLIN SODIUM 2 GM in 0.9 % SODIUM CHLORIDE 100 ML IV (09:38)
--- NOTE | 2024-06-13 11:13 | XR_ITS ---
FINAL REPORT CLINICAL HISTORY: LT WRIST ORIF FT: 0:50 1.27 MGY FINDINGS: FLUOROSCOPY LESS THAN 1 HOUR HISTORY: FINDINGS: Fluoroscopic guidance was provided for ORIF left distal radius. 2 spot films were obtained. 50 seconds of fluoroscopy time were used, with a dosage of 1.27 mGy. IMPRESSION: As above. Reviewed, Interpreted and Dictated by Casa Conner MD Transcribed by Alexus Leonard Authenticated and [facility]
--- NOTE | 2024-06-13 11:27 | EXP.OP.NOTE ---
Date of procedure: 06/13/24 Pre-op Diagnosis:: Left distal radius fracture intra-articular 3 part Post-op Diagnosis:: Same Procedure performed:: Open reduction internal fixation left distal radius fracture intra-articular 3 part with volar plating Surgeon:: Bunny Araiza DO Web Application Dev Specialist(s):: Tom GREEN DIGITAL SALES DIRECTOR:: Other (Rafferty. Suazo) Anesthesia: GETA and regional Estimated blood loss (mL): 0 Clinical Note:: Implants Synthes distal radius volar plating Operative findings:: See dictation Operative note:: Patient identified preoperatively. Left wrist marked with yes my initials. Underwent a peripheral block with anesthesia. Taken to the operating room placed bilaterally in bed. General anesthesia administered airway secured. Left upper extremity prepped and draped in normal sterile fashion. Once prepped and draped final operative timeout performed to identify proper patient procedure and extremity. Everyone involved in the case agreed. There is no counter indications beginning. Did receive preoperative antibiotics. Marking pen was used to husam plan incision over the volar wrist radial artery was also marked. Esmarch was used to exsanguinate the extremity pneumatic tourniquet inflated to 250 mmHg. Skin knife is used incise the skin dissection is taken down to identify the FCR tendon FCR tendon sheath was opened. This was retracted radially throughout the procedure protect the radial artery. Floor the FCR was opened. Retractor was placed. Pronator quadratus was then cut in L-type fashion off the distal radius. And retractors were placed. Fracture site was encountered. Fracture site was cleaned reduction maneuver with traction index middle finger performed [place] elevator was used to anatomically reduce the distal radius on the volar aspect. This was plantarly fixated and held with a K wire across the fracture site. X-ray was brought in to identify proper alignment. The volar plate was selected from the Synthes volar plate set. This was placed in the position to give the most fixation and stability across the fracture site. Held temporarily with a K wire cortical screw was placed followed by all the distal locking screws in the position and configuration across the fracture site with the most ability. Once this complete additional locking screws placed in the shaft. X-rays were taken AP lateral bleak views. Able to restore to her natural radial height and natural volar inclination. Range of motion of the wrist was full passively. Irrigation wound performed. Deep layers closed with Vicryl skin closed with nylon stitch sterile dressing placed with a volar wrist splint. Patient waken anesthesia taken recovery stable condition. Condition: stable Disposition: PACU Complications:: None apparent
[2024-06-13] MEDS: METHADONE 10MG TABLET 40 MG PO (11:50)
[2024-06-13] MEDS: ACETAMINOPHEN 1,000 MG/100 ML ML 400 MG IV (11:50)
--- NOTE | 2024-06-13 11:53 | EXP.ANES.I ---
[facility] Anesthesia Record Part I Anesthesia Record I Intake, IV Amount: 650 Hydration: Adequate Estimated blood loss (mL): 0 Urine output (mL): 0 Blood Products used (#): none Blood Pressure: 120/85 SaO2: 100 Pulse Rate: 99 Airway Patency: Patent Respiratory Rate: 18 Temperature: 97.7 F Patient is:: Awake Stable to PACU at:: 11:38
[2024-06-13] MEDS: HYDROMORPHONE 2MG/ML SYRINGE 0.5 MG IV ×4 (12:03→12:19)
--- NOTE | 2024-06-13 15:45 | EXP.ANES.II ---
[facility] Anesthesia Record Part II Anesthesia Record Part II Discharge Time: 12:18 Destination: Surgical Day Care (OP Surgery) PACU nurse assessment reviewed?: Yes Patient Condition:: Good Anesthesia Complications:: None Swallowing reflex intact?: Yes Airway Patency: Patent Cyanosis?: No Blood Pressure: 124/79 SaO2: 95 Respiratory Rate: 18 Pulse Rate: 95 Temperature: 98 F Mental Status: Alert & Oriented Pain level:: 6 Nausea and/or vomitting:: None Intake, IV Amount: 0 Hydration: Adequate
== END 2024-06-13 12:50 | disposition home or self-care (01) ==
PROVIDERS: PCP Nurse Practitioner Family; Visit Provider Orthopaedic Surgery
PROC: (CPT 25609; principal; 2024-06-13 09:45)
DX: S52.572A Other intraarticular fracture of lower end of left radius, initial encounter for closed fracture (principal); W19.XXXA Unspecified fall, initial encounter
CPT/HCPCS: 25609; 73100; 76000; 96374; C1713; C1776; J0131; J0690; J1100; J1171; J2250; J2405; J3010; J7120

== ENCOUNTER 2024-07-01 09:53 | Outpatient (CLI) | payer MEDICAID, SELFPAY ==
--- NOTE | 2024-07-01 09:56 | XR_ITS ---
FINAL REPORT TECHNIQUE: 3 views left wrist CLINICAL HISTORY: Left wrist ORIF..PAIN COMPARISON: 06/13/2024 FINDINGS: LEFT WRIST THREE VIEW FINDINGS: Three views demonstrate post-ORIF changes of the distal radius. The hardware is stable in appearance since the intraoperative exam. The fracture line is slightly obscured but no displacement is identified. The joint spaces appear normal. IMPRESSION: Post-ORIF changes of the distal radius, stable in appearance since the prior intraoperative exam. Reviewed, Interpreted and Dictated by Casa Conner MD Transcribed by Alexus Leonard Authenticated and [facility]
== END 2024-07-01 23:59 | disposition home or self-care (01) ==
LOC: RAD 09:54
PROVIDERS: PCP Nurse Practitioner Family; Visit Provider Orthopaedic Surgery
DX: M25.532 Pain in left wrist (principal); S52.532A Colles' fracture of left radius, initial encounter for closed fracture
CPT/HCPCS: 73110

== ENCOUNTER 2024-08-13 11:38 | Outpatient (CLI) | payer MEDICAID, SELFPAY ==
[2024-08-13 12:25] LABS: Basophils # 0.1 K/mm3 (0-0.2); Basophils % 0.8 % (0.1-2.0); Eosinophils # 0.4 Kmm3 (0.0-0.4); Eosinophils % 5.9 % (0.1-12.0); Hematocrit 45.7 % (37.0-47.0); Hemoglobin 15.1 g/dL (12.2-16.2); Lymphocytes % 32.8 % (10-50); Mean Corpuscular Hemoglobin 28.6 pg (27.0-31.2); Mean Corpuscular Volume 86.6 fl (81-99); Mean Platelet Volume 10.5 fl (7.4-10.4); Monocytes # 0.4 K/mm3 (0.1-1.0); Monocytes % 5.9 % (1.7-9.3); Neutrophils # 3.3 K/mm3 (1.8-7.8); Neutrophils % 54.6 % (37.0-80.0); Nucleated Red Blood Cells # 0 10^3/uL; Nucleated Red Blood Cells % 0 %; Platelet Count 357 K/mm3 (142-424); Red Blood Count 5.28 M/mm3 (4.20-5.40); Red Cell Distribution Width 14.2 % (11.5-17.5); Red Cell Distribution Width-SD 44.7 fL; White Blood Count 6.1 K/mm3 (4.8-10.8)
[2024-08-13 12:40] LABS: Albumin Level 4.3 g/dl (3.5-5.0); Chloride 105 mmol/L (98-107); Potassium 4.5 mmoL/L (3.5-5.1); Sodium 139 mmol/L (136-145)
[2024-08-13 12:43] LABS: Alanine Aminotransferase 19 U/L (12-78); Albumin/Globulin Ratio 1.4 (1.1-1.8); Alkaline Phosphatase 88 U/L (38-126); Anion Gap 9.5 mEq/L (5-15); Aspartate Amino Transferase 26 U/L (14-36); Bilirubin,Total 0.4 mg/dl (0.2-1.3); Blood Urea Nitrogen 14 mg/dl (7-17); Calcium 9.8 mg/dl (8.4-10.2); Carbon Dioxide 29 mmol/L (22.0-30.0); Estimated Glomerular Filt Rate 81 ml/min (>60); GFR (African American) 98 ML/MIN (>60); Glucose 114 mg/dl (74-100); Total Protein,Serum 7.3 g/dl (6.3-8.2)
[2024-08-13 13:25] LABS: HIV Combo NEGATIVE (Negative)
[2024-08-13 13:32] LABS: Hepatitis C Ab Qual. W/ RFX REACTIVE (Negative)
[2024-08-14 07:07] LABS: RPR W/RFX Titers Nonreactive (Nonreactive)
[2024-08-14 07:38] LABS: Hep B Surface Ab, Qual Reactive (.); Hepatitis B Surface Antigen Negative (Negative)
[2024-08-15 22:02] LABS: QuantiFERON-TB Gold Plus Negative (Negative)
== END 2024-08-13 23:59 | disposition home or self-care (01) ==
LOC: LAB 11:39
PROVIDERS: PCP Nurse Practitioner Family; Visit Provider Nurse Practitioner Family
DX: F11.20 Opioid dependence, uncomplicated (principal); F17.210 Nicotine dependence, cigarettes, uncomplicated
CPT/HCPCS: 36415; 80053; 85025; 86480; 86592; 86706; 86803; 87340; 87389; 87522